=== PATIENT | male | born 1950 | race Caucasian/White ===

== ENCOUNTER 2020-11-04 11:44 | Outpatient (REF) | payer MEDICARE, OTHER, SELFPAY ==
--- NOTE | ~2020-11-04 | XR_ITS ---
EXAMINATION: XR KNEE, RIGHT CLINICAL INFORMATION: Effusion right knee COMPARISON: None TECHNIQUE: Four views of the right knee. FINDINGS: There is loss of tricompartment joint space. No loose bodies or bony erosive changes seen. This is mild suprapatellar joint effusion acute fracture or dislocation seen. XR/XR knee RT 4V IMPRESSION: Mild suprapatellar joint effusion with degenerative changes in the tricompartments. No loose bodies or bony erosive changes.
== END 2020-11-04 11:45 | disposition home or self-care (01) ==
LOC: HO.XRAY 11:44
PROVIDERS: PCP Family Medicine; Visit Provider Family Medicine
DX: M25.461 Effusion, right knee (principal); M25.561 Pain in right knee
CPT/HCPCS: 73564

== ENCOUNTER → 2020-11-20 14:14 | Outpatient (BNVA) | payer MEDICARE, MEDICAID, SELFPAY | PROVIDERS: PCP Family Medicine; Referring Provider Family Medicine; Visit Provider Surgery | DX: Z85.038 Personal history of other malignant neoplasm of large intestine (principal) | CPT/HCPCS: 99212 ==

== ENCOUNTER 2020-12-20 08:22 | Day surgery (SDC) | payer MEDICARE, MEDICAID, SELFPAY ==
--- NOTE | 2020-12-19 08:45 | HO.ANESPROP2 ---
Documented by User: Opal Cid 12/19/20 08:48 HPI - Anesthesia Eval Consult details Narrative: 70yo M for Colonoscopy, Poss Polypectomy PMFSH Active Problems Active Problems: All Active Problems (Updated 11/20/20 @ 14:36 by Mitch Lopez MD) History of colon cancer (Acute) Past Medical History Medical History BPH (benign prostatic hyperplasia) CKD (chronic kidney disease) Depression GERD (gastroesophageal reflux disease) History of colon cancer HTN (hypertension) REJI (obstructive sleep apnea) Surgical History Surgical History H/O parathyroidectomy Social History Social History Patient Tobacco Use Status: Never used Tobacco Use of substances other than those prescribed or required for medical reasons: No Have you been hit, kicked, punched, or otherwise hurt by someone within the past year? If so, by whom?: No Are you DNR?: No Advance Directives: No Advance Directives Information Provided: Yes Nutrition Risks: No Nutritional Risk Meds Allergies Allergy/AdvReac Type Severity Reaction Status Date / Time No Known Allergies Allergy Mild N/A Verified 11/20/20 14:21 Home Medications Medication Instructions Recorded Confirmed Last Taken Type acetaminophen 500 mg tablet 500 mg PO Q6H PRN 11/20/20 11/20/20 Unknown History cholecalciferol (vitamin D3) 25 25 mcg PO QAM 11/20/20 11/20/20 Unknown History mcg (1,000 unit) capsule losartan 100 mg tablet 100 mg PO DAILY 11/20/20 11/20/20 Unknown History omeprazole 20 mg capsule,delayed 20 mg PO DAILY 11/20/20 11/20/20 Unknown History release sildenafil 100 mg tablet 100 mg PO DAILY PRN 11/20/20 11/20/20 Unknown History Exam Exam Date and Time: December 19, 202045 Assessment and Plan Assessment Anesthesia Assessment: Chart Reviewed Documented by User: Erendira Luong 12/20/20 08:39 [facility] Past Medical History Medical History BPH (benign prostatic hyperplasia) CKD (chronic kidney disease) Depression GERD (gastroesophageal reflux disease) History of colon cancer HTN (hypertension) REJI (obstructive sleep apnea) Family History Family history of problems with anesthesia: No Surgical History Surgical History H/O parathyroidectomy History of Problems with Anesthesia: No Social History Social History Patient Tobacco Use Status: Never used Tobacco Use of substances other than those prescribed or required for medical reasons: No Have you been hit, kicked, punched, or otherwise hurt by someone within the past year? If so, by whom?: No Are you DNR?: No Advance Directives: No Advance Directives Information Provided: Yes Nutrition Risks: No Nutritional Risk Meds Allergies Allergy/AdvReac Type Severity Reaction Status Date / Time No Known Allergies Allergy Mild N/A Verified 11/20/20 14:21 Home Medications Medication Instructions Recorded Confirmed Last Taken Type acetaminophen 500 mg tablet 500 mg PO Q6H PRN 11/20/20 11/20/20 Unknown History cholecalciferol (vitamin D3) 25 25 mcg PO QAM 11/20/20 11/20/20 Unknown History mcg (1,000 unit) capsule losartan 100 mg tablet 100 mg PO DAILY 11/20/20 11/20/20 Unknown History omeprazole 20 mg capsule,delayed 20 mg PO DAILY 11/20/20 11/20/20 Unknown History release sildenafil 100 mg tablet 100 mg PO DAILY PRN 11/20/20 11/20/20 Unknown History Exam Airway Mallampati Class: II TM Dist: >3cm Neck ROM: Full Assessment and Plan Assessment Anesthesia Assessment: Anesthesia Plan Discussed Final Anesthetic Review Family History of Problems with Anesthesia: No History of Problems with Anesthesia: No NPO: Yes ASA Class: III Final Preanesthetic Review: No Changes in Pt Med Stat, Meds/Allgs Chart Reviewed, Consent Obtained/Reviewed and Anes Risks/Benef Reviewed Patient Risk: Intermediate Procedure Risk: Low Assessment/Block/Sedation in SS: Assess/Block/Sedation-SS Anesthetic Plan Anesthetic Plan: MAC: Disposition: Standard PACU
[2020-12-20 06:34] VITALS: BMI 38.7
[2020-12-20 08:24] VITALS: BP 166/87; PULSE 64; RESP 18; TEMP 36.9; O2SAT 98
--- NOTE | 2020-12-20 08:36 | MHC.SHP ---
Pre-Procedural Eval Section A Date of Service: 12/20/20 Section B Chief Complaint: Hx of Colon Cancer Allergies: Allergies Allergy/AdvReac Type Severity Reaction Status Date / Time No Known Allergies Allergy Mild N/A Verified 11/20/20 14:21 Plan I have reviewed the history and physical and performed a pertinent physical examination on my patient. No changes have occurred unless specified.
[2020-12-20] MEDS: Lactated Ringers 1,000 ML 100 ML IVCONT (08:38)
--- NOTE | 2020-12-20 09:40 | P.OP_ITS ---
Operative Note Operative Note Date of Service: 12/20/20 Narrative: Preop diagnosis: History of malignant rectal polyp Postop diagnosis: 1. Small flat polyp in the cecum near the cecal lip , about 7 mm 2. Large polyp, about 2 cm in diameter, in the mid right colon 3. External hemorrhoids Procedure: Colonoscopy with polypectomy of a small polyp in the cecum with biopsy forceps, biopsy of a large polyp in the right colon with tattoo marking Surgeon: Mitch Lopez MD The patient is a 70-year-old male who had a history of malignant rectal polyp in 2019, who I had scheduled for a follow-up colonoscopy. He had missed his colo noscopy last year because of the coronavirus pandemic. He understands the technique of colonoscopy as well as the risks, benefits, and alternatives. He was brought to the operating room placed in left lateral decubitus position under monitored anesthesia care. A full digital rectal was done. Aside from external hemorrhoids, I did not feel any palpable lesions. I inserted the scope gently through the anal orifice advanced with insufflation all with the cecum. The cecum was intubated. The was cecum identified by visualization of the ileocecal valve as well as the appendiceal orifice. The cecal mucosa examined carefully. In the cecal lip was note of a small flat polyp about 7 mm in size and this was removed with multiple bites of the cold forceps We withdraw the scope gently there was note of a large polyp about 2 cm in the mid part of the right colon. Biopsies of this were done with the cold forceps. I also marked the area with tattoo markings injected submucosally. I then proceeded to withdraw the scope with care being taken so as to ensure that we were not missing any lesions. The patient had some says pools of thin stools in some segments and do some irrigation and suctioning it was unlikely that any lesion may have been missed Rectum was reached. I made multiple passes in the rectum and sigmoid and I could not identify any recurrent lesion or any suggestion of any residual lesion. The anal canal was examined carefully. There was note of external hemorrhoids but no other lesions seen. The scope was then withdrawn completely with desufflation The patient tolerated procedure well. The complication noted I will await for the path report and decide on the next plan of care. I may attempt a colonoscopy with removal of the polyp with snare if this turns out to be benign. Otherwise, he may need a resection of the right colon.
[2020-12-20 09:46] VITALS: BP 129/74; PULSE 76; RESP 16; TEMP 36.7; O2SAT 99
--- NOTE | 2020-12-20 09:46 | PM.OP ---
Brief Operative Note Date of Service: 12/20/20 Pre-op diagnosis: History of malignant rectal polyp Post-op diagnosis: other (Small polyp in the cecum, large polyp in the right colon, hemorrhoids) Procedure: Colonoscopy with polypectomy using cold forceps, biopsy of the right colon polyp using cold forceps, tattoo markings Surgeon: Mitch Lopez MD Anesthesia: MAC Was an Retail Loss Prevention Specialist used for this Procedure?: No Estimated blood loss (mL): 2 Pathology: other (1. Cecal polyp 2. Right colon polyp ) Condition: stable Disposition: PACU
[2020-12-20 10:04] VITALS: BP 144/92; PULSE 71; RESP 18; TEMP 36.7; O2SAT 98
== END 2020-12-20 11:43 | disposition home or self-care (01) ==
PROVIDERS: PCP Family Medicine; Visit Provider Surgery
PROC: 0DJD8ZZ Inspection of Lower Intestinal Tract, Via Natural or Artificial Opening Endoscopic (ICD-10-PCS; CPT 45378; principal; 2020-12-20 09:20)
DX: Z12.11 Encounter for screening for malignant neoplasm of colon (principal); Z85.038 Personal history of other malignant neoplasm of large intestine; C18.2 Malignant neoplasm of ascending colon; D12.0 Benign neoplasm of cecum; K64.8 Other hemorrhoids; K64.4 Residual hemorrhoidal skin tags; I12.9 Hypertensive chronic kidney disease with stage 1 through stage 4 chronic kidney disease, or unspecified chronic kidney disease; N18.9 Chronic kidney disease, unspecified; K21.9 Gastro-esophageal reflux disease without esophagitis; N40.0 Benign prostatic hyperplasia without lower urinary tract symptoms; G47.33 Obstructive sleep apnea (adult) (pediatric); Z79.899 Other long term (current) drug therapy
CPT/HCPCS: 45380; 45381; 88305

== ENCOUNTER → 2021-01-01 13:07 | Outpatient (BNVA) | payer MEDICARE, MEDICAID, SELFPAY | PROVIDERS: PCP Family Medicine; Referring Provider Family Medicine; Visit Provider Surgery | DX: C18.2 Malignant neoplasm of ascending colon (principal) | CPT/HCPCS: 99212 ==

== ENCOUNTER 2021-01-17 13:54 | Outpatient (REF) | payer MEDICARE, MEDICAID, SELFPAY ==
[2021-01-17 14:39] LABS: Blood Urea Nitrogen 11 mg/dL (9-16); Estimated Glomerular Filt Rate 54
== END 2021-01-17 13:55 | disposition home or self-care (01) ==
LOC: HO.LAB 13:54
PROVIDERS: PCP Family Medicine; Visit Provider Surgery
DX: C18.2 Malignant neoplasm of ascending colon (principal)
CPT/HCPCS: 36415; 82565; 84520

== ENCOUNTER 2021-01-21 | Outpatient (REF) | payer MEDICARE, MEDICAID, SELFPAY ==
--- NOTE | 2021-01-21 | ECG_ITS ---
Test Reason : CKD, REJI Blood Pressure : / mmHG Vent. Rate : 079 BPM Atrial Rate : 079 BPM P-R Int : 180 ms QRS Dur : 106 ms QT Int : 432 ms P-R-T Axes : 054 -36 014 degrees QTc Int : 495 ms Sinus rhythm with frequent Premature ventricular complexes Left axis deviation Moderate voltage criteria for LVH, may be normal variant Cannot rule out Septal infarct , age undetermined Abnormal ECG When compared with ECG of 12-NOV-2008 14:50, Aberrant conduction is no longer Present Minimal criteria for Septal infarct are now Present Nonspecific T wave abnormality now evident in Lateral leads QT has lengthened Referred By: Opal Cid Electronically Signed By:JEFFREY AGUIAR
--- NOTE | 2021-01-21 11:59 | HO.ANESPROP2 ---
HPI - Anesthesia Eval Consult details Narrative: PENDING CARDIAC W/U AND CLEAR 70yo M for Hand Assisted Laparoscopic Bowel Resection s/p Colonoscopy with MAC 12/21/20 - no issues with anesthesia 01/21/21 EKG Abnormal. Cardiac clearance requested via Gen surgeon learning administrator, Estefania 01/22/21 @ 1350 01/24/21 Echo abnormal - Pt scheduled for stress test [facility] Active Problems Active Problems: All Active Problems (Updated 01/01/21 @ 13:59 by Mitch Lopez MD) Cancer of right colon (Acute) History of colon cancer (Acute) Past Medical History Medical History (Updated 01/27/21 @ 14:52 by Gaetano Graves MD) Anxiety and depression Arthritis BPH (benign prostatic hyperplasia) Cancer of right colon CKD (chronic kidney disease) COVID-19 vaccine series completed Depression GERD (gastroesophageal reflux disease) Headache History of colon cancer HTN (hypertension) Hx of renal calculi REJI (obstructive sleep apnea) Family History Family history of problems with anesthesia: No (Sister with hx of post-op delerium) Surgical History Surgical History (Updated 01/21/21 @ 12:52 by Barbara Franklin, RN) H/O parathyroidectomy History of colonoscopy History of cystoscopy Hx of lithotripsy History of Problems with Anesthesia: No Social History Social History (Updated 01/21/21 @ 12:50 by Barbara Franklin, RN) Are you a primary career development director to a significant other at home: No Do you presently have visiting nurse or other home services: No Patient Tobacco Use Status: Never used Tobacco Narrative Narrative: No recent illness No CP/SOB with walking. Limited by knee pain Meds Allergies Allergy/AdvReac Type Severity Reaction Status Date / Time No Known Allergies Allergy Mild N/A Verified 01/21/21 12:56 Home Medications Medication Instructions Recorded Confirmed Last Taken Type acetaminophen 500 mg tablet 500 mg PO Q6H PRN 11/20/20 01/01/21 Unknown History cholecalciferol (vitamin D3) 25 25 mcg PO QAM 11/20/20 01/01/21 Unknown History mcg (1,000 unit) capsule losartan 100 mg tablet 100 mg PO DAILY 11/20/20 01/21/21 Unknown History omeprazole 20 mg capsule,delayed 20 mg PO DAILY PRN 11/20/20 01/21/21 Unknown History release sildenafil 100 mg tablet 100 mg PO DAILY PRN 11/20/20 01/01/21 Unknown History amlodipine 10 mg tablet 1 tab PO QAM 01/21/21 01/21/21 Unknown History carvedilol 6.25 mg tablet 1 tab PO BID 01/21/21 01/21/21 Unknown History Exam Exam Date and Time: January 21, 2021 1159 Pertinent Lab Results Pertinent Lab Results: Lab Results 01/21/21 01/21/21 01/21/21 Range/Units 13:55 13:55 13:55 WBC 5.3 (4.8-10.8) X10*3/uL RBC 4.85 (4.60-5.80) X10*6/uL Hgb 13.8 L (14.0-18.0) g/dl Hct 42.2 (42-52) % MCV 87.0 (80-98) fL MCH 28.5 (27.0-33.0) pg MCHC 32.7 (31.0-36.0) g/dl RDW 13.1 (11.0-16.0) % Plt Count 225 (160-400) X10*3/uL MPV 11.7 (9.4-12.4) fL Absolute Nucleated RBC 0.000 (0.0-0.012) X10*3/uL Nucleated RBC % (auto) 0.0 (0.0-0.2) /100WBC Sodium 141 (135-145) mmol/L Potassium 3.5 (3.3-5.1) mmol/L Chloride 104 (96-108) mmol/L Carbon Dioxide 28 (22-29) mmol/L Anion Gap 13 (12-20) BUN 13 (9-16) mg/dL Creatinine 1.19 (0.5-1.4) mg/dL Estim Creat Clear Calc 80.9 Estimated GFR > 60 Random Glucose 122 H (60-115) mg/dL Calcium 9.0 (8.4-10.2) mg/dL Blood Type O Positive Antibody Screen NEGATIVE Narrative Narrative: EKG 12/2020 Vent. Rate : 079 BPM ? ? Atrial Rate : 079 BPM ?? P-R Int : 180 ms? QRS Dur : 106 ms ? ? QT Int : 432 ms ? ? ? P-R-T Axes : 054 -36 014 degrees ?? QTc Int : 495 ms ? Sinus rhythm with frequent Premature ventricular complexes Left axis deviation Moderate voltage criteria for LVH, may be normal variant Cannot rule out Septal infarct , age undetermined Abnormal ECG When compared with ECG of 12-NOV-2008 14:50, Aberrant conduction is no longer Present Minimal criteria for Septal infarct are now Present Nonspecific T wave abnormality now evident in Lateral leads QT has lengthened Echo 01/2021 Conclusions: -? 1. Mildly to moderately reduced LV systolic function with ? ? inferior inferoseptal wall motion abnormality with impaired? ? ? relaxation filling pattern ? 2. Trace aortic and mitral regurgitation ? 3. Normal RV systolic pressure ? 4. No pericardial effusion ? Airway Mallampati Class: III TM Dist: >3cm Neck ROM: Full Partial: Upper Heart: RRR Lungs: CTAB Assessment and Plan Assessment Anesthesia Assessment: Anesthesia Plan Discussed and PAT Visit Final Anesthetic Review Family History of Problems with Anesthesia: No (Sister with hx of post-op delerium) History of Problems with Anesthesia: No
[2021-01-21 12:18] VITALS: BP 147/62; PULSE 71; RESP 16; O2SAT 98; BMI 39.3
[2021-01-21 14:28] LABS: Hematocrit 42.2 % (42-52); Hemoglobin 13.8 g/dl (14.0-18.0); Mean Corpuscular HGB Conc 32.7 g/dl (31.0-36.0); Mean Corpuscular Hemoglobin 28.5 pg (27.0-33.0); Mean Platelet Volume 11.7 fL (9.4-12.4); Platelet Count 225 X10*3/uL (160-400); Red Blood Count 4.85 X10*6/uL (4.60-5.80); Red Cell Distribution Width 13.1 % (11.0-16.0); White Blood Count 5.3 X10*3/uL (4.8-10.8)
[2021-01-21 14:56] LABS: Anion Gap 13 (12-20); Blood Urea Nitrogen 13 mg/dL (9-16); Carbon Dioxide 28 mmol/L (22-29); Chloride 104 mmol/L (96-108); Creatinine Clr Calc Pharmacy 80.9; Estimated Glomerular Filt Rate > 60; Glucose Random 122 mg/dL (60-115); Potassium 3.5 mmol/L (3.3-5.1); Sodium 141 mmol/L (135-145)
--- NOTE | 2021-01-28 07:18 | PC.NURSE ---
pt canceled himself last night spoke to dr trevino everyone aware
== END 2021-01-21 00:01 | disposition home or self-care (01) ==
LOC: HO.LAB
PROVIDERS: Nurse Practitioner; PCP Family Medicine; Visit Provider Surgery
DX: Z01.810 Encounter for preprocedural cardiovascular examination (principal); C18.2 Malignant neoplasm of ascending colon; G47.30 Sleep apnea, unspecified; G47.33 Obstructive sleep apnea (adult) (pediatric); I49.3 Ventricular premature depolarization; I45.81 Long QT syndrome; I12.9 Hypertensive chronic kidney disease with stage 1 through stage 4 chronic kidney disease, or unspecified chronic kidney disease; N18.9 Chronic kidney disease, unspecified; F41.8 Other specified anxiety disorders; Z79.899 Other long term (current) drug therapy
CPT/HCPCS: 36415; 80048; 85027; 86850; 86900; 86901; 93005

== ENCOUNTER 2021-01-23 08:23 | Outpatient (REF) | payer MEDICARE, MEDICAID, SELFPAY ==
--- NOTE | ~2021-01-23 | CT_ITS ---
EXAMINATION: CT ABDOMEN AND PELVIS WITH CONTRAST CLINICAL INFORMATION: Malignant neoplasm of the ascending colon. COMPARISON: 09/22/2018 TECHNIQUE: Multidetector volumetric images were obtained from the superior aspect of the liver through the pubic symphysis following administration 85 mL of Omnipaque 350 intravenous contrast. Sagittal and coronal reformatted images were obtained on the technologist's workstation. Oral contrast: No. This CT examination was performed using dose optimization techniques as appropriate, variously including the following: *Automated exposure control *Adjustment of mA and/or kV according to patient size (this includes techniques or standardized protocols for targeted exams where dose is matched to indication/reason for exam; i.e. extremities or head) *Use of iterative reconstruction technique DLP: 663 mGy-cm FINDINGS: LUNG BASES: There is a calcified granuloma seen within the left lower lobe. No pleural or pericardial effusion identified. There is a 6 mm noncalcified nodule seen within the right middle lobe on image 35 of 831 in series #4. This was present on prior study of 09/22/2018 and is stable. There is a 5 mm noncalcified nodule seen within the left lower lobe on image 127 of 831. This was present on prior study and is stable. LIVER, GALLBLADDER, AND BILIARY TREE: There are multiple stable cysts present within the liver. No focal solid mass or intrahepatic bile duct dilatation is appreciated. There appears be fatty infiltration of the liver. The gallbladder is unremarkable with no evidence of radiopaque gallstones, gallbladder wall thickening, or obvious pericholecystic inflammatory changes. PANCREAS: Unremarkable. SPLEEN: Unremarkable. ADRENAL GLANDS: Unremarkable. KIDNEYS AND URETERS: There are bilateral renal low-density lesions consistent with cysts. No hydronephrosis or definite solid masses are appreciated. No calculi are seen. There are bilateral extrarenal pelves. There is some hazy density within the fat adjacent to the left upper collecting system. BLADDER: Unremarkable. GASTROINTESTINAL TRACT: No dilated loops of large or small bowel. No free air or free fluid. No evidence of acute diverticulitis or colitis. The appendix appears unremarkable. Within the ascending colon is a question of a 2 cm region of wall thickening which could possibly represent an apple core type lesion. There is a second adjacent density with questioned wall thickening and lumen narrowing within the right colon. These could possibly both represent lesions or peristalsis. ABDOMINAL WALL: No significant hernia is appreciated. There is a small fat-containing umbilical hernia. LYMPH NODES: There are prominent but nonenlarged mesenteric lymph nodes measuring up to 8 mm in diameter. VASCULAR: Unremarkable. PELVIC VISCERA: Prostatic calcification present. No abnormal mass or free fluid. OSSEOUS STRUCTURES: There appears be a hemangioma within the T7 vertebral body. No suspicious destructive bony lesions identified. CT/CT abdomen pelvis w con IMPRESSION: Stable lung nodules and old granulomatous disease. Hepatic and renal cysts. Fatty infiltration of the liver. Question 2 adjacent approximately 2 cm regions of bowel wall thickening within the ascending colon, as described. These could represent apple core type lesions or could be regions of peristalsis.
[2021-01-23] MEDS: iohexoL 350 MG/ML 100 ML INFUS..BTL IV (09:36)
== END 2021-01-23 08:24 | disposition home or self-care (01) ==
LOC: HO.CT 08:23
PROVIDERS: Visit Provider Surgery
DX: Z01.810 Encounter for preprocedural cardiovascular examination (principal); C18.2 Malignant neoplasm of ascending colon; I49.3 Ventricular premature depolarization; R94.31 Abnormal electrocardiogram [ECG] [EKG]
CPT/HCPCS: 74177; 99202; Q9967

== ENCOUNTER → 2021-01-24 09:54 | Outpatient (REF) | payer MEDICARE, MEDICAID, SELFPAY ==
--- NOTE | 2021-01-24 10:04 | CA_ITS ---
Transthoracic Echocardiogram Patient (Last, First, Middle): Pedro Garcia, Gender: Male Date of : 1950 Age: 70 Procedure Date: 01/24/2021 Procedure Type: Transthoracic Echocardiogram Location: OP Height: 180.34 cm Weight: 127.01 kg BSA: 2.43 m2 Heart Rate: bpm BP: 130 / 80 mmHg Guest Services: SARA/JENNYFER Referring MD: Gaetano Graves MD Manager Metal: Kurt Douglas MD Symptoms: I49.3 - Ventricular premature depolarization Study Quality: Fair/Contrast ECG Rhythm: Sinus with extra beats Conclusions: - 1. Mildly to moderately reduced LV systolic function with inferior inferoseptal wall motion abnormality with impaired relaxation filling pattern 2. Trace aortic and mitral regurgitation 3. Normal RV systolic pressure 4. No pericardial effusion Findings Procedure Information Contrast agent, definity, is being given per protocol without apparent complications. Left Ventricle Normal left ventricular cavity size. There is normal left ventricular wall thickness. The left ventricular systolic function is mild to moderately decreased. The visually estimated ejection fraction is between 40-45%. Spectral Doppler is indicative of an impaired relaxation filling pattern. Wall Motion Rest Echo Findings The mid inferoseptal segment is hypokinetic. The basal inferior, mid inferior, and basal inferoseptal segments are akinetic. All other scored wall segments showed normal motion. Right Ventricle Normal right ventricular cavity size and systolic function. Atria The left atrium is likely dilated. There is no evidence of interatrial shunt. The right atrium is normal in size. Aortic Valve Normal aortic valve structure and function. There is no aortic valve stenosis. There is trace (trivial) aortic valve regurgitation. Mitral Valve There is mild posterior mitral leaflet thickening. There is trace mitral valve regurgitation. There is no mitral valve stenosis. Pulmonic Valve The pulmonic valve was not well visualized. Tricuspid Valve Likely normal tricuspid valve structure and function. There is trace tricuspid valve regurgitation. The right ventricular systolic pressure is normal. The right ventricular systolic pressure is 28 mmHg. Normal right atrial pressure. There is no evidence of pulmonary hypertension. Great Vessels The pulmonary artery was not well visualized. There is mild dilatation of the ascending aorta measuring 3.80 cm. Venous The inferior vena cava is normal in size and collapses greater than 50% with inspiration. Pericardium/Pleural There is no evidence of pericardial effusion. Prior Study Comparison No previous study in the last 5 years for comparison Measurements 2D Linear Measurements IVSd: 1.03 0.6-0.9/0.6-1.0 cm LVIDd: 5.74 3.9-5.3/4.2-5.9 cm LVIDd Index: 2.36 2.4-3.2/2.2-3.1 cm/m2 LVIDs: 4.91 2.0-3.6 cm LVPWd: 0.98 0.7-1.1 cm Ao Root: 3.60 2.1-3.5 cm LA Diam: 4.20 2.7-3.8/3.0-4.0 cm LAIDs Index: 1.73 1.5-2.3 cm/m2 LV Mass: 287.61 67-162/88-224 g LV Mass Index: 118.36 43-95/49-115 g/m2 LVOT Diam: 2.10 3.0+(-)1.3 cm 2D Systolic Function EF 4C: 49.30 >55% EF 2C: 38.90 >55% EF BiP: 44.40 >55% Mitral Valve MV Pk E: 0.67 MV PK A: 1.03 MV Decel Time: 267.00 E/A: 0.60 E'Lateral: 3.70 E'Medial: 3.15 E/E' Med: 21.20 E/E' Lat: 18.00 PHT: 78.00 MVA PHT: 2.82 Decel [place]: 2.50 Aortic Valve AoV Pk Duncan: 1.29 AoV Mn Duncan: 1.05 AoV VTI: 0.29 AoV Pk Grad: 7.00 Aov Mn Grad: 5.00 TYLOR Cont.VTI: 2.03 LVOT LVOT Pk Duncan: 0.68 LVOT Mn Duncan: 0.52 LVOT VTI: 0.17 LVOT Pk Grad: 2.00 LVOT Mn Grad: 1.00 LVOT Diam: 2.10 LVOT Area: 3.46 Diastolic Function MV Pk E: 0.67 MV Pk A: 1.03 E/A: 0.60 E'Medial: 3.15 E/E' Med: 21.20 E' Laterial: 3.70 E/E' Lat: 18.00 Right Ventricle TAPSE (mm): 1.40 TVS' Duncan: 8.16 Tricuspid Valve TR Pk Duncan: 2.50 TR Pk Grad: 25.00 RA Press: 3.00 RVSP: 28.00 Great Vessels Aorta Ao Root-2D: 3.60 2.0-3.7 cm Ao Asc: 3.80 2.1-3.4 cm Ao Arch: 2.80 Updated in Other Vendor System with Status of Final Kurt Douglas MD electronically signed on 01/26/2021 12:07:26 PM with status of Final
== END ==
LOC: HO.CARD 09:54
PROVIDERS: Visit Provider Internal Medicine Cardiovascular Disease
DX: I49.3 Ventricular premature depolarization (principal)
CPT/HCPCS: 93306; Q9957

== ENCOUNTER 2021-07-15 12:17 | Outpatient (REF) | payer MEDICARE, MEDICAID, SELFPAY ==
[2021-07-15 14:00] LABS: Hematocrit 44.3 % (42.0-52.0); Hemoglobin 14.3 g/dl (14.0-18.0); Mean Corpuscular HGB Conc 32.3 g/dl (31.0-36.0); Mean Corpuscular Hemoglobin 27.8 pg (27.0-33.0); Mean Corpuscular Volume 86.2 fL (80.0-98.0); Mean Platelet Volume 11.6 fL (9.4-12.4); Platelet Count 217 X10*3/uL (160-400); Red Blood Count 5.14 X10*6/uL (4.60-5.80); Red Cell Distribution Width 13.8 % (11.0-16.0); White Blood Count 5.4 X10*3/uL (4.8-10.8)
[2021-07-15 14:05] LABS: Estimated Average Glucose 157 mg/dL; Hemoglobin A1c % 7.1 %
[2021-07-15 14:18] LABS: Alanine Aminotransferase 25 U/L (0-40); Albumin Level 4.2 g/dL (3.5-5.0); Alkaline Phosphatase 80 U/L (39-117); Anion Gap 11 (12-20); Aspartate Amino Transferase 23 U/L (5-37); Bilirubin Total 0.8 mg/dL (0.0-1.0); Blood Urea Nitrogen 11 mg/dL (9-16); Calcium 8.9 mg/dL (8.4-10.2); Carbon Dioxide 33 mmol/L (22-29); Chloride 103 mmol/L (96-108); Cholesterol 154 mg/dL; Estimated Glomerular Filt Rate 59; Glucose Random 113 mg/dL (60-115); HDL Cholesterol 41 mg/dL; LDL Cholesterol Calculated 98 mg/dl; Potassium 3.6 mmol/L (3.3-5.1); Sodium 143 mmol/L (135-145); Total Protein 7.6 g/dL (6.5-8.0); Triglycerides 78 mg/dL
[2021-07-15 14:41] LABS: TSH reflex Free T4 2.53 uIU/mL (0.32-4.0); Vitamin D 25-OH Total 26.4 ng/mL (>30)
[2021-07-15 14:42] LABS: Vitamin B12 202 pg/mL (200-900)
[2021-07-15 15:53] LABS: CT PCR NOT DETECTED (Not Detect.); NG PCR NOT DETECTED (Not Detect.)
[2021-07-16 07:54] LABS: HIV AB/AG Nonreactive (Nonreactive); HIV Num 1 0.07 S/CO (0.00-0.99)
[2021-07-16 08:04] LABS: ~HepC Num1 0.08 S/CO (0.00-0.79); ~Hepatitis C Antibody Nonreactive (Nonreactive)
[2021-07-16 13:01] LABS: Calcium (PTHI) 8.6 mg/dL (8.6-10.3); PTHI 72 pg/mL (14-64)
== END 2021-07-15 12:18 | disposition home or self-care (01) ==
LOC: HO.LAB 12:17
PROVIDERS: PCP Family Medicine; Visit Provider Family Medicine
DX: C18.9 Malignant neoplasm of colon, unspecified (principal); E21.3 Hyperparathyroidism, unspecified; E78.5 Hyperlipidemia, unspecified; G47.33 Obstructive sleep apnea (adult) (pediatric); I10 Essential (primary) hypertension; I49.9 Cardiac arrhythmia, unspecified; N18.30 Chronic kidney disease, stage 3 unspecified
CPT/HCPCS: 80053; 80061; 82306; 82607; 83036; 83970; 84443; 85027; 86803; 87389; 87491; 87591

== ENCOUNTER 2023-02-18 11:07 | Outpatient (REF) | payer OTHER, SELFPAY ==
[2023-02-18 14:06] LABS: Creatinine Urine 94.95 mg/dL; Microalbum/Creatinine Ratio Ur 8.4 ug/mg cr (<30)
== END 2023-02-18 11:08 | disposition home or self-care (01) ==
LOC: HO.HHCL 11:07
PROVIDERS: Visit Provider Family Medicine
DX: E11.9 Type 2 diabetes mellitus without complications (principal)
CPT/HCPCS: 82043; 82570

== ENCOUNTER 2023-11-03 10:22 | Outpatient (REF) | payer OTHER, SELFPAY ==
[2023-11-03 11:54] LABS: Alanine Aminotransferase 28 U/L (0-40); Albumin Level 4.1 g/dL (3.5-5.0); Alkaline Phosphatase 62 U/L (39-117); Anion Gap 9 (12-20); Aspartate Amino Transferase 27 U/L (5-37); Bilirubin Direct 0.3 mg/dL (0.0-0.5); Bilirubin Total 0.7 mg/dL (0.0-1.0); Blood Urea Nitrogen 15 mg/dL (9-16); Calcium 8.6 mg/dL (8.4-10.2); Carbon Dioxide 30 mmol/L (22-29); Chloride 105 mmol/L (96-108); Cholesterol 156 mg/dL (<200); Estimated Glomerular Filt Rate 56; Glucose Random 121 mg/dL (60-115); HDL Cholesterol 43 mg/dL (>40); LDL Cholesterol Calculated 104 mg/dL (<100); Potassium 3.3 mmol/L (3.3-5.1); Sodium 141 mmol/L (135-145); Total Protein 7.5 g/dL (6.5-8.0); Triglycerides 48 mg/dL (<150)
[2023-11-03 12:21] LABS: Creatinine Urine 96.39 mg/dL; Microalbum/Creatinine Ratio Ur 12.4 ug/mg cr (<30)
== END 2023-11-03 10:23 | disposition home or self-care (01) ==
LOC: HO.HHCL 10:22
PROVIDERS: Visit Provider Family Medicine
DX: E78.5 Hyperlipidemia, unspecified (principal); E11.9 Type 2 diabetes mellitus without complications
CPT/HCPCS: 36415; 80048; 80061; 80076; 82043; 82570

== ENCOUNTER 2023-11-03 10:25 | Outpatient (REF) | payer OTHER, SELFPAY | END 2023-11-03 10:26 | disposition home or self-care (01) | LOC: HO.HHCL 10:25 | PROVIDERS: Visit Provider Family Medicine | DX: Z13.89 Encounter for screening for other disorder (principal) ==

== ENCOUNTER 2024-01-27 10:05 | Outpatient (REF) | payer OTHER, SELFPAY ==
[2024-01-27 12:16] LABS: Parathyroid Hormone Intact 79.7 pg/mL (8.7-77.1)
[2024-01-27 12:17] LABS: Calcium 8.6 mg/dL (8.4-10.2); Estimated Glomerular Filt Rate 44; Vitamin D 25-OH Total 28.1 ng/mL (>30)
[2024-01-27 12:20] LABS: Creatinine Urine 150.99 mg/dL; Microalbum/Creatinine Ratio Ur 6.6 ug/mg cr (<30)
== END 2024-01-27 10:06 | disposition home or self-care (01) ==
LOC: HO.HHCL 10:05
PROVIDERS: Visit Provider Family Medicine
DX: E21.3 Hyperparathyroidism, unspecified (principal)
CPT/HCPCS: 36415; 82043; 82306; 82310; 82565; 82570; 83970

== ENCOUNTER 2024-02-16 08:55 | Outpatient (AMB) | payer OTHER, SELFPAY ==
--- NOTE | 2024-02-16 08:57 | HO.NEPHOV_ITS ---
Vital Signs 02/16/24 08:58 02/16/24 09:16 Height 5 ft 11 in Weight 277 lb BMI 38.6 BP 152/104 H 140/80 H Blood Pressure Location Lt brachial Lt brachial Position Sitting Sitting Pulse 62 Pulse Source Pulse Oximeter Pulse Oximetry (%) 97 Oxygen Delivery Method Room Air Intake Visit Reasons: STG3 CKD/ Conf Electrical Mechanic Required: Yes Electrical Mechanic Name: saima [id number] Accompanied by: Self / Same As Patient Allergies No Known Allergies Allergy (Mild, Verified 02/16/24 09:02) N/A Medication List - Last Reconciled 02/16/24 by Kenny Grossman MD acetaminophen 500 mg PO Q6H PRN amlodipine 1 tab PO QAM carvedilol 1 tab PO BID cholecalciferol (vitamin D3) 25 mcg PO QAM empagliflozin-metformin 10-1,000 mg ER (Synjardy XR) PO DAILY losartan 100 mg PO DAILY omeprazole 20 mg PO DAILY PRN rosuvastatin 40 mg PO DAILY sildenafil 100 mg PO DAILY PRN HPI Comments Details: . 73-year-old man with a history of longstanding diabetes mellitus. He has been r eferred for evaluation of CKD. Recent creatinine was 1.3 mg/dL. Ongoing medical problems increase her longstanding diabetes mellitus. History of colon cancer- invasive moderately differentiated adenocarcinoma back in 2019. Underwent laparoscopic right colectomy with colonoscopy in 03/12/2021 at [facility]. T2 N0 no chemotherapy was needed. History of hypertension. History of mild to moderately reduced LV systolic function with inferior inferoseptal wall motion abnormality with impaired relaxation filling pattern. History of renal stones in the past and has undergone urologic procedure. Today he has no specific complaints. No headache nausea vomiting. No shortness of breath. No chest pain. No urinary symptoms. No diarrhea constipation. [facility] Medical History (Updated 02/16/24 @ 09:13 by Kenny Grossman MD) Arthritis Anxiety and depression Headache COVID-19 vaccine series completed Hx of renal calculi Cancer of right colon GERD (gastroesophageal reflux disease) BPH (benign prostatic hyperplasia) CKD (chronic kidney disease) Depression REJI (obstructive sleep apnea) HTN (hypertension) History of colon cancer Surgical History History of cystoscopy Hx of lithotripsy History of colonoscopy H/O parathyroidectomy Social History Are you a primary critical care clinical nurse specialist to a significant other at home: No Do you presently have visiting nurse or other home services: No Patient Tobacco Use Status: Never used Tobacco Review of Systems Const Denies fever(s) and Denies weight loss Card Denies chest pain Resp Denies cough and Denies hemoptysis GI Denies abdominal pain, Denies diarrhea and Denies nausea Musc Denies back pain Neuro Denies focal weakness Physical Exam Vital Signs: Last Vital Signs Pulse 62 02/16/24 08:58 BP 140/80 H 02/16/24 09:16 Pulse Ox 97 02/16/24 08:58 Oxygen Delivery Method Room Air 02/16/24 08:58 BMI result Body Mass Index 38.6 Const General: comfortable; No acute distress Orientation/consciousness: patient oriented x3 Eyes General: appearance normal, both eyes and all related structures Visual Manuel: normal visual manuel by confrontation Neck Neck: Yes supple and Yes no JVD Resp Effort & Inspection: normal respiratory effort and respiratory effort not decreased Auscultation: rhonchi Cardio Palpation: no palpable S3 and no palpable S4 Heart sounds: no rubs GI Inspection: Yes normal to inspection Palpation (GI): Soft to palpation Percussion: Yes normal to percussion Auscultation: normal bowel sounds General: Yes no CVA tenderness Back/Spine/Pelvis Back: no CVA tenderness Skin General skin exam: no petechiae and no purpura Neuro General: patient oriented x3 and no focal motor deficits Extrem General: No clubbing and Yes edema (1+) Results Reviewed Nephrology Results: Hgb 14.3 g/dl (14.0-18.0) 07/15/21 WBC 5.4 X10*3/uL (4.8-10.8) 07/15/21 Plt Count 217 X10*3/uL (160-400) 07/15/21 Sodium 141 mmol/L (135-145) 11/03/23 Potassium 3.3 mmol/L (3.3-5.1) 11/03/23 Chloride 105 mmol/L (96-108) 11/03/23 Carbon Dioxide 30 mmol/L (22-29) H 11/03/23 BUN 15 mg/dL (9-16) 11/03/23 Creatinine 1.55 mg/dL (0.5-1.4) H 01/27/24 Calcium 8.6 mg/dL (8.4-10.2) 01/27/24 PTH Intact 79.7 pg/mL (8.7-77.1) H 01/27/24 Urine Creatinine 150.99 mg/dL 01/27/24 Assessment & Plan Assessment & Plan (1) Nephrolithiasis: Code(s): N20.0 - Calculus of kidney Category: Medical (2) CKD (chronic kidney disease): Comment: Stage III sees Dr Vivas last 2019 Code(s): N18.9 - Chronic kidney disease, unspecified Category: Medical (3) Cardiomyopathy: Code(s): I42.9 - Cardiomyopathy, unspecified Category: Medical (4) Cancer of right colon: Code(s): C18.2 - Malignant neoplasm of ascending colon Category: Medical Plan . 73-year-old man with a history of chronic kidney disease in the setting of longstanding hypertension diabetes mellitus and history of colon cancer and nephrolithiasis. Differential diagnosis for CKD would include underlying diabetic hypertensive kidney disease. With a history of nephrolithiasis obstructive uropathy should be ruled out. Other possibilities including infiltrative disease should be ruled out. Recommendations Check urine for protein creatinine ratio Serum and urine electrophoresis. Renal ultrasonogram. Optimize blood pressure. Optimize blood sugar maintain A1c less than 7%. Agree with SGLT2 inhibitors. Continue with the FABIAN inhibition. Encouraged to stay on low-sodium diet Increase p.o. fluid intake to maintain urine output of 2 L to minimize the risk of stone formation. Further workup will be based on the outcome of the above investigations. All his questions were answered Orders: Orders Comprehensive Met. Panel Today N20.0 - Calculus of kidney Total Protein Urine Random Today N20.0 - Calculus of kidney Complete Blood Count Auto Diff Today N20.0 - Calculus of kidney Parathyroid Hormone Intact Today N20.0 - Calculus of kidney UA and rflx microscopic Today N20.0 - Calculus of kidney Creatinine Urine Today N20.0 - Calculus of kidney Uric Acid Today N20.0 - Calculus of kidney Phosphorus Today N20.0 - Calculus of kidney US renal BI Today N20.0 - Calculus of kidney Coding Level of Care Code New Pt Level 5 (74534) Diagnoses Nephrolithiasis N20.0 CKD (chronic kidney disease) N18.9 Cardiomyopathy I42.9 Cancer of right colon C18.2
[2024-02-16 08:58] VITALS: BP 152/104; PULSE 62; O2SAT 97; BMI 38.6
[2024-02-16 09:16] VITALS: BP 140/80
== END 2024-02-16 13:05 | disposition home or self-care (01) ==
PROVIDERS: PCP Family Medicine; Referring Provider Family Medicine; Visit Provider Internal Medicine Hypertension Specialist
DX: N20.0 Calculus of kidney (principal); I13.10 Hypertensive heart and chronic kidney disease without heart failure, with stage 1 through stage 4 chronic kidney disease, or unspecified chronic kidney disease; E11.22 Type 2 diabetes mellitus with diabetic chronic kidney disease; N18.30 Chronic kidney disease, stage 3 unspecified; I42.9 Cardiomyopathy, unspecified; C18.2 Malignant neoplasm of ascending colon
CPT/HCPCS: 99204

== ENCOUNTER → 2024-02-16 08:55 | Outpatient (BNVA) | payer OTHER, SELFPAY | PROVIDERS: PCP Family Medicine; Referring Provider Family Medicine; Visit Provider Internal Medicine Hypertension Specialist ==

== ENCOUNTER 2024-02-16 09:38 | Outpatient (REF) | payer OTHER, SELFPAY ==
[2024-02-16 14:55] LABS: Appearance Urine Cloudy; Color Urine Yellow; Glucose Urine UA Negative (Negative); Leukocyte Esterase Urine Negative (Negative); Nitrite Urine Negative (Negative); PH 7.5 (5.0-9.0); Specific Gravity - Urine 1.015 (1.005-1.025); Urine Blood Negative (Negative); Urine Ketones Negative (Negative); Urine Protein Negative (Neg-Trace)
[2024-02-16 15:02] LABS: MANUAL DIFF FLAG NO
[2024-02-16 15:06] LABS: Basophils Percent Auto 0.2 % (0-2); Eosinophils Absolute Auto 0.2 X10*3/uL (0.0-0.4); Eosinophils Percent Auto 3.1 % (0-4); Hematocrit 41.1 % (42.0-52.0); Hemoglobin 13.8 g/dl (14.0-18.0); Lymphocytes Percent Auto 20.4 % (20-40); Mean Corpuscular HGB Conc 33.6 g/dl (31.0-36.0); Mean Corpuscular Hemoglobin 29.6 pg (27.0-33.0); Mean Corpuscular Volume 88.2 fL (80.0-98.0); Mean Platelet Volume 11.9 fL (9.4-12.4); Monocytes Absolute Auto 0.4 X10*3/uL (0.1-1.2); Monocytes Percent Auto 8.6 % (2-11); Neutrophils Absolute Auto 3.3 x10*3/uL (2.0-8.3); Neutrophils Percent Auto 67.7 % (45-73); Platelet Count 171 X10*3/uL (160-400); Red Blood Count 4.66 X10*6/uL (4.60-5.80); Red Cell Distribution Width 13.1 % (11.0-16.0); White Blood Count 4.9 X10*3/uL (4.8-10.8)
[2024-02-16 16:14] LABS: Alanine Aminotransferase 21 U/L (0-40); Albumin Level 3.8 g/dL (3.5-5.0); Alkaline Phosphatase 55 U/L (39-117); Anion Gap 11 (12-20); Aspartate Amino Transferase 21 U/L (5-37); Bilirubin Total 0.7 mg/dL (0.0-1.0); Blood Urea Nitrogen 16 mg/dL (9-16); Calcium 8.5 mg/dL (8.4-10.2); Carbon Dioxide 28 mmol/L (22-29); Chloride 106 mmol/L (96-108); Estimated Glomerular Filt Rate 55; Glucose Random 189 mg/dL (60-115); Phosphorus 2.3 mg/dL (2.7-4.5); Potassium 3.3 mmol/L (3.3-5.1); Sodium 142 mmol/L (135-145); Total Protein 6.8 g/dL (6.5-8.0); Uric Acid 7.1 mg/dL (3.4-7.0)
[2024-02-16 16:28] LABS: Creatinine Urine 85.41 mg/dL; Total Protein Urine Random < 7 mg/dL (<12)
[2024-02-16 16:37] LABS: Parathyroid Hormone Intact 81.8 pg/mL (8.7-77.1)
== END 2024-02-16 09:39 | disposition home or self-care (01) ==
LOC: HO.HKASLDS 09:38
PROVIDERS: Visit Provider Internal Medicine Hypertension Specialist
DX: N20.0 Calculus of kidney (principal); N18.9 Chronic kidney disease, unspecified; I42.9 Cardiomyopathy, unspecified; C18.2 Malignant neoplasm of ascending colon
CPT/HCPCS: 36415; 80053; 81003; 82570; 83970; 84100; 84156; 84550; 85025; 99202

== ENCOUNTER 2024-03-01 12:23 | Outpatient (REF) | payer OTHER, SELFPAY ==
--- NOTE | ~2024-03-01 | US_ITS ---
EXAMINATION: US RETROPERITONEAL LIMITED (RENAL ONLY) CLINICAL INFORMATION: Calculus of kidney. COMPARISON: No priors. Correlated to CT abdomen and pelvis 01/23/2021. TECHNIQUE: Real-time imaging of the kidneys using grayscale and color Doppler technique. FINDINGS: Submitted for interpretation on March 31, 2024. RIGHT KIDNEY: 14 x 6 x 6 cm (SAG x AP x TRV). Volume is 235 cc. Normal echotexture. No solid lesion. There is a 1.7 cm anechoic lesion at the corticomedullary junction, midportion/lower pole junction without flow on color Doppler interrogation. No hydronephrosis. LEFT KIDNEY: 12 x 6 x 6 cm (SAG x AP x TRV). Volume is 222 cc. Normal echotexture there is a 3.2 cm exophytic isoechoic lesion in the anterior lateral aspect of the upper pole.. No hydronephrosis. US/US renal BI IMPRESSION: 3.2 cm exophytic solid lesion, anterior lateral upper pole left kidney. Recommend dedicated IV contrast enhanced CT versus MRI renal mass protocol. Simple cyst, right kidney. No hydronephrosis. Electronically signed by: Young Ramon MD 03/31/2024 03:18 PM MARIANNA
== END 2024-03-01 12:24 | disposition home or self-care (01) ==
LOC: HO.US 12:23
PROVIDERS: PCP Family Medicine; Visit Provider Internal Medicine Hypertension Specialist
DX: N20.0 Calculus of kidney (principal)
CPT/HCPCS: 76775

== ENCOUNTER → 2024-03-01 12:24 | Outpatient (BNV) | payer OTHER, SELFPAY | PROVIDERS: PCP Family Medicine; Visit Provider Radiology Diagnostic Radiology | DX: N20.0 Calculus of kidney (principal) | CPT/HCPCS: 76775 ==

== ENCOUNTER 2024-04-05 09:20 | Outpatient (AMB) | payer OTHER, SELFPAY ==
[2024-04-05 09:25] VITALS: BP 132/70; PULSE 45; O2SAT 98; BMI 37.9
--- NOTE | 2024-04-05 09:25 | HO.NEPHOV ---
Vital Signs 04/05/24 09:25 Height 5 ft 11 in Weight 272 lb BMI 37.9 BP 132/70 Blood Pressure Location Lt brachial Position Sitting Pulse 45 L Pulse Source Pulse Oximeter Pulse Oximetry (%) 98 Oxygen Delivery Method Room Air Intake Visit Reasons: CKD/ Conf Bottom Buffer Required: Yes Bottom Buffer Name: Thuy moraes Accompanied by: Self / Same As Patient Allergies No Known Allergies Allergy (Mild, Verified 04/05/24 09:27) N/A HPI Comments Details: . 73-year-old man with a history of longstanding diabetes mellitus. He has been referred for evaluation of CKD. Recent creatinine was 1.3 mg/dL. Ongoing medical problems increase her longstanding diabetes mellitus. History of colon cancer- invasive moderately differentiated adenocarcinoma back in 2019. Underwent laparoscopic right colectomy with colonoscopy in 03/12/2021 at [facility]. T2 N0 no chemotherapy was needed. History of hypertension. History of mild to moderately reduced LV systolic function with inferior inferoseptal wall motion abnormality with impaired relaxation filling pattern. History of renal stones in the past and has undergone urologic procedure. Today he has no specific complaints. No headache nausea vomiting. No shortness of breath. No chest pain. No urinary symptoms. No diarrhea constipation. [facility] Medical History (Updated 04/05/24 @ 09:37 by Kenny Grossman MD) Arthritis Anxiety and depression Headache COVID-19 vaccine series completed Hx of renal calculi Cancer of right colon GERD (gastroesophageal reflux disease) BPH (benign prostatic hyperplasia) CKD (chronic kidney disease) Depression REJI (obstructive sleep apnea) HTN (hypertension) History of colon cancer Surgical History History of cystoscopy Hx of lithotripsy History of colonoscopy H/O parathyroidectomy Social History Are you a primary long term care social worker to a significant other at home: No Do you presently have visiting nurse or other home services: No Patient Tobacco Use Status: Never used Tobacco Physical Exam Vital Signs: Last Vital Signs Pulse 45 L 04/05/24 09:25 BP 132/70 04/05/24 09:25 Pulse Ox 98 04/05/24 09:25 Oxygen Delivery Method Room Air 04/05/24 09:25 BMI result Body Mass Index 37.9 Const General: comfortable; No acute distress Orientation/consciousness: patient oriented x3 Eyes General: appearance normal, both eyes and all related structures Visual Manuel: normal visual manuel by confrontation Neck Neck: Yes supple and Yes no JVD Resp Effort & Inspection: normal respiratory effort and respiratory effort not decreased Auscultation: rhonchi Cardio Palpation: no palpable S3 and no palpable S4 Heart sounds: no rubs GI Inspection: Yes normal to inspection Palpation (GI): Soft to palpation Percussion: Yes normal to percussion Auscultation: normal bowel sounds General: Yes no CVA tenderness Back/Spine/Pelvis Back: no CVA tenderness Skin General skin exam: no petechiae and no purpura Neuro General: patient oriented x3 and no focal motor deficits Extrem General: No clubbing and Yes edema (1+) Results Reviewed Nephrology Results: Hgb 13.8 g/dl (14.0-18.0) L 02/16/24 WBC 4.9 X10*3/uL (4.8-10.8) 02/16/24 Plt Count 171 X10*3/uL (160-400) 02/16/24 Sodium 142 mmol/L (135-145) 02/16/24 Potassium 3.3 mmol/L (3.3-5.1) 02/16/24 Chloride 106 mmol/L (96-108) 02/16/24 Carbon Dioxide 28 mmol/L (22-29) 02/16/24 BUN 16 mg/dL (9-16) 02/16/24 Creatinine 1.28 mg/dL (0.5-1.4) 02/16/24 Calcium 8.5 mg/dL (8.4-10.2) 02/16/24 Phosphorus 2.3 mg/dL (2.7-4.5) L 02/16/24 PTH Intact 81.8 pg/mL (8.7-77.1) H 02/16/24 Urine Protein Negative mg/dL (Neg-Trace) 02/16/24 Urine Creatinine 85.41 mg/dL 02/16/24 Renal US 03/01/24 Assessment & Plan Assessment & Plan (1) Nephrolithiasis: Code(s): N20.0 - Calculus of kidney Category: Medical (2) CKD (chronic kidney disease): Comment: Stage III sees Dr Vivas last 2019 Code(s): N18.9 - Chronic kidney disease, unspecified Category: Medical (3) Cardiomyopathy: Code(s): I42.9 - Cardiomyopathy, unspecified Category: Medical (4) Cancer of right colon: Code(s): C18.2 - Malignant neoplasm of ascending colon Category: Medical (5) Renal cyst: Code(s): N28.1 - Cyst of kidney, acquired Category: Medical Plan . 73-year-old man with a history of chronic kidney disease in the setting of longstanding hypertension diabetes mellitus and history of colon cancer and nephrolithiasis. Differential diagnosis for CKD would include underlying diabetic hypertensive kidney disease. No significant proteinuria based on protein creatinine ratio No evidence of obstructive uropathy based on renal ultrasonogram He probably had a component of hypoperfusion. Serum creatinine has improved and decreased from 1.55-1.2. Sonogram reveals 3.2 cm exophytic solid lesion, anterior lateral upper pole left kidney. Continued Optimize blood pressure and blood sugar maintain A1c less than 7%. Agree with SGLT2 inhibitors. Continue with the FABIAN inhibition. Encouraged to stay on low-sodium diet Increase p.o. fluid intake to maintain urine output of 2 L to minimize the risk of stone formation. Renal cyst Ordered MRI with and without contrast Referred to Urology. Orders: Orders MR kidney wo/w con Today C18.2 - Malignant neoplasm of ascending colon, N18.9 - Chronic kidney disease, unspecified, N20.0 - Calculus of kidney Basic Metabolic Panel 2 Months N20.0 - Calculus of kidney, N28.1 - Cyst of kidney, acquired Complete Blood Count no Diff 2 Months N20.0 - Calculus of kidney, N28.1 - Cyst of kidney, acquired Referrals Urology Referral N28.1 - Cyst of kidney, acquired, R31.9 - Hematuria, unspecified Coding Level of Care Code Est Pt Level 4 (47282) Diagnoses Nephrolithiasis N20.0 CKD (chronic kidney disease) N18.9 Cardiomyopathy I42.9 Cancer of right colon C18.2 Renal cyst N28.1
== END 2024-04-05 09:49 | disposition home or self-care (01) ==
PROVIDERS: PCP Family Medicine; Visit Provider Internal Medicine Hypertension Specialist
DX: N20.0 Calculus of kidney (principal); N18.9 Chronic kidney disease, unspecified; I42.9 Cardiomyopathy, unspecified; C18.2 Malignant neoplasm of ascending colon; N28.1 Cyst of kidney, acquired
CPT/HCPCS: 99214

== ENCOUNTER → 2024-04-05 09:20 | Outpatient (BNVA) | payer OTHER, SELFPAY | PROVIDERS: PCP Family Medicine; Visit Provider Internal Medicine Hypertension Specialist | DX: E11.22 Type 2 diabetes mellitus with diabetic chronic kidney disease (principal); N20.0 Calculus of kidney; I42.9 Cardiomyopathy, unspecified; N28.1 Cyst of kidney, acquired; N18.9 Chronic kidney disease, unspecified; C18.2 Malignant neoplasm of ascending colon; R31.9 Hematuria, unspecified | CPT/HCPCS: 99212 ==

== ENCOUNTER 2024-05-10 13:57 | Outpatient (REF) | payer OTHER, SELFPAY ==
[2024-05-10] MEDS: gadobutroL 10 ML VIAL IVPUSH (14:48)
== END 2024-05-10 13:58 | disposition home or self-care (01) ==
LOC: HO.MRI 13:57
PROVIDERS: PCP Family Medicine; Visit Provider Internal Medicine Hypertension Specialist
DX: N18.9 Chronic kidney disease, unspecified (principal); N20.0 Calculus of kidney; C18.2 Malignant neoplasm of ascending colon
CPT/HCPCS: 74183; A9585

== ENCOUNTER → 2024-05-10 14:10 | Outpatient (BNV) | payer OTHER, SELFPAY | PROVIDERS: PCP Family Medicine; Visit Provider Radiology Diagnostic Radiology | DX: N28.1 Cyst of kidney, acquired (principal); K76.89 Other specified diseases of liver | CPT/HCPCS: 74183 ==

== ENCOUNTER 2024-06-07 11:07 | Outpatient (AMB) | payer OTHER, SELFPAY ==
[2024-06-07 11:14] VITALS: BP 134/72; PULSE 77; O2SAT 98; BMI 38.1
--- NOTE | 2024-06-07 11:14 | HO.NEPHOV_ITS ---
Vital Signs 06/07/24 11:14 Height 5 ft 11 in Weight 273 lb BMI 38.1 BP 134/72 Blood Pressure Location Lt brachial Position Sitting Pulse 77 Pulse Source Pulse Oximeter Pulse Oximetry (%) 98 Oxygen Delivery Method Room Air Intake Visit Reasons: 2 mo follow up-Conf Freight Flow Sales Leader Required: Yes Freight Flow Sales Leader Name: Nic [id number] Accompanied by: Self / Same As Patient Allergies No Known Allergies Allergy (Mild, Verified 06/07/24 11:18) N/A Medication List - Last Reconciled 06/07/24 by Kenny Grossman MD acetaminophen 500 mg PO Q6H PRN amlodipine 1 tab PO QAM carvedilol 1 tab PO BID cholecalciferol (vitamin D3) 25 mcg PO QAM empagliflozin-metformin 10-1,000 mg ER (Synjardy XR) PO DAILY losartan 100 mg PO DAILY omeprazole 20 mg PO DAILY PRN rosuvastatin 40 mg PO DAILY sildenafil 100 mg PO DAILY PRN spironolactone mg PO DAILY PRN HPI Comments Details: . 73-year-old man with a history of longstanding diabetes mellitus. He has been referred for evaluation of CKD. Recent creatinine was 1.3 mg/dL. Ongoing medical problems increase her longstanding diabetes mellitus. History of colon cancer- invasive moderately differentiated adenocarcinoma back in 2019. Underwent laparoscopic right colectomy with colonoscopy in 03/12/2021 at [facility]. T2 N0 no chemotherapy was needed. History of hypertension. History of mild to moderately reduced LV systolic function with inferior inferoseptal wall motion abnormality with impaired relaxation filling pattern. History of renal stones in the past and has undergone urologic procedure. Today he has no specific complaints. No headache nausea vomiting. No shortness of breath. No chest pain. No urinary symptoms. No diarrhea constipation. 06/07/24 Missed appointment Overall doing OK MRI done on 05/10/24 Results are STILL PENDING !! [facility] Medical History (Updated 04/05/24 @ 09:37 by Kenny Grossman MD) Arthritis Anxiety and depression Headache COVID-19 vaccine series completed Hx of renal calculi Cancer of right colon GERD (gastroesophageal reflux disease) BPH (benign prostatic hyperplasia) CKD (chronic kidney disease) Depression REJI (obstructive sleep apnea) HTN (hypertension) History of colon cancer Surgical History History of cystoscopy Hx of lithotripsy History of colonoscopy H/O parathyroidectomy Social History Are you a primary care companion to a significant other at home: No Do you presently have visiting nurse or other home services: No Patient Tobacco Use Status: Never used Tobacco Physical Exam Vital Signs: Last Vital Signs Pulse 77 06/07/24 11:14 BP 134/72 06/07/24 11:14 Pulse Ox 98 06/07/24 11:14 Oxygen Delivery Method Room Air 06/07/24 11:14 BMI result Body Mass Index 38.1 Results Reviewed Nephrology Results: Hgb 13.8 g/dl (14.0-18.0) L 02/16/24 WBC 4.9 X10*3/uL (4.8-10.8) 02/16/24 Plt Count 171 X10*3/uL (160-400) 02/16/24 Sodium 142 mmol/L (135-145) 02/16/24 Potassium 3.3 mmol/L (3.3-5.1) 02/16/24 Chloride 106 mmol/L (96-108) 02/16/24 Carbon Dioxide 28 mmol/L (22-29) 02/16/24 BUN 16 mg/dL (9-16) 02/16/24 Creatinine 1.28 mg/dL (0.5-1.4) 02/16/24 Calcium 8.5 mg/dL (8.4-10.2) 02/16/24 Phosphorus 2.3 mg/dL (2.7-4.5) L 02/16/24 PTH Intact 81.8 pg/mL (8.7-77.1) H 02/16/24 Urine Protein Negative mg/dL (Neg-Trace) 02/16/24 Urine Creatinine 85.41 mg/dL 02/16/24 Renal US 03/01/24 Assessment & Plan Assessment & Plan (1) Nephrolithiasis: Code(s): N20.0 - Calculus of kidney Category: Medical (2) CKD (chronic kidney disease): Comment: Stage [address] Vivas last 2018 Code(s): N18.9 - Chronic kidney disease, unspecified Category: Medical (3) Cardiomyopathy: Code(s): I42.9 - Cardiomyopathy, unspecified Category: Medical (4) Cancer of right colon: Code(s): C18.2 - Malignant neoplasm of ascending colon Category: Medical (5) Renal cyst: Code(s): N28.1 - Cyst of kidney, acquired Category: Medical Plan . 73-year-old man with a history of chronic kidney disease in the setting of longstanding hypertension diabetes mellitus and history of colon cancer and nephrolithiasis. Differential diagnosis for CKD would include underlying diabetic hypertensive kidney disease. No significant proteinuria based on protein creatinine ratio No evidence of obstructive uropathy based on renal ultrasonogram He probably had a component of hypoperfusion. Serum creatinine has improved and decreased from 1.55-1.2. Sonogram reveals 3.2 cm exophytic solid lesion, anterior lateral upper pole left kidney. Continued Optimize blood pressure and blood sugar maintain A1c less than 7%. Agree with SGLT2 inhibitors. Continue with the FABIAN inhibition. Encouraged to stay on low-sodium diet Increase p.o. fluid intake to maintain urine output of 2 L to minimize the risk of stone formation. Renal cyst MRI done on 05/20 and STILL NO results Sent [place] text t o requesting a read Referred to Urology. Pt missed appointment - rerefered Orders: Orders Complete Blood Count no Diff Today N18.9 - Chronic kidney disease, unspecified Basic Metabolic Panel Today N18.9 - Chronic kidney disease, unspecified Referrals Urology Referral R31.9 - Hematuria, unspecified Coding Level of Care Code Est Pt Level 4 (20018) Diagnoses Nephrolithiasis N20.0 CKD (chronic kidney disease) N18.9 Cardiomyopathy I42.9 Cancer of right colon C18.2 Renal cyst N28.1
== END 2024-06-07 11:38 | disposition home or self-care (01) ==
PROVIDERS: PCP Family Medicine; Visit Provider Internal Medicine Hypertension Specialist
DX: N20.0 Calculus of kidney (principal); N18.9 Chronic kidney disease, unspecified; I42.9 Cardiomyopathy, unspecified; C18.2 Malignant neoplasm of ascending colon; N28.1 Cyst of kidney, acquired
CPT/HCPCS: 99214

== ENCOUNTER 2024-06-07 11:07 | Outpatient (REF) | payer OTHER, SELFPAY ==
[2024-06-07 18:01] LABS: Hematocrit 42.6 % (42.0-52.0); Hemoglobin 14.2 g/dl (14.0-18.0); Mean Corpuscular HGB Conc 33.3 g/dl (31.0-36.0); Mean Corpuscular Hemoglobin 29.8 pg (27.0-33.0); Mean Corpuscular Volume 89.3 fL (80.0-98.0); Mean Platelet Volume 12.2 fL (9.4-12.4); Platelet Count 204 X10*3/uL (160-400); Red Blood Count 4.77 X10*6/uL (4.60-5.80); Red Cell Distribution Width 13.6 % (11.0-16.0)
[2024-06-07 18:18] LABS: Anion Gap 8 (12-20); Blood Urea Nitrogen 13 mg/dL (9-16); Calcium 8.4 mg/dL (8.4-10.2); Carbon Dioxide 28 mmol/L (22-29); Chloride 109 mmol/L (96-108); Estimated Glomerular Filt Rate > 60; Glucose Random 100 mg/dL (60-115); Potassium 3.6 mmol/L (3.3-5.1); Sodium 141 mmol/L (135-145)
== END 2024-06-07 11:08 | disposition home or self-care (01) ==
LOC: HO.HKASLDS 11:07
PROVIDERS: PCP Family Medicine; Visit Provider Internal Medicine Hypertension Specialist
DX: N28.1 Cyst of kidney, acquired (principal); N20.0 Calculus of kidney; I12.9 Hypertensive chronic kidney disease with stage 1 through stage 4 chronic kidney disease, or unspecified chronic kidney disease; E11.22 Type 2 diabetes mellitus with diabetic chronic kidney disease; N18.9 Chronic kidney disease, unspecified; I42.9 Cardiomyopathy, unspecified; Z85.038 Personal history of other malignant neoplasm of large intestine; Z79.899 Other long term (current) drug therapy
CPT/HCPCS: 36415; 80048; 85027; 99212

== ENCOUNTER 2024-08-02 07:50 | Outpatient (AMB) | payer OTHER, SELFPAY ==
--- OUTSIDE RECORDS SUMMARY | 2024-08-02 07:55 | XMS_ITS | Encounter Summary ---
Author Organization [employer] Address [address] [place] [address] Care Team Providers Care Link Cutter Name Role Phone Smitha Matos MD Primary Care Provider [phone] Marissa Barbosa PharmD Unavailable [phone] Kenny Grossman MD Unavailable [phone] Encounter Details Date Type Department Care Team (Late st Contact Info) Description 11/03/2023 Abstract [facility] [address] [place] [address] [place] Social History Tobacco Use Types Packs/Day Years Used Date Smoking Tobacco: Never Smokeless Tobacco: Never Alcohol Use Standard Drinks/Week Comments Never 0 (1 standard drink = 0.6 oz pur e alcohol) PHQ-2 Answer Date Recorded Patient Health Questionnaire-2 Score 0 07/06/2022 Housing Stability Answer Date Recorded What is your housing situation today? I have iban finch 03/09/[address] you li ve. Do you have problems with any of the following? None of the above 03/09/2023 Food Insecurity Answer Date Recorded Within the past 12 months, y ou worried that your food would run out before you got money to buy more: Never True 03/09/2023 Within the past 12 months,th e food you bought just didn't last and you didn't have enough money to get more: Never True Transportation Answer Date Recorded In the past 12 months, has l ack of transportation kept you from medical appts, meetings, work or from getting things needed for daily living? No 03/09/2023 Utilities Answer Date Recorded In the past 12 months, has t he [employer], gas, oil or water company threatened to shut off services in your home? I am not sure 03/09/2023 Depression Answer Date Recorded Patient Health Questionnaire-2 Score 0 07/06/2022 Sex and Gender Information Value Date Recorded Sex Assigned at Male 03/23/2022 10:14 AM EDT Legal Sex Male 10:14 AM EDT Gender Identity Male 03/23/2022 10:14 AM EDT Sexual Orientation Choose not to disclose 2021 10:14 AM EDT documented as of this encounter Plan of Treatment Upcoming Encounters Date Type Department Care Team (Late st Contact Info) Description 08/14/2024 1:00 PM EDT Medication Management [facility] [address] [place] [address] Marissa Barbosa PharmD [address] [place] [address] documented as of this encounter Goals Goal Patient Goal Type Associated Problems Recent Progress Patient-Stated? Author Blood Pressure < 140/90 Blood Pressure 132/83(2024 10:18 AM EDT) No Manjits-Michael wallis, Marissa, PharmD Hemoglobin A1c < 7 Result Component 6.6( 10:21 AM EDT) No Manjits-Brianne Cedenosa, PharmD documented as of this encounter Procedures Procedure Name Priority Date/Time Associated Diagnosis Comments DIABETES EYE EXAM Routine 11/03/2023 1:42 PM EDT documented in this encounter Results * Diabetes Eye Exam (11/03/2023 1:42 PM EDT) [facility] Eye Exam Normal Normal Comment:follow up one year us Historical Provider HEALTH MAINTENANCE Final Result documented in this encounter Visit Diagnoses Not on filedocumented in this encounter Care Teams Link Cutter Relationship Specialty Start Date End Date Smitha Matos MD [address] [place] [id number] PCP - General Family Medicine 05/24/18 Marissa Barbosa, PharmD [address] [place] [address] Pharmacist Internal Medicine 08/12/22 Kenny Grossman MD [address] [facility] [address] [place] [address] Nephrology 06/07/24 Dr. Paco Rodriges MD [facility] Cardiology [address] [place] [address]- 06/14/24 Dr. Nancie Lilly MD [address] [address] Colon and Rectal Surgery 07/27/24 documented as of this encounter
--- OUTSIDE RECORDS SUMMARY | 2024-08-02 07:55 | XMS_ITS | Encounter Summary ---
Author Organization [employer] Address 75 [facility] 7t [place] [address] Care Team Providers Care Rubber And Pounder Name Role Phone Carlo, Smitha CHOUDHURY Primary Care Provider +- [phone] Marissa Barbosa PharmD Unavailable [phone] Kenny Grossman MD Unavailable [phone] Reason for Visit * Reason Comments Med Refill Encounter Details Date Type Department Care Team (Late st Contact Info) Description 08/28/2023 Refill [facility] 230 [place], [place] [phone] Marissa Barbosa, PharmD 230 [place], [place] [phone] Social History Tobacco Use Types Packs/Day Years [...] the past 12 months, has t he electric, gas, oil or water company threatened to [...] AM EDT documented as of this encounter Miscellaneous Notes * Telephone Encounter - Marissa Barbosa PharmD - 09/10/2023 7:43 AM EDT Refill provided by PCP documented in this encounter Plan of Treatment Upcoming Encounters Date Type Department Care Team (Late st Contact Info) Description 08/14/2024 1:00 PM EDT Medication Management [facility] 230 [place] [address] Marissa Barbosa PharmD 230 [place] [address] documented as of this encounter Goals Goal Patient Goal Type Associated Problems Recent Progress Patient-Stated? Author Blood Pressure < 140/90 Blood Pressure 132/83(2024 10:18 AM EDT) No Marissa Reynaga, PharmD Hemoglobin A1c < 7 Result Component 6.6( 10:21 AM EDT) No Marissa Reynaga PharmD documented as of this encounter Visit Diagnoses Not on filedocumented in this encounter Care Teams Rubber And Pounder Relationship Specialty Start Date End Date Smitha Matos MD 230 [place] [address] PCP - General Family Medicine 05/24/18 Marissa Barbosa PharmD 230 [place] [address] Pharmacist Internal Medicine 08/12/22 Kenny Grossman MD 100 [facility] 200 [place] [address] Nephrology 06/07/24 Dr. Paco Rodriges MD [facility] Cardiology [address] [place] [address]- 06/14/24 Dr. Nancie Lilly MD [address] [address] Colon and Rectal Surgery 07/27/24 documented as of this encounter
--- OUTSIDE RECORDS SUMMARY | 2024-08-02 07:55 | XMS_ITS | Encounter Summary ---
Author Organization [employer] Address 75 [facility] 7t [place] [address] Care Team Providers Care Travel Attendants Name Role Phone Smitha Matos MD Primary Care Provider [phone]- [phone] Marissa Barbosa PharmD Unavailable [phone] Kenny Grossman MD Unavailable [phone] Reason for Visit * Reason Onset Date Comments Appointment Request 05/29/2024 Encounter Details Date Type Department Care Team (Late st Contact Info) Description 05/29/2024 Telephone [facility] 230 [place], [place] [phone] Smitha Matos MD 230 [place], [place] [phone] Appointment Request Social History Tobacco Use Types Packs/Day Years Used Date Smoking Tobacco: Never Smokeless Tobacco: Never Alcohol Use Standard Drinks/Week Comments Never 0 (1 standard drink = 0.6 oz pur e alcohol) Depression Answer Date Recorded Patient Health Questionnaire-9 Score 3 01/27/2024 Patient Health Questionnaire-9 Score 3 01/27/2024 Last PHQ-9: Questionnaire Data Not on file 0 01/27/2024 Housing Stability Answer Date Recorded What is your housing situation today? I have iban josette 01/27/[address] you li ve. Do you have problems with any of the following? None of the above 01/27/2024 Food Insecurity Answer Date Recorded Within the past 12 months, y ou worried that your food would run out before you got money to buy more: Never True 01/27/2024 Within the past 12 months,th e food you bought just didn't last and you didn't have enough money to get more: Never True 09/2023 Transportation Answer Date Recorded In the past 12 months, has l ack of transportation kept you from medical appts, meetings, work or from getting things needed for daily living? No 01/27/2024 Utilities Answer Date Recorded In the past 12 months, has t he electric, gas, oil or water company threatened to shut off services in your home? No 01/27/2024 Depression Answer Date Recorded Patient Health Questionnaire-2 Score 1 01/27/2024 Internet Access Answer Date Recorded Internet Access Q1 Yes 01/27/2024 Internet Access Q2 Not on file 01/27/2024 Sex and Gender Information Value Date Recorded Sex Assigned at Male 03/23/2022 10:14 AM EDT Legal Sex Male 10:14 AM EDT Gender Identity Male 03/23/2022 10:14 AM EDT Sexual Orientation Choose not to disclose 2021 10:14 AM EDT documented as of this encounter Miscellaneous Notes * Telephone Encounter - Marissa Barbosa PharmD - 05/29/2024 10:22 AM EST Please see note that patient is requesting to reschedule today's visit. Please remind him of our no-show/cancellation workflow. Thank you! * Telephone Encounter - Romel Jaquez - 05/29/2024 10:03 AM EST Tc from pt requesting to reschedule CDTM visit. Please contact pt at [phone]. (Welsh Speaker) documented in this encounter Plan of Treatment Upcoming Encounters Date Type Department Care Team (Late st Contact Info) Description 08/14/2024 1:00 PM EDT Medication Management [facility] 230 [place], [place] [phone] Marissa Barbosa PharmD 230 [place], [place] [phone] documented as of this encounter Goals Goal Patient Goal Type Associated Problems Recent Progress Patient-Stated? Author Blood Pressure < 140/90 Blood Pressure 132/83(2024 10:18 AM EDT) No Marissa Reynaga, PharmD Hemoglobin A1c < 7 Result Component 6.6( 10:21 AM EDT) No Marissa Reynaga PharmD documented as of this encounter Visit Diagnoses Not on filedocumented in this encounter Additional Health Concerns Assessment Noted Time PHQ-9 Depression Total Score: 3 01/27/20 24 9:37 AM EDT documented as of this encounter Care Teams Travel Attendants Relationship Specialty Start Date End Date Smitha Matos MD 230 [place] [address] PCP - General Family Medicine 05/24/18 Marissa Barbosa PharmD [address] [place] [address] Pharmacist Internal Medicine 08/12/22 Kenny Grossman MD 100 [facility] 200 [place] [address] Nephrology 06/07/24 Dr. Paco Rodriges MD [facility] Cardiology [address] [place] [address]- 06/14/24 Dr. Nancie Lilly MD [address] [address] Colon and Rectal Surgery 07/27/24 documented as of this encounter
--- OUTSIDE RECORDS SUMMARY | 2024-08-02 07:55 | XMS_ITS | Encounter Summary ---
Author Organization [employer] Address 75 [facility] 7t [place] [address] Care Team Providers Care Side Door Worker Name Role Phone Smitha Matos MD Primary Care Provider [phone]- [phone] Marissa Barbosa PharmD Unavailable [phone]- [phone] Kenny Grossman MD Unavailable [phone] Reason for Visit * Reason Onset Date Comments FYI 07/13/2023 Encounter Details Date Type Department Care Team (Late st Contact Info) Description 07/13/2023 Telephone [facility] 230 [place], [place] [phone] Smitha Matos MD 230 [place], [place] [phone] FYI Social History Tobacco Use Types Packs/Day Years [...] encounter Miscellaneous Notes * Telephone Encounter - Yemi Grigsby - 07/13/2023 11:45 AM EST Tc shreyas Steve at [facility] calling to inform the PCP the paper works that was faxed from there office can only be filled and signed by the Provider only and needs to be signed and faxed back as soon as possible before the script expires documented in this encounter Plan of Treatment Upcoming Encounters Date Type Department Care Team (Late st Contact Info) Description 08/14/2024 1:00 PM EDT Medication Management [facility] MED[facility]INE 230 [place] [address] Marissa Barbosa, PharmD 230 [place] [address] documented as of this encounter Goals Goal Patient Goal Type Associated Problems Recent Progress Patient-Stated? Author Blood Pressure < 140/90 Blood Pressure 132/83(2024 10:18 AM EDT) No Piers-Gambl e, Marissa, PharmD Hemoglobin A1c < 7 Result Component 6.6( 10:21 AM EDT) No Piers-Gambl eBriannesa, PharmD documented as of this encounter Visit Diagnoses Not on filedocumented in this encounter Care Teams Side Door Worker Relationship Specialty Start Date End Date Smitha Matos MD 230 [place] [address] PCP - General Family Medicine 05/24/18 Marissa Barbosa PharmD 230 [place] [address] Pharmacist Internal Medicine 08/12/22 Kenny Grossman MD 100 [facility] 200 [place] [address] Nephrology 06/07/24 Dr. Paco Rodriges MD [facility] Cardiology [address] [place] [address]- 06/14/24 Dr. Nancie Lilly MD [address] [address] Colon and Rectal Surgery 07/27/24 documented as of this encounter
--- OUTSIDE RECORDS SUMMARY | 2024-08-02 07:55 | XMS_ITS | Encounter Summary ---
Author Organization [employer] Address 75 [facility] 7t [place] [address] Care Team Providers Care Sign Builder Supervisor Name Role Phone Smitha Matos MD Primary Care Provider +- [phone] Marissa Barbosa PharmD Unavailable Kenny Grossman MD Unavailable [phone] Encounter Details Date Type Department Care Team (Late st Contact Info) Description 08/13/2022 Orders Only [facility] 230 [place], [place] [phone] Smitha Matos MD 230 [place], [place] [phone] Primary hypertension (Primary Dx) Social History Tobacco Use Types Packs/Day Years Used Date Smoking Tobacco: Never Smokeless Tobacco: Never Alcohol Use Standard Drinks/Week Comments Never 0 (1 standard drink = 0.6 oz pur e alcohol) PHQ-2 Answer Date Recorded Patient Health Questionnaire-2 Score 0 07/06/2022 Depression Answer Date Recorded Patient Health Questionnaire-2 Score 0 07/06/2022 Sex and Gender Information Value Date Recorded Sex Assigned at Male 03/23/2022 10:14 AM EDT Legal Sex Male 10:14 AM EDT Gender Identity Male 03/23/2022 10:14 AM EDT Sexual Orientation Choose not to disclose 2021 10:14 AM EDT COVID-19 Exposure Response Date Recorded In the last 10 days, have yo u been in contact with someone who was confirmed or suspected to have Coronavirus/COVID-19? No / Unsure 08/10/2022 2:31 PM EDT documented as of this encounter Plan of Treatment Upcoming Encounters Date Type Department Care Team (Late st Contact Info) Description 08/14/2024 1:00 PM EDT Medication Management [facility] 230 [place] [address] Marissa Barbosa PharmD [address] [place] [address] documented as of this encounter Goals Goal Patient Goal Type Associated Problems Recent Progress Patient-Stated? Author Blood Pressure < 140/90 Blood Pressure 132/83(2024 10:18 AM EDT) No Marissa Reynaga PharmD Hemoglobin A1c < 7 Result Component 6.6( 10:21 AM EDT) No Marissa Reynaga PharmD documented as of this encounter Procedures Procedure Name Priority Date/Time Associated Diagnosis Comments ALBUMIN, RANDOM URINE W/CREATININE Routine 02/18/2023 11:15 AM EDT Primary hypertension documented in this encounter Results * Albumin, Random Urine W/Creatinine (02/18/2023 11:15 AM EDT) Creatinine, Urine 94.95 mg/dL [facility] Microalbumin Urine 8.0 mg/L [facility] Microalbum Creatinine Ratio Ur 8.4 <30 ug/mg cr [facility] Comment:Albumin/Creatinine R atio Reference Ranges: Normal: < 30 ug/mg creatinine Microalbuminuria: 30 - 300 ug/mg creatinineClinical Albuminuria: > 300 ug/mg creatinine 02/18/2023 11:1 5 AM EDT 02/18/2023 1:01 PM EDT Smitha Matos MD LAB URINE ORDERABLES Final Result [facility] [address] [place] [address] [phone] documented in this encounter Visit Diagnoses Diagnosis Primary hypertension- Primary Unspecified essential hypertension documented in this encounter Care Teams Sign Builder Supervisor Relationship Specialty Start Date End Date Smitha Matos MD 230 [place] [address] PCP - General Family Medicine 05/24/18 Marissa Barbosa, Jennifer 230 [place] [address] Pharmacist Internal Medicine 08/12/22 Kenny Grossman MD 100 [facility] 200 [place] [address] Nephrology 06/07/24 Dr. Paco Rodriges MD [facility] Cardiology [address]00 [place] [address]- 06/14/24 Dr. Nancie Lilly MD [address] [address] Colon and Rectal Surgery 07/27/24 documented as of this encounter
--- OUTSIDE RECORDS SUMMARY | 2024-08-02 07:55 | XMS_ITS | Encounter Summary ---
Author Organization [employer] [facility] Address [address] [place] [address] 7t [place] [address] Care Team Providers Care Canoe Builder Name Role Phone Smitha Matos MD Primary Care Provider Marissa Barbosa PharmD Unavailable Kenny Grossman MD Unavailable [phone] Encounter Details Date Type Department Care Team (Late st Contact Info) Description 06/29/2022 Abstract [facility] [address] [place] [address] Smitha Matos MD 230 [place] [address] Social History Tobacco Use Types Packs/Day Years Used Date Smoking Tobacco: Never Assessed Sex and Gender Information Value Date Recorded [...] Description 08/14/2024 1:00 PM EDT Medication Management [facility] [address] [place] [address] Marissa Barbosa, PharmD [address] [place] [address] documented as of this encounter Procedures Procedure Name Priority Date/Time Associated Diagnosis Comments HM COLONOSCOPY Routine 10/01/2021 documented in this encounter Results * Hm 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 Paco Rodriges MD [facility] Cardiology [address] [place] [address]- 06/14/24 Dr. Nancie Lilly MD [address] [address] Colon and Rectal Surgery 07/27/24 documented as of this encounter
--- OUTSIDE RECORDS SUMMARY | 2024-08-02 07:56 | XMS_ITS | Encounter Summary ---
Author Organization [employer] Address 75 [facility] 7t [place] [address] Care Team Providers Care Operation Research Analyst Name Role Phone Smitha Matos MD Primary Care Provider [phone] Marissa Barbosa PharmD Unavailable [phone]- [phone] Kenny Grossman MD Unavailable [phone] Encounter Details Date Type Department Care Team (Latest Contact Info) Description 07/31/2024 Travel Social History Tobacco Use Types Packs/Day Years [...] housing situation today? I have iban finch 01/27/[address] you li ve. Do you have problems with any of the following? None of the above 01/27/2024 Food Insecurity Answer Date Recorded Within the past 12 months, y ou worried that your food would run out before you got money to buy more: Sometimes True 2024 Within the past 12 months,th e food you bought just didn't last and you didn't have enough money to get more: Sometimes True 07/19/2024 Transportation Answer Date Recorded In the past 12 months, has l ack of transportation kept you from medical appts, meetings, work or from getting things needed for daily living? No 01/27/2024 Utilities Answer Date Recorded In the past 12 months, has t he electric, gas, oil or water [employer] threatened to shut off services in your [...] Description 08/14/2024 1:00 PM EDT Medication Management [facility] [address] [place] [address] Marissa Barbosa PharmD [address] [place] [address] documented as of this encounter Goals Goal Patient Goal Type Associated Problems Recent Progress Patient-Stated? Author Blood Pressure < 140/90 Blood Pressure 132/83(2024 10:18 AM EDT) No Manjits-Octavianol kadi, Marissa, PharmD Hemoglobin A1c < 7 Result Component 6.6( 10:21 AM EDT) No Manjits-Octavianol Brianne wallissa, PharmD documented as of this encounter Visit Diagnoses Not on filedocumented in this encounter Additional Health Concerns Assessment Noted Time PHQ-9 Depression Total Score: 3 01/27/20 24 9:37 AM EDT documented as of this encounter Care Teams Operation Research Analyst Relationship Specialty Start Date End Date Smitha Matos MD [address] [place] [phone] PCP - General Family Medicine 05/24/18 Marissa Barbosa, PharmD [address] [place] [address] Pharmacist Internal Medicine 08/12/22 Kenny Grossman MD 100 [facility] 200 [place] [address] Nephrology 06/07/24 Dr. Paco Rodriges MD [facility] Cardiology [address]00 [place] [address]- 06/14/24 Dr. Nancie Lilly MD [address] [address] Colon and Rectal Surgery 07/27/24 documented as of this encounter
--- OUTSIDE RECORDS SUMMARY | 2024-08-02 07:56 | XMS_ITS | Encounter Summary ---
Author Organization [employer] Address 75 [facility] 7t [place] [address] Care Team Providers Care Pot Sander Name Role Phone Carlo, Smitha CHOUDHURY Primary Care Provider [phone]- [phone] Marissa Barbosa PharmD Unavailable [phone] Kenny Grossman MD Unavailable [phone] Reason for Visit * Reason Comments Med Refill Encounter Details Date Type Department Care Team (Late st Contact Info) Description 12/15/2023 Refill [facility] MED[facility] 230 [place], [place] [phone] Marissa Barbosa, PharmD 230 [place], [place] [phone] Social History Tobacco Use Types Packs/Day Years [...] Description 08/14/2024 1:00 PM EDT Medication Management [facility] MED[facility] [address] [place] [address] [phone] Marissa Barbosa PharmD [address] [place] [address] documented as of this encounter Goals Goal Patient Goal Type Associated Problems Recent Progress Patient-Stated? Author Blood Pressure < 140/90 Blood Pressure 132/83(2024 10:18 AM EDT) No Marissa Reynaga, PharmD Hemoglobin A1c < 7 Result Component 6.6( 10:21 AM EDT) No Marissa Reynaga PharmD documented as of this encounter Visit Diagnoses Not on filedocumented in this encounter Care Teams Pot Sander Relationship Specialty Start Date End Date Smitha Matos MD [address] [place] [phone] PCP - General Family Medicine 05/24/18 Marissa Barbosa PharmD [address] [place] [phone] Pharmacist Internal Medicine 08/12/22 Kenny Grossman MD 100 [facility] 200 [place] [address] Nephrology 06/07/24 Dr. Paco Rodriges MD [facility] Cardiology [address] [place] [address]- 06/14/24 Dr. Nancie Lilly MD [address] [address] Colon and Rectal Surgery 07/27/24 documented as of this encounter
--- OUTSIDE RECORDS SUMMARY | 2024-08-02 07:56 | XMS_ITS | Encounter Summary ---
Author Organization [employer] Address 75 [facility] 7t [place] [address] Care Team Providers Care Economic Research Assistant Name Role Phone Carlo, Smitha CHOUDHURY Primary Care Provider +- [phone] Marissa Barbosa PharmD Unavailable [phone] Kenny Grossman MD Unavailable [phone] Reason for Visit * Reason Comments Med Refill Encounter Details Date Type Department Care Team (Late st Contact Info) Description 11/22/2023 Refill [facility] MEDICINE 230 [place], [place] [phone] Marissa Barbosa, PharmD 230 [place], [place] [phone] Social History Tobacco Use Types Packs/Day Years [...] 1:00 PM EDT Medication Management [facility] MEDICINE [address] [place] [phone] Marissa Barbosa PharmD [address] [place] [address] documented as of this encounter Goals Goal Patient Goal Type Associated Problems Recent Progress Patient-Stated? Author Blood Pressure < 140/90 Blood Pressure 132/83(2024 10:18 AM EDT) No Marissa Reynaga, PharmD Hemoglobin A1c < 7 Result Component 6.6( 10:21 AM EDT) No Marissa Reynaga PharmD documented as of this encounter Visit Diagnoses Not on filedocumented in this encounter Care Teams Economic Research Assistant Relationship Specialty Start Date End Date Smitha Matos MD [address] [place] [phone] PCP - General Family Medicine 05/24/18 Marissa Barbosa PharmD [address] [place] [phone] Pharmacist Internal Medicine 08/12/22 Kenny Grossman MD 100 [facility] [address] [place] [address] Nephrology 06/07/24 Dr. Paco Rodriges MD [facility] Cardiology [address] [place] [address]- 06/14/24 Dr. Nancie Lilly MD [address] [address] Colon and Rectal Surgery 07/27/24 documented as of this encounter
--- OUTSIDE RECORDS SUMMARY | 2024-08-02 07:56 | XMS_ITS | Encounter Summary ---
Author Organization [employer] [facility] Address 75 [facility] 7t [place] [address] Care Team Providers Care Home Care Chaplain Name Role Phone Smitha Matos MD Primary Care Provider + [phone] Marissa Barbosa PharmD Unavailable Kenny Grossman MD Unavailable [phone] Encounter Details Date Type Department Care Team (Latest Contact Info) Description 03/01/2019 Abstract [facility] CONVERSIONS Dental, Provider, DDS Social History Tobacco Use Types Packs/Day Years [...] Description 08/14/2024 1:00 PM EDT Medication Management [facility] MEDICINE 230 [place] [address] Marissa Barbosa, PharmD 230 [place] [address] documented as of this encounter Visit Diagnoses Not on filedocumented in this encounter Care Teams Home Care Chaplain Relationship Specialty Start Date End Date Smitha Matos MD 230 [place] [address] PCP - General Family Medicine 05/24/18 Marissa Barbosa, ZeinaD 230 [place] [address] Pharmacist Internal Medicine 08/12/22 Kenny Grossman MD [address] [facility] 200 [place] [address] Nephrology 06/07/24 Dr. Paco Rodriges MD [facility] Cardiology [address] [place] [address]- 06/14/24 [place] [address] Colon and Rectal Surgery 07/27/24 documented as of this encounter
--- OUTSIDE RECORDS SUMMARY | 2024-08-02 07:56 | XMS_ITS | Clinical Summary ---
Author Organization [facility] it Address [address] [place] [address] Care Team Providers Care Catering Service Manager Name Role Phone Smitha Matos MD Primary Care Provider [phone] Social History Tobacco Use Types Packs/Day Years Used Date Smoking Tobacco: Never Assessed Sex and Gender Information Value Date Recorded Sex Assigned at Not on file Legal Sex Male 1:31 AM EST Gender Identity Not on file Sexual Orientation Not on file Last Filed Vital Signs Vital Sign Reading Time Taken Comments Blood Pressure - - Pulse - - Temperature - - Respiratory Rate - - Oxygen Saturation - - Inhaled Oxygen Concentration - - Weight 125 kg (275 lb) 07/20/2023 3:24 PM EST Height - - Body Mass Index - - Plan of Treatment Health Maintenance Due Date Last Done Comments DTaP,Tdap,and Td Vaccines (1 - Tdap) 1971 Pneumococcal Vaccine: 50+ Ye ars (1 of 2 - PCV) 1971 Zoster Vaccines (1 of 2) 2002 RSV Immunization Patients 60 + Years Old (1 - Risk 60-74 years 1-dose series) 2012 Abdominal Aortic Aneurysm (A AA) Screen 06/23/2023 Cholesterol Screening (Lipid Panel) 06/23/2023 Colorectal Cancer Screening: Colonoscopy 06/23/2023 Depression Screening 06/23/2023 Falls Risk Assessment 06/23/2023 Hepatitis C Screening 06/23/2023 Social Influencers of Health Screening 06/23/2023 COVID-19 Vaccine ( - 2023-2 5 season) 2024 Influenza Vaccine (#1) 2024 HIB Vaccines Aged Out No longer eligi ble based on patient's age to complete this topic HPV Vaccines Aged Out No longer eligi ble based on patient's age to complete this topic Hepatitis A Vaccines Aged Out No long er eligible based on patient's age to complete this topic Hepatitis B Vaccines Aged Out No long er eligible based on patient's age to complete this topic IPV Vaccines Aged Out No longer eligi ble based on patient's age to complete this topic MMR Vaccines Aged Out No longer eligi ble based on patient's age to complete this topic Meningococcal ACWY Vaccine Aged Out N o longer eligible based on patient's age to complete this topic Meningococcal B Vacine Aged Out No lo nger eligible based on patient's age to complete this topic RSV Immunization Patients Un xi 20 months Aged Out No longer eligible b ased on patient's age to complete this topic Varicella Vaccines Aged Out No longer eligible based on patient's age to complete this topic Care Teams Catering Service Manager Relationship Specialty Start Date End Date Smitha Matos MD [address] [place] [id number] PCP - General 09/14/11
--- OUTSIDE RECORDS SUMMARY | 2024-08-02 07:56 | XMS_ITS | Clinical Summary ---
Author Organization [employer] Address [address] [place] [address] Care Team Providers Care Assistant Portfolio Manager Name Role Phone Smitha Matos MD Primary Care Provider [phone] Marissa Barbosa PharmD Unavailable [phone] Kenny Grossman MD Unavailable [phone] Allergies Active Allergy Reactions Criticality Noted Date Comments Hydrochlorothiazide 11/19/2011 Medications Blood Pressure Monitor kitIndications:P rimary hypertension USE as DIRECTED 1 kit 08/13/19 23 Active Viagra 100 MG tabletIndication s:Other male erectile dysfunction TAKE 1 TABLET 1 HOUR BEFORE SEXUAL RELATIONS ONCE DAILY NEEDED. 20 tablet 5 03/17/20 23 Active rosuvastatin (Crestor) 40 MG tabletIndication s:Dyslipidemia Take 1 tablet (40 mg) by mouth Once per day. 90 tablet 3 11/23/19 24 Active amLODIPine (Norvasc) 10 MG tabletIndication s:Primary hypertension Take 1 tablet (10 mg) by mouth in the morning. 90 tablet 3 01/27/20 24 Active carvedilol (Coreg) 12.5 MG tabletIndication s:Primary hypertension TAKE 1 TABLET BY MOUTH TWICE DAILY IN THE MORNING AND AT BEDTIME 180 tablet 3 01/27/20 24 Active losartan (Cozaar) 100 MG tabletIndication s:Primary hypertension Take 1 tablet (100 mg) by mouth in the morning. 90 tablet 3 01/27/20 24 Active FREESTYLE LITE test stripIndications :Type 2 diabetes mellitus without complication, unspecified whether usp insulin use ([facility]) TEST BLOOD SUGAR TWICE DAILY 100 strip 11 04/13/20 24 Active TRUEplus Lancets 33G miscIndications: Type 2 diabetes mellitus without complication, unspecified whether usp insulin use ([facility]) TEST BLOOD SUGAR TWICE DAILY DIRECTED 100 each 11 04/13/20 24 Active empagliflozin-me tFORMIN ER (Synjardy XR) 10-1000 MG 24 hr tabletIndication s:Type 2 diabetes mellitus with stage 3 chronic kidney disease, without long-term current use of insulin, unspecified whether stage 3a or 3b CKD ([facility]) Take 1 tablet by mouth in the morning. 90 tablet 06/13/19 25 Active spironolactone (Aldactone) 25 MG tabletIndication s:Primary hypertension Take one half tablet by mouth once daily 45 tablet 06/13/19 25 Active omeprazole (PriLOSEC) [address] capsuleIndicatio ns:Gastroesophag eal reflux disease, unspecified whether esophagitis present TAKE 1 CAPSULE BY MOUTH EVERY DAY NEEDED 30 capsule 2 06/19/19 25 Active D3-1000 25 MCG (1000 UT) capsuleIndicatio ns:Vitamin D deficiency TAKE 1 TABLET BY MOUTH EVERY MORNING 90 capsule 1 07/04/19 25 Active D3-1000 25 MCG (1000 UT) capsuleIndicatio ns:Vitamin D deficiency TAKE 1 CAPSULE BY MOUTH EVERY MORNING 90 capsule 1 12/27/19 24 025 Discontinued Active Problems Patient Care Coordination No te Formatting of this note migh t be different from the original. Enrolled in [facility] HTN and [facility] DM clinic with Zeian DurbinD, [facility] Sheet Finisher:[employer] member services number [phone], provider services line, , option 4 [employer] Agency: [facility] Problem Noted Date Diagnosed Date Exercise counseling 07/31/2024 Dietary counseling 07/31/2024 Chronic systolic heart failure 07/31/2024 History of hypercalcemia 06/13/2024 Abnormal renal ultrasound 04/03/2024 Overview (07/31/2024): US 03/01/24 ordered by nurse informaticist Dr: Kenny Grossman MD for renal calculi revealed 3.2 cm exophytic solid lesion, anterior lateral upper pole left kidney. -Recommend dedicated IV contrast enhanced CT versus MRI renal mass protocol. Simple cyst, right kidney. No hydronephrosis. CT to be ordered by nephrology. -Seen by Kenny Grossman MD 04/07/24, MR of kidney ordered and pt referred to urology MR/MR abdomen wo/w con IMPRESSION: Bilateral renal cyst with no enhancing renal mass seen. Especially no abnormality in the upper pole left kidney. No hydronephrosis. Bilateral hepatic cysts. -will ask renal about status of urology referral -07/31/24 pt has not heard about urology referral. We will call nephro and uro to assist in setting up. Assessment & Plan (07/31/2024 10:44 AM EDT): US 03/01/24 ordered by nurse informaticist Dr: Kenny Grossman MD for renal calculi revealed 3.2 cm exophytic solid lesion, anterior lateral upper pole left kidney. -Recommend dedicated IV contrast enhanced CT versus MRI renal mass protocol. Simple cyst, right kidney. No hydronephrosis. CT to be ordered by nephrology. -Seen by Kenny Grossman MD 04/07/24, MR of kidney ordered and pt referred to urology MR/MR abdomen wo/w con IMPRESSION: Bilateral renal cyst with no enhancing renal mass seen. Especially no abnormality in the upper pole left kidney. No hydronephrosis. Bilateral hepatic cysts. -will ask renal about status of urology referral -07/31/24 pt has not heard about urology referral. We will call nephro and uro to assist in setting up. Chronic low back pain without sciatica Urge incontinence of urine 01/27/2024 Overview (07/31/2024): -Rx for incontinence pads placed 01/27/24 -pt requests pad because pull ups not adequate and bulky, rx placed 07/31/24 -pt will be seeing urology ordered by nephrology Assessment & Plan (07/31/2024 10:53 AM EDT): -Rx for incontinence pads placed 01/27/24 -pt requests pad because pull ups not adequate and bulky, rx placed 07/31/24 -pt will be seeing urology ordered by nephrology Assessment & Plan (01/27/2024 9:54 AM EDT): -Will prescribe incontinence pads 01/27/24 Bilateral foot pain 02/18/2023 Overview (02/18/2023): Referral for podiatry done 02/18/2023 Assessment & Plan (02/18/2023 10:58 AM EDT): Referral for podiatry done 02/18/2023 Other specified health status 02/10/2023 Overview (02/07/2024): -next physical exam due after 01/26/25 -eye care facilitated by [facility]. And [facility], seen 02/02/24 -dental home is advised and recommended to get established. -health care proxy given and filed 01/27/24 Assessment & Plan (07/31/2024 10:48 AM EDT): -next physical exam due after 01/26/25 -eye care facilitated by [facility]. And [facility], seen 02/02/24 -dental home is advised and recommended to get established. -health care proxy given and filed 01/27/24 Assessment & Plan (01/27/2024 9:45 AM EDT): -next physical exam due after 01/26/25 -eye care facilitated by [facility]. -dental home is advised and recommended to get established. -health care proxy given and filed 01/27/24 Assessment & Plan (02/18/2023 10:44 AM EDT): -next physical exam due after -eye care facilitated by -dental home is Dyslipidemia 06/30/2022 Overview (01/27/2024): Lab Results Component Value Date CHOLESTEROL 164 07/06/2022 LDLCHOL 102 (H) 07/06/2022 LDLCHOL 100 (H) 07/05/2020 TRIG 48 11/03/2023 TRIG 60 07/06/2022 HDLCHOL 47 07/06/2022 CHOLHDLRAT 3.5 07/06/2022 -continue lifestyle modifications - Crestor increased from 20mg to 40mg daily by CDTM 11/04/23 Assessment & Plan (01/27/2024 9:50 AM EDT): Lab Results Component Value Date CHOLESTEROL 164 07/06/2022 LDLCHOL 102 (H) 07/06/2022 LDLCHOL 100 (H) 07/05/2020 TRIG 48 11/03/2023 TRIG 60 07/06/2022 HDLCHOL 47 07/06/2022 CHOLHDLRAT 3.5 07/06/2022 -continue lifestyle modifications - Crestor increased from 20mg to 40mg daily by CDTM 11/04/23 Assessment & Plan (02/18/2023 10:45 AM EDT): Lab Results Component Value Date CHOLESTEROL 164 07/06/2022 LDLCHOL 102 (H) 07/06/2022 LDLCHOL 100 (H) 07/05/2020 TRIG 60 07/06/2022 HDLCHOL 47 07/06/2022 CHOLHDLRAT 3.5 07/06/2022 -continue lifestyle modifications Assessment & Plan (06/30/2022 9:21 AM EST): -FLP was at goal on 06/2020. LDL 100, TG 53, HDL 47 -FLP was at goal on 06/2021 with Total 154, LDL 98, Tri 78, HDL 41 ASCVD risk calculated 07/23/2021 8.5% Diabetes diagnosed 07/23/2021. Crestor 20 mg qhs started 09/25/2021 CL at goal 06/2021 with LDL 98, TRI 78, HDL 41 Electrocardiogram abnormal 05/05/2022 Overview (06/30/2022): Pt was seen at [facility] 02/11/21 for pre-op clearance, at that time had PVCs on eKG and irregular pulse on exam likely due to compensatory pauses after PVCs . Per Echo 01/23/21: 1. Mildly to moderately reduced LV systolic function with inferior inferoseptal wall motion abnormality with impaired relaxation filling pattern 2. Trace aortic and mitral regurgitation 3. Normal RV systolic pressure 4. No pericardial effusion . Assessment & Plan (06/30/2022 9:23 AM EST): Pt was seen at [facility] 02/11/21 for pre-op clearance, at that time had PVCs on eKG and irregular pulse on exam likely due to compensatory pauses after PVCs . Per Echo 01/23/21: 1. Mildly to moderately reduced LV systolic function with inferior inferoseptal wall motion abnormality with impaired relaxation filling pattern 2. Trace aortic and mitral regurgitation 3. Normal RV systolic pressure 4. No pericardial effusion . Prolonged QT interval 05/05/2022 Type 2 diabetes mellitus wit h diabetic chronic kidney disease 07/21/2021 Overview (07/31/2024): Diabetes is controlled. Lab Results Component Value Date HGBA1C 6.6 (A) 07/31/2024 HGBA1C 6.6 (A) 01/27/2024 HGBA1C 6.4 (A) 11/01/2023 Lab Results Component Value Date CREATININE 1.08 06/07/2024 EGFR >60 06/07/2024 MICROALBCREU 6.6 01/27/2024 MICROALBCREU 12.4 11/03/2023 LDLCHOLCAL 104 (H) 11/03/2023 -[place]/Arb: losartan 100mg -Statin therapy: rosuvastatin 40mg (increased by CDTM 11/04/23) - Metformin ER 500mg twice daily changed to Synjardi ER 10mg-1000mg once daily by CDTM 11/23/23 -Diabetic eye exam: 10/28/23 with [facility] -Diabetic foot exam: done 01/27/24. Some dry skin and varicose veins. Will prescribe a hydrating cream. -Continue lifestyle modifications -Continue current medications Assessment & Plan (07/31/2024 10:47 AM EDT): Diabetes is controlled. Lab Results Component Value Date HGBA1C 6.6 (A) 07/31/2024 HGBA1C 6.6 (A) 01/27/2024 HGBA1C 6.4 (A) 11/01/2023 Lab Results Component Value Date CREATININE 1.08 06/07/2024 EGFR >60 06/07/2024 MICROALBCREU 6.6 01/27/2024 MICROALBCREU 12.4 11/03/2023 LDLCHOLCAL 104 (H) 11/03/2023 -[place]/Arb: losartan 100mg -Statin therapy: rosuvastatin 40mg (increased by CDTM 11/04/23) - Metformin ER 500mg twice daily changed to Synjardi ER 10mg-1000mg once daily by CDTM 11/23/23 -Diabetic eye exam: 10/28/23 with [facility] -Diabetic foot exam: done 01/27/24. Some dry skin and varicose veins. Will prescribe a hydrating cream. -Continue lifestyle modifications -Continue current medications Assessment & Plan (01/27/2024 9:49 AM EDT): Diabetes is controlled. Lab Results Component Value Date HGBA1C 6.6 (A) 01/27/2024 HGBA1C 6.4 (A) 11/01/2023 HGBA1C 7.4 (A) 02/16/2023 Lab Results Component Value Date CREATININE 1.26 11/03/2023 EGFR 56 11/03/2023 MICROALBCREU 12.4 11/03/2023 MICROALBCREU 8.4 02/18/2023 LDLCHOLCAL 104 (H) 11/03/2023 -[place]/Arb: losartan 100mg -Statin therapy: rosuvastatin 40mg (increased by CDTM 11/04/23) - Metformin ER 500mg twice daily changed to Synjardi ER 10mg-1000mg once daily by CDTM 11/23/23 -Diabetic eye exam: 10/28/23 with [facility] -Diabetic foot exam: done 01/27/24. Some dry skin and varicose veins. Will prescribe a hydrating cream. -Continue lifestyle modifications -Continue current medications Assessment & Plan (02/18/2023 10:43 AM EDT): Diabetes is controlled. - Lab Results Component Value Date HGBA1C 7.4 (A) 02/16/2023 HGBA1C 6.9 (A) 07/06/2022 HGBA1C 6.7 (H) 12/19/2021 -No results found for: POCA1C - Lab Results Component Value Date CREATININE 1.14 07/06/2022 -[place]b: -Statin therapy: -Diabetic eye exam: -Diabetic foot exam: -Continue lifestyle modifications -Continue current medications Assessment & Plan (07/06/2022 10:27 AM EST): Diabetes is well controlled. - A1c < 7% - Diabetic eye exam: overdue , ordered 07/06/2022 - Diabetic foot exam: normal 07/06/2022 - Continue lifestyle modifications - Continue current medications - Foot exam: - Follow up: 3 month Adenocarcinoma of large intestine 09/14/2018 Overview (07/31/2024): -Invasive moderately differentiate adenocarcinoma on polypectomy colonoscopy 09/06/18. -Repeat colonoscopy due to poor prep done 09/23/18 revealed two hyperplastic polyps and one tubular adenoma with Dr. Lopez. -He had repeat colonoscopy 04/2019 that showed no residual lesion or recurrence but due to suboptimal prep repeat in 1 year recommended but was postponed due to COVID-19 pandemic. -colonoscopy 12/20/2020 has lesion of invasive adenocarcinoma on biopsy -Pt underwent laparoscopic right colectomy with colonoscopy with Dr. Lilly at [facility] -T2N0, no chemotherapy needed -Last note from Dr. Lilly reviewed from 04/04/221 -s/p colonoscopy October 01, 2021 with [facility] -Seen by Dr. Peterson 07/26/24, colonoscopy Impression: 2 subcentimeter polyps in the transverse colon were removed with cold forceps biopsy. -Repeat colonoscopy in 5 years Assessment & Plan (07/31/2024 10:46 AM EDT): -Invasive moderately differentiate adenocarcinoma on polypectomy colonoscopy 09/06/18. -Repeat colonoscopy due to poor prep done 09/23/18 revealed two hyperplastic polyps and one tubular adenoma with Dr. Lopez. -He had repeat colonoscopy 04/2019 that showed no residual lesion or recurrence but due to suboptimal prep repeat in 1 year recommended but was postponed due to COVID-19 pandemic. -colonoscopy 12/20/2020 has lesion of invasive adenocarcinoma on biopsy -Pt underwent laparoscopic right colectomy with colonoscopy with Dr. Lilly at [facility] -T2N0, no chemotherapy needed -Last note from Dr. Lilly reviewed from 04/04/221 -s/p colonoscopy October 01, 2021 with [facility] Rasmussen -Seen by Dr. Peterson 07/26/24, colonoscopy Impression: 2 subcentimeter polyps in the transverse colon were removed with cold forceps biopsy. -Repeat colonoscopy in 5 years Assessment & Plan (01/27/2024 9:56 AM EDT): -Invasive moderately differentiate adenocarcinoma on polypectomy colonoscopy 09/06/18. -Repeat colonoscopy due to poor prep done 09/23/18 revealed two hyperplastic polyps and one tubular adenoma with Dr. Lopez. -He had repeat colonoscopy 04/2019 that showed no residual lesion or recurrence but due to suboptimal prep repeat in 1 year recommended but was postponed due to COVID-19 pandemic. -colonoscopy 12/20/2020 has lesion of invasive adenocarcinoma on biopsy -Pt underwent laparoscopic right colectomy with colonoscopy with Dr. Lilly at [facility] -T2N0, no chemotherapy needed -Last note from Dr. Lilly reviewed from 04/04/221 -s/p colonoscopy October 01, 2021 with [facility] Rasmussen -due for follow up with Dr. Peterson, pt to call Assessment & Plan (02/18/2023 10:42 AM EDT): -Invasive moderately differentiate adenocarcinoma on polypectomy colonoscopy 09/06/18. -Repeat colonoscopy due to poor prep done 09/23/18 revealed two hyperplastic polyps and one tubular adenoma with Dr. Lopez. -He had repeat colonoscopy 04/2019 that showed no residual lesion or recurrence but due to suboptimal prep repeat in 1 year recommended but was postponed due to COVID-19 pandemic. -colonoscopy 12/20/2020 has lesion of invasive adenocarcinoma on biopsy -Pt underwent laparoscopic right colectomy with colonoscopy with Dr. Lilly at [facility] -T2N0, no chemotherapy needed -Last note from Dr. Lilly reviewed from 04/04/221 -s/p colonoscopy October 01, 2021. Assessment & Plan (07/06/2022 10:18 AM EST): -Invasive moderately differentiate adenocarcinoma on polypectomy colonoscopy 09/06/18. -Repeat colonoscopy due to poor prep done 09/23/18 revealed two hyperplastic polyps and one tubular adenoma with Dr. Lopez. -He had repeat colonoscopy 04/2019 that showed no residual lesion or recurrence but due to suboptimal prep repeat in 1 year recommended but was postponed due to COVID-19 pandemic. -colonoscopy 12/20/2020 has lesion of invasive adenocarcinoma on biopsy -Pt underwent laparoscopic right colectomy with colonoscopy with Dr. Lilly at [facility] -T2N0, no chemotherapy needed -Last note from Dr. Lilly reviewed from 04/04/221 -s/p colonoscopy October 01, 2021. Colonoscopy done 03/03/22 showed a 5mm polyp, sigmoid colon sessile, done by Dr. Cruzito Rasmussen at [facility]. Recommending 3 year follow up. Hydronephrosis 07/20/2014 Overview (05/05/2022): Hydronephrosis On The Left Obesity, morbid 11/22/2013 Obstructive sleep apnea syndrome 06/01/2013 Benign prostatic hyperplasia 11/26/2011 Gastroesophageal reflux disease 11/26/2011 Overview (05/05/2022): Esophageal Reflux Assessment & Plan (01/27/2024 9:56 AM EDT): Esophageal Reflux Knee pain 11/26/2011 Overview (05/05/2022): Joint Pain, Localized In The Knee Vitamin D deficiency 11/26/2011 Overview (07/31/2024): Vitamin D Deficiency Chronic kidney disease, stage III (moderate) Overview (07/31/2024): Lab Results Component Value Date CREATININE 1.08 06/07/2024 EGFR >60 06/07/2024 MICROALBCREU 6.6 01/27/2024 MICROALBCREU 12.4 11/03/2023 LDLCHOLCAL 104 (H) 11/03/2023 -stable -avoid NSAIDS and nephrotoxic agents -control BP and blood glucose -nephrology referral placed 01/30/2023 -seen by Dr. Bonilla 06/07/23 Differential diagnosis for CKD would include underlying diabetic hypertensive kidney disease. With a history of nephrolithiasis obstructive uropathy should be ruled out. US revealed renal mass. MRI ordered by nephrology 04/05/24 and pt referred to urology. Other possibilities including infiltrative disease should be ruled out. Recommendations Check urine for protein creatinine ratio Serum and urine electrophoresis. Renal ultrasonogram. Optimize blood pressure. Optimize blood sugar maintain A1c less than 7%. Agree with SGLT2 inhibitors. Continue with the FABIAN inhibition. Encouraged to stay on low-sodium diet Increase p.o. fluid intake to maintain urine output of 2 L to minimize the risk of stone formation. Further workup will be based on the outcome of the above investigations. Assessment & Plan (07/31/2024 10:47 AM EDT): Lab Results Component Value Date CREATININE 1.08 06/07/2024 EGFR >60 06/07/2024 MICROALBCREU 6.6 01/27/2024 MICROALBCREU 12.4 11/03/2023 LDLCHOLCAL 104 (H) 11/03/2023 -stable -avoid NSAIDS and nephrotoxic agents -control BP and blood glucose -nephrology referral placed 01/30/2023 -seen by Dr. Bonilla 06/07/23 Differential diagnosis for CKD would include underlying diabetic hypertensive kidney disease. With a history of nephrolithiasis obstructive uropathy should be ruled out. US revealed renal mass. MRI ordered by nephrology 04/05/24 and pt referred to urology. Other possibilities including infiltrative disease should be ruled out. Recommendations Check urine for protein creatinine ratio Serum and urine electrophoresis. Renal ultrasonogram. Optimize blood pressure. Optimize blood sugar maintain A1c less than 7%. Agree with SGLT2 inhibitors. Continue with the FABIAN inhibition. Encouraged to stay on low-sodium diet Increase p.o. fluid intake to maintain urine output of 2 L to minimize the risk of stone formation. Further workup will be based on the outcome of the above investigations. Assessment & Plan (01/27/2024 9:54 AM EDT): Lab Results Component Value Date CREATININE 1.26 11/03/2023 EGFR 56 11/03/2023 MICROALBCREU 12.4 11/03/2023 MICROALBCREU 8.4 02/18/2023 LDLCHOLCAL 104 (H) 11/03/2023 -stable -avoid NSAIDS and nephrotoxic agents -control BP and blood glucose Depression 11/05/2011 Overview (01/27/2024): -Stable. No suicidial or homacidial ideation. -Declines therapist or psychiatrist. Assessment & Plan (01/27/2024 9:51 AM EDT): -Stable. No suicidial or homacidial ideation. -Declines therapist or psychiatrist. Hyperparathyroidism 10/09/2011 Overview (01/27/2024): He saw Dr. Gilliam of [facility] 03/2012. Pt tolerated reexploration and right thyroid lobectomy with Dr. Chapman on 08/03/2012 well and PTH came down and calcium normalized. He last saw Dr. Chapman 08/25/13. PTH was 77 (nml 14-64) on 06/2020. Vit D low at 22, Vitamin D restarted. Repeat 06/2021 PTH 72, Ca 8.6, viT d 26.4 PTH was 72 on 07/15/2021. Ca nml 8.6, Vitamin D a little low at 26. Assessment & Plan (01/27/2024 9:51 AM EDT): He saw Dr. Gilliam of [facility] 03/2012. Pt tolerated reexploration and right thyroid lobectomy with Dr. Chapman on 08/03/2012 well and PTH came down and calcium normalized. He last saw Dr. Chapman 08/25/13. PTH was 77 (nml 14-64) on 06/2020. Vit D low at 22, Vitamin D restarted. Repeat 06/2021 PTH 72, Ca 8.6, viT d 26.4 PTH was 72 on 07/15/2021. Ca nml 8.6, Vitamin D a little low at 26. Hypertension 10/09/2011 Overview (07/31/2024): -Blood pressure is not at goal -Continue lifestyle modifications -Continue current medications - Spironolactone 12.5mg once daily added by CD 03/20/24 - Saw [facility] cardiology 06/15/24, started on Amlodipine 10 mg and Carvedilol 12.5 mg. Assessment & Plan (07/31/2024 10:47 AM EDT): -Blood pressure is not at goal -Continue lifestyle modifications -Continue current medications - Spironolactone 12.5mg once daily added by CDTM 03/20/24 - Saw [facility] cardiology 06/15/24, started on Amlodipine 10 mg and Carvedilol 12.5 mg. Assessment & Plan (01/27/2024 9:57 AM EDT): -Blood pressure is not at goal -Continue lifestyle modifications -Continue current medications Assessment & Plan (02/18/2023 10:52 AM EDT): -Blood pressure is not at goal -Continue lifestyle modifications -Continue current medications Resolved Problems Problem Noted Date Diagnosed Date Resolved Date Tinea pedis of both feet 01/27/2024 Overview (01/27/2024): On foot exam had some dry skin. -prescribed ketoconazole cream 01/27/24 Assessment & Plan (01/27/2024 9:56 AM EDT): On foot exam had some dry skin. -prescribed ketoconazole cream 01/27/24 Palpitations 01/27/2024 07/31/2024 Overview (01/27/2024): -has upcoming appt next rica with Cardiology Assessment & Plan (01/27/2024 9:58 AM EDT): -has upcoming appt next rica with Cardiology Heel pain 02/18/2023 04/05/2024 Overview (02/18/2023): Referral done To podiatry 02/18/2023 Assessment & Plan (02/18/2023 10:48 AM EDT): Referral done To podiatry 02/18/2023 Dry skin 07/06/2022 04/03/2024 Assessment & Plan (07/06/2022 9:57 AM EST): On feet. Will try Cerave. Other male erectile dysfunction 07/06/2022 04/05/2024 Assessment & Plan (07/06/2022 10:09 AM EST): Initially had a good response to viagra but is no longer. Will check testosterone and refer to urology. History of erectile dysfunction 06/30/2022 07/06/2022 Overview (06/30/2022): Good results from viagra. Risk and benefits discussed. Continue viagra 100mg as needed. Assessment & Plan (06/30/2022 9:24 AM EST): Good results from viagra. Risk and benefits discussed. Continue viagra 100mg as needed. Cancer of right colon 02/24/20212023 Malignant neoplasm of descending colon 02/11/2021 01/27/2024 Overview (05/05/2022): Added automatically from request for surgery [id number] Calculus of ureter 07/20/2014 Overview (05/05/2022): Distal Ureteral Stone On The Left Osteoarthritis 11/22/2013 04/05/2024 Backache 01/21/2012 01/27/2024 Back pain 11/26/2011 01/27/2024 Overview (05/05/2022): Backache Blood glucose abnormal 11/26/201107/06 Overview (05/05/2022): Abnormal Glucose Calculus of kidney 11/05/2011 Overview (01/27/2024): -not active Assessment & Plan (01/27/2024 9:56 AM EDT): -not active Headache 10/09/2011 04/05/2024 Pain in joint involving lower leg 10/09/2011 04/05/2024 Encounters Date Type Department Care Team Description 07/31/2024 10:30 AM EDT Office Visit [facility] [address] [place] [id number] Smitha Matos MD Type 2 diabetes mellitus with stage 3 chronic kidney disease, without long-term current use of insulin, unspecified whether stage 3a or 3b CKD (CMS/HCC) (Primary Dx); Adenocarcinoma of large intestine (CMS/HCC); Hyperparathyroidism (CMS/HCC); Primary hypertension; Stage 3a chronic kidney disease (CMS/HCC); Obesity, morbid (CMS/HCC); Exercise counseling; Dietary counseling; Chronic systolic heart failure (CMS/HCC); Abnormal renal ultrasound; Vitamin D deficiency; Other specified health status; Urge incontinence of urine; Hx of hyperparathyroidism 07/31/2024 Telephone [facility] [address] [place] [phone] Smitha Matos MD 07/31/2024 Telephone [facility] [address] [place] [phone] Smitha Matos MD Urology Appt 07/31/2024 Travel 07/27/2024 Orders Only [facility] [address] [place] [phone] ProviderJu MD 07/19/2024 Patient Outreach [address] [phone] Smitha Matos MD Care Coordination (CHW outreach for SDOH PT-1 and food needs-referral completed /) 07/19/2024 Patient Outreach [address] [phone] Smitha Matos MD Pre-visit Planning (SDOH Screening positive and Tobacco screening negative) 07/04/2024 Refill [facility] [address] [place] [phone] Concepcion Chatterjee ANP Vitamin D deficiency 06/18/2024 Refill [facility] [address] [place] [address] Smitha Matos MD Gastroesophageal reflux disease, unspecified whether esophagitis present 06/14/[address] [phone] Smitha Matos MD 06/14/[address] [address] Smitha aMtos MD 06/09/[address] [address] Marissa Barbosa, Jennifer ER Follow-up 06/09/2024 Travel 06/07/2024 Orders Only GENERIC EXTERNAL DATA DEPARTMENT Provider, Generic External Data 06/01/[address] [address] Abrahan Azul MA July recall 05/29/[address] [address] Smitha Matos MD Appointment Request 05/26/2024 Refill [facility] [address] [place] [phone] Smitha Matos MD Type 2 diabetes mellitus with stage 3 chronic kidney disease, without long-term current use of insulin, unspecified whether stage 3a or 3b CKD ([facility]/HCC) 05/10/2024 Orders Only [facility] External Provider, [facility] Abnormal renal ultrasound (Primary Dx) from Last 3 Months Immunizations Name Administration Dates Next Due Hep B, adult 11/23/2023,02/18/2023,07/06/2022 Influenza High-dose Quadriva lent Preservative Free 02/16/2023,03/11/2020 Influenza injectable quadriv alent IIV4 with preservative 03/10/2017,02/15/2015 Influenza injectable quadriv alent preservative free 07/06/2022,07/10/2021,06/22/2016 Influenza, High Dose Seasona l, Preservative Free 03/10/2024,02/06/2019,04/11/2018 Influenza, IIV3, injectable 05/31/2014 Influenza, Split (incl. [place] surface antigen) 02/23/2013,01/21/2012 Moderna Covid-19 Vaccine 12+ 10/16/2020,09/19/19 21 Pneumococcal Conjugate PCV 13 07/21/2018 Pneumococcal Polysaccharide PPSV23 07/10/2021 RSV Bivalent 11/23/2023 Tdap 02/16/2023,01/21/2012 Zoster, Recombinant 01/17/2021,11/13/2020 Family History Medical History Relation Name Comments Diabetes Brother Diabetes Father Esophageal cancer Father Diabetes Mother Diabetes Sister Relation Name Status Comments Brother Father Mother Sister Social History Tobacco Use Types Packs/Day Years Used Date Smoking Tobacco: Never Smokeless Tobacco: Never Tobacco Cessation:Counseling Given: Not Answered Alcohol Use Standard Drinks/Week Comments Never 0 [...] not to disclose 2021 10:14 AM EDT Last Filed Vital Signs Vital Sign Reading Time Taken Comments Blood Pressure 132/83 07/31/2024 10:18 AM EDT Pulse 80 07/31/2024 10:18 AM EDT Temperature 35.8 ??C (96.4 ??F) 07/31/2024 10:18 AM E DT Respiratory Rate 18 07/31/2024 10:18 AM EDT Oxygen Saturation 98% 07/31/2024 10:18 AM EDT Inhaled Oxygen Concentration - - Weight 124 kg (274 lb) 07/31/2024 10:18 AM EDT Height 180.3 cm (5' 11 ) 07/31/2024 10:18 AM EDT Body Mass Index 38.22 07/31/2024 10:18 AM EDT Plan of Treatment Upcoming Encounters Date Type Department Care Team (Late st Contact Info) Description 08/14/2024 1:00 PM EDT Medication Management [facility] [address] [place], [place] [phone] Marissa Barbosa, PharmD [address], [place] [phone] Health Maintenance Due Date Last Done Comments CT Colonography 1950 FIT DNA/Cologuard 1950 FIT 1950 FOBT 1950 Sigmoidoscopy 1950 Lipid Panel 11/02/2024 11/03/2023, 06/24, 07/15/2021, Additional history exists Depression Screening 01/26/2025 01/27/2024, 01/27/20 24 Diabetes: Foot Exam 01/26/2025 01/27/2024, 01/27/2024, 01/27/2024, Additional history exists Diabetes: Hemoglobin A1C 01/31/2025 025, 01/27/2024, 11/01/2023, Additional history exists SDOH Screening 07/19/2025 07/19/2024 Alcohol/Substance Use Screening 07/31/2025 07/31/2024 COVID-19 Vaccine ( season) 2025 10/16/2020, 09/18/2020 Postponed from 01/23/2024 (Patient Refused) Tobacco Screening 07/31/2025 07/31/2024 Eye Exam 11/02/2025 11/03/2023, 10/08/2022 Colonoscopy 07/27/2027 07/26/2024, 06/24, 10/01/2021 Colorectal Cancer Screening 07/27/2027 DTaP/Tdap/Td Vaccines (3 - Td or Tdap) 02/16/2033 02/16/2023, 01/21/2012 Zoster Vaccines Completed 01/17/2021, 11/13/2020 Pneumococcal Vaccine: 50+ Years Completed 07/10/2021, 07/21/2018 Hepatitis C Screening Completed 07/06/2022, 022 Hepatitis B Vaccines Completed 11/23/2023, 02/18/2023, 07/06/2022 RSV Patients and Patients Aged 60 years or older Completed 11/23/2023 Influenza Vaccine Completed 03/10/2024, , 07/06/2022, Additional history exists HIB Vaccines Aged Out No longer eligi [...] patient's age to complete this topic Meningococcal Vaccine Aged Out No mohsen eligio eligible based on patient's age to complete this topic RSV under 20 months Aged Out No longe r eligible based on patient's age to complete this topic Rotavirus Vaccines Aged Out No longer eligible based on patient's age to complete this topic Goals Goal Patient Goal Type Associated Problems Recent Progress Patient-Stated? Author Blood Pressure < 140/90 Blood Pressure 132/83(2024 10:18 AM EDT) No Marissa Reynaga PharmD Hemoglobin A1c < 7 Result Component 6.6( 10:21 AM EDT) No Marissa Reynaga PharmD Procedures Procedure Name Priority Date/Time Associated Diagnosis Comments POCT GLYCATED HEMOGLOBIN, TOTAL Routine 07/31/2024 10:21 AM EDT Type 2 diabetes mellitus with stage 3 chronic kidney disease, without long-term current use of insulin, unspecified whether stage 3a or 3b CKD (CMS/HCC) POCT GLUCOSE Routine 07/31/2024 10:19 AM EDT Type 2 diabetes mellitus with stage 3 chronic kidney disease, without long-term current use of insulin, unspecified whether stage 3a or 3b CKD (CMS/HCC) COLONOSCOPY Routine 07/26/2024 2:09 PM EST CBC Routine 06/07/2024 11:57 AM EST BASIC METABOLIC PANEL Routine 06/07/2024 11:27 AM EST MR ABDOMEN W AND WO CONTRAST Routine 05/10/2024 2:10 PM EST HM DIABETES EYE EXAM Routine 11/03/2023 1:42 PM EDT LIPID PANEL, STANDARD Routine 11/03/2023 10:29 AM EDT HEPATITIS C AB W/REFL TO HCV RNA, QN, PCR Routine 07/06/2022 10:18 AM EST Routine screening for STI (sexually transmitted infection) from Last 3 Months or Most Recently Relevant to Health Maintenance Results * (ABNORMAL) POCT HGB A1C (07/31/2024 10:21 AM EDT) Pathologist [facility] Hemoglobin A1C 6.6(A) 4.0 - 6.0 % QC Media Lot # [id number] Lot# Expiration Date , Blood 07/31/2024 10:2 1 AM EDT Smitha Matos MD POINT OF CARE TEST ENTER/E DIT ORDERABLES Final Result * (ABNORMAL) POCT Glucose (07/31/2024 10:19 AM EDT) Pathologist [facility] Glucose Blood, POC 277(A) 60 - 200 mg/dL Comment:random QC Media Lot # [id number] Lot# Expiration Date 86,[id number] Blood Capillary blood specimen / Unknown 07/31/2024 10:19 AM EDT Smitha Matos MD POINT OF CARE TEST ENTER/E DIT ORDERABLES Final Result * Colonoscopy (07/26/2024 2:09 PM EST) Anatomical Region Laterality Modality Endoscopy [facility] Lola CHOUDHURY ENDOSCOPY PROCEDURE ORDER AMY Final Result * CBC (06/07/2024 11:57 AM EST) Pathologist [facility] White Blood Count 5.0 4.8 - 10.8 X10*3/uL [facility] Red Blood Count 4.77 4.60 - 5.80 X10*6/uL [facility] Hemoglobin 14.2 14.0 - 18.0 g/dl [facility] Hematocrit 42.6 42.0 - 52.0 % [facility] Mean Corpuscular Volume 89.3 80.0 - 98.0 fL [facility] Mean Corpuscular Hemoglobin 29.8 27.0 - 33.0 pg [facility] Mean Corpuscular HGB Conc 33.3 31.0 - 36.0 g/dl [facility] Red Cell Distribution Width 13.6 11.0 - 16.0 % [facility] Platelet Count 204 160 - 400 X10*3/uL [facility] Mean Platelet Volume 12.2 9.4 - 12.4 fL [facility] NRBC Pct Auto 0.0 0.0 - 0.2 /100WBC [facility] NRBC Abs Auto 0.000 0.0 - 0.012 X10*3/uL [facility] 06/07/2024 11:5 7 AM EST 06/07/2024 5:51 PM EST us Generic External Data Provider LAB BLOOD ORDERAB LES Final Result [facility] [address] [place] [phone] * (ABNORMAL) Basic Metabolic Panel (06/07/2024 11:27 AM EST) Sodium 141 135 - 145 mmol/L [facility] Potassium 3.6 3.3 - 5.1 mmol/L [facility] Chloride 109(H) 96 - 108 mmol/L [facility] Carbon Dioxide 28 22 - 29 mmol/L [facility] Anion Gap 8(L) 12 - 20 [facility] Urea Nitrogen (BUN) 13 9 - 16 mg/dL [facility] Creatinine, Serum 1.08 0.5 - 1.4 mg/dL [facility] Estimated Glomerular Filt Rate >60 [facility] Comment:Chronic Kidney Disea se: Estimated GFR < 60 mL/min/1.97p1Poanwj Kidney Disease: Estimated GFR < 15 mL/min/1.73m2 Glucose 100 60 - 115 mg/dL [facility] Calcium 8.4 8.4 - 10.2 mg/dL [facility] 06/07/2024 11:2 7 AM EST 06/07/2024 5:46 PM EST us Generic External Data Provider LAB BLOOD ORDERAB LES Final Result [facility] [address] [place] [phone] * MR Abdomen w/ and w/o Contrast (05/10/2024 2:10 PM EST) Anatomical Region Laterality Modality Abdomen Magnetic Resonan ce 05/10/2024 2:10 PM EST Narrative 06/07/2024 12:37 PM EST ? [facility] ?[address] ?[place] [address] ? Magnetic Resonance Report ? Signed ? Patient: Celestemarco antonioPedro ?MR#: [id number] ? : 1950 ?Acct:[id number] ? Age/Sex: 73 / M ?ADM Date: 05/10/24 ? Loc: HO.MRI ? Attending Dr: Kenny Grossman MD ? Ordering Physician: Kenny Grossman MD ?? Date of Service: 05/10/24 ?? Procedure(s): MR abdomen wo/w con ?? Accession Number(s): [id number] ? cc: Kenny Grossman MD; Smitha Matos MD ? EXAMINATION: ?? MR ABDOMEN WITHOUT AND WITH CONTRAST ? CLINICAL INFORMATION: ?? Left renal upper pole solid lesion on ultrasound. ? COMPARISON: ?? Ultrasound 03/01/2024. ? TECHNIQUE: ?? MR abdomen was performed without and with use of 10 mL intravenous ?? Gadavist gadolinium contrast. Postcontrast images are performed in ?? multiphase dynamic sequences. ??Imaging was performed in 3 planes. ? FINDINGS: ? LUNG BASES: The visualized lung bases are unremarkable. ? LIVER, GALLBLADDER, AND BILIARY TREE: The liver is normal in size, ?? smooth in contour, and normal in signal. There is a 1 cm nonenhancing ?? cyst right lobe segment 6 and and smaller nonenhancing cyst in left and ?? right lobe. No enhancing lesion seen. No intrahepatic ductal ?? dilatation. No perihepatic fluid collection. The gallbladder is ?? unremarkable with no evidence of gallbladder wall thickening, or ?? obvious pericholecystic inflammatory changes. ? PANCREAS: Unremarkable. ? SPLEEN: Normal. ? ADRENAL GLANDS: Normal. ? KIDNEYS AND URETERS: The kidneys are normal in size, shape, and enhance ?? symmetrically. ??No hydronephrosis. ??No perinephric stranding. ? Nonenhancing bilateral simple cyst. There is no enhancing mass seen in ?? the upper pole left kidney. No perinephric mass or fluid collection or ?? stranding. ? GASTROINTESTINAL TRACT: CAD stool is seen throughout the colon without ?? distention. The small bowel loops are normal caliber. ? ABDOMINAL WALL: No significant hernia is appreciated. ? LYMPH NODES: No lymphadenopathy. ? VASCULAR: Unremarkable. ? OSSEOUS STRUCTURES: Marrow signal normal. ?? Paraspinal signal is normal. ? MR/MR abdomen wo/w con ?? IMPRESSION: ?? Bilateral renal cyst with no enhancing renal mass seen. Especially no ?? abnormality in the upper pole left kidney. No hydronephrosis. ? Bilateral hepatic cysts . ? Electronically signed by: ??Lee Yoon MD ??06/07/2024 12:35 PM EST RP ? Dictated By: ?Lee Yoon MD ? Signed By: ?<Electronically signed by Lee Yoon MD in OV> ?06/07/24 1235 ? DD/ 1410 ? TD/TT: 05/10/24 1440 ? Rn Spine: MSM ? Procedure Note Devon Crocker - 06/07/[address] [address] Magnetic Resonance Report Signed Patient: Pedro Garcia#: [id number] : 1950cct:[id number] Age/Sex: 73 / MADM Date: 05/10/24 Loc: HO.MRI Attending Dr: Kenny Grossman MD Ordering Physician: Kenny Grossman MD Date of Service: 05/10/24 Procedure(s): MR abdomen wo/w con Accession Number(s): [id number] cc: Kenny Grossman MD; Smitha Matos MD EXAMINATION: MR ABDOMEN WITHOUT AND WITH CONTRAST CLINICAL INFORMATION: Left renal upper pole solid lesion on ultrasound. COMPARISON: Ultrasound 03/01/2024. TECHNIQUE: MR abdomen was performed without and with use of 10 mL intravenous Gadavist gadolinium contrast. Postcontrast images are performed in multiphase dynamic sequences. Imaging was performed in 3 planes. FINDINGS: LUNG BASES: The visualized lung bases are unremarkable. LIVER, GALLBLADDER, AND BILIARY TREE: The liver is normal in size, smooth in contour, and normal in signal. There is a 1 cm nonenhancing cyst right lobe segment 6 and and smaller nonenhancing cyst in left and right lobe. No enhancing lesion seen. No intrahepatic ductal dilatation. No perihepatic fluid collection. The gallbladder is unremarkable with no evidence of gallbladder wall thickening, or obvious pericholecystic inflammatory changes. PANCREAS: Unremarkable. SPLEEN: Normal. ADRENAL GLANDS: Normal. KIDNEYS AND URETERS: The kidneys are normal in size, shape, and enhance symmetrically. No hydronephrosis. No perinephric stranding. Nonenhancing bilateral simple cyst. There is no enhancing mass seen in the upper pole left kidney. No perinephric mass or fluid collection or stranding. GASTROINTESTINAL TRACT: CAD stool is seen throughout the colon without distention. The small bowel loops are normal caliber. ABDOMINAL WALL: No significant hernia is appreciated. LYMPH NODES: No lymphadenopathy. VASCULAR: Unremarkable. OSSEOUS STRUCTURES: Marrow signal normal. Paraspinal signal is normal. MR/MR abdomen wo/w con IMPRESSION: Bilateral renal cyst with no enhancing renal mass seen. Especially no abnormality in the upper pole left kidney. No hydronephrosis. Bilateral hepatic cysts . Electronically signed by: Lee Yoon MD 06/07/2024 12:35 PM [facility] Dictated By: Lee Yoon MD Signed By: <Electronically signed by Lee Yoon MD in OV> 06/07/24 1235 DD/ 1410 TD/TT: 05/10/24 1440 Rn Spine: [facility] External Provider IMG MRI PROCEDURES Final Result * Hm Diabetes Eye Exam (11/03/2023 1:42 PM EDT) Eye Exam Normal Normal Comment:follow up one year Historical Provider HEALTH MAINTENANCE Final Result * (ABNORMAL) Lipid Panel, Standard (11/03/2023 10:29 AM EDT) Triglycerides 48 <150 mg/dL [facility] Comment:Desirable Triglyceri de: less than 150 mg/dLBorderline High Triglyceride 150-199 mg/dLHigh Triglyceride: 200-499 mg/dLVery High Triglyceride: greater than or equal to 5OO mg/dL Cholesterol 156 <200 mg/dL [facility] Comment:Desirable Cholestero l: less than 200 mg/dLBorderline High Cholesterol: 200-239 mg/dLHigh Cholesterol: greater than 239 mg/dL LDL Cholesterol Calculated 104(H) <100 mg/dL [facility] Comment:Desirable LDL: less than 100 mg/dLNear Optimal/Above Optimal LDL: 110- 129 mg/dLBorderline High LDL: 130-159 mg/dLHigh LDL: 160-189 mg/dLVery High LDL: greater than or equal to 190 mg/dL HDL Cholesterol 43 >40 mg/dL [facility] Comment:Desirable HDL: great er than 40 mg/dL Note: This HDL assay may give artificially low results in patients with liver disease. 11/03/2023 10:2 9 AM EDT 11/03/2023 11:15 AM EDT Smitha Matos MD LAB BLOOD ORDERABLES Final Result [facility] [address] [place], [place] [phone] * Hepatitis C Antibody with Reflex to HCV, RNA, Quantitative, Real-Time PCR (07/06/2022 10:18 AM EST) Hepatitis C Antibody NON-REACT BRANDON NON-REACT BRANDON [facility] Index 0.11 <1.00 [facility] Comment: HCV antibody was non-reactive. There is no laboratory evidence of HCV infection. In most cases, no further action is required. However, if recent HCV exposure is suspected, a test for HCV RNA (test code 06906) is suggested. For additional information please refer to http://education.Knimbus/faq/KDY10x4 (This link is being provided for informational/ educational purposes only.) Blood Venous blood specimen / Unknown 07/06/2022 10:18 AM EST 07/06/2022 10:18 AM EST Narrative [facility] - 07/11/2022 2:05 PM EST FASTING:YES FASTING: YES Smitha Matos MD LAB BLOOD ORDERABLES Final Result [facility] [address], [place] [address] [facility] [address] [facility], ([address]) [place] [address] from Last 3 Months or Most Recently Relevant to Health Maintenance Insurance - [employer] Advance Directives Documents on File Type Date Recorded Patient Director Of Home Health Services Expl anation Advance Directives and Living Will 01/27/2024 Health Care Proxy 01/27/24 Care Teams Assistant Portfolio Manager Relationship Specialty Start Date End Date Smitha Matos MD [address] [place] [address] PCP - General Family Medicine 05/24/18 Marissa Barbosa PharmD [address] [place] [phone] Pharmacist Internal Medicine 08/12/22 Kenny Grossman MD [address] [facility] [address] [place] [phone] Nephrology 06/07/24 Dr. Paco Rodriges MD [facility] [address] [place] [address]- 06/14/24 Dr. Nancie Lilly MD [address] [phone] Colon and Rectal Surgery 07/27/24
--- OUTSIDE RECORDS SUMMARY | 2024-08-02 07:56 | XMS_ITS | Encounter Summary ---
Author Organization [facility] [employer] Address [address] [facility] 7t [place] [address] Care Team Providers Care Web Press Operator Name Role Phone Smitha Matos MD Primary Care Provider [phone]- [phone] Marissa Barbosa PharmD Unavailable [phone] Kenny Grossman MD Unavailable [phone] Encounter Details Date Type Department Care Team (Latest Contact Info) Description 07/31/2024 10:30 AM EDT Office Visit [facility] [address] [place], [place] [phone] Smitha Matos MD [address] [place], [place] [phone] Type 2 diabetes mellitus with stage 3 [...] Urge incontinence of urine; Hx of hyperparathyroidism Social History Tobacco Use Types Packs/Day Years [...] AM EDT documented as of this encounter Last Filed Vital Signs Vital Sign Reading [...] Mass Index 38.22 07/31/2024 10:18 AM EDT documented in this encounter Progress Notes * Smitha Matos MD - 07/31/2024 10:30 AM EDT Subjective Patient ID: Pedro Garcia is a 74 y.o. male with past medical history of type 2 diabetes, CKD stage III, adenocarcinoma of large intestine S/P right colon resection on 02/24/2021, hyperparathyroidism S/P parathyroidectomy and hypertension who presents for No chief complaint on file.. No concerns. Had colonoscopy last month. He has not heard from urology referral [facility], Review of Systems Constitutional: Negative for fever and unexpected weight change. Respiratory: Negative for shortness of breath. Cardiovascular: Negative for chest pain. Gastrointestinal: Negative for abdominal pain. Genitourinary: Negative for difficulty urinating. Objective Visit Vitals BP 132/83 (BP Location: Left arm, Patient Position: Sitting, BP Cuff Size: Large adult) Pulse 80 Temp 96.4 ??F (35.8 ??C) (Temporal) Resp 18 Body mass index is 38.22 kg/m??. Physical Exam Constitutional: Appearance: Normal appearance. Cardiovascular: Rate and Rhythm: Normal rate and regular rhythm. Heart sounds: Normal heart sounds. Pulmonary: Effort: Pulmonary effort is normal. Breath sounds: Normal breath sounds. Abdominal: General: Abdomen is flat. Palpations: Abdomen is soft. Tenderness: There is no abdominal tenderness. Musculoskeletal: Cervical back: Normal range of motion and neck supple. Lymphadenopathy: Cervical: No cervical adenopathy. Skin: General: Skin is warm and dry. Neurological: Mental Status: Mental status is at baseline. Psychiatric: Behavior: Behavior normal. Problem List Items Addressed This Visit Adenocarcinoma of large intestine (CMS/HCC) -Invasive moderately differentiate adenocarcinoma on polypectomy colonoscopy [...] with Dr. Lilly at [facility] -T2N0, no chemotherapy needed -Last note from Dr. Lilly reviewed from 04/04/221 -s/p colonoscopy October 01, 2021 with [facility] -Seen by Dr. Peterson 07/26/24, colonoscopy Impression: 2 subcentimeter polyps in the transverse colon were removed with cold forceps biopsy. -Repeat colonoscopy in 5 years Hyperparathyroidism ([facility]) Hypertension -Blood pressure is not at goal -Continue lifestyle modifications -Continue current medications - Spironolactone 12.5mg once daily added by CDTM 03/20/24 - Saw [facility] cardiology 06/15/24, started on Amlodipine 10 mg and Carvedilol 12.5 mg. Type 2 diabetes mellitus with diabetic chronic kidney disease ([facility]) - Primary Diabetes is controlled. Lab Results Component Value [...] CDTM 11/23/23 -Diabetic eye exam: 10/28/23 with [facility] -Diabetic foot exam: done 01/27/24. Some dry skin and varicose veins. Will prescribe a hydrating cream. -Continue lifestyle modifications -Continue current medications Relevant Orders POCT Glucose (Completed) POCT HGB A1C (Completed) Albumin, Random Urine W/Creatinine Hepatic Function Panel Lipid Panel, Standard Hemoglobin A1c Basic Metabolic Panel Hepatic Function Panel Chronic kidney disease, stage III (moderate) ([facility]) Lab Results Component Value Date CREATININE 1.08 [...] should be ruled out. US revealed renal mass.MRI ordered by nephrology 04/05/24 and pt referred [...] on the outcome of the above investigations. Obesity, morbid (CMS/HCC) Exercise counseling Dietary counseling Chronic systolic heart failure (CMS/HCC) Abnormal renal ultrasound US 03/01/[address]: Kenny Grossman MD for renal calculi [...] and uro to assist in setting up. Vitamin D deficiency Other specified health status -next physical exam due after 01/26/25 -eye care facilitated by [facility] And [facility], seen 02/02/24 -dental home is advised and recommended to get established. -health care proxy given and filed 01/27/24 Urge incontinence of urine -Rx for incontinence pads placed 01/27/24 -pt requests pad because pull ups not adequate and bulky, rx placed 07/31/24 -pt will be seeing urology ordered by nephrology Other Visit Diagnoses Hx of hyperparathyroidism Relevant Orders Alkaline Phosphatase Albumin Vitamin D, 25-Hydroxy, Total, Immunoassay Calcium PTH, Intact Without Calcium Follow up in about 5 months (around 12/31/2024) for diabetes and follpow up labs, make sure saw urology. I, Gabriela Fontaine, am serving as a scribe to document services personally performed by Dr. Elizalde, based on the patient's response to questions by provider and providers statements to me. documented in this encounter Miscellaneous Notes * Assessment & Plan Note - Smitha Matos MD - 07/31/2024 10:53 AM EDT Associated Problem(s): Urge incontinence of urine -Rx for incontinence pads placed 01/27/24 -pt requests pad because pull ups not adequate and bulky, rx placed 07/31/24 -pt will be seeing urology ordered by nephrology * Assessment & Plan Note - Smitha Matos MD - 07/31/2024 10:48 AM EDT Associated Problem(s): Other specified health status -next physical exam due after 01/26/25 -eye care [facility] And [facility] care, seen 02/02/24 -dental home is advised and recommended to get established. -health care proxy given and filed 01/27/24 * Assessment & Plan Note - Smitha Matos MD - 07/31/2024 10:47 AM EDT Associated Problem(s): Type 2 diabetes mellitus with diabetic chronic kidney disease ([facility]) Diabetes is controlled. Lab Results Component Value [...] CDTM 11/23/23 -Diabetic eye exam: 10/28/23 with [facility] -Diabetic foot exam: done 01/27/24. Some dry skin and varicose veins. Will prescribe a hydrating cream. -Continue lifestyle modifications -Continue current medications * Assessment & Plan Note - Smitha Matos MD - 07/31/2024 10:47 AM EDT Associated Problem(s): Hypertension -Blood pressure is not at goal -Continue lifestyle modifications -Continue current medications - Spironolactone 12.5mg once daily added by CDTM 03/20/24 - Saw [facility] cardiology 06/15/24, started on Amlodipine 10 mg and Carvedilol 12.5 mg. * Assessment & Plan Note - Smitha Matos MD - 07/31/2024 10:47 AM EDT Associated Problem(s): Chronic kidney disease, stage III (moderate) (CMS/HCC) Lab Results Component Value Date CREATININE 1.08 [...] should be ruled out. US revealed renal mass.MRI ordered by nephrology 04/05/24 and pt referred [...] on the outcome of the above investigations. * Assessment & Plan Note - Smitha Matos MD - 07/31/2024 10:46 AM EDT Associated Problem(s): Adenocarcinoma of large intestine (CMS/HCC) -Invasive moderately differentiate adenocarcinoma on polypectomy colonoscopy [...] with Dr. Lilly at [facility] -T2N0, no chemotherapy needed -Last note from Dr. Lilly reviewed from 04/04/221 -s/p colonoscopy October 01, 2021 with [facility] -Seen by Dr. Peterson 07/26/24, colonoscopy Impression: 2 subcentimeter polyps in the transverse colon were removed with cold forceps biopsy. -Repeat colonoscopy in 5 years * Assessment & Plan Note - Smitha Matos MD - 07/31/2024 10:44 AM EDT Associated Problem(s): Abnormal renal ultrasound US 03/01/[address]: Kenny Grossman MD for renal calculi [...] and uro to assist in setting up. documented in this encounter Plan of Treatment Upcoming Encounters Date Type Department Care Team (Late st Contact Info) Description 08/14/2024 1:00 PM EDT Medication Management [facility] [address] [place] [address] Marissa Barbosa, PharmD [address] [place] [address] Scheduled Orders Name Type Priority Associated Diagnoses Orde r Schedule Albumin, Random Urine W/Creatinine Lab Routine Type 2 diabetes mellitus with stage 3 chronic kidney disease, without long-term current use of insulin, unspecified whether stage 3a or 3b CKD (CMS/HCC) Expected: 07/31/2024 (Approximate), Expires: 07/31/2025 Hepatic Function Panel Lab Routine Type 2 diabetes mellitus with stage 3 chronic kidney disease, without long-term current use of insulin, unspecified whether stage 3a or 3b CKD (CMS/HCC) Expected: 07/31/2024 (Approximate), Expires: 07/31/2025 Lipid Panel, Standard Lab Routine Type 2 diabetes mellitus with stage 3 chronic kidney disease, without long-term current use of insulin, unspecified whether stage 3a or 3b CKD (CMS/HCC) Expected: 07/31/2024 (Approximate), Expires: 07/31/2025 Hemoglobin A1c Lab Routine Type 2 diabetes mellitus with stage 3 chronic kidney disease, without long-term current use of insulin, unspecified whether stage 3a or 3b CKD ([facility]) Expected: 07/31/2024 (Approximate), Expires: 07/31/2025 Basic Metabolic Panel Lab Routine Type 2 diabetes mellitus with stage 3 chronic kidney disease, without long-term current use of insulin, unspecified whether stage 3a or 3b CKD ([facility]) Expected: 07/31/2024 (Approximate), Expires: 07/31/2025 Hepatic Function Panel Lab Routine Type 2 diabetes mellitus with stage 3 chronic kidney disease, without long-term current use of insulin, unspecified whether stage 3a or 3b CKD ([facility]) Expected: 07/31/2024 (Approximate), Expires: 07/31/2025 Alkaline Phosphatase Lab Routine Hx of hyperparathyroidism Expected: 07/31/2024, Expires: 07/31/2025 Albumin Lab Routine Hx of hyperparathyroidism Expected: 07/31/2024 (Approximate), Expires: 07/31/2025 Vitamin D, 25-Hydroxy, Total, Immunoassay Lab Routine Hx of hyperparathyroidism Expected: 07/31/2024 (Approximate), Expires: 07/31/2025 Calcium Lab Routine Hx of hyperparathyroidism Expected: 07/31/2024 (Approximate), Expires: 07/31/2025 PTH, Intact Without Calcium Lab Routine Hx of hyperparathyroidism Expected: 07/31/2024, Expires: 07/31/2025 documented as of this encounter Goals Goal Patient Goal Type Associated Problems Recent Progress Patient-Stated? Author Blood Pressure < 140/90 Blood Pressure 132/83(2024 10:18 AM EDT) No Marissa Reynaga, PharmD Hemoglobin A1c < 7 Result Component 6.6( 10:21 AM EDT) No Marissa Reynaga, PharmD documented as of this encounter Procedures Procedure Name Priority Date/Time Associated Diagnosis Comments POCT GLYCATED HEMOGLOBIN, TOTAL Routine 07/31/2024 10:21 AM EDT Type 2 diabetes mellitus with stage 3 chronic kidney disease, without long-term current use of insulin, unspecified whether stage 3a or 3b CKD ([facility]) POCT GLUCOSE Routine 07/31/2024 10:19 AM EDT Type 2 diabetes mellitus with stage 3 chronic kidney disease, without long-term current use of insulin, unspecified whether stage 3a or 3b CKD (CMS/HCC) documented in this encounter Results * (ABNORMAL) POCT HGB A1C (07/31/2024 10:21 AM EDT) Hemoglobin A1C 6.6(A) 4.0 - 6.0 % QC Media Lot # [id number] Lot# Expiration Date , Blood 07/31/2024 10:2 1 AM EDT us Smitha Matos MD POINT OF CARE TEST ENTER/E DIT ORDERABLES Final Result * (ABNORMAL) POCT Glucose (07/31/2024 10:19 AM EDT) Glucose Blood, POC 277(A) 60 - 200 mg/dL Comment:random QC Media Lot # [id number] Lot# Expiration Date 862,[id number] Blood Capillary blood specimen / Unknown 07/31/2024 10:19 AM EDT us Smitha Matos MD POINT OF CARE TEST ENTER/E DIT ORDERABLES Final Result documented in this encounter Visit Diagnoses Diagnosis Type 2 diabetes mellitus with stage 3 chronic kidney disease, without long-term current use of insulin, unspecified whether stage 3a or 3b CKD (CMS/HCC)- Primary Adenocarcinoma of large intestine ([facility]/HCC) Malignant neoplasm of colon, unspecified site Hyperparathyroidism ([facility]/HCC) Hyperparathyroidism, unspecified Primary hypertension Unspecified essential hypertension Stage 3a chronic kidney disease (CMS/HCC) Obesity, morbid (CMS/HCC) Morbid obesity Exercise counseling Dietary counseling Dietary surveillance and counseling Chronic systolic heart failure (CMS/HCC) Chronic systolic heart failure Abnormal renal ultrasound Vitamin D deficiency Other specified health status Urge incontinence of urine Urge incontinence Hx of hyperparathyroidism documented in this encounter Additional Health Concerns Assessment Noted Time PHQ-9 Depression Total Score: 3 01/27/20 24 9:37 AM EDT documented as of this encounter Care Teams Web Press Operator Relationship Specialty Start Date End Date Smitha Matos MD [address] [place] [address] PCP - General Family Medicine 05/24/18 Marissa Barbosa, Jennifer [address] [place] [address] Pharmacist Internal Medicine 08/12/22 Kenny Grossman MD [address] [facility] 200 [place] [address] Nephrology 06/07/24 Dr. Paco Rodriges MD [facility] Cardiology [address] [place] [address]- 06/14/24 Dr. Nancie Lilly MD [address] [address] Colon and Rectal Surgery 07/27/24 documented as of this encounter
--- OUTSIDE RECORDS SUMMARY | 2024-08-02 07:56 | XMS_ITS | Encounter Summary ---
Author Organization [employer] Address [address] [facility] 7t [place] [address] Care Team Providers Care Mail Distribution Scheme Examiner Name Role Phone Smitha Matos MD Primary Care Provider +- [phone] Marissa Barbosa PharmD Unavailable [phone] Kenny Grossman MD Unavailable [phone] Reason for Visit * Reason Comments Med Refill Encounter Details Date Type Department Care Team (Late st Contact Info) Description 07/04/2024 Refill [facility] [address] [place], [place] [phone] Concepcion Chatterjee, ANP [address] [place], [place] [phone] Vitamin D deficiency Social History Tobacco Use Types Packs/Day Years [...] Description 08/14/2024 1:00 PM EDT Medication Management [facility] [address] [place] [address] Piers-Bell, Marissa, PharmD [address] [place] [address] documented as of this encounter Goals Goal Patient Goal Type Associated Problems Recent Progress Patient-Stated? Author Blood Pressure < 140/90 Blood Pressure 132/83(2024 10:18 AM EDT) No Piers-Gambl e, Marissa, PharmD Hemoglobin A1c < 7 Result Component 6.6( 10:21 AM EDT) No Piers-Gambl e, Marissa, PharmD documented as of this encounter Visit Diagnoses Diagnosis Vitamin D deficiency documented in this encounter Additional Health Concerns Assessment Noted Time PHQ-9 Depression Total Score: 3 01/27/20 24 9:37 AM EDT documented as of this encounter Care Teams Mail Distribution Scheme Examiner Relationship Specialty Start Date End Date Smitha Matos MD [address] [place] [address] PCP - General Family Medicine 05/24/18 Marissa Barbosa PharmD [address] [place] [address] Pharmacist Internal Medicine 08/12/22 Kenny Grossman MD 100 [facility] 200 [place] [phone] Nephrology 06/07/24 Dr. Paco Rodriges MD [facility] Cardiology [address] [place] [address]- 06/14/24 documented as of this encounter
--- OUTSIDE RECORDS SUMMARY | 2024-08-02 07:56 | XMS_ITS | Encounter Summary ---
Author Organization [employer] Address [address] [facility] 7t [place] [address] Care Team Providers Care Leather Etcher Name Role Phone Smitha Matos MD Primary Care Provider + [phone] Marissa Barbosa PharmD Unavailable [phone] Kneny Grossman MD Unavailable [phone] Encounter Details Date Type Department Care Team (Late Contact Info) Description 10/29/2022 Abstract [facility] [address] [place] [address] Smitha Matos MD [address] [place] [address] Social History Tobacco Use Types Packs/Day Years [...] Description 08/14/2024 1:00 PM EDT Medication Management [facility] [address] [place] [address] Marissa Barbosa, PharmD [address] [place] [address] documented as of this encounter Goals Goal Patient Goal Type Associated Problems Recent Progress Patient-Stated? Author Blood Pressure < 140/90 Blood Pressure 132/83(2024 10:18 AM EDT) No Marissa Reynaga, PharmD Hemoglobin A1c < 7 Result Component 6.6( 10:21 AM EDT) No Marissa Reynaga PharmD documented as of this encounter Procedures Procedure Name Priority Date/Time Associated Diagnosis Comments DIABETES EYE EXAM Routine 10/08/2022 documented in this encounter Results * Diabetes Eye Exam (10/08/2022) Eye Exam Normal Normal 10/08/2022 Meeta West OD [facility] [employer]TENA[employer]CE Final Resul t documented in this encounter Visit Diagnoses Not on filedocumented in this encounter Care Teams Leather Etcher Relationship Specialty Start Date End Date Smitha Matos MD [address] [place] [address] PCP - General Family Medicine 05/24/18 Marissa Barbosa, PharmD [address] [place] [address] Pharmacist Internal Medicine 08/12/22 Kenny Grossman MD 100 [facility] 200 [place] [address] Nephrology 06/07/24 Dr. Paco Rodriges MD [facility] Cardiology [address] [place] [address]- 06/14/24 Dr. Nancie Lilly MD [address] [phone] Colon and Rectal Surgery 07/27/24 documented as of this encounter
--- OUTSIDE RECORDS SUMMARY | 2024-08-02 07:56 | XMS_ITS | Encounter Summary ---
Author Organization [employer] Address [address] [facility] 7t [place] [address] Care Team Providers Care Jd Edwards Consultant Name Role Phone Smitha Matos MD Primary Care Provider [phone]- [phone] Marissa Barbosa PharmD Unavailable [phone] Kenny Grossman MD Unavailable [phone] Reason for Visit * Reason Comments Pre-visit Planning SDOH Screening posit martha and Tobacco screening negative Encounter Details Date Type Department Care Team (Late st Contact Info) Description 07/19/2024 Patient Outreach [facility] [address] [place], [place] [phone] Smitha Matos MD [address] [place], [place] [phone] Pre-visit Planning (SDOH Screening positive and Tobacco screening negative) Social History Tobacco Use Types Packs/Day Years [...] AM EDT documented as of this encounter Progress Notes * Fátima Fitzpatrick - 07/19/2024 2:30 PM EST TIARA Su placed successful outbound call to patient for pre-visit planning. Patient name and confirmed. Patient confirms appt date and time, and has transportation arrangements. Biggest concern for appointment at this time is no concerns but will make a list for when he sees PCP in person. Patient advised to bring to appointment a photo id and insurance card. Appropriate screenings completed in anticipation of appointment. SDOH positive. Patient looking for assistance with Food insecurities: Sometimes. Referral will be placed. documented in this encounter Plan of Treatment Upcoming Encounters Date Type Department Care Team (Late st Contact Info) Description 08/14/2024 1:00 PM EDT Medication Management [facility] [address] [place] [address] Marissa Barbosa, PharmD [address] [place], [place] [phone] documented as of this encounter Goals Goal Patient Goal Type Associated Problems Recent Progress Patient-Stated? Author Blood Pressure < 140/90 Blood Pressure 132/83(2024 10:18 AM EDT) No Marissa Reynaga PharmMary Hemoglobin A1c < 7 Result Component 6.6( 10:21 AM EDT) No Marissa Reynaga PharmD documented as of this encounter Visit Diagnoses Not on filedocumented in this encounter Additional Health Concerns Assessment Noted Time PHQ-9 Depression Total Score: 3 01/27/20 24 9:37 AM EDT documented as of this encounter Care Teams Jd Edwards Consultant Relationship Specialty Start Date End Date Smitha Matos MD [address] [place] [address] PCP - General Family Medicine 05/24/18 Marissa Barbosa PharmD [address] [place] [address] Pharmacist Internal Medicine 08/12/22 Kenny Grossman MD 100 [facility] 200 [place] [address] Nephrology 06/07/24 Dr. Paco Rodriges MD [facility] Cardiology [address] [place] [address]- 06/14/24 documented as of this encounter
--- OUTSIDE RECORDS SUMMARY | 2024-08-02 07:56 | XMS_ITS | Encounter Summary ---
Author Organization [employer] Address [address] [facility] 7t [place] [address] Care Team Providers Care Cardiac Rehabilitation Specialist Name Role Phone Smitha Matos MD Primary Care Provider [phone] Marissa Barbosa PharmD Unavailable [phone] Kenny Grossman MD Unavailable [phone] Reason for Visit * Reason Comments Care Coordination [facility] outreach for SDO H PT-1 and food needs-referral completed Encounter Details Date Type Department Care Team (Latest Contact Info) Description 07/19/2024 Patient Outreach [facility] [address] [place], [place] [phone] Smitha Matos MD [address] [place], [place] [phone] Care Coordination ([facility] outreach for SDOH PT-1 and food needs-referral completed /) Social History Tobacco Use Types Packs/Day Years [...] as of this encounter Progress Notes * Piyush Sheth - 07/19/2024 2:59 PM EST CHW Piyush Sheth, placed outbound call to patient for assistance with SDOH as a referral was received by the provider. Patient's name and were confirmed. Patient screened positive for the following SDOH food insecurities. Patient states family in on SNAP program at this time. CHW referral patient to the local list of pantries in the area for help. PT-1 requested was send out in behalf of patient for [facility] appt. Patient verbalizes understanding, and able to agree with plan to follow up.Patient educated on extended clinic hours on Mondays through Wednesdays, and Walk-In Urgent Care Located in [facility]. Patient provided with after-hours line for [facility], , which offer night time triage service and option to transfer to contracts intern provider if needed. documented in this encounter Plan of Treatment Upcoming Encounters Date Type Department Care Team (Late st Contact Info) Description 08/14/2024 1:00 PM EDT Medication Management [facility] [address] [place] [address] Marissa Barbosa PharmD [address] [place] [address] documented as of this encounter Goals Goal [...] documented as of this encounter Care Teams Cardiac Rehabilitation Specialist Relationship Specialty Start Date End Date Smitha Matos MD [address] [place] [address] PCP - General Family Medicine 05/24/18 Marissa Barbosa PharmD [address] [place] [address] Pharmacist Internal Medicine 08/12/22 Kenny Grossman MD 100 [facility] 200 [place] [address] Nephrology 06/07/24 Dr. Paco Rodriges MD [facility] Cardiology [address] [place] [address] 06/14/24 documented as of this encounter
--- OUTSIDE RECORDS SUMMARY | 2024-08-02 07:56 | XMS_ITS | Encounter Summary ---
Author Organization [employer] Address [address] [facility] [address]t [place] [address] Care Team Providers Care Certified Addiction Counselor Name Role Phone Smitha Matos MD Primary Care Provider [phone] Marissa Barbosa PharmD Unavailable [phone] Kenny Grossman MD Unavailable [phone] Reason for Visit * Reason Onset Date Comments Urology Appt 07/31/2024 Encounter Details Date Type Department Care Team (Late st Contact Info) Description 07/31/[address] [facility] [address] [place], [place] [phone] Smitha Matos MD [address] [place], [place] [phone] Urology Appt Social History Tobacco Use Types Packs/Day Years [...] encounter Miscellaneous Notes * Telephone Encounter - Carlyn Almeida RN - 07/31/2024 1:08 PM EDT TC placed to pt with a outside installation machinist to inform of upcoming [facility] appt on Wednesday08/02/2024. Pt did confirm this date and time and wrote it down for a reminder. * Telephone Encounter - Carlyn Almeida RN - 07/31/2024 11:59 AM EDT TC placed to [facility] to follow up on PCP request regarding pt urology referral. [facility] was able to confirm that the pt has an appt with [facility] on 08/02/2024 at 8 AM with Denisse Ingram. * Telephone Encounter - Smitha Matos MD - 07/31/2024 10:52 AM EDT Please * Telephone Encounter - Smitha Matos MD - 07/31/2024 10:43 AM EDT Pedro was referred by nephrology to urology in [place] but has not heard. Can you please see if urology received the referral and if not can nephrology resend it. It will be faster if done via specialistsbut I am happy to write if needed. documented in this encounter Plan of Treatment Upcoming Encounters Date Type Department Care Team (Late st Contact Info) Description 08/14/2024 1:00 PM EDT Medication Management [facility] MEDICINE [address] [place], [place] [phone] Marissa Barbosa PharmD [address] [place] [address] documented as of this encounter Goals Goal Patient Goal Type Associated Problems Recent Progress Patient-Stated? Author Blood Pressure < 140/90 Blood Pressure 132/83(2024 10:18 AM EDT) No Marissa Reynaga, PharmD Hemoglobin A1c < 7 Result Component 6.6( 10:21 AM EDT) No Marissa Reynaga, PharmD documented as of this encounter Visit Diagnoses Not on filedocumented in this encounter Additional Health Concerns Assessment Noted Time PHQ-9 Depression Total Score: 3 01/27/20 24 9:37 AM EDT documented as of this encounter Care Teams Certified Addiction Counselor Relationship Specialty Start Date End Date Smitha Matos MD [address] [place] [phone] PCP - General Family Medicine 05/24/18 Marissa Barbosa, PharmD [address] [place] [phone] Pharmacist Internal Medicine 08/12/22 Kenny Grossman MD [address] [facility] [address] [place] [address] Nephrology 06/07/24 Dr. Paco Rodriges MD [facility] Cardiology [address] [place] [address]- 06/14/24 Dr. Nancie Lilly MD [address] [address] Colon and Rectal Surgery 07/27/24 documented as of this encounter
--- OUTSIDE RECORDS SUMMARY | 2024-08-02 07:56 | XMS_ITS | Encounter Summary ---
Author Organization [employer] Address [address] [facility] 7[address] [place] [address] Care Team Providers Care Manager Of Compensation Name Role Phone Smitha Matos MD Primary Care Provider [phone] Marissa Barbosa PharmD Unavailable [phone] Kenny Grossman MD Unavailable [phone] Encounter Details Date Type Department Care Team (Late st Contact Info) Description 07/27/2024 Orders Only [facility] [address] [place] [address] Provider, MD Ju Social History Tobacco Use Types Packs/Day Years [...] PM EDT Medication Management [facility] MEDICINE [address] [place] [address] ManjitsMarissa Richards, PharmD [address] [place] [address] documented as of this encounter Goals Goal Patient Goal Type Associated Problems Recent Progress Patient-Stated? Author Blood Pressure < 140/90 Blood Pressure 132/83(2024 10:18 AM EDT) No Piers-Gambl e, Marissa, PharmD Hemoglobin A1c < 7 Result Component 6.6( 10:21 AM EDT) No Manjits-Gambl e, Marissa, PharmD documented as of this encounter Procedures Procedure Name Priority Date/Time Associated Diagnosis Comments COLONOSCOPY Routine 07/26/2024 2:09 PM EST documented in this encounter Results * Colonoscopy (07/26/2024 2:09 PM EST) Anatomical Region Laterality Modality Endoscopy us Historical Provider ENDOSCOPY PROCEDURE ORDER AMY Final Result documented in this encounter Visit Diagnoses Not on filedocumented in this encounter Additional Health Concerns Assessment Noted Time PHQ-9 Depression Total Score: 3 01/27/20 24 9:37 AM EDT documented as of this encounter Care Teams Manager Of Compensation Relationship Specialty Start Date End Date Smitha Matos MD [address] [place] [address] PCP - General Family Medicine 05/24/18 Marissa Barbosa PharmD [address] [place] [address] Pharmacist Internal Medicine 08/12/22 Kenny Grossman MD [address] [facility] 200 [place] [address] Nephrology 06/07/24 Dr. Paco Rodriges MD [facility] Cardiology [address] [place] [address]- 06/14/24 Dr. Nancie Lilly MD [address] [address] Colon and Rectal Surgery 07/27/24 documented as of this encounter
--- OUTSIDE RECORDS SUMMARY | 2024-08-02 07:56 | XMS_ITS | Encounter Summary ---
Author Organization [employer] Address [address] [facility] 7[address] [place] [address] Care Team Providers Care Automatic Coin Machine Mechanic Name Role Phone Smitha Matos MD Primary Care Provider [phone]- [phone] Marissa Barbosa PharmD Unavailable [phone] Kenny Grossman MD Unavailable [phone] Encounter Details Date Type Department Care Team (Late st Contact Info) Description 07/31/[address] [facility] MEDICINE [address] [place], [place] [phone] Smitha Matos MD [address] [place], [place] [phone] Social History Tobacco Use Types Packs/Day Years [...] is your housing situation today? I have ibanagustín finch 01/27/[address] you [...] encounter Miscellaneous Notes * Telephone Encounter - Maggie Jaquez - 08/01/2024 10:59 AM EDT DME RX for inserts/liners generated and placed on providers desk for signature. * Telephone Encounter - Smitha Matos MD - 07/31/2024 10:52 AM EDT Lease order urinary incontinence pads for pt, dx incontinence. Thank youl documented in this encounter Plan of Treatment Upcoming Encounters Date Type Department Care Team (Late st Contact Info) Description 08/14/2024 1:00 PM ED[address] Medication Management [facility] MEDICINE [address] [place] [address] Marissa Barbosa PharmD [address] [place] [address] documented as of this encounter Goals Goal Patient Goal Type Associated Problems Recent Progress Patient-Stated? Author Blood Pressure < 140/90 Blood Pressure 132/83(2024 10:18 AM EDT) No Marissa Reynaga PharmD Hemoglobin A1c < 7 Result Component 6.6( 5 10:21 AM EDT) No Marissa Reynaga PharmD documented as of this encounter Visit Diagnoses Not on filedocumented in this encounter Additional Health Concerns Assessment Noted Time PHQ-9 Depression Total Score: 3 01/27/20 24 9:37 AM EDT documented as of this encounter Care Teams Automatic Coin Machine Mechanic Relationship Specialty Start Date End Date Smitha Matos MD [address] [place] [address] PCP - General Family Medicine 05/24/18 Marissa Barbosa PharmD [address] [place] [address] Pharmacist Internal Medicine 08/12/22 Kenny Grossman MD 100 [facility] 200 [place] [address] Nephrology 06/07/24 Dr. Paco Rodriges MD [facility] Cardiology [address] [place] [address]- 06/14/24 Dr. Nancie Lilly MD [address] [address] Colon and Rectal Surgery 07/27/24 documented as of this encounter
--- NOTE | 2024-08-02 08:01 | MHC.OFFVIS ---
Intake Visit Reasons: history of kidney stone Intake Note: New Patient presents for initial visit for history of kidney stones Urology Medications: sildenafil Blood Thinner: none PVR: 36ml's Synchronizer Required: Yes Synchronizer Name: [id number] Accompanied by: Self / Same As Patient Allergies No Known Allergies Allergy (Mild, Verified 08/02/24 09:06) N/A Medication List - Last Reconciled 08/02/24 by IZZY Hassan-EVELIN acetaminophen 500 mg PO Q6H PRN amlodipine 1 tab PO QAM carvedilol 1 tab PO BID cholecalciferol (vitamin D3) 25 mcg PO QAM empagliflozin-metformin 10-1,000 mg ER (Synjardy XR) PO DAILY losartan 100 mg PO DAILY omeprazole 20 mg PO DAILY PRN rosuvastatin 40 mg PO DAILY spironolactone mg PO DAILY PRN tadalafil (Cialis) 20 mg PO .PRN PRN 30 days tadalafil (Cialis) 5 mg PO DAILY 90 days HPI Comments Details: Pedro is a very pleasant 74-year-old Irish-speaking male patient of Dr. Matos. He has a past medical history of arthritis, anxiety, depression, nephrolithiasis, cancer of right colon, GERD, BPH, chronic kidney disease stage 3, obstructive sleep apnea, and hypertension. He presents to the office today as a new patient for nephrolithiasis, complex renal cysts, and erectile dysfunction. In discussion with the patient today he reports having followed up with his PCP as well as his legal billing clerk at which time recommendations were made for urology referral for further assessment evaluation. Discusses his longstanding history of nephrolithiasis and underwent previous surgical intervention in [place] 5-7 years ago on his left kidney for nephrolithiasis. He is unsure as to if surgical intervention was ESWL verses ureteroscopy. He currently denies any bothersome issues regarding his longstanding history of nephrolithiasis. He reports noting erectile dysfunction for many years and has been on p.r.n. Viagra without improvement. He does report being able to obtain an erection however does not feel it is adequate for penetration. We discussed at length potential causes of erectile dysfunction as well as nephrolithiasis. We discussed lifestyle modifications. We discussed further interventions in risks and benefits of these interventions. He also reports noting urge incontinence he otherwise denies hematuria, dysuria, foul smelling urine, changes to urinary stream, flank pain, fever, and or chills. In review of patient's chart it appears PSA 05/10 0.4. Patient with renal ultrasound 03/16 that notes 3.2 cm exophytic solid lesion, anterior lateral upper pole of the left kidney. Simple cyst in the right kidney. No hydronephrosis or renal calculi noted bilaterally. MRI renal mass protocol 05/16 notes bilateral renal cyst with no enhancing renal mass seen. Especially no abnormality in the upper pole of the left kidney. No hydronephrosis. In office urinalysis results reviewed with the patient today. PVR 36 mL. PFSH Medical History Arthritis Anxiety and depression Headache COVID-19 vaccine series completed Hx of renal calculi Cancer of right colon GERD (gastroesophageal reflux disease) BPH (benign prostatic hyperplasia) CKD (chronic kidney disease) Depression ERJI (obstructive sleep apnea) HTN (hypertension) History of colon cancer Surgical History History of cystoscopy Hx of lithotripsy History of colonoscopy H/O parathyroidectomy Social History Are you a primary senior care manager to a significant other at home: No Do you presently have visiting nurse or other home services: No Patient Tobacco Use Status: Never used Tobacco Review of Systems Const Reports no additional complaints Eyes Reports no additional complaints ENT Reports no additional complaints Card Reports as per HPI Resp Reports as per HPI GI Reports no additional complaints Reports as per HPI Musc Reports as per HPI Neuro Reports no additional complaints Psych Reports as per HPI Endo Reports no additional complaints Jose Manuel/Lymph Reports no additional complaints Aller/Immun Reports no additional complaints Physical Exam Const General: cooperative, healthy appearing, comfortable, no acute distress, well developed, alert and awake Nutritional Appearance: overweight Orientation/consciousness: patient oriented x3 Limitations: no limitations HEENT Head: Yes normal to inspection, Yes normocephalic and Yes atraumatic Ears: hearing grossly normal bilaterally Eyes General: appearance normal, both eyes and all related structures Neck Neck: Yes normal visual inspection and Yes trachea midline Chest Chest palpation & inspection: normal inspection of the chest Resp Effort & Inspection: normal respiratory effort and able to speak in complete sentences Cardio Rate: regular rate GI Inspection: Yes normal to inspection General: Yes no CVA tenderness Back/Spine/Pelvis Back: no CVA tenderness Skin General skin exam: no rashes or lesions noted Neuro General: patient oriented x3 Extrem General: Yes normal to inspection Psych Appearance: grossly normal and well kempt Mental Status: mental status grossly normal Speech and movement: Normal speech and movement present and Clear speech present Affect: normal affect Attitude: cooperative Thought process: Normal thought process present Thought content: Normal thought content present Insight: Fair insight present (Psych) Judgement: Fair judgement present (Psych) Office Procedures Post Void Residual Post Residual Void Post Void Residual (PVR): 36 [id number] Void Residual by ultrasound Results AMB Urinalysis, Automated UA Leukoctes 0 Santi/uL Last Edit by [employer] on 08/02/24 08:34 UA Nitrite Last Edit by [employer] on 08/02/24 08:34 UA Urobilinogen 0.2 mg/dL Last Edit by [email or web address] on 08/02/24 08:34 UA Protein 0 mg/dL Last Edit by [employer] on 08/02/24 08:34 UA pH 7.5 Last Edit by [email or web address] on 08/02/24 08:34 UA Blood 0 Tino/uL Last Edit by [email or web address] on 08/02/24 08:34 UA Specific [place] 1.010 Last Edit by [email or web address] on 08/02/24 08:34 UA Ketone Negative Last Edit by [email or web address] on 08/02/24 08:34 UA Bilirubin 0 mg/dL Last Edit by [employer]le[employer] on 08/02/24 08:34 UA Glucose 0 mg/dL Last Edit by [employer] on 08/02/24 08:34 Results Reviewed Results Reviewed: Laboratory Last Values Urine pH (Auto) 7.5 08/02/24 08:28 Specific [place] (Auto) 1.010 08/02/24 08:28 Urine Protein (Auto) 0 mg/dL 08/02/24 08:28 Glucose (UA)(Auto) 0 mg/dL 08/02/24 08:28 Urine Ketones (Auto) Negative 08/02/24 08:28 Urine Blood (Auto) 0 Tino/uL 08/02/24 08:28 Urine Bilirubin (Auto) 0 mg/dL 08/02/24 08:28 Urine Urobilinogen (Auto) 0.2 mg/dL 08/02/24 08:28 Leukocyte Esterase (Auto) 0 Santi/uL 08/02/24 08:28 Date of Service: 03/01/24 Procedure(s): US renal BI FINDINGS: Submitted for interpretation on March 31, 2024. RIGHT KIDNEY: 14 x 6 x 6 cm (SAG x AP x TRV). Volume is 235 cc. Normal echotexture. No solid lesion. There is a 1.7 cm anechoic lesion at the corticomedullary junction, midportion/lower pole junction without flow on color Doppler interrogation. No hydronephrosis. LEFT KIDNEY: 12 x 6 x 6 cm (SAG x AP x TRV). Volume is 222 cc. Normal echotexture there is a 3.2 cm exophytic isoechoic lesion in the anterior lateral aspect of the upper pole.. No hydronephrosis. IMPRESSION: 3.2 cm exophytic solid lesion, anterior lateral upper pole left kidney. Recommend dedicated IV contrast enhanced CT versus MRI renal mass protocol. Simple cyst, right kidney. No hydronephrosis. Date of Service: 05/10/24 Procedure(s): MR abdomen wo/w con FINDINGS: LUNG BASES: The visualized lung bases are unremarkable. LIVER, GALLBLADDER, AND BILIARY TREE: The liver is normal in size, smooth in contour, and normal in signal. There is a 1 cm nonenhancing cyst right lobe segment 6 and and smaller nonenhancing cyst in left and right lobe. No enhancing lesion seen. No intrahepatic ductal dilatation. No perihepatic fluid collection. The gallbladder is unremarkable with no evidence of gallbladder wall thickening, or obvious pericholecystic inflammatory changes. PANCREAS: Unremarkable. SPLEEN: Normal. ADRENAL GLANDS: Normal. KIDNEYS AND URETERS: The kidneys are normal in size, shape, and enhance symmetrically. No hydronephrosis. No perinephric stranding. Nonenhancing bilateral simple cyst. There is no enhancing mass seen in the upper pole left kidney. No perinephric mass or fluid collection or stranding. GASTROINTESTINAL TRACT: CAD stool is seen throughout the colon without distention. The small bowel loops are normal caliber. ABDOMINAL WALL: No significant hernia is appreciated. LYMPH NODES: No lymphadenopathy. VASCULAR: Unremarkable. OSSEOUS STRUCTURES: Marrow signal normal. Paraspinal signal is normal. IMPRESSION: Bilateral renal cyst with no enhancing renal mass seen. Especially no abnormality in the upper pole left kidney. No hydronephrosis. Bilateral hepatic cysts. Assessment & Plan Assessment & Plan (1) Renal cyst: Code(s): N28.1 - Cyst of kidney, acquired Category: Medical (2) Nephrolithiasis: Code(s): N20.0 - Calculus of kidney Category: Medical (3) Urinary incontinence, urge: Code(s): N39.41 - Urge incontinence Category: Medical (4) Erectile dysfunction: Code(s): N52.9 - Male erectile dysfunction, unspecified Category: Medical Plan In office urinalysis results reviewed with the patient today; as noted above. PVR 36 mL. We discussed at length potential causes of ED, nephrolithiasis, and urge incontinence; we discussed lifestyle modifications to assist with these urological issues as well as further interventions and risks and benefits of these interventions. Start Viagra Start Cialis 5 mg daily as discussed and prescribed. Prescription provided for p.r.n. dosing. Will obtain PSA for further assessment evaluation. Will obtain renal ultrasound for further assessment evaluation. Discussed potential near future i metabolic workup for further assessment evaluation. Follow-up in 1-3 months with imaging, lab, and PVR; or sooner with any issues, concerns, and or questions. Orders: Orders AMB Urinalysis Automated Today Z13.9 - Encounter for screening, unspecified US retroperitoneal comp Today N20.0 - Calculus of kidney, N28.1 - Cyst of kidney, acquired, N39.41 - Urge incontinence Prostate Specific Antigen Today N39.41 - Urge incontinence AMB Post Void Residual by ultrasound Today N39.41 - Urge incontinence Medications: New tadalafil (Cialis) administer approximately 30min before sexual activity; do not use more than 1 dose per 24hrs. [id number] [facility] [id number] Member [id number] 20 mg PO .PRN 30 days PRN 10 tabs 0RF sexual activity tadalafil (Cialis) [id number] [facility] [id number] Member [id number] 5 mg PO DAILY 90 days 90 tabs 0RF Coding Level of Care Code New Pt Level 4 (34383) Diagnoses Renal cyst N28.1 Nephrolithiasis N20.0 Urinary incontinence, urge N39.41 Erectile dysfunction N52.9 CPT Codes Post Residual Void - PVR CPT Code: 03378-Iiyb Void Residual by ultrasound ([id number])
== END 2024-08-02 08:52 | disposition home or self-care (01) ==
LOC: HO.HUSH 07:51
PROVIDERS: PCP Family Medicine; Visit Provider Nurse Practitioner Family
DX: N28.1 Cyst of kidney, acquired (principal); N20.0 Calculus of kidney; N39.41 Urge incontinence; N52.9 Male erectile dysfunction, unspecified; Z13.9 Encounter for screening, unspecified
CPT/HCPCS: 99204

== ENCOUNTER → 2024-08-02 07:50 | Outpatient (BNVA) | payer OTHER, SELFPAY | PROVIDERS: PCP Family Medicine; Visit Provider Nurse Practitioner Family | DX: N28.1 Cyst of kidney, acquired (principal); N20.0 Calculus of kidney; N39.41 Urge incontinence; N52.9 Male erectile dysfunction, unspecified | CPT/HCPCS: 51798; 81003; 99202 ==

== ENCOUNTER 2024-09-06 08:54 | Outpatient (AMB) | payer OTHER, SELFPAY ==
[2024-09-06 08:57] VITALS: BP 126/80; PULSE 82; O2SAT 98; BMI 38.8
--- NOTE | 2024-09-06 08:57 | HO.NEPHOV_ITS ---
Vital Signs 09/06/24 08:57 Height 5 ft 11 in Weight 278 lb 4 oz BMI 38.8 BP 126/80 Blood Pressure Location Lt brachial Position Sitting Pulse 82 Pulse Source Pulse Oximeter Pulse Oximetry (%) 98 Oxygen Delivery Method Room Air Intake Visit Reasons: 3mon follow-up/ Conf Photography Instructor Required: Yes Photography Instructor Language: Licensing Specialist Name: Kay([id number]) Allergies No Known Allergies Allergy (Mild, Verified 09/06/24 09:09) N/A Medication List - Last Reconciled 09/06/24 by Kenny Grossman MD acetaminophen 500 mg PO Q6H PRN amlodipine 5 mg PO QAM carvedilol 1 tab PO BID cholecalciferol (vitamin D3) 25 mcg PO QAM empagliflozin-metformin 10-1,000 mg ER (Synjardy XR) PO DAILY losartan 100 mg PO DAILY omeprazole 20 mg PO DAILY PRN rosuvastatin 40 mg PO DAILY spironolactone mg PO DAILY PRN tadalafil (Cialis) 20 mg PO .PRN PRN 30 days tadalafil (Cialis) 5 mg PO DAILY 90 days HPI Comments Details: . 73-year-old man with a history of longstanding diabetes mellitus. He has been referred for evaluation of CKD. Recent creatinine was 1.3 mg/dL. Ongoing medical problems increase her longstanding diabetes mellitus. History of colon cancer- invasive moderately differentiated adenocarcinoma back in 2019. Underwent laparoscopic right colectomy with colonoscopy in 03/12/2021 at [facility]. T2 N0 no chemotherapy was needed. History of hypertension. History of mild to moderately reduced LV systolic function with inferior inferoseptal wall motion abnormality with impaired relaxation filling pattern. History of renal stones in the past and has undergone urologic procedure. Today he has no specific complaints. No headache nausea vomiting. No shortness of breath. No chest pain. No urinary symptoms. No diarrhea constipation. 06/07/24 Missed appointment Overall doing OK MRI done on 05/10/24 Results are STILL PENDING !! 09/06/24 Seen by Work up in progress [facility] Medical History Arthritis Anxiety and depression Headache COVID-19 vaccine series completed Hx of renal calculi Cancer of right colon GERD (gastroesophageal reflux disease) BPH (benign prostatic hyperplasia) CKD (chronic kidney disease) Depression REJI (obstructive sleep apnea) HTN (hypertension) History of colon cancer Surgical History History of cystoscopy Hx of lithotripsy History of colonoscopy H/O parathyroidectomy Social History Are you a primary pet caretaker to a significant other at home: No Do you presently have visiting nurse or other home services: No Patient Tobacco Use Status: Never used Tobacco Physical Exam Vital Signs: Last Vital Signs Pulse 82 09/06/24 08:57 BP 126/80 09/06/24 08:57 Pulse Ox 98 09/06/24 08:57 Oxygen Delivery Method Room Air 09/06/24 08:57 BMI result Body Mass Index 38.8 Const General: comfortable; No acute distress Orientation/consciousness: patient oriented x3 Eyes General: appearance normal, both eyes and all related structures Visual Manuel: normal visual manuel by confrontation Neck Neck: Yes supple and Yes no JVD Resp Effort & Inspection: normal respiratory effort and respiratory effort not decreased Auscultation: rhonchi Cardio Palpation: no palpable S3 and no palpable S4 Heart sounds: no rubs GI Inspection: Yes normal to inspection Palpation (GI): Soft to palpation Percussion: Yes normal to percussion Auscultation: normal bowel sounds General: Yes no CVA tenderness Back/Spine/Pelvis Back: no CVA tenderness Skin General skin exam: no petechiae and no purpura Neuro General: patient oriented x3 and no focal motor deficits Extrem General: No clubbing and Yes edema (1+) Results Reviewed Nephrology Results: Hgb 14.2 g/dl (14.0-18.0) 06/07/24 WBC 5.0 X10*3/uL (4.8-10.8) 06/07/24 Plt Count 204 X10*3/uL (160-400) 06/07/24 Sodium 141 mmol/L (135-145) 06/07/24 Potassium 3.6 mmol/L (3.3-5.1) 06/07/24 Chloride 109 mmol/L (96-108) H 06/07/24 Carbon Dioxide 28 mmol/L (22-29) 06/07/24 BUN 13 mg/dL (9-16) 06/07/24 Creatinine 1.08 mg/dL (0.5-1.4) 06/07/24 Calcium 8.4 mg/dL (8.4-10.2) 06/07/24 Phosphorus 2.3 mg/dL (2.7-4.5) L 02/16/24 PTH Intact 81.8 pg/mL (8.7-77.1) H 02/16/24 Urine Protein Negative mg/dL (Neg-Trace) 02/16/24 Urine Creatinine 85.41 mg/dL 02/16/24 Renal US 03/01/24 Assessment & Plan Assessment & Plan (1) Nephrolithiasis: Code(s): N20.0 - Calculus of kidney Category: Medical (2) CKD (chronic kidney disease): Code(s): N18.9 - Chronic kidney disease, unspecified Category: Medical (3) Cardiomyopathy: Code(s): I42.9 - Cardiomyopathy, unspecified Category: Medical (4) Cancer of right colon: Code(s): C18.2 - Malignant neoplasm of ascending colon Category: Medical (5) Renal cyst: Code(s): N28.1 - Cyst of kidney, acquired Category: Medical Plan . 74-year-old man with a history of chronic kidney disease in the setting of longstanding hypertension diabetes mellitus and history of colon cancer and nephrolithiasis. Differential diagnosis for CKD would include underlying diabetic hypertensive kidney disease. No significant proteinuria based on protein creatinine ratio No evidence of obstructive uropathy based on renal ultrasonogram He probably had a component of hypoperfusion. Serum creatinine has improved and decreased from 1.55-1.2. Continued Optimize blood pressure and blood sugar maintain A1c less than 7%. Agree with SGLT2 inhibitors. Continue with the FABIAN inhibition. Encouraged to stay on low-sodium diet Increase p.o. fluid intake to maintain urine output of 2 L to minimize the risk of stone formation. Renal cyst Sonogram reveals 3.2 cm exophytic solid lesion, anterior lateral upper pole left kidney. MRI : Bilateral renal cyst with no enhancing renal mass seen. Especially no abnormality in the upper pole left kidney. No hydronephrosis. Seen by Work up in progress Orders: Orders Basic Metabolic Panel 6 Months N18.9 - Chronic kidney disease, unspecified UA and rflx microscopic 6 Months N18.9 - Chronic kidney disease, unspecified, N28.1 - Cyst of kidney, acquired Complete Blood Count no Diff 6 Months N18.9 - Chronic kidney disease, unspecified, N28.1 - Cyst of kidney, acquired Comprehensive Met. Panel 6 Months N18.9 - Chronic kidney disease, unspecified, N28.1 - Cyst of kidney, acquired Coding Level of Care Code Est Pt Level 4 (93816) Diagnoses Nephrolithiasis N20.0 CKD (chronic kidney disease) N18.9 Cardiomyopathy I42.9 Cancer of right colon C18.2 Renal cyst N28.1
--- OUTSIDE RECORDS SUMMARY | 2024-09-06 09:25 | XMS_ITS | Clinical Summary ---
Author Organization [employer] Address [address] [facility] [address] [place] [address] Care Team Providers Care Hearing Aid Repairer Name Role Phone Smitha Matos MD Primary Care Provider [phone] Kenny Grossman MD Unavailable [phone] Denisse Ingram NP Unavailable Allergies Active Allergy Reactions Criticality Noted Date Comments Hydrochlorothiazide 11/19/2011 Medications rosuvastatin (Crestor) 40 MG tabletIndicatio ns:Dyslipidemia Take 1 tablet (40 mg) by mouth Once per day. 90 tablet 3 11/23/19 24 Active carvedilol (Coreg) 12.5 MG tabletIndicatio ns:Primary hypertension TAKE 1 TABLET BY MOUTH TWICE DAILY IN THE MORNING AND AT BEDTIME 180 tablet 3 01/27/20 24 Active losartan (Cozaar) 100 MG tabletIndicatio ns:Primary hypertension Take 1 tablet (100 mg) by mouth in the morning. 90 tablet 3 01/27/20 24 Active FREESTYLE LITE test stripIndication s:Type 2 diabetes mellitus without complication, unspecified whether extermination supervisor insulin use ([facility]) TEST BLOOD SUGAR TWICE DAILY 100 strip 11 04/13/20 24 Active TRUEplus Lancets 33G miscIndications :Type 2 diabetes mellitus without complication, unspecified whether extermination supervisor insulin use ([facility]) TEST BLOOD SUGAR TWICE DAILY DIRECTED 100 each 11 04/13/20 24 Active empagliflozin-m etFORMIN ER (Synjardy XR) 10-1000 MG 24 hr tabletIndicatio ns:Type 2 diabetes mellitus with stage 3 chronic kidney disease, without long-term current use of insulin, unspecified whether stage 3a or 3b CKD ([facility]) Take 1 tablet by mouth in the morning. 90 tablet 06/13/19 25 Active spironolactone (Aldactone) 25 MG tabletIndicatio ns:Primary hypertension Take one half tablet by mouth once daily 45 tablet 06/13/19 25 Active omeprazole (PriLOSEC) [address] capsuleIndicati ons:Gastroesoph ageal reflux disease, unspecified whether esophagitis present TAKE 1 CAPSULE BY MOUTH EVERY DAY NEEDED 30 capsule 2 06/19/19 25 Active D3-1000 25 MCG (1000 UT) capsuleIndicati ons:Vitamin D deficiency TAKE 1 TABLET BY MOUTH EVERY MORNING 90 capsule 1 07/04/19 25 Active tadalafil (Cialis) 20 MG tablet TAKE 1 TABLET 1 HOUR BEFORE SEXUAL RELATIONS ONCE DAILY NEEDED. DO NOT USE MORE THAN 1 DOSE PER 24 HOURS 08/03/19 25 Active tadalafil (Cialis) 5 MG tablet Take 1 tablet by mouth Once per day. 08/03/19 25 Active amLODIPine (Norvasc) 5 MG tabletIndicatio ns:Primary hypertension Take 1 tablet (5 mg) by mouth Once per day. 90 tablet 08/29/19 25 Active Blood Pressure Monitor kitIndications: Primary hypertension USE as DIRECTED 1 kit 08/13/19 23 025 Discontinued(Me d list cleanup (will not trigger notification to Pharmacy)) Viagra 100 MG tabletIndicatio ns:Other male erectile dysfunction TAKE 1 TABLET 1 HOUR BEFORE SEXUAL RELATIONS ONCE DAILY NEEDED. 20 tablet 5 03/17/20 23 025 Discontinued(Me d list cleanup (will not trigger notification to Pharmacy)) amLODIPine (Norvasc) 10 MG tabletIndicatio ns:Primary hypertension Take 1 tablet (10 mg) by mouth in the morning. 90 tablet 3 01/27/20 24 025 Discontinued(Do se adjustment) Active Problems Patient Care Coordination No te Formatting of this note migh t be different from the original. Enrolled in [facility] HTN and [facility] DM clinic with Marissa Barbosa, ZeinaD, [facility] Perlite Grinder:Smitha, member services number [phone], provider services line, , option 4 Digester Operator Helper Agency: [facility] Problem Noted Date Diagnosed Date Exercise counseling 07/31/2024 Dietary counseling 07/31/2024 Chronic systolic heart failure 07/31/2024 History of hypercalcemia 06/13/2024 Abnormal renal ultrasound 04/03/2024 Overview (08/07/2024): US 03/01/[address]: Kenny Grossman MD for renal calculi [...] ask renal about status of urology referral -seen by urology 08/03/24 Assessment & Plan (07/31/2024 10:44 AM EDT): US 03/01/[address]: Kenny Grossman MD for renal calculi [...] care facilitated by [facility]. And [facility] Eye care, seen 02/02/24 -dental home is advised and recommended to get established. -health care proxy given and filed 01/27/24 Assessment & Plan (07/31/2024 10:48 AM EDT): -next physical exam due after 01/26/25 -eye care facilitated by [facility]. And [facility] Eye care, seen 02/02/24 -dental home [...] 05/05/2022 Overview (06/30/2022): Pt was seen at [facility] 02/11/21 for pre-op clearance, at that time [...] 9:23 AM EST): Pt was seen at [facility] 02/11/21 for pre-op clearance, at that time [...] CDTM 11/23/23 -Diabetic eye exam: 10/28/23 with [facility] -Diabetic foot exam: done [...] CDTM 11/23/23 -Diabetic eye exam: 10/28/23 with [facility] -Diabetic foot exam: done [...] CDTM 11/23/23 -Diabetic eye exam: 10/28/23 with [facility] -Diabetic foot exam: done [...] [facility] -T2N0, no chemotherapy needed -Last note [...] colectomy with colonoscopy with Dr. Lilly at [facility] -T2N0, no chemotherapy needed -Last note [...] colectomy with colonoscopy with Dr. Lilly at [facility] -T2N0, no chemotherapy needed -Last note [...] colectomy with colonoscopy with Dr. Lilly at [facility] -T2N0, no chemotherapy needed -Last note [...] colectomy with colonoscopy with Dr. Lilly at [facility] -T2N0, no chemotherapy needed -Last note from Dr. Lilly reviewed from 04/04/221 -s/p colonoscopy October 01, 2021. Colonoscopy done 03/03/22 showed a 5mm polyp, sigmoid colon sessile, done by Dr. Cruzito Rasmussen at [facility]. Recommending 3 year follow up. Hydronephrosis [...] Overview (01/27/2024): He saw Dr. Gilliam of [facility] Endocrinology 03/2012. Pt tolerated reexploration and [...] AM EDT): He saw Dr. Gilliam of [facility] Endocrinology 03/2012. Pt tolerated reexploration and [...] little low at 26. Hypertension 10/09/2011 Overview (08/21/2024): -Blood pressure is at goal -Continue lifestyle modifications -Continue current medications: Amlodipine 10 mg and Carvedilol 12.5 mg and losartan 100mg - Spironolactone 12.5mg once daily last filled 02/2024 by preferred pharmacy; patient not currently taking at this time - Saw [facility] cardiology 06/15/24 Assessment & Plan (07/31/2024 10:47 AM EDT): -Blood pressure is not at goal -Continue lifestyle modifications -Continue current medications - Spironolactone 12.5mg once daily added by CDTM 03/20/24 - Saw [facility] cardiology 06/15/24, started on Amlodipine 10 [...] (05/05/2022): Added automatically from request for surgery [id number] Calculus of ureter 07/20/2014 4 Overview (05/05/2022): Distal Ureteral Stone On The Left Osteoarthritis 11/22/2013 04/05/2024 Backache 01/21/2012 01/27/2024 Back pain 11/26/2011 01/27/2024 Overview (05/05/2022): Backache Blood glucose abnormal 11/26/201107/06 Overview (05/05/2022): Abnormal Glucose Calculus of kidney 11/05/2011 4 Overview (01/27/2024): -not active Assessment & Plan (01/27/2024 9:56 AM EDT): -not active Headache 10/09/2011 04/05/2024 Pain in joint involving lower leg 10/09/2011 04/05/2024 Encounters Date Type Department Care Team Description 08/21/2024 Travel 08/14/2024 Telephone [facility] [address] [place] [phone] Smitha Matos MD DME from [facility] 08/11/2024 Telephone [facility] [address] [place], [place] [phone] Smitha Matos MD [facility] (Bladder control pads, 168/cs) 07/31/2024 10:30 AM EDT Office Visit [address] [phone] Smitha Matos MD Type 2 diabetes mellitus with stage 3 chronic kidney disease, without long-term current use of insulin, unspecified whether stage 3a or 3b CKD ([facility]) (Primary Dx); Adenocarcinoma of large intestine ([facility]); Hyperparathyroidism ([facility]); Primary hypertension; Stage 3a chronic kidney disease ([facility]); Obesity, morbid ([facility]); Exercise counseling; Dietary counseling; Chronic systolic heart failure ([facility]); Abnormal renal ultrasound; Vitamin D deficiency; Other specified health status; Urge incontinence of urine; Hx of hyperparathyroidism 07/31/[address] [address] Smitha Matos MD Durable Medical Equipment (DME: Incontinence Liners) 07/31/[address] [address] Smitha Matos MD Urology Appt 07/31/2024 Travel 07/27/2024 Orders Only [facility] [address] [place] [id number] uJ Davila MD 07/19/2024 Patient Outreach [address] [address] Smitha Matos MD Care Coordination ([facility] outreach for SDOH PT-1 and food needs-referral completed /) 07/19/2024 Patient Outreach [address] [address] Smitha Matos MD Pre-visit Planning (SDOH Screening positive and Tobacco screening negative) 07/04/[address] [address] Concepcion Chatterjee ANP Vitamin D deficiency 06/18/[address] [address] Smitha Matos MD Gastroesophageal reflux disease, unspecified whether esophagitis present 06/14/[address] [address] Smitha Matos MD 06/14/[address] [address] Smitha Matos MD 06/09/2024 Telephone [facility] [address] [place], [place] [phone] Marissa Barbosa, ZeinaD ER Follow-up 06/09/2024 Travel from Last 3 Months Immunizations Name Administration [...] Sign Reading Time Taken Comments Blood Pressure 132/70 08/21/2024 2:06 PM EDT Pulse 77 08/21/2024 2:06 PM EDT Temperature 35.8 ??C (96.4 ??F) 07/31/2024 [...] Care Team (Late st Contact Info) Description 09/06/2024 10:30 AM EDT Medication Management [facility] [address] [place] [address] Health Maintenance Due Date Last Done Comments [...] Author Blood Pressure < 140/90 Blood Pressure 132/70(2024 2:06 PM EDT) No Marissa Reynaga PharmD Hemoglobin A1c [...] (CMS/HCC) COLONOSCOPY Routine 07/26/2024 2:09 PM EST HM DIABETES EYE EXAM Routine [...] Media Lot # [id number] Lot# Expiration Date [id number] Blood 07/31/2024 10:2 1 AM EDT Smitha [...] PM EST) Anatomical Region Laterality Modality Endoscopy Historical Provider ENDOSCOPY PROCEDURE ORDER AMY Final Result * Hm Diabetes Eye Exam (11/03/2023 1:42 PM EDT) Eye Exam Normal Normal Comment:follow up one year Historical Provider HEALTH MAINTENANCE Final Result * (ABNORMAL) Lipid Panel, Standard (11/03/2023 10:29 AM EDT) Triglycerides 48 <150 mg/dL [facility] Comment:Desirable Triglyceri de: less than 150 mg/dLBorderline High Triglyceride 150-199 mg/dLHigh Triglyceride: 200-499 mg/dLVery High Triglyceride: greater than or equal to 5OO mg/dL Cholesterol 156 <200 mg/dL [facility] Comment:Desirable Cholestero l: less than 200 mg/dLBorderline High Cholesterol: 200-239 mg/dLHigh Cholesterol: greater than 239 mg/dL LDL Cholesterol Calculated 104(H) <100 mg/dL [facility] Comment:Desirable LDL: less than 100 mg/dLNear Optimal/Above Optimal LDL: 110- 129 mg/dLBorderline High LDL: 130-159 mg/dLHigh LDL: 160-189 mg/dLVery High LDL: greater than or equal to 190 mg/dL HDL Cholesterol 43 >40 mg/dL [facility] Comment:Desirable HDL: great er than 40 mg/dL Note: This HDL assay may give artificially low results in patients with liver disease. 11/03/2023 10:2 9 AM EDT 11/03/2023 11:15 AM EDT Smitha Matos MD LAB BLOOD ORDERABLES Final Result [facility] [address] [place] [address] [phone] * Hepatitis C Antibody with Reflex to HCV, RNA, Quantitative, Real-Time PCR (07/06/2022 10:18 AM EST) Hepatitis C Antibody NON-REACT BRANDON NON-REACT BRANDON [email or web address] Index 0.11 <1.00 [email or web address] Comment: HCV antibody was non-reactive. There is no laboratory evidence of HCV infection. In most cases, no further action is required. However, if recent HCV exposure is suspected, a test for HCV RNA (test code 51697) is suggested. For additional information please refer to http://education.Accumulate/faq/JYN22v4 (This link is being provided for informational/ educational purposes only.) Blood Venous blood specimen / Unknown 07/06/2022 10:18 AM EST 07/06/2022 10:18 AM EST Narrative [facility] - 07/11/2022 2:05 PM EST FASTING:YES FASTING: YES Smitha Matos MD LAB BLOOD ORDERABLES Final Result Performing Organization Address City/[facility]/ZIP Co de Phone Number [facility] [address] [place] [address] [employer] [place] [employer] [address], ([address]) [place] [address] from Last 3 Months or Most Recently Relevant to Health Maintenance [place] [address] [address] - [employer] Advance Directives Documents on File Type Date Recorded Patient Complaint Coordinator Expl anation Advance Directives and Living Will 01/27/2024 Health Care Proxy 01/27/24 Care Teams Hearing Aid Repairer Relationship Specialty Start Date End Date Furnas, MD Smitha [address] [place] [id number] PCP - General Family Medicine 05/24/18 Kenny Grossman MD [address] [phone] Nephrology 06/07/24 Denisse Ingram NP [address] [place] [address] Urology 08/07/24 Dr. Paco Rodriges MD [facility] Cardiology [address] [place] [address] [place] [address]- 06/14/24 Dr[place] [address] Colon and Rectal Surgery 07/27/24
--- OUTSIDE RECORDS SUMMARY | 2024-09-06 09:25 | XMS_ITS | Encounter Summary ---
Author Organization [employer] Address [address] [facility] 7[address] [place] [address] Care Team Providers Care Building Appraiser Name Role Phone Smitha Matos MD Primary Care Provider [phone] Marissa Barbosa PharmD Unavailable [phone] Kenny Grossman MD Unavailable [phone] Denisse Ingram RNP Unavailable Encounter Details Date Type Department Care Team (Late st Contact Info) Description 07/27/2024 Orders Only [facility] [address] [place] [address] Provider, MD Ju Social History Tobacco Use [...] Upcoming Encounters Date Type Department Care Team ([facility] st Contact Info) Description 09/06/2024 10:30 AM EDT Medication Management [facility]INE [address] [place] [address] documented as of this encounter Goals Goal Patient Goal Type Associated Problems Recent Progress Patient-Stated? Author Blood Pressure < 140/90 Blood Pressure 132/70(2024 2:06 PM EDT) No Piers-Gambl e, Marissa, PharmD Hemoglobin [...] documented as of this encounter Care Teams Building Appraiser Relationship Specialty Start Date End Date Smitha Matos MD [address] [place] [address] PCP - General Family Medicine 05/24/18 Marissa Barbosa PharmD [address] [place] [address] Pharmacist Internal Medicine 08/12/22 08/21/24 Kenny Grossman MD [address] [facility] [address] [place] [address] Nephrology 06/07/24 Denisse Ingram NP [address] [place] [address] Drive [address] [place] [address] Urology 08/07/24 Dr. Paco Rodriges MD [facility] Cardiology [address] [place] [address]- 06/14/24 Dr. Nancie Lilly MD [address] [address] Colon and Rectal Surgery 07/27/24 documented as of this encounter
--- OUTSIDE RECORDS SUMMARY | 2024-09-06 09:25 | XMS_ITS | Encounter Summary ---
Author Organization [employer] Address 75 [facility] 7t [place] [address] Care Team Providers Care Continuity Clerk Name Role Phone Smitha Matos MD Primary Care Provider [phone]- [phone] Marissa Barbosa PharmD Unavailable Kenny Grossman MD Unavailable [phone] Denisse Ingram TANK FILLER Unavailable Encounter Details Date Type Department Care Team (Late st Contact Info) Description 08/13/2022 Orders Only [facility] MEDICINE [address] [place], [place] [phone] Smitha Matos MD 230 [place], [place] [phone] Primary hypertension (Primary Dx) Social History Tobacco [...] Description 09/06/2024 10:30 AM EDT Medication Management [facility] [address] [place] [address] documented as of this encounter Goals Goal Patient Goal Type Associated Problems Recent Progress Patient-Stated? Author Blood Pressure < 140/90 Blood Pressure 132/70(2024 2:06 PM EDT) No Marissa Reynaga, PharmD Hemoglobin A1c < 7 Result Component 6.6( 10:21 AM EDT) No ManjitsMarissa Perez PharmD documented as of this encounter Procedures Procedure Name Priority Date/Time Associated Diagnosis Comments ALBUMIN, RANDOM URINE W/CREATININE Routine 02/18/2023 11:15 AM EDT Primary hypertension documented in this encounter Results * Albumin, Random Urine W/Creatinine (02/18/2023 11:15 AM EDT) Creatinine, Urine 94.95 mg/dL [facility] Microalbumin Urine 8.0 mg/L [facility] Microalbum Creatinine Ratio Ur 8.4 <30 ug/mg cr [facility] Comment:Albumin/Creatinine R atio Reference Ranges: Normal: < 30 ug/mg creatinine Microalbuminuria: 30 - 300 ug/mg creatinineClinical Albuminuria: > 300 ug/mg creatinine 02/18/2023 11:1 5 AM EDT 02/18/2023 1:01 PM EDT us Smitha Matos MD LAB URINE ORDERABLES Final Result [facility] [address] [place] [address] [phone] documented in this encounter Visit Diagnoses Diagnosis Primary hypertension- Primary Unspecified essential hypertension documented in this encounter Care Teams Continuity Clerk Relationship Specialty Start Date End Date Smitha Matos MD 230 [place] [address] PCP - General Family Medicine 05/24/18 Marissa Barbosa PharmD 230 [place] [address] Pharmacist Internal Medicine 08/12/22 08/21/24 Kenny Grossman MD 100 [facility] 200 [place] [phone] Nephrology 06/07/24 Denisse Ingram NP [address] [place] [address] Drive [address] [place] [address] Urology 08/07/24 Dr. Paco Rodriges MD [facility] Cardiology [address] [place] [address]- 06/14/24 Dr. Nancie Lilly MD [address] [address] Colon and Rectal Surgery 07/27/24 documented as of this encounter
--- OUTSIDE RECORDS SUMMARY | 2024-09-06 09:25 | XMS_ITS | Encounter Summary ---
Author Organization [employer] Address 75 [facility] 7t [place] [address] Care Team Providers Care Associate Producer Name Role Phone Smitha Matos MD Primary Care Provider +- [phone] Marissa Barbosa PharmD Unavailable [phone] Kenny Grossman MD Unavailable [phone] Denisse Ingram NP Unavailable Reason for Visit * Reason Onset Date Comments FYI 07/13/2023 Encounter Details Date Type Department Care Team (Late st Contact Info) Description 07/13/2023 Telephone [facility] MEDICINE [address] [place] [address] Smitha Matos MD 230 [place], [place] [phone] Social History Tobacco Use Types Packs/Day Years [...] Tc shreyas Steve at [employer] calling to inform the PCP the paper [...] Description 09/06/2024 10:30 AM EDT Medication Management [facility] MEDICINE 230 [place], [place] [phone] documented as of this encounter Goals Goal Patient Goal Type Associated Problems Recent Progress Patient-Stated? Author Blood Pressure < 140/90 Blood Pressure 132/70(2024 2:06 PM EDT) No Piers-Gambl e, Marissa, PharmD Hemoglobin A1c < 7 Result Component 6.6( 10:21 AM EDT) No Piers-Gambl e, Marissa, PharmD documented as of this encounter Visit Diagnoses Not on filedocumented in this encounter Care Teams Associate Producer Relationship Specialty Start Date End Date Smitha Matos MD 230 [place] [address] PCP - General Family Medicine 05/24/18 Marissa Barbosa PharmD 230 [place] [address] Pharmacist Internal Medicine 08/12/22 08/21/24 Kenny Grossman MD [address] [facility] 200 [place] [address] Nephrology 06/07/24 Denisse Ingram NP [address] [place] [address] Drive [address] [place] [address] Urology 08/07/24 Dr. Paco Rodriges MD [facility] Cardiology [address]00 [place] [address]- 06/14/24 Dr. Nancie Lilly MD [address] [address] Colon and Rectal Surgery 07/27/24 documented as of this encounter
--- OUTSIDE RECORDS SUMMARY | 2024-09-06 09:25 | XMS_ITS | Clinical Summary ---
Author Organization [employer] [facility] it Address [address] [place] [address] Care Team Providers Care Putty Worker Name Role Phone Smitha Matos MD Primary Care Provider +1- [phone] Social History Tobacco Use Types Packs/Day Years [...] Pneumococcal Vaccine: 50+ Ye ars (1 of 1 - PCV) 2002 Zoster Vaccines (1 of 2) 2002 Abdominal Aortic Aneurysm (A AA) Screen 06/23/2023 Cholesterol Screening (Lipid Panel) 06/23/2023 Colorectal Cancer Screening: Colonoscopy 06/23/2023 Depression Screening 06/23/2023 Falls Risk Assessment 06/23/2023 Hepatitis C Screening 06/23/2023 Social Influencers of Health Screening 06/23/2023 COVID-19 Vaccine (2023-2 5 season) 2024 Influenza Vaccine (Season Ended) 2025 RSV Immunization Adult Patie nts (1 - 1-dose 75+ series) 2027 HIB Vaccines Aged Out No longer eligi [...] age to complete this topic Meningococcal B Vaccine Aged Out No l onger eligible based on patient's age to complete this topic RSV Immunization Patients Un xi 20 months Aged Out No longer eligible b ased on patient's age to complete this topic Varicella Vaccines Aged Out No longer eligible based on patient's age to complete this topic Care Teams Putty Worker Relationship Specialty Start Date End Date Smitha Matos MD [address] [place] [phone] PCP - General 09/14/11
--- OUTSIDE RECORDS SUMMARY | 2024-09-06 09:25 | XMS_ITS | Encounter Summary ---
Author Organization [employer] Address 75 [facility] 7t [place] [address] Care Team Providers Care Jewelry Manager Name Role Phone Smitha Matos MD Primary Care Provider +- [phone] Marissa Barbosa PharmD Unavailable [phone] Kenny Grossman MD Unavailable [phone] Denisse Ingram NP Unavailable Encounter Details Date Type Department Care Team (Late Contact Info) Description 10/29/2022 Abstract [facility] MED[facility] [address] [place] [address] Smitha Matos MD [address] [place], [place] [phone] Social History Tobacco Use Types Packs/Day Years [...] Encounters Date Type Department Care Team (Late Contact Info) Description 09/06/2024 10:30 AM EDT Medication Management [facility] [address] [place] [address] documented as of this encounter Goals Goal [...] encounter Results * Diabetes Eye Exam (10/08/2022) Pathologist [facility] Eye Exam Normal Normal 10/08/2022 Meeta West OD HEALTH MAINTENANCE Final Resul t documented in this encounter Visit Diagnoses Not on filedocumented in this encounter Care Teams Jewelry Manager Relationship Specialty Start Date End Date Smitha Matos MD 230 [place] [address] PCP - General Family Medicine 05/24/18 Marissa Barbosa PharmD 230 [place] [address] Pharmacist Internal Medicine 08/12/22 08/21/24 Kenny Grossman MD 100 [facility] 200 [place] [address] Nephrology 06/07/24 Denisse Ingram NP [address] [place] [address] Urology 08/07/24 Dr. Paco Rodriges MD [facility] Cardiology [address] [place] [address]- 06/14/24 Dr. Nancie Lilly MD [address] [address] Colon and Rectal Surgery 07/27/24 documented as of this encounter
--- OUTSIDE RECORDS SUMMARY | 2024-09-06 09:25 | XMS_ITS | Encounter Summary ---
Author Organization [employer] Address 75 [facility] 7t [place] [address] Care Team Providers Care Dress Shoe Inspector Name Role Phone Carlo Smitha CHOUDHURY Primary Care Provider +- [phone] Marissa Barbosa PharmD Unavailable Kenny Grossman MD Unavailable [phone] Denisse Ingram NP Unavailable Reason for Visit * Reason Comments Med Refill Encounter Details Date Type Department Care Team (Late st Contact Info) Description 11/22/2023 Refill [facility] MEDICINE 230 [place], [place] [phone] Marissa Barbosa, PharmD 230 [place], [place] [phone] Social History Tobacco Use Types Packs/Day Years [...] 09/06/2024 10:30 AM EDT Medication Management [facility] MEDICINE 230 [place] [address] documented as of this encounter Goals Goal Patient Goal Type Associated Problems Recent Progress Patient-Stated? Author Blood Pressure < 140/90 Blood Pressure 132/70(2024 2:06 PM EDT) No Marissa Reynaga, PharmD Hemoglobin A1c < 7 Result Component 6.6( 10:21 AM EDT) No Marissa Reynaga PharmD documented as of this encounter Visit Diagnoses Not on filedocumented in this encounter Care Teams Dress Shoe Inspector Relationship Specialty Start Date End Date Smitha Matos MD 230 [place] [address] PCP - General Family Medicine 05/24/18 Marissa Barbosa, PharmD 230 [place] [address] Pharmacist Internal Medicine 08/12/22 08/21/24 Kenny Grossman MD 100 [facility] 200 [place] [phone] Nephrology 06/07/24 Denisse Ingram NP [address] [place] [address] Urology 08/07/24 Dr. Paco Rodriges MD [facility] Cardiology [address] [place] [address]- 06/14/24 Dr. Nancie Lilly MD [address] [address] Colon and Rectal Surgery 07/27/24 documented as of this encounter
--- OUTSIDE RECORDS SUMMARY | 2024-09-06 09:25 | XMS_ITS | Encounter Summary ---
Author Organization [employer] Address 75 [facility] 7t [place] [address] Care Team Providers Care Target Worker Name Role Phone Smitha Matos MD Primary Care Provider [phone]- [phone] Marissa Barbosa PharmD Unavailable [phone] Kenny Grossman MD Unavailable [phone] Denisse Ingram NP Unavailable Encounter Details Date Type Department Care Team (Late st Contact Info) Description 11/03/2023 Abstract [facility] MEDICINE [address] [place] [address] Fátima Grigsby [place] Social History Tobacco Use Types Packs/Day Years [...] Description 09/06/2024 10:30 AM EDT Medication Management [facility] MEDICINE [address] [place] [address] documented as of this encounter Goals Goal [...] Diabetes Eye Exam (11/03/2023 1:42 PM EDT) [facility] Eye Exam Normal Normal Comment:follow up one year us Historical Provider HEALTH MAINTENANCE Final Result documented in this encounter Visit Diagnoses Not on filedocumented in this encounter Care Teams Target Worker Relationship Specialty Start Date End Date Smitha Matos MD 230 [place] [address] PCP - General Family Medicine 05/24/18 Marissa Barbosa, PharmD 230 [place] [address] Pharmacist Internal Medicine 08/12/22 08/21/24 Kenny Grossman MD 100 [facility] 200 [place] [address] Nephrology 06/07/24 Denisse Ingram NP [address] [place] [address] Drive [address] [place] [address] Urology 08/07/24 Dr. Paco Rodriges MD [facility] Cardiology [address] [place] [address]- 06/14/24 Dr. Nancie Lilly MD [address] [address] Colon and Rectal Surgery 07/27/24 documented as of this encounter
--- OUTSIDE RECORDS SUMMARY | 2024-09-06 09:25 | XMS_ITS | Encounter Summary ---
Author Organization [employer] Address 75 [facility] 7t [place] [address] Care Team Providers Care Bell Hole Digger Name Role Phone Smitha Matos MD Primary Care Provider +- [phone] Marissa Barbosa PharmD Unavailable [phone] Kenny Grossman MD Unavailable [phone] Denisse Ingram NP Unavailable Reason for Visit * Reason Onset Date Comments Appointment Request 05/29/2024 Encounter Details Date Type Department Care Team (Late st Contact Info) Description 05/29/2024 Telephone [facility] MEDICINE 230 [place] [address] Smitha Matos MD 230 [place], [place] [phone] Appointment Request Social History Tobacco Use Types [...] reschedule CDTM visit. Please contact pt at [phone]. (Croatian Speaker) documented in this encounter Plan of Treatment Upcoming Encounters Date Type Department Care Team ([facility] st Contact Info) Description 09/06/2024 10:30 AM EDT Medication Management [facility] MEDICINE [address] [place] [address] documented as of this encounter Goals Goal Patient Goal Type Associated Problems Recent Progress Patient-Stated? Author Blood Pressure < 140/90 Blood Pressure 132/70(2024 2:06 PM EDT) No Marissa Reynaga, PharmMary Hemoglobin A1c < 7 Result Component 6.6( 10:21 AM EDT) No Marissa Reynaga PharmD documented as of this encounter Visit Diagnoses Not on filedocumented in this encounter Additional Health Concerns Assessment Noted Time PHQ-9 Depression Total Score: 3 01/27/20 24 9:37 AM EDT documented as of this encounter Care Teams Bell Hole Digger Relationship Specialty Start Date End Date Smitha Matos MD 230 [place] [address] PCP - General Family Medicine 05/24/18 Marissa Barbosa PharmD 230 [place] [address] Pharmacist Internal Medicine 08/12/22 08/21/24 Kenny Grossman MD 100 [facility] 200 [place] [address] Nephrology 06/07/24 Denisse Ingram NP [address] [place] [address] Urology 08/07/24 Dr. Paco Rodriges MD [facility] Cardiology [address]00 [place] [address]- 06/14/24 Dr. Nancie Lilly MD [address] [address] Colon and Rectal Surgery 07/27/24 documented as of this encounter
--- OUTSIDE RECORDS SUMMARY | 2024-09-06 09:25 | XMS_ITS | Encounter Summary ---
Author Organization [employer] Address 75 [facility] 7t [place] [address] Care Team Providers Care Dental Tech Name Role Phone Smitha Matos MD Primary Care Provider [phone]- [phone] Marissa Barbosa PharmD Unavailable Kenny Grossman MD Unavailable [phone] Denisse Ingram NP Unavailable Encounter Details Date Type Department Care Team (Late st Contact Info) Description 06/29/[address] 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 Paco Rodriges MD [facility] Cardiology [address] [place] [address]- 06/14/24 Dr. Nancie Lilly MD [address] [address] Colon and Rectal Surgery 07/27/24 documented as of this encounter
--- OUTSIDE RECORDS SUMMARY | 2024-09-06 09:25 | XMS_ITS | Encounter Summary ---
Author Organization [employer] [facility] Address 75 [facility] 7t [place] [address] Care Team Providers Care Copy Supervisor Name Role Phone Smitha Matos MD Primary Care Provider + [phone] Marissa Barbosa PharmD Unavailable Kenny Grossman MD Unavailable [phone] Denisse Ingram NP Unavailable Encounter Details Date Type Department Care Team (Latest Contact Info) Description 03/01/2019 Abstract [facility] Dental, Provider, DDS Social History Tobacco [...] Description 09/06/2024 10:30 AM EDT Medication Management [facility] MEDICINE 230 [place] [address] documented as of this encounter Visit Diagnoses Not on filedocumented in this encounter Care Teams Copy Supervisor Relationship Specialty Start Date End Date Smitha Matos MD 230 [place] [address] PCP - General Family Medicine 05/24/18 Marissa Barbosa, PharmD [address] [place] [address] Pharmacist Internal Medicine 08/12/22 08/21/24 Kenny Grossman MD 100 [facility] 200 [place] [address] Nephrology 06/07/24 Denisse Ingram NP [address] [place] [address] Drive [address] [place] [address] Urology 08/07/24 Dr. Paco Rodriges MD [facility] Cardiology [address] [place] [address]- 06/14/24 Dr. Nancie Lilly MD [address] [address] Colon and Rectal Surgery 07/27/24 documented as of this encounter
--- OUTSIDE RECORDS SUMMARY | 2024-09-06 09:25 | XMS_ITS | Encounter Summary ---
Author Organization [employer] Address 75 [facility] 7t [place] [address] Care Team Providers Care Accounting Manager Cpa Name Role Phone Carlo Smitha CHOUDHURY Primary Care Provider +- [phone] Marissa Barbosa PharmD Unavailable Kenny Grossman MD Unavailable [phone] Denisse Ingram NP Unavailable Reason for Visit * Reason Comments Med Refill Encounter Details Date Type Department Care Team (Late st Contact Info) Description 12/15/2023 Refill [facility] MEDICINE 230 [place], [place] [phone] Marissa Barbosa, PharmD 230 [place], [place] [phone] Social History Tobacco Use Types Packs/Day Years [...] Description 09/06/2024 10:30 AM EDT Medication Management [facility] MEDICINE 230 [place] [address] documented as of this encounter Goals Goal Patient Goal Type Associated Problems Recent Progress Patient-Stated? Author Blood Pressure < 140/90 Blood Pressure 132/70(2024 2:06 PM EDT) No Marissa Reynaga, PharmD Hemoglobin A1c < 7 Result Component 6.6( 10:21 AM EDT) No Marissa Reynaga PharmD documented as of this encounter Visit Diagnoses Not on filedocumented in this encounter Care Teams Accounting Manager Cpa Relationship Specialty Start Date End Date Smitha Matos MD 230 [place] [address] PCP - General Family Medicine 05/24/18 Marissa Barbosa, PharmD 230 [place] [address] Pharmacist Internal Medicine 08/12/22 08/21/24 Kenny Grossman MD 100 [facility] 200 [place] [address] Nephrology 06/07/24 Denisse Ingram NP [address] [facility] [facility] [address] [place] [address] Urology 08/07/24 Dr. Paco Rodriges MD [facility] Cardiology [address] [place] [address]- 06/14/24 Dr. Nancie Lilly MD [address] [address] Colon and Rectal Surgery 07/27/24 documented as of this encounter
--- OUTSIDE RECORDS SUMMARY | 2024-09-06 09:25 | XMS_ITS | Encounter Summary ---
Author Organization [employer] Address 75 [facility] 7t [place] [address] Care Team Providers Care Area Director Of Home Health Sales Name Role Phone Carlo Smitha CHOUDHURY Primary Care Provider +- [phone] Marissa Barbosa PharmD Unavailable Kenny Grossman MD Unavailable [phone] Denisse Ingram NP Unavailable Reason for Visit * Reason Comments Med Refill Encounter Details Date Type Department Care Team (Late st Contact Info) Description 08/28/2023 Refill [facility] MEDICINE 230 [place], [place] [phone] Marissa Barbosa, PharmD 230 [place], [place] [phone] Social History Tobacco Use Types Packs/Day Years [...] AM EDT Medication Management [facility] [address] [place] [address] documented as of this encounter Goals Goal Patient Goal Type Associated Problems Recent Progress Patient-Stated? Author Blood Pressure < 140/90 Blood Pressure 132/70(2024 2:06 PM EDT) No Marissa Reynaga, PharmD Hemoglobin A1c < 7 Result Component 6.6( 10:21 AM EDT) No Marissa Reynaga, PharmD documented as of this encounter Visit Diagnoses Not on filedocumented in this encounter Care Teams Area Director Of Home Health Sales Relationship Specialty Start Date End Date Smitha Matos MD [address] [place] [address] PCP - General Family Medicine 05/24/18 Marissa Barbosa PharmD 230 [place] [address] Pharmacist Internal Medicine 08/12/22 08/21/24 Kenny Grossman MD 100 [facility] 200 [place] [address] Nephrology 06/07/24 Denisse Ingram NP [address] [place] [address] Drive [address] [place] [address] Urology 08/07/24 Dr. Paco Rodriges MD [facility] Cardiology [address]00 [place] [address]- 06/14/24 Dr. Nancie Lilly MD [address] [address] Colon and Rectal Surgery 07/27/24 documented as of this encounter
== END 2024-09-06 09:25 | disposition home or self-care (01) ==
LOC: HO.HKAS 08:54
PROVIDERS: PCP Family Medicine; Visit Provider Internal Medicine Hypertension Specialist
DX: N20.0 Calculus of kidney (principal); N18.9 Chronic kidney disease, unspecified; I42.9 Cardiomyopathy, unspecified; C18.2 Malignant neoplasm of ascending colon; N28.1 Cyst of kidney, acquired
CPT/HCPCS: 99214

== ENCOUNTER 2024-09-06 10:42 | Outpatient (REF) | payer OTHER, SELFPAY ==
[2024-09-06 11:39] LABS: Estimated Average Glucose 128 mg/dL; Hemoglobin A1C 157.5771 umol/L; Hemoglobin A1c % 6.1 % (<6.0); Total Hemoglobin (HGBA1C) 3645.7005 umol/L
[2024-09-06 12:18] LABS: Parathyroid Hormone Intact 135.9 pg/mL (8.7-77.1)
[2024-09-06 12:20] LABS: Alanine Aminotransferase 21 U/L (0-40); Albumin Level 3.9 g/dL (3.5-5.0); Anion Gap 11 (12-20); Aspartate Amino Transferase 24 U/L (5-37); Bilirubin Direct 0.3 mg/dL (0.0-0.5); Bilirubin Total 0.8 mg/dL (0.0-1.0); Blood Urea Nitrogen 13 mg/dL (9-16); Calcium 8.5 mg/dL (8.4-10.2); Carbon Dioxide 27 mmol/L (22-29); Chloride 107 mmol/L (96-108); Cholesterol 148 mg/dL (<200); Estimated Glomerular Filt Rate > 60; Glucose Random 122 mg/dL (60-115); HDL Cholesterol 48 mg/dL (>40); LDL Cholesterol Calculated 88 mg/dL (<100); Potassium 3.7 mmol/L (3.3-5.1); Sodium 141 mmol/L (135-145); Triglycerides 64 mg/dL (<150)
[2024-09-06 12:36] LABS: Alkaline Phosphatase 66 U/L (39-117); Prostate Specific Antigen 0.25 ng/mL (<0.05-4.0)
--- OUTSIDE RECORDS SUMMARY | 2024-09-06 12:41 | XMS_ITS | Encounter Summary ---
Author Organization [employer] Address 75 [facility] 7t [place] [address] Care Team Providers Care Alfalfa Dehydrator Operator Name Role Phone Carlo Smitha CHOUDHURY Primary Care Provider +- [phone] Marissa Barbosa PharmD Unavailable Kenny Grossman MD Unavailable [phone] Denisse Ingram NP Unavailable Reason for Visit * Reason Comments Med Refill Encounter Details Date Type Department Care Team (Late st Contact Info) Description 08/28/2023 Refill [facility] MEDICINE 230 [place], [place] [phone] Marissa Barbosa, PharmD 230 [place], [place] [phone] Social History Tobacco Use Types Packs/Day Years [...] documented in this encounter Plan of Treatment Not on file documented as of this encounter Goals Goal Patient Goal Type Associated Problems Recent Progress Patient-Stated? Author Blood Pressure < 140/90 Blood Pressure 132/76(2024 10:41 AM EDT) No Marissa Reynaga PharmD Hemoglobin A1c < 7 Result Component 6.1( 10:45 AM EDT) No Marissa Reynaga PharmD documented as of this encounter Visit Diagnoses Not on filedocumented in this encounter Care Teams Alfalfa Dehydrator Operator Relationship Specialty Start Date End Date Smitha Matos MD 230 [place] [address] PCP - General Family Medicine 05/24/18 Marissa Barbosa PharmD 230 [place] [address] Pharmacist Internal Medicine 08/12/22 08/21/24 Kenny Grossman MD 100 [facility] 200 [place] [address] Nephrology 06/07/24 Denisse Ingram NP [address] [place] [address] Urology 08/07/24 Dr. Paco Rodriges MD [facility] Cardiology [address]00 [place] [address]- 06/14/24 Dr. Nancie Lilly MD [address] [address] Colon and Rectal Surgery 07/27/24 documented as of this encounter
--- OUTSIDE RECORDS SUMMARY | 2024-09-06 12:41 | XMS_ITS | Encounter Summary ---
Author Organization [employer] Address 75 [facility] 7t [place] [address] Care Team Providers Care Wet Pan Mixer Name Role Phone Smitha Matos MD Primary Care Provider +- [phone] Marissa Barbosa PharmD Unavailable [phone] Kenny Grossman MD Unavailable [phone] Denisse Ingram NP Unavailable Reason for Visit * Reason Onset Date Comments FYI 07/13/2023 Encounter Details Date Type Department Care Team (Late st Contact Info) Description 07/13/2023 Telephone [facility] MEDICINE [address] [place] [address] Smitha Matos MD [address] [place], [place] [phone] Social History Tobacco Use Types Packs/Day Years [...] Tc shreyas Steve at [facility] calling to inform the PCP the paper [...] Pressure 132/76(2024 10:41 AM EDT) No Marissa Reynaga, PharmD Hemoglobin A1c < 7 Result Component 6.1( 10:45 AM EDT) No Brianne Reynagasa, PharmD documented as of this encounter Visit Diagnoses Not on filedocumented in this encounter Care Teams Wet Pan Mixer Relationship Specialty Start Date End Date Smitha Matos MD [address] [place] [address] PCP - General Family Medicine 05/24/18 Marissa Barbosa, PharmD [address] [place] [address] Pharmacist Internal Medicine 08/12/22 08/21/24 Kenny Grossman MD 100 [facility] 200 [place] [address] Nephrology 06/07/24 Denisse Ingram NP [address] [place] [address] Drive [address] [place] [address] Urology 08/07/24 Dr. Paco Rodriges MD [facility] Cardiology [address] [place] [address]- 06/14/24 Dr. Nancie Lilly MD [address] [address] Colon and Rectal Surgery 07/27/24 documented as of this encounter
--- OUTSIDE RECORDS SUMMARY | 2024-09-06 12:41 | XMS_ITS | Encounter Summary ---
Author Organization [employer] Address 75 [facility] 7t [place] [address] Care Team Providers Care Curb Setter Helper Name Role Phone Smitha Matos MD Primary Care Provider [phone]- [phone] Kenny Grossman MD Unavailable [phone] Denisse Ingram NP Unavailable Encounter Details Date Type Department Care Team (Late st Contact Info) Description 09/06/2024 Orders Only GENERIC EXTERNAL DATA DEPARTMENT Provider, Generic External Data Social History Tobacco Use Types Packs/Day Years [...] as of this encounter Plan of Treatment Not on file documented as of this encounter Goals Goal Patient Goal Type Associated Problems Recent Progress Patient-Stated? Author Blood Pressure < 140/90 Blood Pressure 132/76(2024 10:41 AM EDT) No Piers-Gambl e, Marissa, PharmD Hemoglobin A1c < 7 Result Component 6.1( 10:45 AM EDT) No Piers-Gambl e, Marissa, PharmD documented as of this encounter Procedures Procedure Name Priority Date/Time Associated Diagnosis Comments PSA, TOTAL Routine 09/06/2024 10:45 AM EDT documented in this encounter Results * PSA,Total (09/06/2024 10:45 AM EDT) Prostate Specific Antigen 0.25 <0.05 - 4.0 ng/mL [facility] Comment:PSA methodology: Abb cuba Williamson i ChemiluminescentMicroparticle Immunoassay (CMIA) 09/06/2024 10:4 5 AM EDT 09/06/2024 11:10 AM EDT us Generic External Data Provider LAB BLOOD ORDERAB LES Final Result [facility] [address] [place] [phone] documented in this encounter Visit Diagnoses Not on filedocumented in this encounter Additional Health Concerns Assessment Noted Time PHQ-9 Depression Total Score: 3 01/27/20 24 9:37 AM EDT documented as of this encounter Care Teams Curb Setter Helper Relationship Specialty Start Date End Date Smitha Matos MD 230 [place] [address] PCP - General Family Medicine 05/24/18 Kenny Grossman MD 100 [facility] 200 [place] [address] Nephrology 06/07/24 Denisse Ingram NP [address] [facility] [address] [place] [address] Urology 08/07/24 Dr. Paco Rodriges MD [facility] Cardiology [address] [place] [address]- 06/14/24 Dr. Nancie Lilly MD [address] [address] Colon and Rectal Surgery 07/27/24 documented as of this encounter
--- OUTSIDE RECORDS SUMMARY | 2024-09-06 12:41 | XMS_ITS | Encounter Summary ---
Author Organization [employer] Address 75 [facility] 7t [place] [address] Care Team Providers Care Process Camera Operator Name Role Phone Smitha Matos MD Primary Care Provider [phone] Marissa Barbosa PharmD Unavailable [phone] Kenny Grossman MD Unavailable [phone] Denisse Ingram NP Unavailable Encounter Details Date Type Department Care Team (Late st Contact Info) Description 10/29/2022 Abstract [facility] 230 [place], [place] [phone] Smitha Matos MD 230 [place], [place] [phone] Social History Tobacco Use Types Packs/Day Years [...] (10/08/2022) Eye Exam Normal Normal 10/08/2022 Meeta Butlerfrederick OD HEALTH MAINTENANCE Final Resul t documented in this encounter Visit Diagnoses Not on filedocumented in this encounter Care Teams Process Camera Operator Relationship Specialty Start Date End Date Smitha Matos MD 230 [place] [address] PCP - General Family Medicine 05/24/18 Marissa Barbosa, PharmD 230 [place] [address] Pharmacist Internal Medicine 08/12/22 08/21/24 Kenny Grossman MD 100 [facility] 200 [place] [address] Nephrology 06/07/24 Denisse Ingram NP [address] [place] [address] Urology 08/07/24 Dr. Paco Rodriges MD [facility] Cardiology [address] [place] [address]- 06/14/24 Dr. Nancie Lilly MD [address] [address] Colon and Rectal Surgery 07/27/24 documented as of this encounter
--- OUTSIDE RECORDS SUMMARY | 2024-09-06 12:41 | XMS_ITS | Encounter Summary ---
Author Organization [employer] Address 75 [facility] 7t [place] [address] Care Team Providers Care Person Investigator Name Role Phone Smitha Matos MD Primary Care Provider [phone]- [phone] Marissa Barbosa PharmD Unavailable [phone] Kenny Grossman MD Unavailable [phone] Denisse Ingram NP Unavailable Encounter Details Date Type Department Care Team (Late st Contact Info) Description 11/03/2023 Abstract [facility] MEDICINE [address] [place] [address] Fátima Grigsby [place] Social History Tobacco Use [...] 132/76(2024 10:41 AM EDT) No Marissa Reynaga PharmMayr Hemoglobin A1c < 7 Result Component 6.1( 10:45 AM EDT) No Marissa Reynaga PharmD documented as of this encounter Procedures Procedure Name Priority Date/Time Associated Diagnosis Comments DIABETES EYE EXAM Routine 11/03/2023 1:42 PM EDT documented in this encounter Results * Diabetes Eye Exam (11/03/2023 1:42 PM EDT) [facility] Signature Eye Exam Normal Normal Comment:follow up one year us Historical Provider HEALTH MAINTENANCE Final Result documented in this encounter Visit Diagnoses Not on filedocumented in this encounter Care Teams Person Investigator Relationship Specialty Start Date End Date Smitha Matos MD 230 [place] [address] PCP - General Family Medicine 05/24/18 Marissa Barbosa, ZeinaD 230 [place] [address] Pharmacist Internal Medicine 08/12/22 08/21/24 Kenny Grossman MD 100 [facility] 200 [place] [address] Nephrology 06/07/24 Denisse Ingram NP [address] [facility] [address] [place] [address] Urology 08/07/24 Dr. Paco Rodriges MD [facility] Cardiology [address] [place] [address]- 06/14/24 Dr. Nancie Lilly MD [address] [address] Colon and Rectal Surgery 07/27/24 documented as of this encounter
--- OUTSIDE RECORDS SUMMARY | 2024-09-06 12:41 | XMS_ITS | Encounter Summary ---
Author Organization [employer] Address 75 [facility] 7t [place] [address] Care Team Providers Care Sales Development Director Name Role Phone Carlo Smitha CHOUDHURY Primary Care Provider +- [phone] Marissa Barbosa PharmD Unavailable Kenny Grossman MD Unavailable [phone] Denisse Ingram NP Unavailable Reason for Visit * Reason Comments Med Refill Encounter Details Date Type Department Care Team (Late st Contact Info) Description 12/15/2023 Refill [facility] MEDICINE 230 [place], [place] [phone] Marissa Barbosa, PharmD 230 [place], [place] [phone] Social History Tobacco Use Types Packs/Day Years [...] Component 6.1( 10:45 AM EDT) No Marissa Reynaga, PharmD documented as of this encounter Visit Diagnoses Not on filedocumented in this encounter Care Teams Sales Development Director Relationship Specialty Start Date End Date Smitha Matos MD 230 [place] [address] PCP - General Family Medicine 05/24/18 Marissa Barbosa, PharmD 230 [place] [address] Pharmacist Internal Medicine 08/12/22 08/21/24 Kenny Grossman MD 100 [facility] 200 [place] [address] Nephrology 06/07/24 Denisse Ingram NP [address] [facility] [address] [place] [address] Urology 08/07/24 Dr. Paco Rodriges MD [facility] Cardiology [address] [place] [address]- 06/14/24 Dr. Nancie Lilly MD [address] [address] Colon and Rectal Surgery 07/27/24 documented as of this encounter
--- OUTSIDE RECORDS SUMMARY | 2024-09-06 12:41 | XMS_ITS | Encounter Summary ---
Author Organization [employer] Address 75 [facility] 7t [place] [address] Care Team Providers Care Rolling Mill Plugger Name Role Phone Smitha Matos MD Primary Care Provider [phone]- [phone] Kenny Grossman MD Unavailable Denisse Ingram NP Unavailable Encounter Details Date Type Department Care Team (Latest Contact Info) Description 09/06/2024 Travel Social History Tobacco Use Types Packs/Day [...] Pressure 132/76(2024 10:41 AM EDT) No Piers-Gambl eBriannesa, PharmD Hemoglobin A1c < 7 Result Component 6.1( 10:45 AM EDT) No Piers-Gambl e Marissa, PharmD documented as of this encounter Visit Diagnoses Not on filedocumented in this encounter Additional Health Concerns Assessment Noted Time PHQ-9 Depression Total Score: 3 01/27/20 24 9:37 AM EDT documented as of this encounter Care Teams Rolling Mill Plugger Relationship Specialty Start Date End Date Smitha Matos MD 230 [place] [address] PCP - General Family Medicine 05/24/18 Kenny Grossman MD 100 [facility] 200 [place] [address] Nephrology 06/07/24 Denisse Ingram NP [address] [facility] [place] [address] Urology 08/07/24 Dr. Paco Rodriges MD [facility] Cardiology [address]00 [place] [address]- 06/14/24 [place] [address] Colon and Rectal Surgery 07/27/24 documented as of this encounter
--- OUTSIDE RECORDS SUMMARY | 2024-09-06 12:41 | XMS_ITS | Encounter Summary ---
Author Organization [employer] Address 75 [facility] 7t [place] [address] Care Team Providers Care General Repair Mechanic Name Role Phone Smitha Matos MD Primary Care Provider [phone]- [phone] Marissa Barbosa PharmD Unavailable Kenny Grossman MD Unavailable [phone] Denisse Ingram MILK CONDENSER Unavailable Encounter Details Date Type Department Care Team (Late st Contact Info) Description 08/13/2022 Orders Only [facility] MEDICINE 230 [place], [place] [phone] Smitha Matos MD 230 [place], [place] [phone] Primary hypertension (Primary Dx) Social History Tobacco [...] 11:15 AM EDT) Creatinine, Urine 94.95 mg/dL [facility] Microalbumin Urine 8.0 mg/L [facility] Microalbum Creatinine Ratio Ur 8.4 <30 ug/mg cr [facility] Comment:Albumin/Creatinine R atio Reference Ranges: Normal: < 30 ug/mg creatinine Microalbuminuria: 30 - 300 ug/mg creatinineClinical Albuminuria: > 300 ug/mg creatinine 02/18/2023 11:1 5 AM EDT 02/18/2023 1:01 PM EDT Smitha Matos MD LAB URINE ORDERABLES Final Result [facility] [address] [place] [phone] documented in this encounter Visit Diagnoses Diagnosis Primary hypertension- Primary Unspecified essential hypertension documented in this encounter Care Teams General Repair Mechanic Relationship Specialty Start Date End Date Smitha Matos MD 230 [place] [address] PCP - General Family Medicine 05/24/18 Marissa Barbosa PharmD 230 [place] [address] Pharmacist Internal Medicine 08/12/22 08/21/24 Kenny Grossman MD [address] [facility] 200 [place] [address] Nephrology 06/07/24 Denisse Ingram NP [address] [place] [address] Drive [address] [place] [address] Urology 08/07/24 Dr. Paco Rodriges MD [facility] Cardiology [address] [place] [address]- 06/14/24 Dr. Nancie Lilly MD [address] [address] Colon and Rectal Surgery 07/27/24 documented as of this encounter
--- OUTSIDE RECORDS SUMMARY | 2024-09-06 12:41 | XMS_ITS | Encounter Summary ---
Author Organization [employer] Address 75 [facility] 7t [place] [address] Care Team Providers Care Sales Coordinator Name Role Phone Carlo Smitha CHOUDHURY Primary Care Provider +- [phone] Marissa Barbosa PharmD Unavailable Kenny Grossman MD Unavailable [phone] Denisse Ingram NP Unavailable Reason for Visit * Reason Comments Med Refill Encounter Details Date Type Department Care Team (Late st Contact Info) Description 11/22/2023 Refill [facility] MEDICINE 230 [place], [place] [phone] Marissa Barbosa, PharmD 230 [place], [place] [phone] Social History Tobacco Use Types Packs/Day Years [...] filedocumented in this encounter Care Teams Sales Coordinator Relationship Specialty Start Date End Date Smitha Matos MD 230 [place] [address] PCP - General Family Medicine 05/24/18 Marissa Barbosa, PharmD 230 [place] [address] Pharmacist Internal Medicine 08/12/22 08/21/24 Kenny Grossman MD 100 [facility] 200 [place] [address] Nephrology 06/07/24 Denisse Ingram NP [address] [facility] [address] [place] [address] Urology 08/07/24 Dr. Paco Rodriges MD [facility] Cardiology [address] [place] [address]- 06/14/24 Dr. Nancie Lilly MD [address] [address] Colon and Rectal Surgery 07/27/24 documented as of this encounter
--- OUTSIDE RECORDS SUMMARY | 2024-09-06 12:41 | XMS_ITS | Clinical Summary ---
Author Organization [employer] Address [address] [facility] 7t [place] [address] Care Team Providers Care Monumental Stonemason Name Role Phone Smitha Matos MD Primary Care Provider +[phone]- [phone] Kenny Grossman MD Unavailable [phone] Denisse Ingram NP Unavailable Allergies Active [...] 2 diabetes mellitus without complication, unspecified whether terminal carman insulin use ([facility]) TEST BLOOD SUGAR TWICE DAILY 100 strip 11 04/13/20 24 Active TRUEplus Lancets 33G miscIndications :Type 2 diabetes mellitus without complication, unspecified whether terminal carman insulin use ([facility]) TEST BLOOD SUGAR TWICE DAILY DIRECTED 100 each 11 04/13/20 24 Active empagliflozin-m etFORMIN ER (Synjardy XR) 10-1000 MG 24 hr tabletIndicatio ns:Type 2 diabetes mellitus with stage 3 chronic kidney disease, without long-term current use of insulin, unspecified whether stage 3a or 3b CKD ([facility]/HCC) Take 1 tablet by mouth in the [...] be different from the original. Enrolled in [facility] HTN and [facility] DM clinic with Marissa Barbosa, ZeinaD, [facility] Travel Registered Nurse Oncology:Smitha, member services number [phone], provider services line, , option 4 Paste Mixer Agency: [facility] Senior Services Problem Noted Date Diagnosed Date Exercise counseling 07/31/2024 Dietary counseling 07/31/2024 Chronic systolic heart failure 07/31/2024 History of hypercalcemia 06/13/2024 Abnormal renal ultrasound 04/03/2024 Overview (08/07/2024): US 03/01/24 ordered by rn family practice Dr: Kenny Grossman MD for renal calculi [...] 10:44 AM EDT): US 03/01/24 ordered by rn family practice Dr: Kenny Grossman MD for renal calculi [...] facilitated by [facility] And [facility] Eye care, seen 02/02/24 -dental home is advised and recommended to get established. -health care proxy given and filed 01/27/24 Assessment & Plan (07/31/2024 10:48 AM EDT): -next physical exam due after 01/26/25 -eye care facilitated by [facility]. And [facility] care, seen 02/02/24 -dental home [...] 05/05/2022 Overview (06/30/2022): Pt was seen at [facility] 02/11/21 for pre-op clearance, at that time [...] 9:23 AM EST): Pt was seen at [facility] 02/11/21 for pre-op clearance, at that time [...] CDTM 11/23/23 -Diabetic eye exam: 10/28/23 with [facility] -Diabetic foot exam: done [...] CDTM 11/23/23 -Diabetic eye exam: 10/28/23 with [facility] -Diabetic foot exam: done [...] CDTM 11/23/23 -Diabetic eye exam: 10/28/23 with [facility] -Diabetic foot exam: done [...] colectomy with colonoscopy with Dr. Lilly at [facility] -T2N0, no chemotherapy needed -Last note [...] colectomy with colonoscopy with Dr. Lilly at [facility] -T2N0, no chemotherapy needed -Last note [...] colectomy with colonoscopy with Dr. Lilly at [facility] -T2N0, no chemotherapy needed -Last note [...] colectomy with colonoscopy with Dr. Lilly at [facility] -T2N0, no chemotherapy needed -Last note from Dr. Lilly reviewed from 04/04/221 -s/p colonoscopy October 01, 2021. Colonoscopy done 03/03/22 showed a 5mm polyp, sigmoid colon sessile, done by Dr. Cruzito Rasmussen at [facility]. Recommending 3 year follow up. Hydronephrosis 07/20/2014 [...] Overview (01/27/2024): He saw Dr. Gilliam of [facility] 03/2012. Pt tolerated reexploration and [...] AM EDT): He saw Dr. Gilliam of [facility] 03/2012. Pt tolerated reexploration and [...] currently taking at this time - Saw [facility] cardiology 06/15/24 Assessment & Plan (07/31/2024 10:47 AM EDT): -Blood pressure is not at goal -Continue lifestyle modifications -Continue current medications - Spironolactone 12.5mg once daily added by CDTM 03/20/24 - Saw [facility] cardiology 06/15/24, started on Amlodipine 10 [...] (05/05/2022): Added automatically from request for surgery [id number] Calculus of ureter 07/20/2014 4 Overview (05/05/2022): [...] Encounters Date Type Department Care Team Description 09/06/2024 Orders Only GENERIC EXTERNAL DATA DEPARTMENT Provider, Generic External Data 09/06/2024 Travel 08/21/2024 Travel 08/14/2024 Telephone [facility] [address] [place] [phone] Smitha Matos MD DME from [facility] 08/11/2024 Telephone [facility] [address] [place] [address] Smitha Matos MD [facility] (Bladder control pads, 168/cs) 07/31/2024 10:30 AM EDT Office Visit [address] [address] Smitha Matos MD Type 2 diabetes mellitus with stage 3 chronic kidney disease, without long-term current use of insulin, unspecified whether stage 3a or 3b CKD ([facility]) (Primary Dx); Adenocarcinoma of large intestine ([facility]); Hyperparathyroidism ([facility]); Primary hypertension; Stage 3a chronic kidney disease ([facility]); Obesity, morbid ([facility]); Exercise counseling; Dietary counseling; Chronic systolic heart failure ([facility]); Abnormal renal ultrasound; Vitamin D deficiency; Other specified health status; Urge incontinence of urine; Hx of hyperparathyroidism 07/31/2024 Telephone [facility] [address] [place] [address] Smitha Matos MD Durable Medical Equipment (DME: Incontinence Liners) 07/31/2024 [place] [address] Smitha Matos MD Urology Appt 07/31/2024 Travel 07/27/2024 Orders [facility] Health Information Management [address] [place] [address] Ju Davila MD 07/19/2024 [place] [address] Smitha Matos MD Care Coordination (CHW outreach for SDOH PT-1 and food needs-referral completed /) 07/19/2024 Patient Outreach [address] [address] Smitha Matos MD Pre-visit Planning (SDOH Screening positive and Tobacco screening negative) 07/04/[address] [address] Concepcion Chatterjee ANP Vitamin D deficiency 06/18/[address] [address] Smitha Matos MD Gastroesophageal reflux disease, unspecified whether esophagitis present 06/14/[address] [address] Smitha Matos MD 06/14/[address] [place] [address] Smitha Matos MD 06/09/2024 Telephone [facility] [address] [place] [address] Marissa Barbosa, ZeinaD ER Follow-up 06/09/2024 Travel [...] Sign Reading Time Taken Comments Blood Pressure 132/76 09/06/2024 10:41 AM EDT Pulse 70 09/06/2024 10:41 AM EDT Temperature 35.8 ??C (96.4 ??F) 07/31/2024 10:18 AM E DT Respiratory Rate 18 07/31/2024 10:18 AM EDT Oxygen Saturation 98% 07/31/2024 10:18 AM EDT Inhaled Oxygen Concentration - - Weight 124 kg (274 lb) 07/31/2024 10:18 AM EDT Height 180.3 cm (5' 11 ) 07/31/2024 10:18 AM EDT Body Mass Index 38.22 07/31/2024 10:18 AM EDT Plan of Treatment Health Maintenance Due Date Last Done Comments CT Colonography 1952 FIT DNA/Cologuard 1952 FIT 1952 FOBT 1952 Sigmoidoscopy 1952 Lipid Panel 11/02/2024 09/06/2024, 10/22, 07/06/2022, Additional history exists Depression Screening 01/26/2025 01/27/2024, 01/27/20 24 Diabetes: Foot Exam 01/26/2025 01/27/2024, 01/27/2024, 01/27/2024, Additional history exists Diabetes: Hemoglobin A1C 03/08/2025 025, 07/31/2024, 01/27/2024, Additional history exists SDOH Screening 07/19/2025 07/19/2024 [...] 6.1( 10:45 AM EDT) No Marissa Reynaga PharmMary Procedures Procedure Name Priority Date/Time Associated Diagnosis Comments PSA, TOTAL Routine 09/06/2024 10:45 AM EDT PTH, INTACT WITHOUT CALCIUM Routine 09/06/2024 10:45 AM EDT Hx of hyperparathyroidism BASIC METABOLIC PANEL Routine 09/06/2024 10:45 AM EDT Type 2 diabetes mellitus with stage 3 chronic kidney disease, without long-term current use of insulin, unspecified whether stage 3a or 3b CKD (CMS/HCC) HEMOGLOBIN A1C Routine 09/06/2024 10:45 AM EDT Type 2 diabetes mellitus with stage 3 chronic kidney disease, without long-term current use of insulin, unspecified whether stage 3a or 3b CKD (CMS/HCC) LIPID PANEL, STANDARD Routine 09/06/2024 10:45 AM EDT Type 2 diabetes mellitus with stage 3 chronic kidney disease, without long-term current use of insulin, unspecified whether stage 3a or 3b CKD (CMS/HCC) HEPATIC FUNCTION PANEL Routine 09/06/2024 10:45 AM EDT Type 2 diabetes mellitus with stage 3 chronic kidney disease, without long-term current use of insulin, unspecified whether stage 3a or 3b CKD (CMS/HCC) POCT GLYCATED HEMOGLOBIN, TOTAL Routine 07/31/2024 10:21 [...] EYE EXAM Routine 11/03/2023 1:42 PM EDT HEPATITIS C AB W/REFL TO HCV RNA, QN, PCR Routine 07/06/2022 10:18 AM EST Routine screening for STI (sexually transmitted infection) from Last 3 Months or Most Recently Relevant to Health Maintenance Results * PSA,Total (09/06/2024 10:45 AM EDT) Prostate Specific Antigen 0.25 <0.05 - 4.0 ng/mL [facility] Comment:PSA methodology: Jacque Williamson i ChemiluminescentMicroparticle Immunoassay (CMIA) 09/06/2024 10:4 5 AM EDT 09/06/2024 11:10 AM EDT us Generic External Data Provider LAB BLOOD ORDERAB LES Final Result Performing Organization Address [facility]/ZIP Co de Phone Number [facility] [address] [place] [phone] * (ABNORMAL) PTH, Intact Without Calcium (09/06/2024 10:45 AM EDT) Parathyroid Hormone, Intact 135.9(H) 8.7 - 77.1 pg/mL [facility] Blood Venous blood specimen / Unknown 09/06/2024 10:45 AM EDT 09/06/2024 11:10 AM EDT us Smitha Matos MD LAB BLOOD ORDERABLES Final Result Performing Organization Address City/[facility]/ZIP Co de Phone Number [facility] [address] [place] [phone] * (ABNORMAL) Hemoglobin A1c (09/06/2024 10:45 AM EDT) Hemoglobin A1c 6.1(H) <6.0 % [facility] Comment:Hemoglobin A1C Refer ence Range Adults: 4.8 - 6.0 % Non diabetic: < 6.0 % Goal: < 7.0 %Additional Action Suggested: > 8.0 %Note: Hemoglobin A1c results are invalid for patients with abnormal amounts of HbF. Blood transfusions may impact the HbA1c concentration in the patient sample. Estimated Average Glucose 128 mg/dL [facility] Comment:eAG = Estimated ave rage glucose which is %A1C expressed asaverage glucose, using the formula of the N4Y-DhifcgvBygzioj Glucose study (ADAG), Diabetes Care, Vol.31,#8,Dec. 2007 Blood Venous blood specimen / Unknown 09/06/2024 10:45 AM EDT 09/06/2024 11:10 AM EDT Smitha Matos MD LAB BLOOD ORDERABLES Final Result [facility] [address] [place] [phone] * (ABNORMAL) POCT HGB A1C (07/31/2024 10:21 [...] Historical Provider HEALTH MAINTENANCE Final Result * Hepatitis C Antibody with Reflex to HCV, RNA, Quantitative, Real-Time PCR (07/06/2022 10:18 AM EST) Hepatitis C Antibody NON-REACT BRANDON NON-REACT BRANDON [email or web address] Index 0.11 <1.00 [email or web address] Comment: HCV antibody was non-reactive. There is no laboratory evidence of HCV infection. In most cases, no further action is required. However, if recent HCV exposure is suspected, a test for HCV RNA (test code 42316) is suggested. For additional information please refer to http://education.[employer] [facility]/faq/DXC01k9 (This link is being provided for informational/ educational purposes only.) Blood Venous blood specimen / Unknown 07/06/2022 10:18 AM EST 07/06/2022 10:18 AM EST Narrative [facility] - 07/11/2022 2:05 PM EST FASTING:YES FASTING: YES Smitha Matos MD LAB BLOOD ORDERABLES Final Result [facility] [address] [facility], [place] [address] [employer] [place] [employer] [address] [facility], (Nl[address]) [place] [address] from Last 3 Months or Most Recently Relevant to Health Maintenance Insurance [facility] JAIL OPTIONS (HMO D-SNP) [place] [id number] Advance Directives Documents on File Type Date Recorded Patient Beauty Culturist Expl anation Advance Directives and Living Will 01/27/2024 Health Care Proxy 01/27/24 Care Teams Monumental Stonemason Relationship Specialty Start Date End Date Carlo, MD Smitha [address] [place] [address] PCP - General Family Medicine 05/24/18 Kenny Grossman MD [address] [facility] 200 [place] [phone] Nephrology 06/07/24 Denisse Ingram NP [address] [place] [address] Urology 08/07/24 Dr. Paco Rodriges MD [facility] Cardiology [address] [place] [address]- 06/14/24 Dr[place] [address] Colon and Rectal Surgery 07/27/24
--- OUTSIDE RECORDS SUMMARY | 2024-09-06 12:41 | XMS_ITS | Clinical Summary ---
Author Organization [employer] [facility] it Address [address] [place] [address] Care Team Providers Care Rotor Winder Name Role Phone Smitha Matos MD Primary Care Provider [phone]- [phone] Social History Tobacco Use Types Packs/Day Years [...] age to complete this topic Care Teams Rotor Winder Relationship Specialty Start Date End Date Smitha Matos MD [address] [place] [phone] PCP - General 09/14/11
--- OUTSIDE RECORDS SUMMARY | 2024-09-06 12:41 | XMS_ITS | Encounter Summary ---
Author Organization [employer] Address [address] [facility] 7t [place] [address] Care Team Providers Care Continuous Vulcanizing Machine Operator Name Role Phone Smitha Matos MD Primary Care Provider [phone]- [phone] Marissa Barbosa PharmD Unavailable [phone] Kenny Grossman MD Unavailable [phone] Denisse Ingram FORESTRY CONSERVATION WORKER Unavailable Encounter Details Date Type Department Care Team (Late st Contact Info) Description 07/27/2024 Orders Only [facility] [address] [place] [address] Provider, MD Ju Social History Tobacco Use [...] documented as of this encounter Care Teams Continuous Vulcanizing Machine Operator Relationship Specialty Start Date End Date Smitha Matos MD [address] [place] [address] PCP - General Family Medicine 05/24/18 Marissa Barbosa PharmD [address] [place] [address] Pharmacist Internal Medicine 08/12/22 08/21/24 Kenny Grossman MD 100 [facility] 200 [place] [address] Nephrology 06/07/24 Denisse Ingram NP [address] [place] [address] Drive [address] [place] [address] Urology 08/07/24 Dr. Paco Rodriges MD [facility] Cardiology [address] [place] [address]- 06/14/24 Dr. Nancie Lilly MD [address] [address] Colon and Rectal Surgery 07/27/24 documented as of this encounter
--- OUTSIDE RECORDS SUMMARY | 2024-09-06 12:41 | XMS_ITS | Encounter Summary ---
Author Organization [employer] Address [address] [facility] 7t [place] [address] Care Team Providers Care Project Developer Name Role Phone Smitha Matos MD Primary Care Provider [phone]- [phone] Marissa Barbosa PharmD Unavailable [phone] Kenny Grossman MD Unavailable [phone] Denisse Ingram NP Unavailable Reason for Visit * Reason Onset Date Comments Appointment Request 05/29/2024 Encounter Details Date Type Department Care Team (Late st Contact Info) Description 05/29/2024 Telephone [facility] [address] [place] [address] Smitha Matos MD [address] [place], [place] [phone] Appointment Request Social History Tobacco Use Types [...] reschedule CDTM visit. Please contact pt at [phone]. (Upper Sorbian Speaker) documented in this encounter Plan of Treatment Not on file documented as of this encounter Goals Goal Patient Goal Type Associated Problems Recent Progress Patient-Stated? Author Blood Pressure < 140/90 Blood Pressure 132/76(2024 10:41 AM EDT) Marissa Edmond PharmD Hemoglobin A1c < 7 Result Component 6.1(04/16/202 5 10:45 AM EDT) No Marissa Reynaga, PharmD documented as of this encounter Visit Diagnoses Not on filedocumented in this encounter Additional Health Concerns Assessment Noted Time PHQ-9 Depression Total Score: 3 01/27/20 24 9:37 AM EDT documented as of this encounter Care Teams Project Developer Relationship Specialty Start Date End Date Smitha Matos MD [address] [place] [address] PCP - General Family Medicine 05/24/18 Marissa Barbosa, PharmD [address] [place] [address] Pharmacist Internal Medicine 08/12/22 08/21/24 Kenny Grossman MD 100 [facility] 200 [place] [address] Nephrology 06/07/24 Denisse Ingram NP [address] [place] [address] Urology 08/07/24 Dr. Paco Rodriges MD [facility] Cardiology [address] [place] [address]- 06/14/24 Dr. Nancie Lilly MD [address] [address] Colon and Rectal Surgery 07/27/24 documented as of this encounter
--- OUTSIDE RECORDS SUMMARY | 2024-09-06 12:41 | XMS_ITS | Encounter Summary ---
Author Organization [employer] Address [address] [facility] 7t [place] [address] Care Team Providers Care Statistician Name Role Phone Smitha Matos MD Primary Care Provider + [phone] Marissa Barbosa PharmD Unavailable Kenny Grossman MD Unavailable [phone] Denisse Ingram REHEATER HELPER Unavailable Encounter Details Date Type Department Care Team (Latest Contact Info) Description 03/01/2019 Abstract [facility] CONVERSIONS Dental, Provider, DDS Social [...] on file documented as of this encounter Visit Diagnoses Not on filedocumented in this encounter Care Teams Statistician Relationship Specialty Start Date End Date Smitha Matos MD [address] [place] [address] PCP - General Family Medicine 05/24/18 Marissa Barbosa, PharmD [address] [place] [address] Pharmacist Internal Medicine 08/12/22 08/21/24 Kenny Grossman MD [address] [facility] [address] [place] [address] Nephrology 06/07/24 Denisse Ingram NP [address] [facility] [address] [place] [address] Urology 08/07/24 Dr. Paco Rodriges MD [facility] Cardiology [address] [place] [address]- 06/14/24 Dr. Nancie Lilly MD [address] [address] Colon and Rectal Surgery 07/27/24 documented as of this encounter
--- OUTSIDE RECORDS SUMMARY | 2024-09-06 12:41 | XMS_ITS | Encounter Summary ---
Author Organization [facility] Address [address] [facility] 7t [place] [address] Care Team Providers Care Semiconductor Wafers Saw Operator Name Role Phone Smitha Matos MD Primary Care Provider [phone] Marissa Barbosa PharmD Unavailable Kenny Grossman MD Unavailable [phone] Denisse Ingram NP Unavailable Encounter Details Date Type Department Care Team (Late st Contact Info) Description 06/29/2022 Abstract [facility] [address] [place], [place] [phone] Smitha Matos MD [address] [place], [place] [phone] Social History Tobacco Use Types Packs/Day Years [...] on file documented as of this encounter Procedures Procedure Name Priority Date/Time Associated Diagnosis Comments COLONOSCOPY Routine 10/01/2021 documented in this encounter Results * Hm Colonoscopy (10/01/2021) Colonoscopy adenocarcinom us Historical Provider HEALTH MAINTENANCE Final Result documented in this encounter Visit Diagnoses Not on filedocumented in this encounter Care Teams Semiconductor Wafers Saw Operator Relationship Specialty Start Date End Date Smitha Matos MD [address] [place] [address] PCP - General Family Medicine 05/24/18 Marissa Barbosa PharmD [address] [place] [address] Pharmacist Internal Medicine 08/12/22 08/21/24 Kenny Grossman MD 100 [facility] 200 [place] [address] Nephrology 06/07/24 Denisse Ingram NP [address] [place] [address] Urology 08/07/24 Dr. Paco Rodriges MD [facility] Cardiology [address] [place] [address]- 06/14/24 Dr. Nancie Lilly MD [address] [phone] Colon and Rectal Surgery 07/27/24 documented as of this encounter
[2024-09-06 12:43] LABS: Vitamin D 25-OH Total 26.2 ng/mL (>30)
[2024-09-06 14:12] LABS: Creatinine Urine 61.01 mg/dL; Microalbum/Creatinine Ratio Ur 9.8 ug/mg cr (<30)
== END 2024-09-06 10:43 | disposition home or self-care (01) ==
LOC: HO.HHCL 10:42
PROVIDERS: Nurse Practitioner Family; Visit Provider Family Medicine
DX: E11.22 Type 2 diabetes mellitus with diabetic chronic kidney disease (principal); Z86.39 Personal history of other endocrine, nutritional and metabolic disease; N18.30 Chronic kidney disease, stage 3 unspecified; N39.41 Urge incontinence; I10 Essential (primary) hypertension; Z12.5 Encounter for screening for malignant neoplasm of prostate
CPT/HCPCS: 36415; 80048; 80061; 80076; 82043; 82306; 82570; 83036; 83970; 84153; 99212

== ENCOUNTER 2024-12-14 13:03 | Outpatient (REF) | payer OTHER, SELFPAY ==
--- NOTE | ~2024-12-14 | US_ITS ---
CLINICAL HISTORY: N28.1 - Cyst of kidney, acquired US Renal Comparison: None provided Findings: Right kidney normal size and echotexture, 12.8 cm length. Left kidney normal size and echotexture, 12.5 cm length. No collecting system dilatation of either kidney. Normal color Doppler. Urinary bladder is unremarkable. Prevoid volume 168 mL. Postvoid volume 4 mL. Bilateral ureteral jets are visualized. IMPRESSION: 1. Normal kidneys. This document has been electronically signed by: Nazario Ramon MD on 12/15/2024 08:16:28
--- OUTSIDE RECORDS SUMMARY | 2024-12-14 13:15 | XMS_ITS | Encounter Summary ---
Author Organization [employer] Address [address] [facility] 7t [place] [address] Care Team Providers Care Seed Potato Cutter Name Role Phone Smitha Matos MD Primary Care Provider +- [phone] Marissa Barbosa PharmD Unavailable [phone] Kenny Grossman MD Unavailable [phone] Denisse Ingram TYPE COPY EXAMINER Unavailable Reason for Visit * Reason Onset Date Comments FYI 07/13/2023 Encounter Details Date Type Department Care Team (Late st Contact Info) Description 07/13/2023 Telephone [facility] [address] [place], [place] [phone] Smitha Matos MD [address] [place], [place] [phone] Social History Tobacco Use Types Packs/Day Years [...] Tc shreyas Steve at [facility] calling to inform the PCP the paper works that was faxed from there office can only be filled and signed by the Provider only and needs to be signed and faxed back as soon as possible before the script expires documented in this encounter Plan of Treatment Upcoming Encounters Date Type Department Care Team (Late st Contact Info) Description 01/17/2025 10:15 AM EDT Office Visit [facility] [address] [place] [address] Smitha Matos MD [address] [place] [address] documented as of this encounter Goals Goal Patient Goal Type Associated Problems Recent Progress Patient-Stated? Author Blood Pressure < 140/90 Blood Pressure 132/76(2024 10:41 AM EDT) No Marissa Reynaga, PharmD Hemoglobin A1c < 7 Result Component 6.1( 10:45 AM EDT) No Marissa Reynaga PharmD documented as of this encounter Visit Diagnoses Not on filedocumented in this encounter Care Teams Seed Potato Cutter Relationship Specialty Start Date End Date Smitha Matos MD [address] [place] [address] PCP - General Family Medicine 05/24/18 Marissa Barbosa PharmD [address] [place] [address] Pharmacist Internal Medicine 08/12/22 08/21/24 Kenny Grossman MD 100 [facility] 200 [place] [phone] Nephrology 06/07/24 Denisse Ingram NP [address] [facility] [place] [address] Urology 08/07/24 Dr. Paco Rodriges MD [facility] Cardiology [address] [place] [address]- Cardiology 06/14/24 Dr. Nancie Lilly MD [address] [phone] Colon and Rectal Surgery 07/27/24 documented as of this encounter
--- OUTSIDE RECORDS SUMMARY | 2024-12-14 13:15 | XMS_ITS | Clinical Summary ---
Author Organization [facility] it Address [address] [place] [address] Care Team Providers Care Student Records Specialist Name Role Phone Smitha Matos MD Primary Care Provider [phone]- [phone] Social History Tobacco Use Types Packs/Day Years [...] Panel) 06/23/2023 Colorectal Cancer Screening: Colonoscopy 06/23/2023 Falls Risk Assessment 06/23/2023 Hepatitis C Screening 06/23/2023 Social Influencers of Health Screening 06/23/2023 COVID-19 Vaccine ( - 2023-2 5 season) 2024 Depression Screening 05/24/2024 Influenza Vaccine (#1) 2025 RSV Immunization Adult Patie nts (1 [...] age to complete this topic Care Teams Student Records Specialist Relationship Specialty Start Date End Date Smitha Matos MD [address] [place] [phone] PCP - General 09/14/11
== END 2024-12-14 13:04 | disposition home or self-care (01) ==
LOC: HO.HMGCX 13:03
PROVIDERS: PCP Family Medicine; Visit Provider Nurse Practitioner Family
DX: N28.1 Cyst of kidney, acquired (principal); N20.0 Calculus of kidney; N39.41 Urge incontinence
CPT/HCPCS: 76770

== ENCOUNTER → 2024-12-14 13:10 | Outpatient (BNV) | payer OTHER, SELFPAY | PROVIDERS: PCP Family Medicine; Visit Provider Specialist | DX: N28.1 Cyst of kidney, acquired (principal) | CPT/HCPCS: 76770 ==

== ENCOUNTER 2025-01-15 08:12 | Outpatient (REF) | payer OTHER, SELFPAY ==
--- OUTSIDE RECORDS SUMMARY | 2025-01-15 08:30 | XMS_ITS | Encounter Summary ---
Author Organization [employer] Address [address]t [place] [address] Care Team Providers Care Evp General Counsel Name Role Phone Smitha Matos MD Primary Care Provider +- [phone] Marissa Barbosa PharmD Unavailable [phone] Kenny Grossman MD Unavailable [phone] Denisse Ingram IMMIGRATION INVESTIGATOR Unavailable Reason for Visit * Reason Onset Date Comments FYI 07/13/2023 Encounter Details Date Type Department Care Team (Late st Contact Info) Description 07/13/2023 Telephone [facility] [address] [place], [place] [phone] Smitha Matos MD [address] [place], [place] [phone] Social History Tobacco Use Types Packs/Day Years [...] Description 01/17/2025 10:15 AM EDT Office Visit [facility] [address] [place] [address] Smitha Matos MD [address] [place] [address] documented as of this encounter Goals Goal Patient Goal Type Associated Problems Recent Progress Patient-Stated? Author Blood Pressure < 140/90 Blood Pressure 132/76(2024 10:41 AM EDT) No Marissa Reynaga, PharmD Hemoglobin A1c < 7 Result Component 6.1( 10:45 AM EDT) No Marissa Reynaga PharmD documented as of this encounter Visit Diagnoses Not on filedocumented in this encounter Care Teams Evp General Counsel Relationship Specialty Start Date End Date Smitha Matos MD [address] [place] [address] PCP - General Family Medicine 05/24/18 Marissa Barbosa PharmD [address] [place] [address] Pharmacist Internal Medicine 08/12/22 08/21/24 Kenny Grossman MD 100 [facility] 200 [place] [phone] Nephrology 06/07/24 Denisse Ingram NP [address] [place] [address] Urology 08/07/24 Dr. Paco Rodriges MD [facility] [address] [place] [address]- Cardiology 06/14/24 Dr. Nancie Lilly MD [address] [id number] Colon and Rectal Surgery 07/27/24 documented as of this encounter
--- OUTSIDE RECORDS SUMMARY | 2025-01-15 08:31 | XMS_ITS | Clinical Summary ---
Author Organization [employer] [facility] it Address [address] [place] [address] Care Team Providers Care Tack Puller Name Role Phone Smitha Matos MD Primary Care Provider [phone] Social History Tobacco Use Types Packs/Day Years [...] age to complete this topic Care Teams Tack Puller Relationship Specialty Start Date End Date Smitha Matos MD [address] [place] [phone] PCP - General 09/14/11
[2025-01-15 11:11] LABS: Hematocrit 43.2 % (42.0-52.0); Hemoglobin 14.1 g/dl (14.0-18.0); Mean Corpuscular HGB Conc 32.6 g/dl (31.0-36.0); Mean Corpuscular Hemoglobin 29.4 pg (27.0-33.0); Mean Corpuscular Volume 90.2 fL (80.0-98.0); NRBC Abs Auto 0.000 X10*3/uL (0.0-0.012); NRBC Pct Auto 0.0 /100WBC (0.0-0.2); Platelet Count 207 X10*3/uL (160-400); Red Blood Count 4.79 X10*6/uL (4.60-5.80); White Blood Count 5.5 X10*3/uL (4.8-10.8)
[2025-01-15 11:19] LABS: Hemoglobin A1C 177.2069 umol/L; Total Hemoglobin (HGBA1C) 3717.9436 umol/L
[2025-01-15 11:29] LABS: Alanine Aminotransferase 26 U/L (0-40); Albumin Level 4.2 g/dL (3.5-5.0); Alkaline Phosphatase 71 U/L (39-117); Anion Gap 11 (12-20); Aspartate Amino Transferase 33 U/L (5-37); Blood Urea Nitrogen 15 mg/dL (9-16); Calcium 8.8 mg/dL (8.4-10.2); Carbon Dioxide 28 mmol/L (22-29); Chloride 106 mmol/L (96-108); Estimated Glomerular Filt Rate 53; Potassium 3.9 mmol/L (3.3-5.1); Sodium 141 mmol/L (135-145); Total Protein 7.2 g/dL (6.5-8.0)
[2025-01-15 11:45] LABS: Prostate Specific Antigen 0.26 ng/mL (<0.05-4.0)
[2025-01-15 11:59] LABS: Parathyroid Hormone Intact 96.7 pg/mL (8.7-77.1)
[2025-01-15 12:06] LABS: Vitamin B12 237 pg/mL (200-900)
== END 2025-01-15 08:13 | disposition home or self-care (01) ==
LOC: HO.HHCL 08:12
PROVIDERS: Internal Medicine Hypertension Specialist; Nurse Practitioner Family; PCP Family Medicine; Visit Provider Family Medicine
DX: Z12.5 Encounter for screening for malignant neoplasm of prostate (principal); E21.3 Hyperparathyroidism, unspecified; E11.22 Type 2 diabetes mellitus with diabetic chronic kidney disease; N18.30 Chronic kidney disease, stage 3 unspecified; N20.0 Calculus of kidney; N28.1 Cyst of kidney, acquired; N39.41 Urge incontinence
CPT/HCPCS: 36415; 80048; 80076; 82306; 82570; 82607; 83036; 83970; 84153; 85027

== ENCOUNTER 2025-01-30 14:23 | Outpatient (AMB) | payer OTHER, SELFPAY ==
--- NOTE | 2025-01-30 14:38 | A.OFFVIS_ITS ---
Intake Visit Reasons: 6m/US/PSA Intake Note: Patient is present for 6M/US/PSA Urology Medication:TADALAFIL Antibiotic Allergy:NONE Blood Thinner:NONE Stitching Machine Feeder Or Offbearer Required: Yes Stitching Machine Feeder Or Offbearer Services: Stitching Machine Feeder Or Offbearer Present Stitching Machine Feeder Or Offbearer Name: Breonna Allergies No Known Allergies Allergy (Mild, Verified 01/30/25 15:15) N/A Medication List - Last Reconciled 01/30/25 by IZZY Hassan-EVELIN acetaminophen 500 mg PO Q6H PRN amlodipine 5 mg PO QAM carvedilol 1 tab PO BID cholecalciferol (vitamin D3) 25 mcg PO QAM empagliflozin-metformin 10-1,000 mg ER (Synjardy XR) PO DAILY losartan 100 mg PO DAILY omeprazole 20 mg PO DAILY PRN rosuvastatin 40 mg PO DAILY spironolactone mg PO DAILY PRN tadalafil (Cialis) 20 mg PO .PRN PRN 30 days tadalafil (Cialis) 5 mg PO DAILY 90 days HPI Comments Details: Pedro is a very pleasant 74-year-old Kinyarwanda-speaking male patient of Dr. Matos. He has a past medical history of arthritis, anxiety, depression, nephrolithiasis, cancer of right colon, GERD, BPH, chronic kidney disease stage 3, obstructive sleep apnea, and hypertension. He presents to the office today for follow-up. Of note, patient was seen approximately 6 months ago as a new patient for nephrolithiasis, complex renal cysts, and erectile dysfunction at which time. Sent retroperitoneal ultrasound results reviewed with the patient today 12/15 bilateral kidneys are normal in size and echotexture. No collecting system dilatation of either kidney. The urinary bladder is unremarkable. Postvoid bladder volume 5 mL. Prostate measures 32 mL. Normal kidneys per radiology report. He discusses his longstanding history of nephrolithiasis and undergoing multiple surgical interventions in the past and Premium. He currently denies any bothersome urinary issues or concerns. Recent PSA results reviewed with the patient today: PSA:05/10 0.4, 01/15 0.3 He reports since his last office visit here he has been utilizing PRN tadalafil prior to sexual activity and has not found this helpful. He is not utilize low- dose daily as prescribed. He does report he is obtaining erections however does not feel they are adequate for penetration. He reports previously trialing Viagra without any improvement. We did discussed at length potential causes of erectile dysfunction as well as nephrolithiasis. We discussed lifestyle modifications. We discussed further interventions and risks and benefits of these interventions. Previous imaging renal ultrasound 03/16 that notes 3.2 cm exophytic solid lesion, anterior lateral upper pole of the left kidney. Simple cyst in the right kidney. No hydronephrosis or renal calculi noted bilaterally. MRI renal mass protocol 05/16 notes bilateral renal cyst with no enhancing renal mass seen. Especially no abnormality in the upper pole of the left kidney. No hydronephrosis. In office urinalysis results reviewed with the patient today. PVR 36 mL. PFSH Medical History Arthritis Anxiety and depression Headache COVID-19 vaccine series completed Hx of renal calculi Cancer of right colon GERD (gastroesophageal reflux disease) BPH (benign prostatic hyperplasia) CKD (chronic kidney disease) Depression REJI (obstructive sleep apnea) HTN (hypertension) History of colon cancer Surgical History History of cystoscopy Hx of lithotripsy History of colonoscopy H/O parathyroidectomy Social History Are you a primary direct support professional caregiver to a significant other at home: No Do you presently have visiting nurse or other home services: No Patient Tobacco Use Status: Never used Tobacco Review of Systems Const Reports no additional complaints Eyes Reports no additional complaints ENT Reports no additional complaints Card Reports as per HPI Resp Reports as per HPI GI Reports no additional complaints Reports as per HPI Musc Reports as per HPI Neuro Reports no additional complaints Psych Reports as per HPI Endo Reports no additional complaints Jose Manuel/Lymph Reports no additional complaints Aller/Immun Reports no additional complaints Physical Exam Const General: cooperative, healthy appearing, comfortable, no acute distress, well developed, alert and awake Nutritional Appearance: overweight Orientation/consciousness: patient oriented x3 Limitations: no limitations HEENT Head: Yes normal to inspection, Yes normocephalic and Yes atraumatic Ears: hearing grossly normal bilaterally Eyes General: appearance normal, both eyes and all related structures Neck Neck: Yes normal visual inspection and Yes trachea midline Chest Chest palpation & inspection: normal inspection of the chest Resp Effort & Inspection: normal respiratory effort and able to speak in complete sentences Cardio Rate: regular rate GI Inspection: Yes normal to inspection General: Yes no CVA tenderness Back/Spine/Pelvis Back: no CVA tenderness Skin General skin exam: no rashes or lesions noted Neuro General: patient oriented x3 Extrem General: Yes normal to inspection Psych Appearance: grossly normal and well kempt Mental Status: mental status grossly normal Speech and movement: Normal speech and movement present and Clear speech present Affect: normal affect Attitude: cooperative Thought process: Normal thought process present Thought content: Normal thought content present Insight: Fair insight present (Psych) Judgement: Fair judgement present (Psych) Results AMB Urinalysis, Automated UA Leukoctes 0 Santi/uL Last Edit by Adán Mlcain [facility] on 01/30/25 16:04 UA Nitrite Negative Last Edit by Adán Mclain [facility] on 01/30/25 16:04 UA Urobilinogen 0.2 mg/dL Last Edit by Adán Mclain [facility] on 01/30/25 16:0 4 UA Protein 15 mg/dL Last Edit by Adán Mclain [facility] on 01/30/25 16:04 UA pH 6.0 Last Edit by Adán Mclain [facility] on 01/30/25 16:04 UA Blood 0 Tino/uL Last Edit by Adán Mclain [facility] on 01/30/25 16:04 UA Specific [place] 1.015 Last Edit by Adán Mclain [facility] on 01/30/25 16: 04 UA Ketone Negative Last Edit by Adán Mclain [facility] on 01/30/25 16:04 UA Bilirubin 0 mg/dL Last Edit by Adán Mclain [facility] on 01/30/25 16:04 UA Glucose 0 mg/dL Last Edit by Adán Mclain [facility] on 01/30/25 16:04 Results Reviewed Results Reviewed: Laboratory Last Values Urine pH (Auto) 6.0 01/30/25 16:04 Specific [place] (Auto) 1.015 01/30/25 16:04 Urine Protein (Auto) 15 mg/dL 01/30/25 16:04 Glucose (UA)(Auto) 0 mg/dL 01/30/25 16:04 Urine Ketones (Auto) Negative 01/30/25 16:04 Urine Blood (Auto) 0 Tino/uL 01/30/25 16:04 Urine Nitrite (Auto) Negative 01/30/25 16:04 Urine Bilirubin (Auto) 0 mg/dL 01/30/25 16:04 Urine Urobilinogen (Auto) 0.2 mg/dL 01/30/25 16:04 Leukocyte Esterase (Auto) 0 Santi/uL 01/30/25 16:04 Date of Service: 12/14/24 Procedure(s): US retroperitoneal comp ADDENDUM12/15/2024 08:16:28 ADDENDUM: ADDENDUM: The prostate measures 4.6 x 3.3 x 4.0 cm with a volume of 32.1 mL US Renal Comparison: None provided Findings: Right kidney normal size and echotexture, 12.8 cm length. Left kidney normal size and echotexture, 12.5 cm length. No collecting system dilatation of either kidney. Normal color Doppler. Urinary bladder is unremarkable. Prevoid volume 168 mL. Postvoid volume 4 mL. Bilateral ureteral jets are visualized. IMPRESSION: 1. Normal kidneys. Assessment & Plan Assessment & Plan (1) Erectile dysfunction: Code(s): N52.9 - Male erectile dysfunction, unspecified Category: Medical Plan In office urinalysis results reviewed with the patient today; as noted above. Recent retroperitoneal ultrasound results reviewed with the patient today; as noted above. Recent PSA results reviewed with the patient today; as noted above. We did discussed potential causes of ED as well as further treatment options and risks and benefits of these treatment options. All questions were answered. We also discussed lifestyle modifications to assist ED as well as overall health and well-being. Refill provided on p.r.n. dosing of tadalafil as well as daily dosing. Will obtain testosterone and A1c for further assessment evaluation Follow-up 3-6 months with labs to be completed prior; or sooner with any issues, concerns, and or questions. Orders: Orders AMB Urinalysis Automated Today Z13.9 - Encounter for screening, unspecified Testosterone, Free/Total Today N52.9 - Male erectile dysfunction, unspecified Hemoglobin A1c Today N52.9 - Male erectile dysfunction, unspecified Medications: Refilled tadalafil (Cialis) administer approximately 30min before sexual activity; do not use more than 1 dose per 24hrs. [id number] [facility] [id number] Member [id number] 20 mg PO .PRN PRN 10 tabs 0RF sexual activity 30 days tadalafil (Cialis) [id number] [facility] [id number] Member [id number] 5 mg PO DAILY 90 tabs 0RF 90 days Patient Instructions: The patient had an opportunity to ask questions regarding the treatment plan. All questions were answered. Physical exam, labs, and imaging were discussed and reviewed in detail. As well as risks, benefits, and discussion of treatment choices. No major barriers to understanding were identified. The patient expressed understanding and agreement with the above treatment plan. The patient was made aware they should contact our office by phone for worsening of their current condition, the appearance of new symptoms, or with any questions or concerns. Compliance is encouraged with any medications and follow up testing that is ordered. It is a privilege to be allowed the opportunity to participate in? your urological care.? Again, if you have any questions or concerns If you have any questions or concerns please do not hesitate to contact me. The office is [phone]. This note is constructed using voice recognition software. While every effort has been made to ensure accuracy sheep or calf grader errors may have been included. Yours sincerely, HARMONY Hassan Coding Level of Care Code Est Pt Level 3 (64294) Complex EM visit Add On G2211 Diagnoses Erectile dysfunction N52.9
--- OUTSIDE RECORDS SUMMARY | 2025-01-30 16:57 | XMS_ITS | Encounter Summary ---
Author Organization [employer] Address [address] [facility] 7t [place] [address] Care Team Providers Care Otr Tanker Truck Driver Name Role Phone Smitha Matos MD Primary Care Provider [phone] Marissa Barbosa PharmD Unavailable Kenny Grossman MD Unavailable [phone] Denisse Ingram NP Unavailable Encounter Details Date Type Department Care Team (Late st Contact Info) Description 10/29/2022 Abstract [facility] [address] [place], [place] [phone] Smitha Matos MD [address] [place], [place] [phone] Social History Tobacco Use Types Packs/Day Years [...] Author Blood Pressure < 140/90 Blood Pressure 120/70(2024 11:00 AM EDT) No Marissa Reynaga, PharmD Hemoglobin A1c < 7 Result Component 6.5( 8:33 AM EDT) No Marissa Reynaga PharmD documented as of this encounter Procedures Procedure Name Priority Date/Time Associated Diagnosis Comments DIABETES EYE EXAM Routine 10/08/2022 documented in this encounter Results * Hm Diabetes Eye Exam (10/08/2022) Eye Exam Normal Normal 10/08/2022 Meeta Butlerfrederick [facility] Final Resul t documented in this encounter Visit Diagnoses Not on filedocumented in this encounter Care Teams Otr Tanker Truck Driver Relationship Specialty Start Date End Date Smitha Matos MD [address] [place] [address] PCP - General Family Medicine 05/24/18 Marissa Barbosa, PharmD [address] [place] [address] Pharmacist Internal Medicine 08/12/22 08/21/24 Kenny Grossman MD 100 [facility] 200 [place] [address] Nephrology 06/07/24 Denisse Ingram NP [address] [place] [address] Urology 08/07/24 Dr. Paco Rodriges MD [facility] Cardiology [address] [place] [address]- Cardiology 06/14/24 Dr. Nancie Lilly MD [address] [address] Colon and Rectal Surgery 07/27/24 documented as of this encounter
--- OUTSIDE RECORDS SUMMARY | 2025-01-30 16:57 | XMS_ITS | Encounter Summary ---
Author Organization [employer] Address [address] [facility] 7t [place] [address] Care Team Providers Care Automatic Punch Press Operator Name Role Phone Smitha Matos MD Primary Care Provider [phone]- [phone] Marissa Brabosa PharmD Unavailable Kenny Grossman MD Unavailable [phone] Denisse Ingram NP Unavailable Reason for Visit * Reason Comments Med Refill Encounter Details Date Type Department Care Team (Late st Contact Info) Description 12/15/2023 Refill [facility] [address] [place], [place] [phone] Marissa Barbosa, PharmD [address] [place] [address] Social History Tobacco Use Types Packs/Day Years Used Date Smoking Tobacco: Never Smokeless Tobacco: Never Alcohol Use Standard Drinks/Week Comments Never 0 (1 standard drink = 0.6 oz pur e alcohol) PHQ-2 Answer Date Recorded Patient Health Questionnaire-2 Score 0 07/06/2022 Housing Stability Answer Date Recorded What is your housing situation today? I have ibanagustín finch 03/09/[address] you [...] Component 6.5( 8:33 AM EDT) No Marissa Reynaga, PharmD documented as of this encounter Visit Diagnoses Not on filedocumented in this encounter Care Teams Automatic Punch Press Operator Relationship Specialty Start Date End Date Smitha Matos MD [address] [place] [address] PCP - General Family Medicine 05/24/18 Marissa Barbosa, PharmD [address] [place] [address] Pharmacist Internal Medicine 08/12/22 08/21/24 Kenny Grossman MD 100 [facility] 200 [place] [address] Nephrology 06/07/24 Denisse Ingram NP [address] [place] [address] Urology 08/07/24 Dr. Paco Rodriges MD [facility] Cardiology [address] [place] [address] Cardiology 06/14/24 Dr. Nancie Lilly MD [address] [address] Colon and Rectal Surgery 07/27/24 documented as of this encounter
--- OUTSIDE RECORDS SUMMARY | 2025-01-30 16:57 | XMS_ITS | Encounter Summary ---
Author Organization [employer] Address [address] [facility] 7t [place] [address] Care Team Providers Care Flight Security Specialist Name Role Phone Smitha Matos MD Primary Care Provider [phone] Kenny Grossman MD Unavailable [phone] Denisse Ingram NP Unavailable Encounter Details Date Type Department Care Team (Late st Contact Info) Description 01/30/2025 Refill [facility] [address] [place], [place] [phone] Smitha Matos MD [address] [place], [place] [phone] Primary hypertension Social History Tobacco Use Types Packs/Day Years Used Date Smoking Tobacco: Never Smokeless Tobacco: Never Alcohol Use Standard Drinks/Week Comments Never 0 (1 standard drink = 0.6 oz pur e alcohol) Depression Answer Date Recorded Patient Health Questionnaire-9 Score 5 01/17/2025 Patient Health Questionnaire-9 Score 5 01/17/2025 Last PHQ-9: Questionnaire Data Not on file 0 01/17/2025 Housing Stability Answer Date Recorded What is [...] Answer Date Recorded Patient Health Questionnaire-2 Score 3 01/17/2025 Internet Access Answer Date Recorded Internet Access [...] as of this encounter Visit Diagnoses Diagnosis Primary hypertension Unspecified essential hypertension documented in this encounter Additional Health Concerns Assessment Noted Time PHQ-9 Depression Total Score: 5 01/18/20 25 10:50 AM EDT documented as of this encounter Care Teams Flight Security Specialist Relationship Specialty Start Date End Date Smitha Matos MD [address] [place] [address] PCP - General Family Medicine 05/24/18 Kenny Grossman MD 100 [facility] 200 [place] [address] Nephrology 06/07/24 Denisse Ingram NP [address] [place] [address] Urology 08/07/24 Dr. Paco Rodriges MD [facility] Cardiology [address] [place] [address]- Cardiology 06/14/24 Dr. Nancie Lilly MD [address] [address] Colon and Rectal Surgery 07/27/24 documented as of this encounter
--- OUTSIDE RECORDS SUMMARY | 2025-01-30 16:57 | XMS_ITS | Encounter Summary ---
Author Organization [employer] Address [address] [facility] 7t [place] [address] Care Team Providers Care Operating System Designer Name Role Phone Smitha Matos MD Primary Care Provider [phone]- [phone] Marissa Barbosa PharmD Unavailable [phone] Kenny Grossman MD Unavailable [phone] Denisse Ingram STOCK FITTER Unavailable Reason for Visit * Reason Onset Date Comments FYI 07/13/2023 Encounter Details Date Type Department Care Team (Late st Contact Info) Description 07/13/2023 Telephone [facility] 230 [place], [place] [phone] Smitha Matos MD 230 [place], [place] [phone] Social History Tobacco Use Types Packs/Day Years [...] Tc shreyas Steve at [employer] calling to inform the PCP the [...] on filedocumented in this encounter Care Teams Operating System Designer Relationship Specialty Start Date End Date Smitha Matos MD [address] [place] [address] PCP - General Family Medicine 05/24/18 Marissa Barbosa, PharmD [address] [place] [address] [place] [address] Pharmacist Internal Medicine 08/12/22 08/21/24 Kenny Grossman MD 100 [facility] 200 [place] [address] Nephrology 06/07/24 Denisse Ingram NP [address] [place] [address] Drive [address] [place] [address] Urology 08/07/24 Dr. Paco Rodriges MD [facility] Cardiology [address] [place] [address]- Cardiology 06/14/24 Dr. Nancie Lilly MD [address] [address] Colon and Rectal Surgery 07/27/24 documented as of this encounter
--- OUTSIDE RECORDS SUMMARY | 2025-01-30 16:57 | XMS_ITS | Clinical Summary ---
Author Organization [address] [place] [address] Address [address] [place] [address] Phone Care Team Providers Care Intermediate Frame Tender Name Role Phone Smitha Matos MD Primary Care Provider [phone] Social History Tobacco Use Types Packs/Day Years [...] Health Maintenance Due Date Last Done Comments Diabetes: Annual GFR (Glomer ular Filtration Rate) 1952 Diabetes: Annual Foot Exam 1962 Diabetes: Annual Retina Eye Exam 1962 DTaP,Tdap,and Td Vaccines (1 - Tdap) 1971 Pneumococcal Vaccine: 50+ Ye ars (1 of 2 - PCV) 1971 Zoster Vaccines (1 of 2) 2002 RSV Immunization Adult Patie nts (1 - Risk 60-74 years 1-dose series) 2012 Abdominal Aortic Aneurysm (A AA) Screen 06/23/2023 Cholesterol Screening (Lipid Panel) 06/23/2023 Colorectal Cancer Screening: Colonoscopy 06/23/2023 Falls Risk Assessment 06/23/2023 Hepatitis C Screening 06/23/2023 Medicare Annual Wellness Visit 06/23/2023 Social Influencers of Health Screening 06/23/2023 Depression Screening 05/24/2024 COVID-19 Vaccine (1 - 2023-2 5 season) 2025 Influenza Vaccine (#1) 2025 Diabetes: Annual Urine Albumin-Creatinine Ratio (uACR) 01/23/2025 Diabetes: Blood Sugar Contro l Test (HGBA1C) 01/23/2025 HIB Vaccines Aged Out No longer eligi [...] on patient's age to complete this topic Insurance MEDICARE Member Subscriber Plan / Payer (Ef fective 2022-Present) Name:Pedro Garcia Relation to Subscriber:Self Name:Pedro Quigley Payer ID:[id number] Group ID:[id number] Type:Not on file Address: [place] [address] [place] [address] Care Teams Intermediate Frame Tender Relationship Specialty Start Date End Date Floyd, MD Smitha [address] [place] [phone] PCP - General 09/14/11
--- OUTSIDE RECORDS SUMMARY | 2025-01-30 16:57 | XMS_ITS | Clinical Summary ---
Author Organization [employer] Address [address] [place] [address] Care Team Providers Care Program Mgr Name Role Phone Smitha Matos MD Primary Care Provider [phone] Kenny Grossman MD Unavailable [phone] Denisse Ingram NP Unavailable Allergies Active Allergy Reactions Criticality Noted Date Comments Hydrochlorothiazide 11/19/2011 Medications * This document contains information received from the source organization and may not represent a complete record from that organization. carvedilol (Coreg) 12.5 MG tabletIndication s:Primary hypertension TAKE 1 TABLET BY MOUTH TWICE DAILY IN THE MORNING AND AT BEDTIME 180 tablet 3 01/27/20 24 Active losartan (Cozaar) 100 MG tabletIndication s:Primary hypertension Take 1 tablet (100 mg) by mouth in the morning. 90 tablet 3 01/27/20 24 Active FREESTYLE LITE test stripIndications :Type 2 diabetes mellitus without complication, unspecified whether longterm insulin use ([facility]) TEST BLOOD SUGAR TWICE DAILY 100 strip 11 04/13/20 24 Active TRUEplus Lancets 33G miscIndications: Type 2 diabetes mellitus without complication, unspecified whether termination clerk insulin use ([facility]) TEST BLOOD SUGAR TWICE DAILY DIRECTED 100 each 11 04/13/20 24 Active tadalafil (Cialis) 20 MG tablet TAKE 1 TABLET 1 HOUR BEFORE SEXUAL RELATIONS ONCE DAILY NEEDED. DO NOT USE MORE THAN 1 DOSE PER 24 HOURS 08/03/19 25 Active tadalafil (Cialis) 5 MG tablet Take 1 tablet by mouth Once per day. 08/03/19 25 Active cholecalciferol (Vitamin D-3) 50 MCG (1999 UT) capsuleIndicatio ns:Vitamin D deficiency Take 1 capsule (50 mcg) by mouth Once per day. 90 capsule 3 09/14/19 25 Active spironolactone (Aldactone) 25 MG tabletIndication s:Primary hypertension TAKE 1/2 TABLET BY MOUTH EVERY MORNING 45 tablet 1 11/16/19 25 Active amLODIPine (Norvasc) 5 MG tabletIndication s:Primary hypertension TAKE 1 TABLET BY MOUTH EVERY MORNING 90 tablet 12/08/19 25 Active rosuvastatin (Crestor) 40 MG tabletIndication s:Dyslipidemia TAKE 1 TABLET BY MOUTH AT BEDTIME 90 tablet 3 12/14/19 25 Active Synjardy XR 10-1000 MG 24 hr tabletIndication s:Type 2 diabetes mellitus with stage 3 chronic kidney disease, without long-term current use of insulin, unspecified whether stage 3a or 3b CKD (CMS/HCC) TAKE 1 TABLET BY MOUTH EVERY MORNING 90 tablet 3 12/14/19 25 Active omeprazole (PriLOSEC) [address] capsuleIndicatio ns:Gastroesophag eal reflux disease, unspecified whether esophagitis present TAKE 1 CAPSULE BY MOUTH EVERY DAY NEEDED 30 capsule 2 01/02/20 25 Active omeprazole (PriLOSEC) [address] capsuleIndicatio ns:Gastroesophag eal reflux disease, unspecified whether esophagitis present TAKE 1 CAPSULE BY MOUTH EVERY DAY NEEDED 30 capsule 2 09/19/19 25 025 Discontinued Active Problems Patient Care Coordination No te Formatting of this note migh t be different from the original. Enrolled in [facility] HTN and [facility] DM clinic with Zeina DurbinD, [facility] Clinical Specialty Rep:Smitha member services number [phone], provider services line, , option 4 [employer] Portfolio Manager Agency: [facility] Problem Noted Date Diagnosed Date Ambulates with cane 01/17/2025 Assessment & Plan (01/17/2025 11:23 AM EDT): Chronic systolic heart failure 07/31/2024 Overview (11/29/2024): Pt was seen at [facility] 02/11/21 for pre-op clearance, at that time had PVCs on eKG and irregular pulse on exam likely due to compensatory pauses after PVCs . Per Echo 01/23/21: 1. Mildly to moderately reduced LV systolic function with inferior inferoseptal wall motion abnormality with impaired relaxation filling pattern 2. Trace aortic and mitral regurgitation 3. Normal RV systolic pressure 4. No pericardial effusion . -seen by Dr. Quinones 11/23/24, started on amlodipine 5mg daily , echo and Holter monitored. History of hypercalcemia 06/13/2024 Abnormal renal ultrasound 04/03/2024 Overview (12/16/2024): US 03/01/24 ordered by knotting machine operator portable Dr: Kenny Grossman MD for renal calculi [...] of urology referral -seen by urology 08/03/24 -note from nephrology reviewed 09/06/24 -US renal 12/15/24 IMPRESSION: Normal kidneys Assessment & Plan (07/31/2024 10:44 AM EDT): US 03/01/24 ordered by knotting machine operator portable Dr: Kenny Grossman MD for renal calculi [...] care facilitated by [facility]. And [facility], seen 02/02/24 -dental home is advised and recommended to get established. -health care proxy given and filed 01/27/24 Assessment & Plan (07/31/2024 10:48 AM EDT): -next physical exam due after 01/26/25 -eye care facilitated by [facility]. And [facility], seen 02/02/24 -dental home [...] increased from 20mg to 40mg daily by CD 11/04/23 Assessment & Plan (01/27/2024 9:50 AM [...] 78, HDL 41 Electrocardiogram abnormal 05/05/2022 Overview (11/29/2024): Pt was seen at [facility] 02/11/21 for pre-op clearance, at that time had PVCs on eKG and irregular pulse on exam likely due to compensatory pauses after PVCs . Per Echo 01/23/21: 1. Mildly to moderately reduced LV systolic function with inferior inferoseptal wall motion abnormality with impaired relaxation filling pattern 2. Trace aortic and mitral regurgitation 3. Normal RV systolic pressure 4. No pericardial effusion . -seen by Dr. Quinones 11/23/24, started on amlodipine 5mg daily , echo and Holter monitored. Assessment & Plan (06/30/2022 9:23 AM EST): Pt was seen at [facility] 02/11/21 for pre-op clearance, at that time [...] h diabetic chronic kidney disease 07/21/2021 Overview (01/17/2025): Diabetes is controlled. Lab Results Component Value Date HGBA1C 6.5 (H) 01/15/2025 HGBA1C 6.1 (H) 09/06/2024 HGBA1C 6.6 (A) 07/31/2024 Lab Results Component Value Date CREATININE 1.32 01/15/2025 EGFR 53 01/15/2025 MICROALBCREU TNP 01/15/2025 MICROALBCREU 9.8 09/06/2024 LDLCHOLCAL 88 09/06/2024 -[place]/Arb: losartan 100mg -Statin therapy: rosuvastatin 40mg (increased by CDTM 11/04/23) - Metformin ER 500mg twice daily changed to Synjardi ER 10mg-1000mg once daily by CDTM 11/23/23 -Diabetic eye exam: 10/28/23 with [facility] -Diabetic foot exam: done 01/17/25, referred to podiatry -Continue lifestyle modifications -Continue current medications Assessment & Plan (01/17/2025 11:23 AM EDT): Diabetes is controlled. Lab Results Component Value Date HGBA1C 6.5 (H) 01/15/2025 HGBA1C 6.1 (H) 09/06/2024 HGBA1C 6.6 (A) 07/31/2024 Lab Results Component Value Date CREATININE 1.32 01/15/2025 EGFR 53 01/15/2025 MICROALBCREU TNP 01/15/2025 MICROALBCREU 9.8 09/06/2024 LDLCHOLCAL 88 09/06/2024 -[place]/Arb: losartan 100mg -Statin therapy: rosuvastatin 40mg (increased by CDTM 11/04/23) - Metformin ER 500mg twice daily changed to Synjardi ER 10mg-1000mg once daily by CDTM 11/23/23 -Diabetic eye exam: 10/28/23 with [facility] -Diabetic foot exam: done 01/17/25, referred to podiatry -Continue lifestyle modifications -Continue current medications Orders: Hemoglobin A1c; Future Referral to Podiatry; Future Referral to [facility]; Future Assessment & Plan (07/31/2024 10:47 AM EDT): [...] CDTM 11/23/23 -Diabetic eye exam: 10/28/23 with [facility] -Diabetic foot exam: done [...] CDTM 11/23/23 -Diabetic eye exam: 10/28/23 with [facility] -Diabetic foot exam: done [...] month Adenocarcinoma of large intestine 09/14/2018 Overview (01/17/2025): -Invasive moderately differentiate adenocarcinoma on polypectomy colonoscopy [...] [facility] Dr. Lilly [facility] -T2N0, no chemotherapy needed -Last note from Dr. Lilly reviewed from 04/04/221 -s/p colonoscopy October 01, 2021 with [facility] -Seen by Dr. Peterson 07/26/24, colonoscopy Impression: 2 subcentimeter polyps in the transverse colon were removed with cold forceps biopsy. -Repeat colonoscopy 5 years Assessment & Plan (01/17/2025 11:23 AM EDT): -Invasive moderately differentiate adenocarcinoma on [...] colectomy with colonoscopy with Dr. Lilly at [facility] -T2N0, no chemotherapy needed -Last note from Dr. Lilly reviewed from 04/04/221 -s/p colonoscopy October 01, 2021 with [facility] -Seen by Dr. Peterson 07/26/24, colonoscopy Impression: 2 subcentimeter polyps in the transverse colon were removed with cold forceps biopsy. -Repeat colonoscopy 5 years Assessment & Plan (07/31/2024 10:46 [...] colectomy with colonoscopy with Dr. Lilly at [facility] -T2N0, no chemotherapy needed -Last [...] colectomy with colonoscopy with Dr. Lilly at [facility] -T2N0, no chemotherapy needed -Last [...] colectomy with colonoscopy with Dr. Lilly at [facility] -T2N0, no chemotherapy needed -Last [...] colectomy with colonoscopy with Dr. Lilly at [facility] -T2N0, no chemotherapy needed -Last note from Dr. Lilly reviewed from 04/04/221 -s/p colonoscopy October 01, 2021. Colonoscopy done 03/03/22 showed a 5mm polyp, sigmoid colon sessile, done by Dr. Cruzito Rasmussen at [facility]. Recommending 3 year follow up. Hydronephrosis [...] -Declines therapist or psychiatrist. Hyperparathyroidism 10/09/2011 Overview (09/13/2024): He saw Dr. Gilliam of [facility] 03/2012. Pt tolerated reexploration and [...] Vitamin D a little low at 26. Lab Results Component Value Date PARATHYROID 135.9 (H) 09/06/2024 PARATHYROID 79.7 (H) 01/27/2024 CA 8.5 09/06/2024 CA 8.4 06/07/2024 Lab Results Component Value Date [id number] 26.2 (L) 09/06/2024 [id number] 28.1 (L) 01/27/2024 -advise increased vit D to 2000IU daily 09/13/24 Assessment & Plan (01/17/2025 11:23 AM EDT): Orders: PTH, Intact Without Calcium; Future Vitamin D, 25-Hydroxy, Total, Immunoassay; Future Albumin, Random Urine W/Creatinine; Future Creatinine, Serum; Future Calcium; Future Calcium, 24 Hour Urine W/ Creatinine; Future Assessment & Plan (01/27/2024 9:51 AM EDT): He saw Dr. Gilliam of [facility] 03/2012. Pt tolerated reexploration and [...] currently taking at this time - Saw [facility] cardiology 06/15/24 Assessment & Plan (01/17/2025 11:23 AM EDT): -Blood pressure is at goal -Continue lifestyle modifications -Continue current medications: Amlodipine 10 mg and Carvedilol 12.5 mg and losartan 100mg - Spironolactone 12.5mg once daily last filled 02/2024 by preferred pharmacy; patient not currently taking at this time - Saw [facility] cardiology 06/15/24 Assessment & Plan (07/31/2024 10:47 AM EDT): -Blood pressure is not at goal -Continue lifestyle modifications -Continue current medications - Spironolactone 12.5mg once daily added by CDTM 03/20/24 - Saw [facility] cardiology 06/15/24, started on Amlodipine 10 mg and Carvedilol 12.5 mg. Assessment & Plan (01/27/2024 9:57 AM EDT): -Blood pressure is not at goal -Continue lifestyle modifications -Continue current medications Assessment & Plan (02/18/2023 10:52 AM EDT): -Blood pressure is not at goal -Continue lifestyle modifications -Continue current medications Resolved Problems Problem Noted Date Diagnosed Date Resolved Date Exercise counseling 07/31/2024 11/30/19 Dietary counseling 07/31/2024 Tinea pedis of both feet 01/27/2024 Overview [...] (05/05/2022): Added automatically from request for surgery [id number] Calculus of ureter 07/20/2014 4 Overview (05/05/2022): [...] joint involving lower leg 10/09/2011 04/05/2024 Encounters * This document contains information received from the source organization and may not represent a complete record from that organization. Date Type Department Care Team Description 01/30/[address] [address] Smitha Matos MD Primary hypertension 01/17/2025 10:15 AM EDT Office Visit [address] [address] Smitha Matos MD Type 2 diabetes mellitus with stage 3 chronic kidney disease, without long-term current use of insulin, unspecified whether stage 3a or 3b CKD (CMS/HCC) (Primary Dx); Irregular heart beat; Hyperparathyroidism (CMS/HCC); Onychomycosis; Positive depression screening; Ambulates with cane; Adenocarcinoma of large intestine (CMS/HCC); Hypertension, unspecified type 01/17/2025 Travel 01/16/[address] [address] Smitha Matos MD CHART PREP 01/15/2025 Orders Only GENERIC EXTERNAL DATA DEPARTMENT Provider, Generic External Data 01/12/2025 Telephone [facility] [address] [place] [address] Smitha Matos MD Labs Only 01/11/2025 Telephone [facility] [address] [place] [phone] Smitha Matos MD 12/30/2024 Refill [facility] [address] [place] [address] Smitha Matos MD Gastroesophageal reflux disease, unspecified whether esophagitis present 12/19/2024 Telephone [facility] [address] [place] [phone] Smitha Matos MD Prior Auth DME; Durable Medical Equipment (DME Request: Diabetic Shoes) 12/14/2024 Orders Only [facility] External Provider, [facility] Abnormal renal ultrasound (Primary Dx) 12/12/2024 Refill [facility] [address] [place] [address] Marissa Barbosa, PharmD Dyslipidemia; Type 2 diabetes mellitus with stage 3 chronic kidney disease, without long-term current use of insulin, unspecified whether stage 3a or 3b CKD ([facility]) 12/07/2024 Refill [facility] [address] [place] [phone] Marissa Barbosa PharmD Primary hypertension 11/15/2024 Refill [facility] [address] [place] [address] Marissa Barbosa PharmD Primary hypertension from Last 3 Months Immunizations Immunization Administration Dates Next Due Hep B, adult [...] Sign Reading Time Taken Comments Blood Pressure 120/70 01/17/2025 11:00 AM EDT Pulse 83 01/17/2025 10:24 AM EDT Temperature 35.9 C (96.6 F) 01/17/2025 10:24 AM EDT Respiratory Rate 20 01/17/2025 10:24 AM EDT Oxygen Saturation 96% 01/17/2025 10:24 AM EDT Inhaled Oxygen Concentration - - Weight 124 kg (274 lb 3.2 oz) 01/17/2025 10:24 A M EDT Height 180.3 cm (5' 11 ) 01/17/2025 10:24 AM EDT Body Mass Index 38.24 01/17/2025 10:24 AM EDT Plan of Treatment Health Maintenance Due Date Last Done Comments CT Colonography 1952 FIT DNA/Cologuard 1952 FIT 1950 FOBT 1950 Sigmoidoscopy 1950 COVID-19 Vaccine ( season) 2025 10/16/2020, 09/18/2020 Influenza Vaccine (#1) 2025 , 02/16/2023, 07/06/2022, Additional history exists Diabetes: Hemoglobin A1C 07/18/2025 025, 09/06/2024, 07/31/2024, Additional history exists SDOH Screening 07/19/2025 07/19/2024 Alcohol/Substance Use Screening 07/31/2025 07/31/2024 Lipid Panel 09/06/2025 09/06/2024, 0606/2023, 07/06/2022, Additional history exists Eye Exam 11/02/2025 11/03/2023, 10/08/2022 Depression Screening 01/17/2026 01/17/2025, 01/18/20 Diabetes: Foot Exam 01/17/2026 01/17/2025, 01/17/2025, 01/17/2025, Additional history exists Tobacco Screening 01/17/2026 01/17/2025 Colonoscopy 07/27/2027 07/26/2024, 03/0 09/2024, 07/06/2022, Additional history exists Colorectal Cancer Screening 07/27/2027 DTaP/Tdap/Td Vaccines (3 - Td or Tdap) 02/16/2033 02/16/2023, 01/21/2012 Zoster Vaccines Completed 01/17/2021, 11/13/2020 Pneumococcal Vaccine: 50+ Years Completed 07/10/2021, 07/21/2018 Hepatitis C Screening Completed 07/06/2022, 022 Hepatitis B Vaccines Completed 11/23/2023, 02/18/2023, 07/06/2022 RSV Patients and Patients Aged 60 years or older Completed 11/23/2023 HIB Vaccines Aged Out No longer eligi [...] Pressure 120/70(2024 11:00 AM EDT) No Marissa Reynaga PharmD Hemoglobin A1c < 7 Result Component 6.5( 8:33 AM EDT) No Marissa Reynaga PharmD Procedures Procedure Name Priority Date/Time Associated Diagnosis Comments ECG 12-LEAD Routine 01/17/2025 11:18 AM EDT Irregular heart beat VITAMIN B12 Routine 01/15/2025 8:33 AM EDT PSA, TOTAL Routine 01/15/2025 8:33 AM EDT BASIC METABOLIC PANEL Routine 01/15/2025 8:33 AM EDT CBC Routine 01/15/2025 8:33 AM EDT HEMOGLOBIN A1C Routine 01/15/2025 8:33 AM EDT Type 2 diabetes mellitus with stage 3 chronic kidney disease, without long-term current use of insulin, unspecified whether stage 3a or 3b CKD (CMS/HCC) ALBUMIN, RANDOM URINE W/CREATININE Routine 01/15/2025 8:33 AM EDT Hyperparathyroidism (CMS/HCC) VITAMIN D,25-OH,TOTAL,IA Routine 01/15/2025 8:33 AM EDT Hyperparathyroidism (CMS/HCC) PTH, INTACT WITHOUT CALCIUM Routine 01/15/2025 8:33 AM EDT Hyperparathyroidism (CMS/HCC) HEPATIC FUNCTION PANEL Routine 8:33 AM EDT Type 2 diabetes mellitus with stage 3 chronic kidney disease, without long-term current use of insulin, unspecified whether stage 3a or 3b CKD (CMS/HCC) US RETROPERITONEAL COMPLETE Routine 12/15/2024 8:16 AM EDT AMB REFERRAL TO CARDIOLOGY Routine 11/23/2024 Electrocardiogram abnormal Prolonged QT interval LIPID PANEL, STANDARD Routine 09/06/2024 10:45 AM [...] Recently Relevant to Health Maintenance Results * ECG 12 lead (01/17/2025 11:18 AM EDT) Narrative Smitha Matos MD - 01/17/2025 11:18 AM EDT Sinus rhythum, first degree AV block, PVCs Smitha Matos MD ECG ORDERABLES Final Resu lt * Vitamin D, 25-Hydroxy, Total, Immunoassay (01/15/2025 8:33 AM EDT) Vitamin D 25-OH Total 45.9 >30 ng/mL [facility] Comment: Health Based Reference Values*< 20 ng/mL [id number] ng/mL Insufficient> 30 ng/mL Sufficient*Luigi EUGENE. N Engl J Med. 2007;357:266-280There is no well-established upper level of normal vitamin Dlevels. Some laboratories use 50 ng/mL as an upper limit ofnormal. However, toxicity is patient-dependent and may occurat any level. Careful correlation with the patient'spresentation is necessary and, if there is concern forvitamin D toxicity, treatment should be consideredirrespective of the serum level.Care must be taken in interpreting Vitamin D results fromdifferent laboratories and methodologies. Published datademonstrated that results from patients undergoinghemodialysis may show a negative bias when tested withvarious automated 25-OH vitamin D assays when compared toLC-MS/MS.When testing samples from patients whose predominant form ofVitamin D is Vitamin D2, such as patients receiving VitaminD2 supplementation, results that are subtherapeutic shouldbe confirmed with another method such as LC-MS/MS. Blood Venous blood specimen / Unknown 01/15/2025 8:33 AM EDT 01/15/2025 11:03 AM EDT Smitha Matos MD LAB BLOOD ORDERABLES Final Result Performing Organization Address City/[facility]/ZIP Co de Phone Number [facility] [address] [place] [phone] * Albumin, Random Urine W/Creatinine (01/15/2025 8:33 AM EDT) Creatinine, Urine 106.23 mg/dL [facility] Microalbumin Urine <5.0 mg/L [facility] Microalbum Creatinine Ratio Ur TNP <30 ug/mg cr [facility] Comment:Unable to calculate albumin/creatinine ratio due to lowmicroalbumin or creatinine result. Urine (Urine, Random) 01/15/2025 8:33 AM EDT 01/15/2025 11:00 AM EDT Smtiha Matos MD LAB URINE ORDERABLES Final Result Performing Organization Address [facility] Co de Phone Number [facility] [address] [place] [phone] * CBC (01/15/2025 8:33 AM EDT) White Blood Count 5.5 4.8 - 10.8 X10*3/uL [facility] Red Blood Count 4.79 4.60 - 5.80 X10*6/uL [facility] Hemoglobin 14.1 14.0 - 18.0 g/dl [facility] Hematocrit 43.2 42.0 - 52.0 % [facility] Mean Corpuscular Volume 90.2 80.0 - 98.0 fL [facility] Mean Corpuscular Hemoglobin 29.4 27.0 - 33.0 pg [facility] Mean Corpuscular HGB Conc 32.6 31.0 - 36.0 g/dl [facility] Red Cell Distribution Width 13.3 11.0 - 16.0 % [facility] Platelet Count 207 160 - 400 X10*3/uL [facility] Mean Platelet Volume 12.3 9.4 - 12.4 fL [facility] NRBC Pct Auto 0.0 0.0 - 0.2 /100WBC [facility] NRBC Abs Auto 0.000 0.0 - 0.012 X10*3/uL [facility] 01/15/2025 8:33 AM EDT 01/15/2025 11:03 AM EDT us Generic External Data Provider LAB BLOOD ORDERAB LES Final Result Performing Organization Address [facility]/ZIP Co de Phone Number [facility] [address] [place] [phone] * PSA,Total (01/15/2025 8:33 AM EDT) Prostate Specific Antigen 0.26 <0.05 - 4.0 ng/mL [facility] Comment:PSA methodology: Jacque Williamson i ChemiluminescentMicroparticle Immunoassay (CMIA) 01/15/2025 8:33 AM EDT 01/15/2025 11:03 AM EDT us Generic External Data Provider LAB BLOOD ORDERAB LES Final Result Performing Organization Address [facility] de Phone Number [facility] [address] [place] [phone] * (ABNORMAL) PTH, Intact Without Calcium (01/15/2025 8:33 AM EDT) Parathyroid Hormone, Intact 96.7(H) 8.7 - 77.1 pg/mL [facility] Blood Venous blood specimen / Unknown 01/15/2025 8:33 AM EDT 01/15/2025 11:03 AM EDT us Smitha Matos MD LAB BLOOD ORDERABLES Final Result Performing Organization Address [facility] Co de Phone Number [facility] [address] [place] [phone] * (ABNORMAL) Hemoglobin A1c (01/15/2025 8:33 AM EDT) Hemoglobin A1c 6.5(H) <6.0 % [facility] Comment:Hemoglobin A1C Refer ence Range Adults: 4.8 - 6.0 % Non diabetic: < 6.0 % Goal: < 7.0 %Additional Action Suggested: > 8.0 %Note: Hemoglobin A1c results are invalid for patients with abnormal amounts of HbF. Blood transfusions may impact the HbA1c concentration in the patient sample. Estimated Average Glucose 140 mg/dL [facility] Comment:eAG = Estimated ave rage glucose which is %A1C expressed asaverage glucose, using the formula of the Q1P-SfgjggcKnetpbq Glucose study (ADAG), Diabetes Care, Vol.31,#8,2007 Blood Venous blood specimen / Unknown 01/15/2025 8:33 AM EDT 01/15/2025 11:03 AM EDT Smitha Matos MD LAB BLOOD ORDERABLES Final Result Performing Organization Address City/[facility]/ZIP Co de Phone Number [facility] [address] [place] [phone] * Vitamin B12 (01/15/2025 8:33 AM EDT) Vitamin B12 237 200 - 900 pg/mL [facility] Comment:NORMAL 200-900 PG/ML INDETERMINATE 160-199 PG/ML DEFICIENT < 160 PG/ML 01/15/2025 8:33 AM EDT 01/15/2025 11:03 AM EDT Smitha Matos MD LAB BLOOD ORDERABLES Final Result Performing Organization Address [facility]/ZIP Co de Phone Number [facility] [address] [place] [phone] * Hepatic Function Panel (01/15/2025 8:33 AM EDT) Bilirubin, Total 0.7 0.0 - 1.0 mg/dL [facility] Bilirubin, Direct 0.3 0.0 - 0.5 mg/dL [facility] Aspartate Amino Transferase 33 5 - 37 U/L [facility] Alanine Aminotransferase 26 0 - 40 U/L [facility] Total Protein 7.2 6.5 - 8.0 g/dL [facility] Albumin Level 4.2 3.5 - 5.0 g/dL [facility] Alkaline Phosphatase 71 39 - 117 U/L [facility] Blood Venous blood specimen / Unknown 01/15/2025 8:33 AM EDT 01/15/2025 11:03 AM EDT us Smitha Matos MD LAB BLOOD ORDERABLES Final Result [facility] [address] [place] [phone] * (ABNORMAL) Basic Metabolic Panel (01/15/2025 8:33 AM EDT) Sodium 141 135 - 145 mmol/L [facility] Potassium 3.9 3.3 - 5.1 mmol/L [facility] Chloride 106 96 - 108 mmol/L [facility] Carbon Dioxide 28 22 - 29 mmol/L [facility] Anion Gap 11(L) 12 - 20 [facility] Urea Nitrogen (BUN) 15 9 - 16 mg/dL [facility] Creatinine, Serum 1.32 0.5 - 1.4 mg/dL [facility] Estimated Glomerular Filt Rate 53 [facility] Comment:Chronic Kidney Disea se: Estimated GFR < 60 mL/min/1.13i5Kejurf Kidney Disease: Estimated GFR < 15 mL/min/1.73m2 Glucose 112 60 - 115 mg/dL [facility] Calcium 8.8 8.4 - 10.2 mg/dL [facility] 01/15/2025 8:33 AM EDT 01/15/2025 11:03 AM EDT us Generic External Data Provider LAB BLOOD ORDERAB LES Final Result [facility] [address] [place] [address] [phone] * US Retroperitoneal Complete (12/15/2024 8:16 AM EDT) Anatomical Region Laterality Modality Ultrasound 12/15/2024 8:16 AM EDT Narrative 12/15/2024 8:18 AM EDT [facility] [place] [address] Ultrasound Report Signed with Addenda Patient: Pedro Garcia MR#: [id number] : 1950 Acct:[id number] Age/Sex: 74 / M ADM Date: 12/14/24 [facility] Order[facility] Physician: Denisse Ingram Date of Service: 12/14/24 Procedure(s): US retroperitoneal comp Accession Number(s): [id number] cc: Smitha Matos MD; Denisse IngramEVELIN Reason for Exam: N28.1 - Cyst of kidney, acquired ADDENDUM 12/15/2024 08:16:28 ADDENDUM: ADDENDUM: The prostate measures 4.6 x 3.3 x 4.0 cm with a volume of 32.1 mL This document has been electronically signed by: Nazario Ramon MD on 01/28/2025 04:54:03 Addendum Dictated By: Nazario Ramon MD Addendum Signed By: <Electronically signed by Nazario Ramon MD in OV> 01/28/25453 Addendum Cosigned By: DD/ TD/TT: 01/28/2512/15/453 CLINICAL HISTORY: N28.1 - Cyst of kidney, acquired US Renal Comparison: None provided Findings: Right kidney normal size and echotexture, 12.8 cm length. Left kidney normal size and echotexture, 12.5 cm length. No collecting system dilatation of either kidney. Normal color Doppler. Urinary bladder is unremarkable. Prevoid volume 168 mL. Postvoid volume 4 mL. Bilateral ureteral jets are visualized. IMPRESSION: 1. Normal kidneys. This document has been electronically signed by: Nazario Ramon MD on 12/15/2024 08:16:28 Dictated By: Nazario Ramon MD Signed By: <Electronically signed by Nazario Ramon MD in OV> 12/15/24816 DD/ 5 TD/TT: 12/15/24815 Media Manager: Procedure Note Donotuseinterpreter, Image - 01/28/2025 [facility] [address] [place] [address] [place] [address] Ultrasound Report Signed with Addenda Patient: Pedro Garcia AMR#: [id number] : 1950cct:[id number] Age/Sex: 74 / MADM Date: 12/14/24 [facility]: Denisse ANTUNEZ Ordering Physician: Denisse Ingram Date of Service: 12/14/24 Procedure(s): US retroperitoneal comp Accession Number(s): [id number] cc: Smitha Matos MD; Denisse Ingram Reason for Exam: N28.1 - Cyst of kidney, acquired ADDENDUM 12/15/2024 08:16:28 ADDENDUM: ADDENDUM: The prostate measures 4.6 x 3.3 x 4.0 cm with a volume of 32.1mL This document has been electronically signed by: Nazario Ramon MD on 01/28/2025 04:54:03 Addendum Dictated By: Nazario Ramon MD Addendum Signed By: <Electronically signed by Nazario Ramon MD in OV> 01/28/25453 Addendum Cosigned By: DD/ TD/TT: 01/28/2512/15/453 CLINICAL HISTORY: N28.1 - Cyst of kidney, acquired US Renal Comparison: None provided Findings: Right kidney normal size and echotexture, 12.8 cm length. Left kidney normal size and echotexture, 12.5 cm length. No collecting system dilatation of either kidney. Normal color Doppler. Urinary bladder is unremarkable. Prevoid volume 168 mL. Postvoid volume 4 mL. Bilateral ureteral jets are visualized. IMPRESSION: 1. Normal kidneys. This document has been electronically signed by: Nazario Ramon MD on 12/15/2024 08:16:28 Dictated By: Nazario Ramon MD Signed By: <Electronically signed by Nazario Ramon MD in OV> 12/15/24816 DD/ 5 TD/TT: 12/15/24815 Media Manager: [facility] External Provider IMG US PROCEDURES Edited Result - Final * Referral to Cardiology (11/23/2024) Gabriella Gonzalez DINKEY OPERATOR OUTPATIENT REFERRAL ORDERABLES Final Result * Lipid Panel, Standard (09/06/2024 10:45 AM EDT) Triglycerides 64 <150 mg/dL [facility] Comment:Desirable Triglyceri de: less than 150 mg/dLBorderline High Triglyceride 150-199 mg/dLHigh Triglyceride: 200-499 mg/dLVery High Triglyceride: greater than or equal to 5OO mg/dL Cholesterol 148 <200 mg/dL [facility] Comment:Desirable Cholestero l: less than 200 mg/dLBorderline High Cholesterol: 200-239 mg/dLHigh Cholesterol: greater than 239 mg/dL LDL Cholesterol Calculated 88 <100 mg/dL [facility] Comment:Desirable LDL: less than 100 mg/dLNear Optimal/Above Optimal LDL: 110- 129 mg/dLBorderline High LDL: 130-159 mg/dLHigh LDL: 160-189 mg/dLVery High LDL: greater than or equal to 190 mg/dL HDL Cholesterol 48 >40 mg/dL [facility] Comment:Desirable HDL: great er than 40 mg/dL Note: This HDL assay may give artificially low results in patients with liver disease. Blood Venous blood specimen / Unknown 09/06/2024 10:45 AM EDT 09/06/2024 11:10 AM EDT Smitha Matos MD LAB BLOOD ORDERABLES Final Result [facility] [address] [place] [address] [phone] * Colonoscopy (07/26/2024 2:09 PM EST) Anatomical [...] Hepatitis C Antibody NON-REACT BRANDON NON-REACT BRANDON [email or web address] [place] [employer] Index 0.11 <1.00 [employer] Comment: HCV antibody was non-reactive. There is no laboratory evidence of HCV infection. In most cases, no further action is required. However, if recent HCV exposure is suspected, a test for HCV RNA (test code 73021) is suggested. For additional information please refer to http://education.in2nite/faq/ZPY15q6 (This link is being provided for informational/ educational purposes only.) Blood Venous blood specimen / Unknown 07/06/2022 10:18 AM EST 07/06/2022 10:18 AM EST Narrative [facility] - 07/11/2022 2:05 PM EST FASTING:YES FASTING: YES Smitha Matos MD LAB BLOOD ORDERABLES Final Result [facility] [address], [place] [address] [email or web address] [place] [employer] 200 [facility], (N[address]) [place] [address] from Last 3 Months or Most Recently Relevant to Health Maintenance Insurance [facility] JAIL OPTIONS (HMO D-SNP) [place] [id number] Advance Directives Documents on File Type Date Recorded Patient Asp Net Mvc Developer Expl anation Advance Directives and Living Will 01/27/2024 Health Care Proxy 01/27/24 Care Teams Program Mgr Relationship Specialty Start Date End Date [place], [place] Smitha [address] [place] [address] PCP - General Family Medicine 05/24/18 Kenny Grossman MD 100 [facility] 200 [place] [address] Nephrology 06/07/24 Denisse Ingram NP [address] [place] [address] Urology 08/07/24 Dr. Paco Rodriges MD [facility] Cardiology [facility] [place] [address]- Cardiology 06/14/24 Dr. Nancie Lilly MD [address] [address] Colon and Rectal Surgery 07/27/24
--- OUTSIDE RECORDS SUMMARY | 2025-01-30 16:57 | XMS_ITS | Encounter Summary ---
Author Organization [employer] Address 75 [facility] 7t [place] [address] Care Team Providers Care Digital Editor Name Role Phone Smitha Matos MD Primary Care Provider +- [phone] Marissa Barbosa PharmD Unavailable Kenny Grossman MD Unavailable [phone] Denisse Ingram REC THERAPIST Unavailable Reason for Visit * Reason Onset Date Comments Appointment Request 05/29/2024 Encounter Details Date Type Department Care Team (Late st Contact Info) Description 05/29/2024 Telephone [facility] [address] [place] [address] Smitha Matos MD [address] [place], [place] [phone] Appointment Request Social History Tobacco Use Types [...] your housing situation today? I have iban finhc 01/27/[address] you li [...] reschedule CDTM visit. Please contact pt at [phone]. (Jamaican Speaker) documented in this encounter Plan of Treatment Not on file documented as of this encounter Goals Goal Patient Goal Type Associated Problems Recent Progress Patient-Stated? Author Blood Pressure < 140/90 Blood Pressure 120/70(2024 11:00 AM EDT) Marissa Edmond PharmD Hemoglobin A1c < 7 Result Component 6.5( 8:33 AM EDT) No Marissa Reynaga, PharmD documented as of this encounter Visit Diagnoses Not on filedocumented in this encounter Additional Health Concerns Assessment Noted Time PHQ-9 Depression Total Score: 3 01/27/20 24 9:37 AM EDT documented as of this encounter Care Teams Digital Editor Relationship Specialty Start Date End Date Smitha Matos MD [address] [place] [address] PCP - General Family Medicine 05/24/18 Marissa Barbsoa, PharmD [address] [place] [address] Pharmacist Internal Medicine 08/12/22 08/21/24 Kenny Grossman MD 100 [facility] 200 [place] [address] Nephrology 06/07/24 Denisse Ingram NP [address] [place] [address] Urology 08/07/24 Dr. Paco Rodriges MD [facility] Cardiology [address] [place] [address]- Cardiology 06/14/24 Dr. Nancie Lilly MD [address] [address] Colon and Rectal Surgery 07/27/24 documented as of this encounter
--- OUTSIDE RECORDS SUMMARY | 2025-01-30 16:57 | XMS_ITS | Encounter Summary ---
Author Organization [employer] Address 75 [facility] 7t [place] [address] Care Team Providers Care Operating Room Rn Name Role Phone Smitha Matos MD Primary Care Provider [phone]- [phone] Marissa Barbosa PharmD Unavailable [phone] Kenny Grossman MD Unavailable [phone] Denisse Ingram RETAIL PRODUCT DEMO SPECIALIST Unavailable Encounter Details Date Type Department Care Team (Late st Contact Info) Description 07/27/2024 Orders Only [facility] [address] [place] [address] Provider, MD Ju Social History Tobacco Use [...] documented as of this encounter Care Teams Operating Room Rn Relationship Specialty Start Date End Date Smitha Matos MD [address] [place] [address] PCP - General Family Medicine 05/24/18 Marissa Barbosa PharmD [address] [place] [address] Pharmacist Internal Medicine 08/12/22 08/21/24 Kenny Grossman MD 100 [facility] 200 [place] [address] Nephrology 06/07/24 Denisse Ingram NP [address] [place] [address] Drive [address] [place] [address] Urology 08/07/24 Dr. Paco Rodriges MD [facility] Cardiology [address] [place] [address]- Cardiology 06/14/24 Dr. Nancie Lilly MD [address] [address] Colon and Rectal Surgery 07/27/24 documented as of this encounter
--- OUTSIDE RECORDS SUMMARY | 2025-01-30 16:57 | XMS_ITS | Encounter Summary ---
Author Organization [employer] Address 75 [facility] 7t [place] [address] Care Team Providers Care High School Music Instructor Name Role Phone Smitha Matos MD Primary Care Provider [phone] Marissa Barbosa PharmD Unavailable [phone] Kenny Grossman MD Unavailable [phone] Denisse Ingram RECYCLE WORKER Unavailable Encounter Details Date Type Department Care Team (Late st Contact Info) Description 11/03/2023 Abstract [facility] 230 [place] [address] Fátima Grigsby [place] Social History Tobacco Use [...] Diabetes Eye Exam (11/03/2023 1:42 PM EDT) [facility] Signature Eye Exam Normal Normal Comment:follow up one year us Historical Provider HEALTH MAINTENANCE Final Result documented in this encounter Visit Diagnoses Not on filedocumented in this encounter Care Teams High School Music Instructor Relationship Specialty Start Date End Date Smitha Matos MD [address] [place] [address] PCP - General Family Medicine 05/24/18 Marissa Barbosa, ZeinaD [address] [place] [address] Pharmacist Internal Medicine 08/12/22 08/21/24 Kenny Grossman MD 100 [facility] 200 [place] [address] Nephrology 06/07/24 Denisse Ingram NP [address] [place] [address] Drive [address] [place] [address] Urology 08/07/24 Dr. Paco Rodriges MD [facility] Cardiology [address] [place] [address]- Cardiology 06/14/24 Dr. Nancie Lilly MD [address] [address] Colon and Rectal Surgery 07/27/24 documented as of this encounter
--- OUTSIDE RECORDS SUMMARY | 2025-01-30 16:57 | XMS_ITS | Encounter Summary ---
Author Organization [facility] [facility] Address 75 [facility] 7t [place] [address] Care Team Providers Care Flight Service Specialist Name Role Phone Smitha Matos MD Primary Care Provider [phone] Marissa Barbosa PharmD Unavailable Kenny Grossman MD Unavailable [phone] Denisse Ingram NP Unavailable Encounter Details Date Type Department Care Team (Late st Contact Info) Description 06/29/2022 Abstract [facility] 230 [place], [place] [phone] Smitha Matos MD 230 [place], [place] [phone] Social History Tobacco Use Types Packs/Day Years [...] 10/01/2021 documented in this encounter Results * Colonoscopy (10/01/2021) Colonoscopy adenocarcinom us Historical Provider HEALTH MAINTENANCE Final Result documented in this encounter Visit Diagnoses Not on filedocumented in this encounter Care Teams Flight Service Specialist Relationship Specialty Start Date End Date Smitha Matos MD 230 [place] [address] PCP - General Family Medicine 05/24/18 Marissa Barbosa PharmD 230 [place] [address] Pharmacist Internal Medicine 08/12/22 08/21/24 Kenny Grossman MD 100 [facility] 200 [place] [address] Nephrology 06/07/24 Denisse Ingram NP [address] [place] [address] Urology 08/07/24 Dr. Paco Rodriges MD [facility] Cardiology [address]00 [place] [address]- Cardiology 06/14/24 Dr. Nancie Lilly MD [address] [id number] Colon and Rectal Surgery 07/27/24 documented as of this encounter
--- OUTSIDE RECORDS SUMMARY | 2025-01-30 16:57 | XMS_ITS | Encounter Summary ---
Author Organization [employer] Address 75 [facility] 7t [place] [address] Care Team Providers Care Shoe Worker Name Role Phone Smitha Matos MD Primary Care Provider Marissa Barbosa PharmD Unavailable Kenny Grossman MD Unavailable [phone] Denisse Ingram PRINT ROOM WORKER Unavailable Encounter Details Date Type Department Care Team (Latest Contact Info) Description 03/01/2019 Abstract [facility] CONVERSIONS Dental, Provider, DDS Social History Tobacco [...] on filedocumented in this encounter Care Teams Shoe Worker Relationship Specialty Start Date End Date Smitha Matos MD [address] [place] [address] PCP - General Family Medicine 05/24/18 Marissa Barbosa, PharmD [address] [place] [address] Pharmacist Internal Medicine 08/12/22 08/21/24 Kenny Grossman MD 100 [facility] 200 [place] [address] Nephrology 06/07/24 Denisse Ingram NP [address] [facility] [address] [place] [address] Urology 08/07/24 Dr. Paco Rodriges MD [facility] Cardiology [address] [place] [address]- Cardiology 06/14/24 Dr. Nancie Lilly MD [address] [address] Colon and Rectal Surgery 07/27/24 documented as of this encounter
--- OUTSIDE RECORDS SUMMARY | 2025-01-30 16:57 | XMS_ITS | Encounter Summary ---
Author Organization [employer] Address 75 [facility] 7t [place] [address] Care Team Providers Care Building Custodial Supervisor Name Role Phone Smitha Matos MD Primary Care Provider [phone] Marissa Barbosa PharmD Unavailable Kenny Grossman MD Unavailable [phone] Denisse Ingram CRNA Unavailable Encounter Details Date Type Department Care Team (Late st Contact Info) Description 08/13/2022 Orders Only [facility] 230 [place], [place] [phone] Smitha Matos MD 230 [place], [place] [phone] Primary hypertension (Primary Dx) Social History Tobacco [...] 11:15 AM EDT) Creatinine, Urine 94.95 mg/dL [facility] Microalbumin Urine 8.0 mg/L [facility] Microalbum Creatinine Ratio Ur 8.4 <30 ug/mg cr LABS Comment:Albumin/Creatinine R atio Reference Ranges: Normal: < 30 ug/mg creatinine Microalbuminuria: 30 - 300 ug/mg creatinineClinical Albuminuria: > 300 ug/mg creatinine 02/18/2023 11:1 5 AM EDT 02/18/2023 1:01 PM EDT Smitha Matos MD LAB URINE ORDERABLES Final Result LAB[facility] [address] [place] [phone] documented in this encounter Visit Diagnoses Diagnosis Primary hypertension- Primary Unspecified essential hypertension documented in this encounter Care Teams Building Custodial Supervisor Relationship Specialty Start Date End Date Smitha Matos MD [address] [place] [address] PCP - General Family Medicine 05/24/18 Marissa Barbosa PharmD 230 [place] [address] Pharmacist Internal Medicine 08/12/22 08/21/24 Kenny Grossman MD [address] [facility] 200 [place] [address] Nephrology 06/07/24 Denisse Ingram NP [address] [place] [address] Drive [address] [place] [address] Urology 08/07/24 Dr. Paco Rodriges MD [facility] Cardiology [address]00 [place] [address]- Cardiology 06/14/24 Dr. Nancie Lilly MD [address] [address] Colon and Rectal Surgery 07/27/24 documented as of this encounter
--- OUTSIDE RECORDS SUMMARY | 2025-01-30 16:57 | XMS_ITS | Encounter Summary ---
Author Organization [employer] Address 75 [facility] 7t [place] [address] Care Team Providers Care Assistant Media Planner Name Role Phone Smitha Matos MD Primary Care Provider [phone]- [phone] Marissa Barbosa PharmD Unavailable Kenny Grossman MD Unavailable [phone] Denisse Ingram NP Unavailable Reason for Visit * Reason Comments Med Refill Encounter Details Date Type Department Care Team (Late st Contact Info) Description 11/22/2023 Refill [facility] 230 [place], [place] [phone] Marissa Barbosa, PharmD 230 [place] [address] Social History Tobacco Use Types Packs/Day Years [...] on filedocumented in this encounter Care Teams Assistant Media Planner Relationship Specialty Start Date End Date Smitha Matos MD 230 [place] [address] PCP - General Family Medicine 05/24/18 Marissa Barbosa, PharmD [address] [place] [address] Pharmacist Internal Medicine 08/12/22 08/21/24 Kenny Grossman MD 100 [facility] 200 [place] [address] Nephrology 06/07/24 Denisse Ingram NP [address] [facility] [address] [place] [address] Urology 08/07/24 Dr. Paco Rodriges MD [facility] Cardiology [address] [place] [address]- Cardiology 06/14/24 Dr. Nancie Lilly MD [address] [address] Colon and Rectal Surgery 07/27/24 documented as of this encounter
--- OUTSIDE RECORDS SUMMARY | 2025-01-30 16:57 | XMS_ITS | Encounter Summary ---
Author Organization [employer] Address 75 [facility] 7t [place] [address] Care Team Providers Care Carburetor Expert Name Role Phone Smitha Matos MD Primary Care Provider +- [phone] Marissa Barbosa PharmD Unavailable [phone] Kenny Grossman MD Unavailable [phone] Denisse Ingram NP Unavailable Reason for Visit * Reason Comments Med Refill Encounter Details Date Type Department Care Team (Late st Contact Info) Description 08/28/2023 Refill [facility] MEDICINE 230 [place], [place] [phone] Marissa Barbosa, PharmD 230 [place] [address] Social History Tobacco Use Types Packs/Day Years [...] on filedocumented in this encounter Care Teams Carburetor Expert Relationship Specialty Start Date End Date Smitha Matos MD 230 [place] [address] PCP - General Family Medicine 05/24/18 Marissa Barbosa PharmD [address] [place] [address] Pharmacist Internal Medicine 08/12/22 08/21/24 Kenny Grossman MD 100 [facility] 200 [place] [address] Nephrology 06/07/24 Denisse Ingram NP [address] [facility] [address] [place] [address] Urology 08/07/24 Dr. Paco Rodriges MD [facility] Cardiology [address]00 [place] [address]- Cardiology 06/14/24 Dr[place] [address] Colon and Rectal Surgery 07/27/24 documented as of this encounter
== END 2025-01-30 15:22 | disposition home or self-care (01) ==
LOC: HO.HUSH 14:23
PROVIDERS: PCP Family Medicine; Visit Provider Nurse Practitioner Family
DX: Z13.9 Encounter for screening, unspecified (principal); N52.9 Male erectile dysfunction, unspecified
CPT/HCPCS: 99213; G2211

== ENCOUNTER → 2025-01-30 14:23 | Outpatient (BNVA) | payer OTHER, SELFPAY | PROVIDERS: PCP Family Medicine; Visit Provider Nurse Practitioner Family | DX: N52.9 Male erectile dysfunction, unspecified (principal); Z13.9 Encounter for screening, unspecified | CPT/HCPCS: 81003; 99212 ==

== ENCOUNTER 2025-04-04 10:15 | Outpatient (REF) | payer OTHER, SELFPAY ==
--- OUTSIDE RECORDS SUMMARY | 2025-04-04 09:00 | XMS_ITS | Encounter Summary ---
Author Organization [employer] Address [address] [place] [address] [address] [place] [address] Care Team Providers Care Pastry Cook Apprentice Name Role Phone Smitha Matos MD Primary Care Provider [phone] Kenny Grossman MD Unavailable [phone] Denisse Ingram NP Unavailable Reason for Visit * Reason Comments Follow-up Encounter Details Date Type Department Care Team (Late st Contact Info) Description 04/04/2025 9:00 AM EST Office Visit [facility] [address] [place], [place] [id number] Smitha Matos MD [address] [place], [place] [id number] Acute on chronic clinical systolic heart failure (HCC) (Primary Dx); Type 2 diabetes mellitus with stage 3a chronic kidney disease, without long-term current use of insulin (HCC); Type 2 diabetes mellitus with stage 3 chronic kidney disease, without long-term current use of insulin, unspecified whether stage 3a or 3b CKD (HCC); Stage 3a chronic kidney disease (CMS/HCC) (HCC); Hypertension, unspecified type; Adenocarcinoma of large intestine (HCC); Hyperparathyroidism (CMS/HCC); Recurrent major depressive disorder, in partial remission (CMS/HCC); Severe obesity (BMI 35.0-39.9) with comorbidity (CMS/HCC) (HCC); Chronic heart failure, unspecified heart failure type (HCC); Erectile dysfunction, unspecified erectile dysfunction type; Primary hypertension; Encounter for immunization; Irregular heart rate Social History Tobacco Use Types Packs/Day Years [...] Sign Reading Time Taken Comments Blood Pressure 142/82 04/04/2025 8:58 AM EST Pulse 93 04/04/2025 8:58 AM EST Temperature 35.8 C (96.4 F) 04/04/2025 8:58 AM EST Respiratory Rate 20 04/04/2025 8:58 AM EST Oxygen Saturation 98% 04/04/2025 8:58 AM EST Inhaled Oxygen Concentration - - Weight 125 kg (274 lb 12.8 oz) 04/04/2025 8:58 A M EST Height - - Body Mass Index 38.33 01/17/2025 10:24 AM EDT documented in this encounter Progress Notes * Smitha Matos MD - 04/04/2025 9:00 AM EST Subjective Patient ID: Pedro Garcia is a 74 y.o. male with past medical history of type 2 diabetes, CKD stage III, adenocarcinoma of large intestine S/P right colon resection on 02/24/2021, hyperparathyroidism S/P parathyroidectomy and hypertension who presents for comprehensive annual exam. Mr. Garcia was hospitalized at [facility] 03/14/25 - 03/16/25 when he presented with SOB, dyspnea on exertion, orthopnea with 1 pillow, non radiating chest discomfort, and non productive cough. Chest x-ray and D-dimer were unremarkable, BNP was elevated at 4261, and high sensitivity troponin was elevated but stable at 23 and 24. Admitted for acute chronic heart failure. Patient had fine bibasilar crackles and was treated with IVP Lasix. Reccommended PCP or reading instructor to switch losartan to Entresto as it requires prior authorization. I have done this 04/04/25 and am waiting approval. Patient also had hyperglycemia of 187 mg/dl and kidney injury with creatinine of 1.26 mg/dl. Discharge home on torsemide 20mg to follow up with PCP. He states he was told to ask cardiology if he needed to continue torsemide 20. He appears euvolemic on exam today. I will prescribe and we will contact his reading instructor for recommendations and follow up. He retorts SOB and swelling much improved. Reports ongoing fatigue, sometimes feeling unable to breathe well, especially with exertion such as walking or climbing stairs. Fatigue and shortness of breath more pronounced with stair climbing; feels fine with normal walking and dressing Review of Systems Constitutional: Negative for fever and unexpected weight change. Respiratory: Negative for shortness of breath. Cardiovascular: Negative for chest pain. Gastrointestinal: Negative for abdominal pain. Genitourinary: Negative for difficulty urinating. Objective Visit Vitals BP (!) 142/82 (BP Location: Left arm, Patient Position: Sitting, BP Cuff Size: Adult) Pulse 93 Temp 96.4 ??F (35.8 ??C) (Oral) Resp 20 Body mass index is 38.33 kg/m??. Physical Exam Constitutional: Appearance: Normal appearance. Cardiovascular: Rate and Rhythm: Normal rate. Rhythm irregular. Pulses: Dorsalis pedis pulses are 2+ on the right side and 2+ on the left side. Heart sounds: Normal heart sounds. Pulmonary: Effort: Pulmonary effort is normal. Breath sounds: Normal breath sounds. Abdominal: General: Abdomen is flat. Palpations: Abdomen is soft. Tenderness: There is no abdominal tenderness. Musculoskeletal: Cervical back: Normal range of motion and neck supple. Right foot: No deformity or Charcot foot. Left foot: No deformity or Charcot foot. Feet: Right foot: Protective Sensation: 5 sites tested. 5 sites sensed. Skin integrity: Skin integrity normal. Toenail Condition: Right toenails are normal. Left foot: Protective Sensation: 5 sites tested. 5 sites sensed. Skin integrity: Skin integrity normal. Toenail Condition: Left toenails are normal. Lymphadenopathy: Cervical: No cervical adenopathy. Skin: General: Skin is warm and dry. Comments: Hypertrophic, dystrophic toe nails Neurological: Mental Status: Mental status is at baseline. Psychiatric: Behavior: Behavior normal. Assessment & Plan Acute on chronic clinical systolic heart failure (HCC) -[facility] 01/23/21: Mildly to moderately reduced LV systolic function with inferior inferoseptal wall motion abnormality with impaired relaxation filling pattern. Trace aortic and mitral regurgitation Normal RV systolic pressure -seen by reading instructor Dr. Quinones 11/23/24, started on amlodipine 5mg daily , echo and Holter monitored. -hospitalized at [facility] 03/14/25 acute congestive heart failure in the setting of dilated cardiomyopathy and HFrEF. He was treated with IVP Lasix. Reccommended PCP or reading instructor to switch losartan to Entresto as it requires prior authorization (done by me 04/04/25) . Discharge home on torsemide 20mg daily to follow up with PCP. -euvolemic on hospital follow up with PCP 04/04/25 with baseline weight of 274 -Rx torsemide 20mg prescribed started inpatient 03/14/25. I will write this until he sees cardiology for plan. -discontinue valsartan per cardiology recommendation in impatent and start Entresto 04/04/25. Rx wrtten 04/04/25 -will contact cardiology regarding if pt should continue, decrease or discontinue torsemide -check BMP -will send note to cardiology regarding medication changes. Orders: torsemide (Demadex) 20 MG tablet; Take 1 tablet (20 mg) by mouth Once per day. Basic Metabolic Panel; Future Type 2 diabetes mellitus with stage 3a chronic kidney disease, without long-term current use of insulin ([facility]) Diabetes is controlled. Lab Results Component Value Date HGBA1C 6.5 (H) 01/15/2025 HGBA1C 6.1 (H) 09/06/2024 HGBA1C 6.6 (A) 07/31/2024 Lab Results Component Value Date CREATININE 1.32 01/15/2025 EGFR 53 01/15/2025 MICROALBCREU TNP 01/15/2025 MICROALBCREU 9.8 09/06/2024 LDLCHOLCAL 88 09/06/2024 -[place]/Arb: entresto -Statin therapy: rosuvastatin 40mg (increased by CDTM 11/04/23) - Metformin ER 500mg twice daily changed to Synjardi ER 10mg-1000mg once daily by CDTM 11/23/23 -Diabetic eye exam: 10/28/23 with [facility] -Diabetic foot exam: done 01/17/25, referred to podiatry -Continue lifestyle modifications -Continue current medications Type 2 diabetes mellitus with stage 3 chronic kidney disease, without long-term current use of insulin, unspecified whether stage 3a or 3b CKD ([facility]) Orders: empagliflozin-metFORMIN ER (Synjardy XR) 10-1000 MG 24 hr tablet; Take 1 tablet by mouth in the morning. glucose blood (FREESTYLE LITE) test strip; TEST BLOOD SUGAR TWICE DAILY TRUEplus Lancets 33G misc; TEST BLOOD SUGAR TWICE DAILY DIRECTED POCT glucose manually resulted POCT glycosylated hemoglobin (Hgb A1c) Stage 3a chronic kidney disease (CMS/HCC) ([facility]) Lab Results Component Value Date CREATININE 1.08 [...] on the outcome of the above investigations. Hypertension, unspecified type -Blood pressure is at goal -Continue lifestyle modifications -Continue current medications: Amlodipine 10 mg and Carvedilol 12.5 mg and changed to entresto 03/2025 - Spironolactone 12.5mg once daily last filled 02/2024 by preferred pharmacy; patient not currentlytaking at this time - Saw [facility] cardiology 06/15/24 Adenocarcinoma of large intestine (HCC) -Invasive moderately differentiate adenocarcinoma on polypectomy colonoscopy [...] with Dr. Lilly at [facility] -T2N0, no chemotherapy needed -Last note from Dr. Lilly reviewed from 04/04/221 -s/p colonoscopy October 01, 2021 with [facility] -Seen by Dr. Peterson 07/26/24, colonoscopy Impression: 2 subcentimeter polyps in the transverse colon were removed with cold forceps biopsy. -Repeat colonoscopy 5 years Hyperparathyroidism (CMS/HCC) Recurrent major depressive disorder, in partial remission (CMS/HCC) -Stable. No suicidial or homacidial ideation. -Declines therapist or psychiatrist. Severe obesity (BMI 35.0-39.9) with comorbidity (CMS/HCC) (HCC) Dietary Recommendations: Fruits, vegetables, whole grains, protein foods, and fat-free or low-fat dairy products are healthychoices. Eat different types of protein foods in your diet. This can include seafood, lean meats, poultry, beans, peas, lentils, nuts, seeds, soy products, and eggs. Limit foods and beverages higher in added sugars, saturated fat, and sodium. Exercise Recommendations: At least 150 minutes of moderate-intensity physical activity per week, or an equivalent combinationof moderate- and vigorous-intensity activity Chronic heart failure, unspecified heart failure type (HCC) Orders: torsemide (Demadex) 20 MG tablet; Take 1 tablet (20 mg) by mouth Once per day. Erectile dysfunction, unspecified erectile dysfunction type Primary hypertension Orders: sacubitril-valsartan (Entresto) 49-51 MG tablet; Take 1 tablet by mouth 2 times daily. Encounter for immunization Orders: FLU VACCINE TRIVALENT HIGH DOSE [id number] (Fluzone) 65 yrs + Irregular heart rate No atrial fibrillation on ekg Orders: ECG 12 lead Follow up in about 2 months (around 06/04/2025) for follow up cardiology. This note was drafted using Ambient (AI) technology. The patient/patient's guardian has been informed and has consented to the use of this technology: Yes documented in this encounter Miscellaneous Notes * Assessment & Plan Note - Smitha Matos MD - 04/04/2025 9:00 AM EST Associated Problem(s): Adenocarcinoma of large intestine (HCC) -Invasive moderately differentiate adenocarcinoma on polypectomy colonoscopy [...] colectomy with colonoscopy with Dr. Lilly at [facility] -T2N0, no chemotherapy needed -Last note from Dr. Lilly reviewed from 04/04/221 -s/p colonoscopy October 01, 2021 with [facility] -Seen by Dr. Peterson 07/26/24, colonoscopy Impression: 2 subcentimeter polyps in the transverse colon were removed with cold forceps biopsy. -Repeat colonoscopy 5 years * Assessment & Plan Note - Smitha Matos MD - 04/04/2025 9:00 AM EST Associated Problem(s): Chronic kidney disease, stage III (moderate) (CMS/HCC) ([facility]) Lab Results Component Value Date CREATININE 1.08 [...] Plan Note - Smitha Matos MD - 04/04/2025 9:00 AM EST Associated Problem(s): Hypertension -Blood pressure is at goal -Continue lifestyle modifications -Continue current medications: Amlodipine 10 mg and Carvedilol 12.5 mg and changed to entresto 03/2025 - Spironolactone 12.5mg once daily last filled 02/2024 by preferred pharmacy; patient not currentlytaking at this time - Saw [facility] cardiology 06/15/24 * Assessment & Plan Note - Smitha Matos MD - 04/04/2025 9:00 AM EST Associated Problem(s): Type 2 diabetes mellitus with stage 3a chronic kidney disease (HCC) Diabetes is controlled. Lab Results Component Value Date HGBA1C 6.5 (H) 01/15/2025 HGBA1C 6.1 (H) 09/06/2024 HGBA1C 6.6 (A) 07/31/2024 Lab Results Component Value Date CREATININE 1.32 01/15/2025 EGFR 53 01/15/2025 MICROALBCREU TNP 01/15/2025 MICROALBCREU 9.8 09/06/2024 LDLCHOLCAL 88 09/06/2024 -[place]/Arb: entresto -Statin therapy: rosuvastatin 40mg (increased by CDTM 11/04/23) - Metformin ER 500mg twice daily changed to Synjardi ER 10mg-1000mg once daily by CDTM 11/23/23 -Diabetic eye exam: 10/28/23 with [facility] -Diabetic foot exam: done 01/17/25, referred to podiatry -Continue lifestyle modifications -Continue current medications * Assessment & Plan Note - Smitha Matos MD - 04/04/2025 9:00 AM EST Associated Problem(s): Acute on chronic clinical systolic heart failure (HCC) -[facility] 01/23/21: Mildly to moderately reduced LV systolic function with inferior inferoseptal wall motion abnormality with impaired relaxation filling pattern. Trace aortic and mitral regurgitation Normal RV systolic pressure -seen by reading instructor Dr. Quinones 11/23/24, started on amlodipine 5mg daily , echo and Holter monitored. -hospitalized at [facility] 03/14/25 acute congestive heart failure in the setting of dilated cardiomyopathy and HFrEF. He was treated with IVP Lasix. Reccommended PCP or reading instructor to switch losartan to Entresto as it requires prior authorization (done by [place] 04/04/25) . Discharge home on torsemide 20mg daily to follow up with PCP. -euvolemic on hospital follow up with PCP 04/04/25 with baseline weight of 274 -Rx torsemide 20mg prescribed started inpatient 03/14/25. I will write this until he sees cardiology for plan. -discontinue valsartan per cardiology recommendation in impatent and start Entresto 04/04/25. Rx wrtten 04/04/25 -will contact cardiology regarding if pt should continue, decrease or discontinue torsemide -check BMP -will send note to cardiology regarding medication changes. Orders: torsemide (Demadex) 20 MG tablet; Take 1 tablet (20 mg) by mouth Once per day. Basic Metabolic Panel; Future * Assessment & Plan Note - Smitha Matos MD - 04/04/2025 9:00 AM EST Associated Problem(s): Hyperparathyroidism (CMS/HCC) * Assessment & Plan Note - Smitha Matos MD - 04/04/2025 9:00 AM EST Associated Problem(s): Recurrent major depressive disorder, in partial remission (CMS/HCC) -Stable. No suicidial or homacidial ideation. -Declines therapist or psychiatrist. * Assessment & Plan Note - Smitha Matos MD - 04/04/2025 9:00 AM EST Associated Problem(s): Severe obesity (BMI 35.0-39.9) with comorbidity (CMS/HCC) (HCC) Dietary Recommendations: Fruits, vegetables, whole grains, protein foods, and fat-free or low-fat dairy products are healthychoices. Eat different types of protein foods in your diet. This can include seafood, lean meats, poultry, beans, peas, lentils, nuts, seeds, soy products, and eggs. Limit foods and beverages higher in added sugars, saturated fat, and sodium. Exercise Recommendations: At least 150 minutes of moderate-intensity physical activity per week, or an equivalent combinationof moderate- and vigorous-intensity activity * Assessment & Plan Note - Smitha Matos MD - 04/04/2025 9:00 AM EST Associated Problem(s): Hypertension Orders: sacubitril-valsartan (Entresto) 49-51 MG tablet; Take 1 tablet by mouth 2 times daily. documented in this encounter Plan of Treatment Scheduled Orders Name Type Priority Associated Diagnoses Orde r Schedule Basic Metabolic Panel Lab Routine Acute on chronic clinical systolic heart failure (HCC) Expected: 04/04/2025 (Approximate), Expires: 04/04/2026 documented as of this encounter Goals Goal Patient Goal Type Associated Problems Recent Progress Patient-Stated? Author Blood Pressure < 140/90 Blood Pressure 142/82(2024 8:58 AM EST) No Marissa Reynaga PharmD Hemoglobin A1c < 7 Result Component 6.6( 9:00 AM EST) No Marissa Reynaga PharmD Help patients manage their type 2 diabetes Care Plan Help patients manage their type 2 diabetes No Smitha Matos MD Weekly blood pressure task Care Plan Weekly blood pressure task Smitha Garcia MD Help patients manage their type 2 diabetes Care Plan Help patients manage their type 2 diabetes Smitha Garcia MD Patient has chronic kidney disease Care Plan Patient has chronic kidney disease Smitha Garcia MD Weekly blood pressure task Care Plan Weekly blood pressure task Smitha Garcia MD Patient has chronic kidney disease Care Plan Patient has chronic kidney disease No Smitha Matos MD documented as of this encounter Procedures Procedure Name Priority Date/Time Associated Diagnosis Comments ECG 12-LEAD Routine 04/04/2025 10:36 AM EST Irregular heart rate POCT GLYCOSYLATED HEMOGLOBIN (HGB A1C) Routine 04/04/2025 9:00 AM EST Type 2 diabetes mellitus with stage 3 chronic kidney disease, without long-term current use of insulin, unspecified whether stage 3a or 3b CKD (HCC) POCT GLUCOSE Routine 04/04/2025 8:59 AM EST Type 2 diabetes mellitus with stage 3 chronic kidney disease, without long-term current use of insulin, unspecified whether stage 3a or 3b CKD (HCC) documented in this encounter Results * ECG 12 lead (04/04/2025 10:36 AM EST) Narrative Smitha Matos MD - 04/04/2025 10:36 AM EST Sinus rhythum at 74 bpm with first degree AV block, LBBB Smitha Matos MD ECG ORDERABLES Final Resu lt * (ABNORMAL) POCT glycosylated hemoglobin (Hgb A1c) (04/04/2025 9:00 AM EST) Hemoglobin A1C 6.6(A) 4.0 - 5.7 % QC Media Lot # [id number] Lot# Expiration Date Blood Capillary blood specimen / Unknown 04/04/2025 9:00 AM EST us Smitha Matos MD POINT OF CARE TEST ENTER/E DIT ORDERABLES Final Result * POCT glucose manually resulted (04/04/2025 8:59 AM EST) Glucose Blood, POC 98 60 - 200 mg/dL QC Media Lot # [id number] Lot# Expiration Date [id number] Blood Capillary blood specimen / Unknown 04/04/2025 8:59 AM EST Smitha Matos MD POINT OF CARE TEST ENTER/E DIT ORDERABLES Final Result documented in this encounter Visit Diagnoses Diagnosis Acute on chronic clinical systolic heart failure (HCC)- Primary Type 2 diabetes mellitus with stage 3 chronic kidney disease, without long-term current use of insulin, unspecified whether stage 3a or 3b CKD (HCC) Stage 3a chronic kidney disease (CMS/HCC) (HCC) Hypertension, unspecified type Adenocarcinoma of large intestine (HCC) Malignant neoplasm of colon, unspecified site Hyperparathyroidism (CMS/HCC) Hyperparathyroidism, unspecified Recurrent major depressive disorder, in partial remission (CMS/HCC) Severe obesity (BMI 35.0-39.9) with comorbidity (CMS/HCC) (HCC) Chronic heart failure, unspecified heart failure type (HCC) Erectile dysfunction, unspecified erectile dysfunction type Primary hypertension Unspecified essential hypertension Encounter for immunization Irregular heart rate documented in this encounter Additional Health Concerns Active Problems Noted Date Diagnosed Date Help patients manage their type 2 diabetes 04/04 Weekly blood pressure task 04/04/2025 Help patients manage their type 2 diabetes 04/04 Patient has chronic kidney disease 04/04/2025 Weekly blood pressure task 04/04/2025 Patient has chronic kidney disease 04/04/2025 Assessment Noted Time PHQ-9 Depression Total Score: 5 01/18/20 25 10:50 AM EDT documented as of this encounter Care Teams Pastry Cook Apprentice Relationship Specialty Start Date End Date Smitha Matos MD [address] [place] [address] PCP - General Family Medicine 05/24/18 Kenny Grossman MD [address] [facility] [address] [place] [address] Nephrology 06/07/24 Denisse Ingram NP [address] [place] [address] Drive [address] [place] [address] Urology 08/07/24 Dr. Paco Rodriges MD [facility] Cardiology [address] [place] [address]- Cardiology 06/14/24 Dr. Nancie Lilly MD [address] [id number] Colon and Rectal Surgery 07/27/24 documented as of this encounter
[2025-04-04 11:53] LABS: Appearance Urine Clear; Glucose Urine UA Negative (Negative); PH 7.0 (5.0-9.0); Specific Gravity - Urine 1.015 (1.005-1.025)
--- OUTSIDE RECORDS SUMMARY | 2025-04-04 12:07 | XMS_ITS | Encounter Summary ---
Author Organization [employer] Address [address] [place] [address] [address] [place] [address] Care Team Providers Care Diabetes Educator Name Role Phone Smitha Matos MD Primary Care Provider Marissa Barbosa PharmD Unavailable [phone] Kenny Grossman MD Unavailable [phone] Denisse Ingram PROGRAM SUPPORT CLERK Unavailable Encounter Details Date Type Department Care Team (Latest Contact Info) Description 03/01/2019 Abstract [facility] CONVERSIONS Dental, Provider, DDS Social History Tobacco [...] on filedocumented in this encounter Care Teams Diabetes Educator Relationship Specialty Start Date End Date Smitha Matos MD [address] [place] [address] PCP - General Family Medicine 05/24/18 Marissa Barbosa, PharmD [address] [place] [address] Pharmacist Internal Medicine 08/12/22 08/21/24 Kenny Grossman MD [address] [address] [place] [address] Nephrology 06/07/24 Denisse Ingram NP [address] [place] [address] Urology 08/07/24 Dr. Paco Rodriges MD [facility] Cardiology [address] [place] [address]- Cardiology 06/14/24 Dr. Nancie Lilly MD [address] [address] Colon and Rectal Surgery 07/27/24 documented as of this encounter
--- OUTSIDE RECORDS SUMMARY | 2025-04-04 12:07 | XMS_ITS | Clinical Summary ---
Author Organization [employer] Address [address] [facility] [address] [place] [address] Care Team Providers Care Ceramist Name Role Phone Smitha Matos MD Primary Care Provider [phone] Kenny Grossman MD Unavailable [phone] Denisse Ingram NP Unavailable Allergies Active Allergy Reactions Criticality Noted Date Comments Hydrochlorothiazide 11/19/2011 Medications * This document contains information received from the source organization and may not represent a complete record from that organization. cholecalciferol (Vitamin D-3) 50 MCG (1999) capsuleIndicati ons:Vitamin D deficiency Take 1 capsule (50 mcg) by mouth Once per day. 90 capsule 3 09/14/19 25 Active spironolactone (Aldactone) 25 MG tabletIndicatio ns:Primary hypertension TAKE 1/2 TABLET BY MOUTH EVERY MORNING 45 tablet 1 11/16/19 25 Active rosuvastatin (Crestor) 40 MG tabletIndicatio ns:Dyslipidemia TAKE 1 TABLET BY MOUTH AT BEDTIME 90 tablet 3 12/14/19 25 Active omeprazole (PriLOSEC) [address] capsuleIndicati ons:Gastroesoph ageal reflux disease, unspecified whether esophagitis present TAKE 1 CAPSULE BY MOUTH EVERY DAY NEEDED 30 capsule 2 01/02/20 25 Active carvedilol (Coreg) 12.5 MG tabletIndicatio ns:Primary hypertension TAKE 1 TABLET BY MOUTH TWICE DAILY IN THE MORNING AND AT BEDTIME 180 tablet 3 01/31/20 25 Active amLODIPine (Norvasc) 5 MG tabletIndicatio ns:Primary hypertension TAKE 1 TABLET BY MOUTH EVERY MORNING 90 tablet 03/01/20 25 Active torsemide (Demadex) 20 MG tabletIndicatio ns:Acute on chronic clinical systolic heart failure (HCC),Chronic heart failure, unspecified heart failure type (HCC) Take 1 tablet (20 mg) by mouth Once per day. 90 tablet 3 04/04/20 25 Active sacubitril-vals lisa (Entresto) 49-51 MG tabletIndicatio ns:Primary hypertension Take 1 tablet by mouth 2 times daily. 180 tablet 3 04/04/20 25 026 Active empagliflozin-m etFORMIN ER (Synjardy XR) 10-1000 MG 24 hr tabletIndicatio ns:Type 2 diabetes mellitus with stage 3 chronic kidney disease, without long-term current use of insulin, unspecified whether stage 3a or 3b CKD (HCC) Take 1 tablet by mouth in the morning. 90 tablet 3 04/04/20 25 Active glucose blood (FREESTYLE LITE) test stripIndication s:Type 2 diabetes mellitus with stage 3 chronic kidney disease, without long-term current use of insulin, unspecified whether stage 3a or 3b CKD (HCC) TEST BLOOD SUGAR TWICE DAILY 100 strip 11 04/04/20 25 Active TRUEplus Lancets 33G miscIndications :Type 2 diabetes mellitus with stage 3 chronic kidney disease, without long-term current use of insulin, unspecified whether stage 3a or 3b CKD (HCC) TEST BLOOD SUGAR TWICE DAILY DIRECTED 100 each 04/04/20 25 Active tadalafil (Cialis) 20 MG tabletIndicatio ns:Erectile dysfunction, unspecified erectile dysfunction type Take 20 mg by mouth if needed each day for erectile dysfunction. Active FREESTYLE LITE test stripIndication s:Type 2 diabetes mellitus without complication, unspecified whether prison insulin use TEST BLOOD SUGAR TWICE DAILY 100 strip 11 04/13/20 24 025 Discontinued(Re order (will not trigger notification to Pharmacy)) TRUEplus Lancets 33G miscIndications :Type 2 diabetes mellitus without complication, unspecified whether long term care pharmacist insulin use TEST BLOOD SUGAR TWICE DAILY DIRECTED 100 each 11 04/13/20 24 025 Discontinued(Re order (will not trigger notification to Pharmacy)) tadalafil (Cialis) 20 MG tablet TAKE 1 TABLET 1 HOUR BEFORE SEXUAL RELATIONS ONCE DAILY NEEDED. DO NOT USE MORE THAN 1 DOSE PER 24 HOURS 08/03/19 025 Discontinued(Me d list cleanup (will not trigger notification to Pharmacy)) tadalafil (Cialis) 5 MG tablet Take 1 tablet by mouth Once per day. 08/03/19 025 Discontinued(Me d list cleanup (will not trigger notification to Pharmacy)) Synjardy XR 10-1000 MG 24 hr tabletIndicatio ns:Type 2 diabetes mellitus with stage 3 chronic kidney disease, without long-term current use of insulin, unspecified whether stage 3a or 3b CKD (HCC) TAKE 1 TABLET BY MOUTH EVERY MORNING 90 tablet 3 12/14/19 025 Discontinued(Re order (will not trigger notification to Pharmacy)) losartan (Cozaar) 100 MG tabletIndicatio ns:Primary hypertension Take 1 tablet (100 mg) by mouth in the morning. 90 tablet 3 01/31/20 025 Discontinued(Al ternate therapy) torsemide (Demadex) 20 MG tablet Take 1 tablet by mouth Once per day. 03/16/20 025 Discontinued(Me d list cleanup (will not trigger notification to Pharmacy)) Active Problems Patient Care Coordination No te Formatting of this note migh t be different from the original. Enrolled in [facility] HTN and [facility] DM clinic with Marissa Barbosa, ZeinaD, [facility] Chemical Radiation Technician:Smitha, member services number [phone], provider services line, , option 4 Office Technician Agency: [facility] Problem Noted Date Diagnosed Date Ambulates with cane 01/17/2025 Assessment & Plan (01/17/2025 11:23 AM EDT): Acute on chronic clinical systolic heart failure 07/31/2024 Overview (04/04/2025): -Echo [facility] 01/23/21: Mildly to moderately reduced LV systolic function with inferior inferoseptal wall motion abnormality with impaired relaxation filling pattern. Trace aortic and mitral regurgitation Normal RV systolic pressure -seen by cryptological technician Dr. Quinones 11/23/24, started on amlodipine 5mg daily , echo and Holter monitored. -hospitalized at [facility] 03/14/25 acute congestive heart failure in the setting of dilated cardiomyopathy and HFrEF. He was treated with IVP Lasix. Reccommended PCP or cryptological technician to switch losartan to Entresto as it requires prior authorization (done by ms 04/04/25) . Discharge home on torsemide 20mg daily to follow up with PCP. -euvolemic on hospital follow up with PCP 04/04/25 with baseline weight of 274 -Rx torsemide 20mg prescribed started inpatient 03/14/25 -discontinue valsartan per cardiology recommendation in impatent and start Entresto 04/04/25 -check BMP 7-10 days -will send note to cardiology regarding medication changes. Assessment & Plan (04/04/2025 10:40 AM EST): -Echo [facility] 01/23/21: Mildly to moderately reduced LV systolic function with inferior inferoseptal wall motion abnormality with impaired relaxation filling pattern. Trace aortic and mitral regurgitation Normal RV systolic pressure -seen by cryptological technician Dr. Quinones 11/23/24, started on amlodipine 5mg daily , echo and Holter monitored. -hospitalized at [facility] 03/14/25 acute congestive heart failure in the setting of dilated cardiomyopathy and HFrEF. He was treated with IVP Lasix. Reccommended PCP or cryptological technician to switch losartan to Entresto as it requires prior authorization (done by ms 04/04/25) . Discharge home on torsemide 20mg [...] Once per day. Basic Metabolic Panel; Future Abnormal renal ultrasound 04/03/2024 Overview (12/16/2024): US 03/01/[address]: Kenny Grossman MD for renal calculi [...] 10:44 AM EDT): US 03/01/[address]: Kenny Grossman MD for renal calculi [...] with LDL 98, TRI 78, HDL 41 Prolonged QT interval 05/05/2022 Type 2 diabetes mellitus wit h stage 3a chronic kidney disease 07/21/2021 Overview (04/04/2025): Diabetes is controlled. Lab Results Component Value [...] CDTM 11/23/23 -Diabetic eye exam: 10/28/23 with [facility] -Diabetic foot exam: done 01/17/25, referred to podiatry -Continue lifestyle modifications -Continue current medications Assessment & Plan (04/04/2025 10:40 AM EST): Diabetes is controlled. Lab Results Component Value [...] CDTM 11/23/23 -Diabetic eye exam: 10/28/23 with [facility] -Diabetic foot exam: done [...] CDTM 11/23/23 -Diabetic eye exam: 10/28/23 with [facility] -Diabetic foot exam: done 01/17/25, referred to podiatry -Continue lifestyle modifications -Continue current medications Orders: Hemoglobin A1c; Future Referral to Podiatry; Future Referral to [facility]; Future Assessment & Plan (07/31/2024 [...] CDTM 11/23/23 -Diabetic eye exam: 10/28/23 with [facility] -Diabetic foot exam: done [...] CDTM 11/23/23 -Diabetic eye exam: 10/28/23 with [facility] -Diabetic foot exam: done [...] colectomy with colonoscopy with Dr. Lilly at [facility] -T2N0, no chemotherapy needed -Last note from Dr. Lilly reviewed from 04/04/221 -s/p colonoscopy October 01, 2021 with Arm[facility] Rasmussen -Seen by Dr. Peterson 07/26/24, colonoscopy Impression: 2 subcentimeter polyps in the transverse colon were removed with cold forceps biopsy. -Repeat colonoscopy 5 years Assessment & Plan (04/04/2025 10:40 AM EST): -Invasive moderately differentiate adenocarcinoma on [...] colectomy with colonoscopy with Dr. Lilly at [facility] -T2N0, no chemotherapy needed -Last note from Dr. Lilly reviewed from 04/04/221 -s/p colonoscopy October 01, 2021 with rAmani Rasmussen -Seen by Dr. Peterson 07/26/24, colonoscopy [...] colectomy with colonoscopy with Dr. Lilly at [facility] -T2N0, no chemotherapy needed -Last note [...] colectomy with colonoscopy with Dr. Lilly at [facility] -T2N0, no chemotherapy needed -Last note [...] colectomy with colonoscopy with Dr. Lilly at [facility] -T2N0, no chemotherapy needed -Last note [...] colectomy with colonoscopy with Dr. Lilly at [facility] -T2N0, no chemotherapy needed -Last note [...] colectomy with colonoscopy with Dr. Lilly at [facility] -T2N0, no chemotherapy needed -Last note from Dr. Lilly reviewed from 04/04/221 -s/p colonoscopy October 01, 2021. Colonoscopy done 03/03/22 showed a 5mm polyp, sigmoid colon sessile, done by Dr. Cruzito Rasmussen at [facility]. Recommending 3 year follow up. Severe obesity (BMI 35.0-39.9) with comorbidity (CMS/HCC) 11/22/2013 Assessment & Plan (04/04/2025 10:40 AM EST): Dietary Recommendations: Fruits, vegetables, whole grains, protein foods, and fat-free or low-fat dairy products are healthy choices. Eat different types of protein foods in your diet. This can include seafood, lean meats, poultry, beans, peas, lentils, nuts, seeds, soy products, and eggs. Limit foods and beverages higher in added sugars, saturated fat, and sodium. Exercise Recommendations: At least 150 minutes of moderate-intensity physical activity per week, or an equivalent combination of moderate- and vigorous-intensity activity Obstructive sleep apnea syndrome 06/01/2013 Benign prostatic hyperplasia 11/26/2011 Overview (01/31/2025): Followed by [facility] -note from 01/31/25 reviewed, pt started on Cialis for erectile dysfunction Gastroesophageal reflux disease 11/26/2011 Overview (05/05/2022): Esophageal Reflux Assessment & Plan (01/27/2024 9:56 AM EDT): Esophageal Reflux Knee pain 11/26/2011 Overview (05/05/2022): Joint Pain, Localized In The Knee Vitamin D deficiency 11/26/2011 Overview (07/31/2024): Vitamin D Deficiency Chronic kidney disease, stage III (moderate) (CM S/HCC) 11/05/2011 Overview (03/26/2025): Lab Results Component Value Date CREATININE 1.32 01/15/2025 EGFR 53 01/15/2025 MICROALBCREU TNP 01/15/2025 MICROALBCREU 9.8 09/06/2024 LDLCHOLCAL 88 09/06/2024 -stable -avoid NSAIDS and nephrotoxic agents -control [...] of the above investigations. Assessment & Plan (04/04/2025 10:40 AM EST): Lab Results Component Value Date CREATININE 1.08 [...] nephrotoxic agents -control BP and blood glucose Recurrent major depressive disorder, in partial remission 11/05/2011 Overview (01/27/2024): -Stable. No suicidial or homacidial ideation. -Declines therapist or psychiatrist. Assessment & Plan (04/04/2025 10:40 AM EST): -Stable. No suicidial or homacidial ideation. -Declines therapist or psychiatrist. Assessment & Plan (01/27/2024 9:51 AM EDT): -Stable. No suicidial or homacidial ideation. -Declines therapist or psychiatrist. Hyperparathyroidism 10/09/2011 Overview (09/13/2024): [facility] [place] [...] 8.4 06/07/2024 Lab Results Component Value Date [id number] 26.2 (L) 09/06/2024 [id number] 28.1 (L) 01/27/2024 -advise increased vit D to 2000IU daily 09/13/24 Assessment & Plan (04/04/2025 10:40 AM EST): Assessment & Plan (01/17/2025 11:23 AM EDT): [...] [facility] 06[facility]24 Assessment & Plan (04/04/2025 10:40 AM EST): Orders: sacubitril-valsartan (Entresto) 49-51 MG tablet; Take 1 tablet by mouth 2 times daily. Assessment & Plan (04/04/2025 10:40 AM EST): -Blood pressure is at goal -Continue lifestyle modifications -Continue current medications: Amlodipine 10 mg and Carvedilol 12.5 mg and changed to entresto 03/2025 - Spironolactone 12.5mg once daily last filled 02/2024 by preferred pharmacy; patient not currently taking at this time - Saw [facility] cardiology 06/15/24 Assessment & Plan (01/17/2025 [...] Exercise counseling 07/31/2024 11/30/19 Dietary counseling 07/31/2024 History of hypercalcemia 06/13/202403/2025 Tinea pedis of both feet 01/27/2024 Overview [...] benefits discussed. Continue viagra 100mg as needed. Electrocardiogram abnormal 05/05/2022 1 06/03/2024 Overview (11/29/2024): Pt was seen at [facility] 02/11/21 for pre-op clearance, at that time [...] 9:23 AM EST): Pt was seen at [facility] 02/11/21 for pre-op clearance, at that time had PVCs on eKG and irregular pulse on exam likely due to compensatory pauses after PVCs . Per Echo 01/23/21: 1. Mildly to moderately reduced LV systolic function with inferior inferoseptal wall motion abnormality with impaired relaxation filling pattern 2. Trace aortic and mitral regurgitation 3. Normal RV systolic pressure 4. No pericardial effusion . Cancer of right colon (CMS/HCC) 02/24/2021 01/27/2024 Malignant neoplasm of descen ding colon ([facility]) 02/11/2021 01/27/2024 Overview (05/05/2022): Added automatically from request for surgery [id number] Hydronephrosis 07/20/2014 04/03/2025 Overview (04/03/2025): Hydronephrosis On The Left Calculus of ureter 07/20/2014 4 Overview (05/05/2022): [...] organization. Date Type Department Care Team Description 04/04/2025 9:00 AM EST Office Visit [facility] [address] [place] [phone] Smitha Matos MD Acute on chronic clinical systolic heart failure [...] hypertension; Encounter for immunization; Irregular heart rate 04/04/2025 Orders Only GENERIC EXTERNAL DATA DEPARTMENT Provider, Generic External Data 04/04/2025 Travel 04/03/2025 Telephone [facility] [address] [place] [phone] Smitha Matos MD chart prep 03/16/2025 Patient Outreach [facility] [address] [place] [phone] Smitha Matos MD Transition Of Care (Tcm) (HDF- scheduled and SDOH screening completed 07/19/2024) 03/16/[address] [address] Smitha Matos MD Hospital Follow-up 03/12/2025 2:30 PM EDT Office Visit [facility] [address] [place] [phone] Chyna Adame, PAIGE Type 2 diabetes mellitus without ophthalmic manifestations (HCC) (Primary Dx); Presbyopia; Combined forms of age-related cataract of both eyes; Posterior vitreous detachment of both eyes 03/12/2025 Travel 03/01/2025 Refill [facility] [address] [place] [address] Shayna Crane DO Primary hypertension 02/28/2025 Telephone [facility] [address] [place] [phone] Smitha Matos MD Durable Medical Equipment (DME: Diabetic Shoes) 01/30/2025 Refill [facility] [address] [place] [phone] Smitha Matos MD Primary hypertension 01/17/2025 10:15 AM EDT Office Visit [facility] [address] [place] [address] Smitha Matos MD Type 2 diabetes mellitus with stage 3 chronic kidney disease, without long-term current use of insulin, unspecified whether stage 3a or 3b CKD ([facility]/HCC) (Primary Dx); Irregular heart beat; Hyperparathyroidism ([facility]); Onychomycosis; Positive depression screening; Ambulates with cane; Adenocarcinoma of large intestine ([facility]); Hypertension, unspecified type 01/17/2025 Travel 01/16/2025 Telephone [facility] [address] [place] [phone] Smitha Matos MD CHART PREP 01/15/2025 Orders Only GENERIC EXTERNAL DATA DEPARTMENT Provider, Generic External Data 01/12/2025 Telephone [facility] [address] [place] [phone] Smitha Matos MD Labs Only 01/11/2025 Telephone [facility] [address] [place] [address] Smitha Matos MD from Last 3 Months Immunizations Immunization Administration Dates Next Due Hep B, adult 11/23/2023,02/18/2023,07/06/2022 Influenza High-dose Quadriva lent Preservative Free 02/16/2023,03/11/2020 Influenza injectable quadriv alent IIV4 with preservative 03/10/2017,02/15/2015 Influenza injectable quadriv alent preservative free 07/06/2022,07/10/2021,06/22/2016 Influenza, High Dose Seasona l, Preservative Free 04/04/2025,03/10/2024,02/06/2019,04/11 Influenza, IIV3, injectable 05/31/2014 Influenza, Split (incl. [...] is your housing situation today? I have iabn finch 01/27/[address] you [...] oz) 04/04/2025 8:58 A M EST Height 180.3 cm (5' 11 ) 01/17/2025 10:24 AM EDT Body Mass Index 38.33 01/17/2025 10:24 AM EDT Plan of Treatment Health Maintenance Due Date Last Done Comments CT Colonography 1952 FIT DNA/Cologuard 1952 FIT 1952 FOBT 1950 Sigmoidoscopy 1950 HIB Vaccines (1 of 1 - Risk 1-dose series) 08/23/1953 Meningococcal Vaccine (1 - Risk 2-dose series) 1954 Meningococcal B Vaccine (1 of 4 - Increased Risk) 1962 Diabetes: Hemoglobin A1C 07/05/2025 025, 01/15/2025, 09/06/2024, Additional history exists SDOH Screening 07/19/2025 07/19/2024 Alcohol/Substance Use Screening 07/31/2025 07/31/2024 Lipid Panel 09/06/2025 09/06/2024, 0606/2023, 07/06/2022, Additional history exists Depression Screening 01/17/2026 01/17/2025, 01/18/20 COVID-19 Vaccine ( season) 2026 10/16/2020, 09/18/2020 Postponed from 01/22/2025 (Patient Refused) Diabetes: Foot Exam 04/04/2026 04/04/2025, 04/04/2025, 04/04/2025, Additional history exists Tobacco Screening 04/04/2026 04/04/2025 Eye Exam 03/12/2027 03/12/2025, 02/22, 03/12/2025, Additional history exists Colonoscopy 07/27/2027 07/26/2024, 03/0 09/2024, 07/06/2022, Additional history exists Colorectal Cancer Screening 07/27/2027 DTaP/Tdap/Td Vaccines (3 - Td or Tdap) 02/16/2033 02/16/2023, 01/21/2012 Zoster Vaccines Completed 01/17/2021, 11/13/2020 Pneumococcal Vaccine: 50+ Years Completed 07/10/2021, 07/21/2018 Hepatitis C Screening Completed 07/06/2022, 022 Hepatitis B Vaccines Completed 11/23/2023, 02/18/2023, 07/06/2022 RSV Patients and Patients Aged 60 years or older Completed 11/23/2023 Influenza Vaccine Completed 04/04/2025, , 02/16/2023, Additional history exists HPV Vaccines Aged Out No longer eligi [...] Pressure 142/82(2024 8:58 AM EST) No Marissa Reynaga, PharmD Hemoglobin A1c < 7 Result Component 6.6( 9:00 AM EST) Marissa Edmond, PharmD Help patients manage their type 2 diabetes Care Plan Help patients manage their type 2 diabetes Smitha Garcia MD Weekly blood pressure task [...] has chronic kidney disease Smitha Garcia MD Procedures Procedure Name Priority Date/Time Associated Diagnosis Comments ECG 12-LEAD Routine 04/04/2025 10:36 AM EST Irregular heart rate URINALYSIS WITH REFLEX TO MICROSCOPIC Routine 04/04/2025 10:29 AM EST POCT GLYCOSYLATED HEMOGLOBIN (HGB A1C) Routine 04/04/2025 [...] whether stage 3a or 3b CKD (HCC) ECG 12-LEAD Routine 01/17/2025 11:18 AM EDT [...] EDT Hyperparathyroidism (CMS/HCC) HEPATIC FUNCTION PANEL Routine 01/15/2025 8:33 AM EDT Type 2 [...] Health Maintenance Results * ECG 12 lead (04/04/2025 10:36 AM EST) Only the most recent of2 resultswithin the time period is included. Narrative Smitha Matos MD - 04/04/2025 10:36 AM EST Sinus rhythum at 74 bpm with first degree AV block, LBBB us Smitha Matos MD ECG ORDERABLES Final Resu lt * Urinalysis with Reflex to Microscopic (04/04/2025 10:29 AM EST) Color Urine Yellow [facility] Appearance Urine Clear [facility] PH 7.0 5.0 - 9.0 [facility] Glucose Urine UA Negative Negative mg/dL [facility] Urine Blood Negative Negative [facility] Specific [place] - Urine 1.015 1.005 - 1.025 [facility] Urine Protein Negative Neg-Trace mg/dL [facility] Urine Ketones Negative Negative mg/dL [facility] Nitrite Urine Negative Negative [facility] Leukocyte Esterase Urine Negative Negative [facility] 04/04/2025 10:2 9 AM EST 04/04/2025 11:40 AM EST Generic External Data Provider LAB URINE ORDERAB LES Final Result [facility] [address] [place] [phone] * (ABNORMAL) POCT glycosylated hemoglobin (Hgb A1c) (04/04/2025 9:00 AM EST) Hemoglobin A1C 6.6(A) 4.0 - 5.7 % QC Media Lot # [id number] Lot# Expiration Date Blood Capillary blood specimen / Unknown 04/04/2025 9:00 AM EST Smitha Matos MD POINT OF CARE TEST ENTER/E DIT ORDERABLES Final Result * POCT glucose manually resulted (04/04/2025 8:59 AM EST) Glucose Blood, POC 98 60 - 200 mg/dL QC Media Lot # [id number] Lot# Expiration Date Blood Capillary blood specimen / Unknown 04/04/2025 8:59 AM EST Smitha Matos MD POINT OF CARE TEST ENTER/E DIT ORDERABLES Final Result * Vitamin D, 25-Hydroxy, Total, Immunoassay (01/15/2025 8:33 AM EDT) Vitamin D 25-OH Total 45.9 >30 ng/mL [facility] Comment: Health Based Reference Values*< 20 ng/mL [id number] ng/mL Insufficient> 30 ng/mL Sufficient*Luigi EUGENE. N [...] BLOOD ORDERABLES Final Result Performing Organization Address [facility]/ZIP Co de Phone Number [facility] [address] [place] [phone] * Albumin, Random Urine W/Creatinine (01/15/2025 8:33 AM EDT) Creatinine, Urine 106.23 mg/dL [facility] Microalbumin Urine <5.0 mg/L [facility] Microalbum Creatinine Ratio Ur TNP <30 ug/mg cr [facility] Comment:Unable to calculate albumin/creatinine ratio due to lowmicroalbumin or creatinine result. Urine (Urine, Random) 01/15/2025 8:33 AM EDT 01/15/2025 11:00 AM EDT Smitha Matos MD LAB URINE ORDERABLES Final Result Performing Organization Address [facility]/ZIP Co de Phone Number [facility] [address] [place] [phone] * CBC (01/15/2025 8:33 AM EDT) White Blood Count 5.5 4.8 - 10.8 X10*3/uL [facility] Red Blood Count 4.79 4.60 - 5.80 X10*6/uL [facility] Hemoglobin 14.1 14.0 - 18.0 g/dl [facility] Hematocrit 43.2 42.0 - 52.0 % [facility] Mean Corpuscular Volume 90.2 80.0 - 98.0 fL [facility] Mean Corpuscular Hemoglobin 29.4 27.0 - 33.0 pg [facility] Mean Corpuscular HGB Conc 32.6 31.0 - 36.0 g/dl [facility] Red Cell Distribution Width 13.3 11.0 - 16.0 % [facility] Platelet Count 207 160 - 400 X10*3/uL [facility] Mean Platelet Volume 12.3 9.4 - 12.4 fL [facility] NRBC Pct Auto 0.0 0.0 - 0.2 /100WBC [facility] NRBC Abs Auto 0.000 0.0 - 0.012 X10*3/uL [facility] 01/15/2025 8:33 AM EDT 01/15/2025 11:03 AM EDT us Generic External Data Provider LAB BLOOD ORDERAB LES Final Result Performing Organization Address [facility] de Phone Number [facility] [address] [place] [phone] * PSA,Total (01/15/2025 8:33 AM EDT) Prostate Specific Antigen 0.26 <0.05 - 4.0 ng/mL [facility] Comment:PSA methodology: Abb cuba Alinity i ChemiluminescentMicroparticle Immunoassay (CMIA) 01/15/2025 8:33 AM EDT 01/15/2025 11:03 AM EDT us Generic External Data Provider LAB BLOOD ORDERAB LES Final Result Performing Organization Address City/[facility]/ZIP Co de Phone Number [facility] [address] [place] [phone] * (ABNORMAL) PTH, Intact Without Calcium (01/15/2025 8:33 AM EDT) Parathyroid Hormone, Intact 96.7(H) 8.7 - 77.1 pg/mL [facility] Blood Venous blood specimen / Unknown 01/15/2025 8:33 AM EDT 01/15/2025 11:03 AM EDT Smitha Matos MD LAB BLOOD ORDERABLES Final Result [facility] [address] [place] [phone] * (ABNORMAL) Hemoglobin A1c (01/15/2025 8:33 AM EDT) Hemoglobin A1c 6.5(H) <6.0 % [facility] Comment:Hemoglobin A1C Refer ence Range Adults: 4.8 - 6.0 % Non diabetic: < 6.0 % Goal: < 7.0 %Additional Action Suggested: > 8.0 %Note: Hemoglobin A1c results are invalid for patients with abnormal amounts of HbF. Blood transfusions may impact the HbA1c concentration in the patient sample. Estimated Average Glucose 140 mg/dL [facility] Comment:eAG = Estimated ave rage glucose which is %A1C expressed asaverage glucose, using the formula of the B6K-YpbitryPzoshqq Glucose study (ADAG), Diabetes Care, Vol.31,#8,2007 Blood Venous blood specimen / Unknown 01/15/2025 8:33 AM EDT 01/15/2025 11:03 AM EDT Smitha Matos MD LAB BLOOD ORDERABLES Final Result [facility] [address] [place] [phone] * Vitamin B12 (01/15/2025 8:33 AM EDT) Vitamin B12 237 200 - 900 pg/mL [facility] Comment:NORMAL 200-900 PG/ML INDETERMINATE 160-199 PG/ML DEFICIENT < 160 PG/ML 01/15/2025 8:33 AM EDT 01/15/2025 11:03 AM EDT Smitha Matos MD LAB BLOOD ORDERABLES Final Result Performing Organization Address City/[facility]/ZIP Co de Phone Number [facility] [address] [place] [phone] * Hepatic Function Panel (01/15/2025 8:33 AM EDT) [facility] Bilirubin, Total 0.7 0.0 - 1.0 mg/dL [facility] Bilirubin, Direct 0.3 0.0 - 0.5 mg/dL [facility] Aspartate Amino Transferase 33 5 - 37 U/L [facility] Alanine Aminotransferase 26 0 - 40 U/L [facility] Total Protein 7.2 6.5 - 8.0 g/dL [facility] Albumin Level 4.2 3.5 - 5.0 g/dL [facility] Alkaline Phosphatase 71 39 - 117 U/L [facility] Blood Venous blood specimen / Unknown 01/15/2025 8:33 AM EDT 01/15/2025 11:03 AM EDT Smitha Matos MD LAB BLOOD ORDERABLES Final Result Performing Organization Address City/[facility]/ZIP Co de Phone Number [facility] [address] [place] [address] [phone] * (ABNORMAL) Basic Metabolic Panel (01/15/2025 8:33 AM EDT) [facility] Sodium 141 135 - 145 mmol/L [facility] Potassium 3.9 3.3 - 5.1 mmol/L [facility] Chloride 106 96 - 108 mmol/L [facility] Carbon Dioxide 28 22 - 29 mmol/L [facility] Anion Gap 11(L) 12 - 20 [facility] Urea Nitrogen (BUN) 15 9 - 16 mg/dL [facility] Creatinine, Serum 1.32 0.5 - 1.4 mg/dL [facility] Estimated Glomerular Filt Rate 53 [facility] Comment:Chronic Kidney Disea se: Estimated GFR < 60 mL/min/1.33s2Eoijap Kidney Disease: Estimated GFR < 15 mL/min/1.73m2 Glucose 112 60 - 115 mg/dL [facility] Calcium 8.8 8.4 - 10.2 mg/dL [facility] 01/15/2025 8:33 AM EDT 01/15/2025 11:03 AM EDT us Generic External Data Provider LAB BLOOD ORDERAB LES Final Result [facility] [address] [place] [phone] * Lipid Panel, Standard (09/06/2024 10:45 AM EDT) Triglycerides 64 <150 mg/dL [facility] Comment:Desirable Triglyceri de: less than 150 mg/dLBorderline High Triglyceride 150-199 mg/dLHigh Triglyceride: 200-499 mg/dLVery High Triglyceride: greater than or equal to 5OO mg/dL Cholesterol 148 <200 mg/dL [facility] Comment:Desirable Cholestero l: less than 200 mg/dLBorderline High Cholesterol: 200-239 mg/dLHigh Cholesterol: greater than 239 mg/dL LDL Cholesterol Calculated 88 <100 mg/dL [facility] Comment:Desirable LDL: less than 100 mg/dLNear Optimal/Above Optimal LDL: 110- 129 mg/dLBorderline High LDL: 130-159 mg/dLHigh LDL: 160-189 mg/dLVery High LDL: greater than or equal to 190 mg/dL HDL Cholesterol 48 >40 mg/dL [facility] Comment:Desirable HDL: great er than 40 mg/dL Note: This HDL assay may give artificially low results in patients with liver disease. Blood Venous blood specimen / Unknown 09/06/2024 10:45 AM EDT 09/06/2024 11:10 AM EDT Result [facility] Smitha Matos MD LAB BLOOD ORDERABLES Final Result [facility] [address] [place] [address] [phone] * Colonoscopy (07/26/2024 2:09 PM EST) [...] Hepatitis C Antibody NON-REACT BRANDON NON-REACT BRANDON [facility] Index 0.11 <1.00 [facility] Comment: HCV antibody was non-reactive. There is no laboratory evidence of HCV infection. In most cases, no further action is required. However, if recent HCV exposure is suspected, a test for HCV RNA (test code 13392) is suggested. For additional information please refer to http://education.[employer]/faq/ZRP38r8 (This link is being provided for informational/ educational purposes only.) Blood Venous blood specimen / Unknown 07/06/2022 10:18 AM EST 07/06/2022 10:18 AM EST Narrative [facility] - 07/11/2022 2:05 PM EST FASTING:YES FASTING: YES Result [facility] Smitha Matos MD LAB BLOOD ORDERABLES Final Result [facility] [address], [place] [address] [facility] 200 [facility], (N[facility]) [place] [address] from Last 3 Months or Most Recently Relevant to Health Maintenance Additional Health Concerns Active Problems Noted Date Diagnosed Date Help patients manage their type 2 diabetes 04/04 Weekly blood pressure task 04/04/2025 Help patients manage their type 2 diabetes 04/04 Patient has chronic kidney disease 04/04/2025 Weekly blood pressure task 04/04/2025 Patient has chronic kidney disease 04/04/2025 Insurance [facility] ASSISTED OPTIONS (O D-SNP) Advance Directives Documents on File Type Date Recorded Patient B Operator Expl anation Advance Directives and Living Will 01/27/2024 Health Care Proxy 01/27/24 Care Teams Ceramist Relationship Specialty Start Date End Date Glades, MD Smitha [address] [place] [phone] PCP - General Family Medicine 05/24/18 Kenny Grossman MD 100 [facility] 200 [place] [address] Nephrology 06/07/24 Denisse Ingram NP [address] [place] [address] Urology 08/07/24 Dr. Paco Rodriges MD [facility] Cardiology [address] [place] [address]- Cardiology 06/14/24 Dr. Nancie Lilly MD [address] [address] Colon and Rectal Surgery 07/27/24
--- OUTSIDE RECORDS SUMMARY | 2025-04-04 12:07 | XMS_ITS | Encounter Summary ---
Author Organization [employer] Address 75 [facility] 7t [place] [address] Care Team Providers Care Mud Temperer Name Role Phone Smitha Matos MD Primary Care Provider [phone]- [phone] Marissa Barbosa PharmD Unavailable [phone]- [phone] Kenny Grossman MD Unavailable [phone] Denisse Ingram RESPIRATORY PHYSICIAN Unavailable Encounter Details Date Type Department Care Team (Late st Contact Info) Description 11/03/2023 Abstract [facility] MEDICINE [address] [place] [address] Fátima Grigsby [place] Social History Tobacco Use [...] 142/82(2024 8:58 AM EST) No Marissa Reynaga PharmMary Hemoglobin A1c < 7 Result Component 6.6( 9:00 AM EST) No Marissa Reynaga PharmD documented as of this encounter Procedures Procedure Name Priority Date/Time Associated Diagnosis Comments DIABETES EYE EXAM Routine 11/03/2023 1:42 PM EDT documented in this encounter Results * Diabetes Eye Exam (11/03/2023 1:42 PM EDT) [facility] Eye Exam Normal Normal Comment:follow up one year Historical Provider HEALTH MAINTENANCE Final Result documented in this encounter Visit Diagnoses Not on filedocumented in this encounter Care Teams Mud Temperer Relationship Specialty Start Date End Date Smitha Matos MD 230 [place] [address] PCP - General Family Medicine 05/24/18 Marissa Barbosa, PharmD 230 [place] [address] Pharmacist Internal Medicine 08/12/22 08/21/24 Kenny Grossman MD 100 [facility] 200 [place] [address] Nephrology 06/07/24 Denisse Ingram NP [address] [place] [address] Drive [address] [place] [address] Urology 08/07/24 Dr. Paco Rodriges MD [facility] Cardiology [address] [place] [address]- Cardiology 06/14/24 Dr. Nancie Lilly MD [address] [address] Colon and Rectal Surgery 07/27/24 documented as of this encounter
--- OUTSIDE RECORDS SUMMARY | 2025-04-04 12:07 | XMS_ITS | Encounter Summary ---
Author Organization [facility] Address 75 [facility] 7t [place] [address] Care Team Providers Care Brick Loader Name Role Phone Smitha Matos MD Primary Care Provider [phone]- [phone] Marissa Barbosa PharmD Unavailable Kenny Grossman MD Unavailable [phone] Denisse Ingram NP Unavailable Encounter Details Date Type Department Care Team (Late st Contact Info) Description 06/29/2022 Abstract [facility] MEDICINE 230 [place], [place] [phone] Smitha Matos MD 230 [place], [place] [phone] Social History Tobacco Use Types Packs/Day Years [...] on filedocumented in this encounter Care Teams Brick Loader Relationship Specialty Start Date End Date Smitha Matos MD 230 [place] [address] PCP - General Family Medicine 05/24/18 Marissa Barbosa PharmD 230 [place] [address] Pharmacist Internal Medicine 08/12/22 08/21/24 Kenny Grossman MD 100 [facility] 200 [place] [phone] Nephrology 06/07/24 Denisse Ingram NP [address] [place] [address] Urology 08/07/24 Dr. Paco Rodriges MD [facility] Cardiology [address] [place] [address]- Cardiology 06/14/24 Dr. Nancie Lilly MD [address] [phone] Colon and Rectal Surgery 07/27/24 documented as of this encounter
--- OUTSIDE RECORDS SUMMARY | 2025-04-04 12:07 | XMS_ITS | Encounter Summary ---
Author Organization [employer] Address 75 [facility] 7t [place] [address] Care Team Providers Care Patent Lawyer Name Role Phone Smitha Matos MD Primary Care Provider [phone]- [phone] Marissa Barbosa PharmD Unavailable [phone] Kenny Grossman MD Unavailable [phone] Denisse Ingram RIDE ASSEMBLY SUPERVISOR Unavailable Encounter Details Date Type Department Care Team (Late st Contact Info) Description 07/27/2024 Orders Only [facility] 230 [place] [address] Provider, MD Ju Social History Tobacco Use [...] documented as of this encounter Care Teams Patent Lawyer Relationship Specialty Start Date End Date Smitha Matos MD 230 [place] [address] PCP - General Family Medicine 05/24/18 Marissa Barbosa, ZeinaD [address] [place] [address] Pharmacist Internal Medicine 08/12/22 08/21/24 Kenny Grossman MD 100 [facility] 200 [place] [address] Nephrology 06/07/24 Denisse Ingram NP [address] [place] [address] Drive [address] [place] [address] Urology 08/07/24 Dr. Paco Rodriges MD [facility] Cardiology [address]00 [place] [address]- Cardiology 06/14/24 Dr. Nancie Lilly MD [address] [address] Colon and Rectal Surgery 07/27/24 documented as of this encounter
--- OUTSIDE RECORDS SUMMARY | 2025-04-04 12:07 | XMS_ITS | Encounter Summary ---
Author Organization [employer] Address 75 [facility] 7t [place] [address] Care Team Providers Care Weapons Mechanic Name Role Phone Smitha Matos MD Primary Care Provider [phone]- [phone] Marissa Barbosa PharmD Unavailable Kenny Grossman MD Unavailable [phone] Denisse Ingram CHIEF MARKETING OFFICER Unavailable Encounter Details Date Type Department Care Team (Late st Contact Info) Description 10/29/2022 Abstract [facility] MEDICINE 230 [place], [place] [phone] Smitha Matos MD 230 [place], [place] [phone] Social History Tobacco Use Types Packs/Day Years [...] Exam (10/08/2022) Eye Exam Normal Normal 10/08/2022 us Meeta Butlerfrederick OD HEALTH MAINTENANCE Final Resul t documented in this encounter Visit Diagnoses Not on filedocumented in this encounter Care Teams Weapons Mechanic Relationship Specialty Start Date End Date Smitha Matos MD 230 [place] [address] PCP - General Family Medicine 05/24/18 Marissa Barbosa, PharmD 230 [place] [address] Pharmacist Internal Medicine 08/12/22 08/21/24 Kenny Grossman MD 100 [facility] 200 [place] [address] Nephrology 06/07/24 Denisse Ingram NP [address] [place] [address] Urology 08/07/24 Dr. Paco Rodriges MD [facility] Cardiology [address]00 [place] [address]- Cardiology 06/14/24 Dr. Nancie Lilly MD [address] [address] Colon and Rectal Surgery 07/27/24 documented as of this encounter
--- OUTSIDE RECORDS SUMMARY | 2025-04-04 12:07 | XMS_ITS | Encounter Summary ---
Author Organization [employer] Address 75 [facility] 7t [place] [address] Care Team Providers Care Chiropractor Assistant Name Role Phone Smitha Matos MD Primary Care Provider [phone]- [phone] Kenny Grossman MD Unavailable [phone] Denisse Ingram NP Unavailable Encounter Details Date Type Department Care Team (Late st Contact Info) Description 04/04/2025 Orders Only GENERIC EXTERNAL DATA DEPARTMENT [...] has chronic kidney disease Smitha Garcia MD documented as of this encounter Procedures Procedure Name Priority Date/Time Associated Diagnosis Comments URINALYSIS WITH REFLEX TO MICROSCOPIC Routine 04/04/2025 10:29 AM EST documented in this encounter Results * Urinalysis with Reflex to Microscopic (04/04/2025 10:29 AM EST) Color Urine Yellow [facility] Appearance Urine Clear [facility] PH 7.0 5.0 - 9.0 [facility] Glucose Urine UA Negative Negative mg/dL [facility] Urine Blood Negative Negative [facility] Specific [place] - Urine 1.015 1.005 - 1.025 [facility] Urine Protein Negative Neg-Trace mg/dL [facility] Urine Ketones Negative Negative mg/dL [facility] Nitrite Urine Negative Negative [facility] Leukocyte Esterase Urine Negative Negative [facility] 04/04/2025 10:2 9 AM EST 04/04/2025 11:40 AM EST us Generic External Data Provider LAB URINE ORDERAB LES Final Result [facility] [address] [place] [phone] [phone] documented in this encounter Visit Diagnoses Not on filedocumented in this encounter Additional Health Concerns Active [...] documented as of this encounter Care Teams Chiropractor Assistant Relationship Specialty Start Date End Date Smitha Matos MD 230 [place] [address] PCP - General Family Medicine 05/24/18 Kenny Grossman MD 100 [facility] 200 [place] [address] Nephrology 06/07/24 Denisse Ingram NP [address] [place] [address] Urology 08/07/24 Dr. Paco Rodriges MD [facility] Cardiology [address]00 [place] [address]- Cardiology 06/14/24 Dr[place] [address] Colon and Rectal Surgery 07/27/24 documented as of this encounter
--- OUTSIDE RECORDS SUMMARY | 2025-04-04 12:07 | XMS_ITS | Encounter Summary ---
Author Organization [employer] Address 75 [facility] 7t [place] [address] Care Team Providers Care Strip Stamp Straightener Name Role Phone Smitha Matos MD Primary Care Provider [phone]- [phone] Marissa Barbosa PharmD Unavailable [phone] Kenny Grossman MD Unavailable [phone] Denisse Ingram MALL PLANT CARETAKER Unavailable Reason for Visit * Reason Onset Date Comments Appointment Request 05/29/2024 Encounter Details Date Type Department Care Team (Late st Contact Info) Description 05/29/2024 Telephone [facility] MEDICINE 230 [place] [address] Smitha Matos MD 230 [place], [place] [phone] Appointment Request Social History Tobacco Use Types [...] reschedule CDTM visit. Please contact pt at [phone]. (Qatari Speaker) documented in this encounter Plan of Treatment Not on file documented as of this encounter Goals Goal Patient Goal Type Associated Problems Recent Progress Patient-Stated? Author Blood Pressure < 140/90 Blood Pressure 142/82(2024 8:58 AM EST) Marissa Edmond PharmD Hemoglobin A1c < 7 Result Component 6.6( 9:00 AM EST) No Marissa Reynaga, PharmD documented as of this encounter Visit Diagnoses Not on filedocumented in this encounter Additional Health Concerns Assessment Noted Time PHQ-9 Depression Total Score: 3 01/27/20 24 9:37 AM EDT documented as of this encounter Care Teams Strip Stamp Straightener Relationship Specialty Start Date End Date Smitha Matos MD 230 [place] [address] PCP - General Family Medicine 05/24/18 Marissa Barbosa, PharmD 230 [place] [address] Pharmacist Internal Medicine 08/12/22 08/21/24 Kenny Grossman MD 100 [facility] 200 [place] [address] Nephrology 06/07/24 Denisse Ingram NP [address] [facility] [address] [place] [address] Urology 08/07/24 Dr. Paco Rodriges MD [facility] Cardiology [address] [place] [address]- Cardiology 06/14/24 Dr. Nancie Lilly MD [address] [address] Colon and Rectal Surgery 07/27/24 documented as of this encounter
--- OUTSIDE RECORDS SUMMARY | 2025-04-04 12:07 | XMS_ITS | Encounter Summary ---
Author Organization [employer] Address 75 [facility] 7t [place] [address] Care Team Providers Care Overhead Irrigator Name Role Phone Smitha Matos MD Primary Care Provider [phone]- [phone] Marissa Barbosa PharmD Unavailable Kenny Grossman MD Unavailable [phone] Denisse Ingram NUCLEAR PROCESS ENGINEER Unavailable Encounter Details Date Type Department Care Team (Late st Contact Info) Description 08/13/2022 Orders Only [facility] MEDICINE 230 [place], [place] [phone] Smitha Matos MD 230 [place], [place] [phone] Primary hypertension (Primary Dx) Social History Tobacco [...] 11:15 AM EDT) Creatinine, Urine 94.95 mg/dL [facility] Microalbumin Urine 8.0 mg/L [facility] Microalbum Creatinine Ratio Ur 8.4 <30 ug/mg cr [facility] Comment:Albumin/Creatinine R atio Reference Ranges: Normal: < 30 ug/mg creatinine Microalbuminuria: 30 - 300 ug/mg creatinineClinical Albuminuria: > 300 ug/mg creatinine 02/18/2023 11:1 5 AM EDT 02/18/2023 1:01 PM EDT Smitha Matos MD LAB URINE ORDERABLES Final Result [facility] [address] [place] [phone] documented in this encounter Visit Diagnoses Diagnosis Primary hypertension- Primary Unspecified essential hypertension documented in this encounter Care Teams Overhead Irrigator Relationship Specialty Start Date End Date Smitha Matos MD 230 [place] [address] PCP - General Family Medicine 05/24/18 Marissa Barbosa PharmD 230 [place] [address] Pharmacist Internal Medicine 08/12/22 08/21/24 Kenny Grossman MD 100 [facility] 200 [place] [address] Nephrology 06/07/24 Denisse Ingram NP [address] [place] [address] Drive [address] [place] [address] Urology 08/07/24 Dr. Paco Rodriges MD [facility] Cardiology [address]00 [place] [address]- Cardiology 06/14/24 Dr. Nancie Lilly MD [address] [address] Colon and Rectal Surgery 07/27/24 documented as of this encounter
--- OUTSIDE RECORDS SUMMARY | 2025-04-04 12:07 | XMS_ITS | Clinical Summary ---
Author Organization [address] [place] [address] Address [address] [place] [address] Phone Care Team Providers Care Extractive Metallurgist Name Role Phone Smitha Matos MD Primary Care Provider +1- [phone] Social History Tobacco Use Types Packs/Day Years [...] Health Maintenance Due Date Last Done Comments Colorectal Cancer Screening: Colonoscopy 1952 Diabetes: Annual GFR (Glomer ular Filtration Rate) 1952 Diabetes: Annual Foot Exam 1962 Diabetes: Annual Retina Eye Exam 1962 DTaP,Tdap,and Td Vaccines (1 - Tdap) 1971 Pneumococcal Vaccine: 50+ Ye ars (1 of 2 - PCV) 1971 RSV Immunization Adult Patie nts (1 - Risk 50-74 years 1-dose series) 2002 Zoster Vaccines (1 of 2) 2002 Abdominal Aortic Aneurysm (A AA) Screen 06/23/2023 Cholesterol Screening (Lipid Panel) 06/23/2023 Falls Risk Assessment 06/23/2023 Hepatitis C Screening 06/23/2023 Medicare Annual Wellness Visit 06/23/2023 Social Influencers of Health Screening 06/23/2023 Depression Screening 05/24/2024 COVID-19 Vaccine (1 - 2024-2 6 season) 2025 Influenza Vaccine (#1) 2025 Diabetes: [...] ID:[id number] Group ID:[id number] Type:Not on file Address: [place] [address] [address] [address] Care Teams Extractive Metallurgist Relationship Specialty Start Date End Date Baker, MD Smitha [address] [place] [phone] PCP - General 09/14/11
--- OUTSIDE RECORDS SUMMARY | 2025-04-04 12:07 | XMS_ITS | Encounter Summary ---
Author Organization [employer] Address 75 [facility] 7t [place] [address] Care Team Providers Care Personal Fitness Trainer Name Role Phone Carlo Smitha CHOUDHURY Primary Care Provider +- [phone] Marissa Barbosa PharmD Unavailable Kenny Grossman MD Unavailable [phone] Denisse Ingram NP Unavailable Reason for Visit * Reason Comments Med Refill Encounter Details Date Type Department Care Team (Late st Contact Info) Description 11/22/2023 Refill [facility] MEDICINE 230 [place], [place] [phone] Marissa Barbosa, PharmD 230 [place] [address] Social History Tobacco Use Types Packs/Day Years [...] on filedocumented in this encounter Care Teams Personal Fitness Trainer Relationship Specialty Start Date End Date Smitha Matos MD 230 [place] [address] PCP - General Family Medicine 05/24/18 Marissa Barbosa, PharmD 230 [place] [address] Pharmacist Internal Medicine 08/12/22 08/21/24 Kenny Grossman MD 100 [facility] 200 [place] [address] Nephrology 06/07/24 Denisse Ingram NP [address] [facility] [address] [place] [address] Urology 08/07/24 Dr. Paco Rodriges MD [facility] Cardiology [address] [place] [address]- Cardiology 06/14/24 Dr. Nancie Lilly MD [address] [phone] Colon and Rectal Surgery 07/27/24 documented as of this encounter
--- OUTSIDE RECORDS SUMMARY | 2025-04-04 12:07 | XMS_ITS | Encounter Summary ---
Author Organization [employer] Address 75 [facility] 7t [place] [address] Care Team Providers Care Agricultural Mechanic Name Role Phone Smitha Matos MD Primary Care Provider [phone]- [phone] Kenny Grossman MD Unavailable [phone] Denisse Ingram NP Unavailable Encounter Details Date Type Department Care Team (Latest Contact Info) Description 04/04/2025 Travel Social History Tobacco Use Types Packs/Day [...] task Care Plan Weekly blood pressure task No Smitha Matos MD Help patients manage their type 2 diabetes Care Plan Help patients manage their type 2 diabetes No Smitha Matos MD Patient has chronic kidney disease Care Plan Patient has chronic kidney disease No Smitha Matos MD Weekly blood pressure task Care Plan Weekly blood pressure task No Smitha Matos MD Patient has chronic kidney disease Care Plan Patient has chronic kidney disease No Smitha Matos MD documented as of this encounter Visit Diagnoses [...] documented as of this encounter Care Teams Agricultural Mechanic Relationship Specialty Start Date End Date Smitha Matos MD [address] [place] [address] PCP - General Family Medicine 05/24/18 Kenny Grossman MD 100 [facility] 200 [place] [address] Nephrology 06/07/24 Denisse Ingram NP [address] [place] [address] Urology 08/07/24 Dr. Paco Rodriges MD [facility] Cardiology [address] [place] [address]- Cardiology 06/14/24 Dr. Nancie Lilly MD [address] [address] Colon and Rectal Surgery 07/27/24 documented as of this encounter
--- OUTSIDE RECORDS SUMMARY | 2025-04-04 12:07 | XMS_ITS | Encounter Summary ---
Author Organization [employer] Address 75 [facility] 7t [place] [address] Care Team Providers Care Swinging Cut Off Saw Operator Name Role Phone Carlo Smitha CHOUDHURY Primary Care Provider +- [phone] Marissa Barbosa PharmD Unavailable [phone] Kenny Grossman MD Unavailable [phone] Denisse Ingram NP Unavailable Reason for Visit * Reason Comments Med Refill Encounter Details Date Type Department Care Team (Late st Contact Info) Description 12/15/2023 Refill [facility] MEDICINE [address] [place], [place] [phone] Marissa Barbosa, PharmD [address] [place] [address] Social History Tobacco Use Types Packs/Day Years [...] on filedocumented in this encounter Care Teams Swinging Cut Off Saw Operator Relationship Specialty Start Date End Date Smitha Matos MD [address] [place] [address] PCP - General Family Medicine 05/24/18 Marissa Barbosa, PharmD [address] [place] [address] Pharmacist Internal Medicine 08/12/22 08/21/24 Kenny Grossman MD [address] [facility] 200 [place] [address] Nephrology 06/07/24 Denisse Ingram NP [address] [place] [address] Urology 08/07/24 Dr. Paco Rodriges MD [facility] Cardiology [address] [place] [address]- Cardiology 06/14/24 Dr. Nancie Lilly MD [address] [id number] Colon and Rectal Surgery 07/27/24 documented as of this encounter
--- OUTSIDE RECORDS SUMMARY | 2025-04-04 12:07 | XMS_ITS | Encounter Summary ---
Author Organization [employer] Address 75 [facility] 7t [place] [address] Care Team Providers Care Arc And Gas Welder Name Role Phone Smitha Matos MD Primary Care Provider [phone] Kenny Grossman MD Unavailable [phone] Denisse Ingram NP Unavailable Reason for Visit * Reason Onset Date Comments Hospital Follow-up 03/16/2025 Encounter Details Date Type Department Care Team (Late st Contact Info) Description 03/16/2025 Telephone [facility] MEDICINE 230 [place], [place] [phone] Smitha Matos MD [address] [place], [place] [phone] Hospital Follow-up Social History Tobacco Use Types Packs/Day Years [...] encounter Miscellaneous Notes * Telephone Encounter - Cris Green - 03/16/2025 2:38 PM EDT Tc from pt requesting a HDF appt. Hospital: [facility] Date of admission: 03/14 Discharge date: 03/16 Diagnosed: fluid in lungs *Send message to [place] [facility]ordin[facility] Contact pt at [phone] (bulgarian) or [phone] documented in this encounter Plan of Treatment Not on file documented as of this encounter Goals Goal Patient Goal Type Associated Problems Recent Progress Patient-Stated? Author Blood Pressure < 140/90 Blood Pressure 142/82(2024 8:58 AM EST) No Piers-Gambl e, Marissa, PharmD Hemoglobin A1c < 7 Result Component 6.6( 9:00 AM EST) No Piers-Gambl e, Marissa, PharmD documented as of this encounter Visit Diagnoses Not on filedocumented in this encounter Additional Health Concerns Assessment Noted Time PHQ-9 Depression Total Score: 5 01/18/20 25 10:50 AM EDT documented as of this encounter Care Teams Arc And Gas Welder Relationship Specialty Start Date End Date Smitha Matos MD [address] [place] [address] PCP - General Family Medicine 05/24/18 Kenny Grossman MD 100 [facility] [address] [place] [address] Nephrology 06/07/24 Denisse Ingram NP [address] [place] [address] Urology 08/07/24 Dr. Paco Rodriges MD [facility] Cardiology [address] [place] [address]- Cardiology 06/14/24 Dr. Nancie Lilly MD [address] [id number] Colon and Rectal Surgery 07/27/24 documented as of this encounter
--- OUTSIDE RECORDS SUMMARY | 2025-04-04 12:07 | XMS_ITS | Encounter Summary ---
Author Organization [employer] Address [address] [facility] 7t [place] [address] Care Team Providers Care Commercial Driver'S License Driver Name Role Phone Smitha Matos MD Primary Care Provider +- [phone] Marissa Barbosa PharmD Unavailable [phone] Kenny Grossman MD Unavailable [phone] Denisse Ingram PATIENT'S LIBRARIAN Unavailable Reason for Visit * Reason Onset Date Comments FYI 07/13/2023 Encounter Details Date Type Department Care Team (Late st Contact Info) Description 07/13/2023 Telephone [facility] MEDICINE [address] [place], [place] [phone] Smitha Matos MD [address] [place], [place] [phone] Social History Tobacco Use Types Packs/Day Years [...] Tc shreyas Steve at [facility] [employer] [facility] [employer] calling to inform the PCP the paper [...] on filedocumented in this encounter Care Teams Commercial Driver'S License Driver Relationship Specialty Start Date End Date Smitha Matos MD [address] [place] [address] PCP - General Family Medicine 05/24/18 Marissa Barbosa, PharmD [address] [place] [address] Pharmacist Internal Medicine 08/12/22 08/21/24 Kenny Grossman MD 100 [facility] 200 [place] [address] Nephrology 06/07/24 Denisse Ingram NP [address] [place] [address] Drive [address] [place] [address] Urology 08/07/24 Dr. Paco Rodriges MD [facility] Cardiology [address] [place] [address]- Cardiology 06/14/24 Dr. Nancie Lilly MD [address] [address] Colon and Rectal Surgery 07/27/24 documented as of this encounter
--- OUTSIDE RECORDS SUMMARY | 2025-04-04 12:07 | XMS_ITS | Encounter Summary ---
Author Organization [employer] Address 75 [facility] 7t [place] [address] Care Team Providers Care Cognos Administrator Name Role Phone Carlo Smitha CHOUDHURY Primary Care Provider +- [phone] Marissa Barbosa PharmD Unavailable Kenny Grossman MD Unavailable [phone] Denisse Ingram NP Unavailable Reason for Visit * Reason Comments Med Refill Encounter Details Date Type Department Care Team (Late st Contact Info) Description 08/28/2023 Refill [facility] MEDICINE 230 [place], [place] [phone] Marissa Barbosa, PharmD 230 [place] [address] Social History Tobacco Use Types Packs/Day Years [...] on filedocumented in this encounter Care Teams Cognos Administrator Relationship Specialty Start Date End Date Smitha Matos MD [address] [place] [address] PCP - General Family Medicine 05/24/18 Marissa Barbosa PharmD [address] [place] [address] Pharmacist Internal Medicine 08/12/22 08/21/24 Kenny Grossman MD [address] [place] [address] Nephrology 06/07/24 Denisse Ingram NP [address] [place] [address] Urology 08/07/24 Dr. Paco Rodriges MD [facility] Cardiology [address] [place] [address]- Cardiology 06/14/24 [place] [address] Colon and Rectal Surgery 07/27/24 documented as of this encounter
--- OUTSIDE RECORDS SUMMARY | 2025-04-04 12:07 | XMS_ITS | Encounter Summary ---
Author Organization [employer] Address 75 [facility] 7t [place] [address] Care Team Providers Care Estimator Name Role Phone Smitha Matos MD Primary Care Provider [phone] Kenny Grossman MD Unavailable [phone] Denisse Ingram NP Unavailable Reason for Visit * Reason Onset Date Comments chart prep 04/03/2025 Encounter Details Date Type Department Care Team (Late st Contact Info) Description 04/03/2025 Telephone [facility] MEDICINE 230 [place], [place] [phone] Smitha Matos MD 230 [place], [place] [phone] chart prep Social History Tobacco Use Types Packs/Day Years [...] encounter Miscellaneous Notes * Telephone Encounter - Salima Garay [place] - 04/03/2025 9:22 AM EST Chart Prep Labs: done Images: done Screenings: Not Applicable Vaccines due: Covid Due and Flu Due Referrals: Podiatry Requested notes by Fax. Waiting for notes. Overdue care gaps: A1C, Glucose, GAD7, and Disability documented in this encounter Plan of Treatment [...] documented as of this encounter Care Teams Estimator Relationship Specialty Start Date End Date Smitha Matos MD [address] [place] [address] PCP - General Family Medicine 05/24/18 Kenny Grossman MD 100 [facility] 200 [place] [address] Nephrology 06/07/24 Denisse Ingram NP [address] [place] [address] Urology 08/07/24 Dr. Paco Rodriges MD [facility] Cardiology [address] [place] [address]- Cardiology 06/14/24 Dr. Nancie Lilly MD [address] [address] Colon and Rectal Surgery 07/27/24 documented as of this encounter
[2025-04-04 12:13] LABS: Hematocrit 43.3 % (42.0-52.0); Hemoglobin 13.7 g/dl (14.0-18.0); Mean Corpuscular HGB Conc 31.6 g/dl (31.0-36.0); Mean Corpuscular Hemoglobin 29.4 pg (27.0-33.0); Mean Corpuscular Volume 92.9 fL (80.0-98.0); NRBC Abs Auto 0.000 X10*3/uL (0.0-0.012); NRBC Pct Auto 0.0 /100WBC (0.0-0.2); Platelet Count 195 X10*3/uL (160-400); Red Blood Count 4.66 X10*6/uL (4.60-5.80); White Blood Count 6.5 X10*3/uL (4.8-10.8)
[2025-04-04 12:35] LABS: Alanine Aminotransferase 24 U/L (0-40); Albumin Level 4.5 g/dL (3.5-5.0); Alkaline Phosphatase 69 U/L (39-117); Anion Gap 10 (12-20); Aspartate Amino Transferase 30 U/L (5-37); Blood Urea Nitrogen 12 mg/dL (9-16); Calcium 9.1 mg/dL (8.4-10.2); Carbon Dioxide 29 mmol/L (22-29); Chloride 108 mmol/L (96-108); Estimated Glomerular Filt Rate 57; Potassium 3.6 mmol/L (3.3-5.1); Sodium 143 mmol/L (135-145); Total Protein 7.7 g/dL (6.5-8.0)
[2025-04-04 13:04] LABS: Parathyroid Hormone Intact 108.4 pg/mL (8.7-77.1)
[2025-04-11 19:53] LABS: Testosterone, Free 43.3 pg/mL (30.0-135.0)
== END 2025-04-04 10:16 | disposition home or self-care (01) ==
LOC: HO.HHCL 10:15
PROVIDERS: Nurse Practitioner Family; PCP Family Medicine; Referring Provider Family Medicine; Visit Provider Internal Medicine Hypertension Specialist
DX: N18.9 Chronic kidney disease, unspecified (principal); N28.1 Cyst of kidney, acquired; E21.3 Hyperparathyroidism, unspecified; N52.9 Male erectile dysfunction, unspecified; Z13.1 Encounter for screening for diabetes mellitus; Z13.21 Encounter for screening for nutritional disorder
CPT/HCPCS: 36415; 80053; 81003; 82306; 83036; 83970; 84402; 84403; 85027